=== PATIENT | male | born 1975 | race African-American/Black ===

== ENCOUNTER 2021-09-02 12:31 | Emergency (ER) | payer OTHER, SELFPAY ==
--- NOTE | ~2021-09-02 | XR_ITS ---
EXAMINATION: XR CHEST CLINICAL INFORMATION: Shortness of breath with cough COMPARISON: February 24, 2010 TECHNIQUE: 2 views of the chest were obtained. FINDINGS: No significant abnormality is noted involving the heart, lungs, mediastinum, bony thorax or soft tissues. XR/XR chest 2V IMPRESSION: No acute disease.
[2021-09-02 13:27] VITALS: BP 180/104; PULSE 58; RESP 16; TEMP 36.9; O2SAT 98; BMI 34.4
[2021-09-02 15:01] LABS: Influenza A PCR NEGATIVE (Negative); Influenza B PCR NEGATIVE (Negative); Resp Syncy Virus RNA Qual PCR NEGATIVE (Negative); SARS COV2 PCR INHOUSE NEGATIVE (Negative)
[2021-09-02] MEDS: guaiFEN/Codeine SF 200/20/10ML 10 ML LIQUID PO (17:34)
[2021-09-02] MEDS: dexAMETHasone 2 MG TABLET 10 MG PO (17:34)
[2021-09-02] MEDS: Albuterol/Iprat 2.5/0.5MG 3 ML AMPUL.NEB INHALE (17:54)
[2021-09-02] MEDS: Albuterol Sulfate (0.083%) 2.5 MG/3 ML VIAL.NEB 5 MG INHALE (17:54)
--- NOTE | 2021-09-02 17:54 | ED_ITS ---
HPI - URI/Sore Throat General Chief Complaint: Dyspnea Stated Complaint: SOB Cough Sore Throat Time Seen by Provider: 09/02/21 12:50 Source: patient Mode of arrival: ambulatory Limitations: no limitations History of Present Illness HPI Narrative: Patient with no diagnosis of asthma in the past been having cough wheezing for last 5 months has seen PCP started given him antibiotics and prednisone without any relief comes here with same mucopurulent cough specially at the nighttime and [employer] has some streaks of blood with mucoid phlegm patient has taken last antibiotic course in 06/20 Pain no history of asthma no family history of asthma no new allergen at home or at work no use of chemical patient is a nonsmoker Related Data Previous Rx's Medication Instructions Recorded albuterol sulfate 90 mcg/actuation 2 puff INHALATION Q4-6H PRN #8.5 g 09/02/21 aerosol inhaler (ProAir HFA) codeine 10 mg-guaifenesin 100 mg/5 10 ml PO Q4-6H PRN #237 ml 09/02/21 mL oral liquid dexamethasone 6 mg tablet 6 mg PO DAILY #7 tab 09/02/21 (Decadron) doxycycline hyclate 100 mg tablet 100 mg PO BID #20 tab 09/02/21 Allergies Allergy/AdvReac Type Severity Reaction Status Date / Time No Known Allergies Allergy Verified 09/02/21 13:26 Review of Systems Review of Systems: Yes all other systems are reviewed and are negative PMFSH Social History Social History Advance Directives: No Advance Directives Information Provided: Yes Physical Exam Vital Signs: Vital Signs: Last Vital Signs Temp 98.8 F 09/02/21 18:03 Pulse 53 09/02/21 18:03 Resp 18 09/02/21 18:03 BP 170/101 H 09/02/21 18:03 Pulse Ox 98 09/02/21 18:03 BMI result Body Mass Index 34.4 Appearance: Alert. Oriented X3. No acute distress. Frequent dry cough Eyes: No pallor icterus ENT: Pharynx normal. Oral Mucosa moist Neck: Normal inspection. Neck supple. CVS: Normal heart rate and rhythm. Pulses normal. Respiratory: No respiratory distress. Equal air entry bilateral, bilateral wheezing/rhonchi no crackles equal air entry bilaterally Abdomen: Soft and nontender. Bowel sounds are present, Skin: Skin warm and dry. Normal skin color. Normal skin turgor. Extremities: No lower extremity edema. No calf tenderness Neuro: Oriented X 3. MDM - URI/Sore Throat MDM Narrative Medical decision making narrative: Patient with acute bronchitis/asthma for last 5 months etiology not very clear felt better after nebulizing treatment and Decadron will discharge patient home on doxycycline prednisone and inhalers advised to follow with manager database administration Lab Data Attestation: I reviewed the patient's lab results. Labs: Lab Results 09/02/21 Range/Units 13:37 Influenza Type A (PCR) NEGATIVE (Negative) Influenza Type B (PCR) NEGATIVE (Negative) RSV RNA Qual (PCR) NEGATIVE (Negative) SARS-CoV-2 RNA (RT-PCR) NEGATIVE (Negative) Discharge Plan Discharge Clinical Impression: Acute asthmatic bronchitis Patient Disposition: Home, Self-Care Instructions: Acute Bronchitis (ED) Additional Instructions: Take antibiotics , decadron and inhaler as prescribed Follow-up with manager database administration Prescriptions: New dexamethasone [Decadron] 6 mg tablet 6 mg PO DAILY Qty: 7 RF: 0 codeine-guaifenesin 10-100 mg/5 mL liquid 10 ml PO Q4-6H PRN (Reason: cough) Qty: 237 RF: 0 albuterol sulfate [ProAir HFA] 90 mcg/actuation HFA aerosol inhaler 2 puff inhalation Q4-6H PRN (Reason: Wheezing) Qty: 8.5 RF: 0 doxycycline hyclate 100 mg tablet 100 mg PO BID Qty: 20 RF: 0 Referrals: Vipin Jett MD [Physician] - 10 days Interventions: ED Discharge Assessment Last Done: 09/02/21 19:50 Discharge Date/Time: 09/02/21 19:51
[2021-09-02 17:58] VITALS: O2SAT 96
[2021-09-02 18:03] VITALS: BP 170/101; PULSE 53; RESP 18; TEMP 37.1; O2SAT 98
== END 2021-09-02 19:51 | disposition home or self-care (01) ==
PROVIDERS: Emergency Provider Internal Medicine
DX: J20.9 Acute bronchitis, unspecified (principal); Z20.822 Contact with and (suspected) exposure to COVID-19; R06.02 Shortness of breath; Z79.899 Other long term (current) drug therapy
CPT/HCPCS: 0241U; 36415; 71046; 94640; 94644; 99284; J8540

== ENCOUNTER 2022-04-10 14:36 | Emergency (ER) | payer OTHER, SELFPAY ==
--- NOTE | ~2022-04-10 | CT_ITS ---
EXAMINATION: CT CHEST WITHOUT CONTRAST CLINICAL INFORMATION: Cough and shortness of breath COMPARISON: Chest x-ray performed earlier the same date TECHNIQUE: Multidetector volumetric CT imaging of the chest was done. Axial MIP volume rendering provided. Sagittal and coronal reformatted images were obtained. This CT examination was performed using dose optimization techniques as appropriate, variously including the following: *Automated exposure control *Adjustment of mA and/or kV according to patient size (this includes techniques or standardized protocols for targeted exams where dose is matched to indication/reason for exam; i.e. extremities or head) *Use of iterative reconstruction technique DLP: 327 mGy-cm FINDINGS: LUNGS: Small 2 mm benign calcified granuloma in the right upper lobe on series 5 image 178. No other pulmonary nodules. Minimal subsegmental atelectasis in the lingula. No airspace consolidation. No emphysematous change. Central airways are clear. No bronchial wall thickening or bronchiectasis. MEDIASTINUM: Prominent heart size. No pericardial effusion. Normal caliber thoracic aorta and central pulmonary trunk. No mediastinal or hilar lymphadenopathy. PLEURA: There is no pleural effusion. No pleural mass or thickening. AXILLA: No lymphadenopathy. UPPER ABDOMEN: Unremarkable. OSSEOUS STRUCTURES: No fracture or suspicious osseous lesion. CT/CT chest wo con IMPRESSION: 1. No acute pulmonary process.
--- NOTE | ~2022-04-10 | XR_ITS ---
EXAMINATION: XR CHEST CLINICAL INFORMATION: Cough COMPARISON: Previous chest x-ray most recent August 2021 TECHNIQUE: 2 views of the chest were obtained. FINDINGS: The cardiac and mediastinal contours are stable. The lungs are clear. There is no pleural effusion or pneumothorax. Bony structures are normal. XR/XR chest 2V IMPRESSION: Unremarkable exam.
[2022-04-10 16:00] VITALS: BP 145/80; PULSE 61; RESP 18; TEMP 36.8; O2SAT 97; BMI 36.6
[2022-04-10 16:27] LABS: COVID-19 Test Negative (Negative); IDNOW Serial# 16C4AD1C
[2022-04-10 18:46] VITALS: BP 212/103; PULSE 56; RESP 16; TEMP 37.1; O2SAT 100
--- NOTE | 2022-04-10 19:04 | ECG_ITS ---
Test Reason : HYPERTENSION Blood Pressure : / mmHG Vent. Rate : 048 BPM Atrial Rate : 048 BPM P-R Int : 194 ms QRS Dur : 100 ms QT Int : 412 ms P-R-T Axes : 017 -08 -05 degrees QTc Int : 368 ms Sinus bradycardia Otherwise normal ECG When compared with ECG of 24-FEB-2010 08:59, Nonspecific T wave abnormality now evident in Lateral leads Referred By: Elza Vicente Electronically Signed By:SELENE TIWARI MD
--- NOTE | 2022-04-10 19:24 | ED.URI ---
HPI - URI/Sore Throat General Chief Complaint: Upper Respiratory Symptoms Stated Complaint: SOB COUGH Time Seen by Provider: 04/10/22 18:48 Source: patient and family Mode of arrival: ambulatory Limitations: no limitations History of Present Illness HPI Narrative: 47-year-old male with a history of PTSD, GERD, asthma, chronic cough presents with cough for the last 4 weeks. Patient tells me that 1 year ago he had a cough that lingered for about 6 months. He saw a cigarette inspector and a petroleum engineering professor. Per patient he had normal PFTs, normal endoscopy. He was started on albuterol MDI and a PPI. He did not feel like it helped. The cough resolved after about 6 months. He reports of the last 4 weeks his cough has worsened. Sometimes he is wheezing. He has chest discomfort with coughing. When he has coughing he has sits and when he has fits he has shortness of breath. No leg swelling or leg pain. + tactile temp. Cough is not productive. He does have daily vomiting and reflux symptoms. Using albuterol MDI with continued symptoms. 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 Cannot recall any specific exposures. No recent travel or sick contacts. Ran out of his blood pressure medication 1 week ago. Is waiting for refill from his primary care Related Data Previous Rx's Medication Instructions Recorded albuterol sulfate 90 mcg/actuation 2 puff inhalation Q4-6H PRN 09/02/21 aerosol inhaler (ProAir HFA) Wheezing #8.5 grams codeine 10 mg-guaifenesin 100 mg/5 10 ml PO Q4-6H PRN cough #237 mL 09/02/21 mL oral liquid dexamethasone 6 mg tablet 6 mg PO DAILY #7 tabs 09/02/21 (Decadron) doxycycline hyclate 100 mg tablet 100 mg PO BID #20 tabs 09/02/21 albuterol sulfate 90 mcg/actuation 2 puff inhalation Q4-6H PRN 04/10/22 aerosol inhaler shortness of breath or wheezing #8.5 grams codeine 10 mg-guaifenesin 100 mg/5 5 ml PO Q6H PRN cough #118 mL 04/10/22 mL oral liquid (Virtussin AC) doxycycline monohydrate 100 mg 100 mg PO BID 7 days #14 caps 04/10/22 capsule losartan 50 mg tablet 50 mg PO DAILY #30 tabs 04/10/22 prednisone 20 mg tablet 40 mg PO DAILY #14 tabs 04/10/22 Allergies Allergy/AdvReac Type Severity Reaction Status Date / Time No Known Allergies Allergy Verified 04/10/22 16:00 Review of Systems Review of Systems: Yes all other systems are reviewed and are negative Constitutional: Constitutional: Reports no additional constitutional complaints, Denies body ache(s), Denies chills, Denies fever(s), Denies headache(s) and Denies weakness Eyes: Eyes: Reports no additional eye complaints and Denies change in vision ENT: Reports system reviewed and no additional complaints, except as documented, Denies dizziness, Denies headache(s), Denies nasal congestion, Denies nasal discharge and Denies neck pain Cardiovascular: Cardiovascular: Reports no additional cardiovascular complaints, Denies chest pain, Denies leg edema and Reports dyspnea Respiratory: Respiratory: Reports no additional respiratory complaints, Reports cough, Reports dyspnea and Reports wheezing Gastrointestinal: Gastrointestinal: Reports no additional gastrointestinal complaints, Denies abdominal pain, Denies diarrhea, Reports nausea and Reports vomiting Genitourinary: Genitourinary: Denies urinary incontinence Musculoskeletal: Musculoskeletal: Reports no additional musculoskeletal complaints, Denies back pain, Denies arthralgias, Denies joint swelling, Denies neck pain, Denies numbness and Denies tingling Integumentary/Breasts: Skin/Breast: Reports system reviewed and no additional complaints, except as docu and Denies rash Neurologic: Denies Abnormal speech present, Denies dizziness, Denies headache(s), Denies numbness, Denies tingling and Denies weakness Allergic/Immunologic: Allergic/Immunologic: Reports wheezing PMFSH Past Medical History Attestation statement: The following information was validated with the patient. Source: old records reviewed and nursing notes reviewed Social History Social History Advance Directives: No Advance Directives Information Provided: Yes Physical Exam Vital Signs: Vital Signs: Last Vital Signs Temp 98.7 F 04/10/22 18:46 Pulse 53 04/10/22 20:00 Resp 18 04/10/22 20:00 BP 172/98 H 04/10/22 20:00 Pulse Ox 98 04/10/22 20:51 O2 Del Method 04/10/22 20:51 BMI result Body Mass Index 36.6 Const: General: cooperative, healthy appearing, comfortable and no acute distress Orientation/consciousness: patient oriented x3 Limitations: no limitations HEENT: Head: Yes normal to inspection Ears: hearing grossly normal bilaterally General nose exam: Normal external nose present Face and sinus: Yes normal facial exam Mouth: Normal oral and palatal mucosa present Throat: Yes posterior oropharynx normal Eyes: General: appearance normal, both eyes and all related structures Pupils: Equal, round and reactive pupils present Neck: Neck: Yes normal visual inspection Chest: Chest palpation & inspection: normal inspection of the chest Resp: Other: Frequent bronchospastic cough Effort & Inspection: normal respiratory effort Auscultation: clear to auscultation bilaterally Cardio: Rate: regular rate Rhythm: regular rhythm Peripheral pulses: Peripheral pulses 2+ throughout GI: Inspection: Yes normal to inspection Palpation (GI): Soft to palpation and nontender Auscultation: normal bowel sounds Back/Spine/Pelvis: Thoracic/Lumbar Spine: thoracic and lumbar spine normal to inspection Skin: General skin exam: no rashes or lesions noted Neuro: General: patient oriented x3, no focal motor deficits and normal sensation to monofilament Cranial nerves: Yes Equal, round and reactive pupils present Cognition (Neuro): normal cognition Speech: No Abnormal speech present Gait exam (Neuro): Normal gait present Motor exam (neuro): 5/5 motor strength present throughout Extrem: General: Yes normal to inspection, Yes no pedal edema and Yes no calf tenderness Course Course Course Narrative: 2039-EKG shows T-wave inversions in lead 3. Consider PE. Will order D-dimer Reevaluation(s) Reevaluation #1: 9523-[id number] is negative. Will obtain CT chest to rule out occult pneumonia Reevaluation #2: 2310-CT chest is negative for any infection. All labs unremarkable with exception of mildly elevated BUN and creatinine which was discussed with the patient. No baseline for comparison Likely secondary to uncontrolled hypertension. Repeat blood pressure 172/98 on discharge after patient received his dose of losartan. Will treat for bronchitis with course of prednisone, antibiotics, MDI, cough suppressant Refill losartan Sats are normal. Reviewed worrisome signs and symptoms of when to return to the emergency department. Comfortable discharge home. MDM - URI/Sore Throat MDM Narrative Medical decision making narrative: 47-year-old male with history of GERD, asthma, cough in the past here with 4 weeks of cough with associated chest discomfort with coughing, coughing fits with associated shortness of breath, tactile temps and vomiting. On arrival patient is hypertensive. Asymptomatic. He ran out of his blood pressure medication is waiting for refill from his primary care. Lungs are clear. No hypoxia or tachypnea. Does have frequent bronchospastic cough. Will check labs, chest x-ray, COVID screen, EKG. May need CT Considered asthma exacerbation, pneumonia, chf, PE -low concern for PE with negative D-dimer, no clinical findings concerning for DVT, no hypoxia or tachypnea or tachycardia Medical Records Attestation: I reviewed the patient's medical records. Lab Data Attestation: I reviewed the patient's lab results. Result diagrams: 04/10/22 19:43 04/10/22 19:43 Labs: Lab Results 04/10/22 04/10/22 04/10/22 Range/Units 16:04 19:43 19:43 WBC 6.3 (4.8-10.8) X10*3/uL RBC 4.48 L (4.60-5.80) X10*6/uL Hgb 12.5 L (14.0-18.0) g/dl Hct 37.6 L (42.0-52.0) % MCV 83.9 (80.0-98.0) fL MCH 27.9 (27.0-33.0) pg MCHC 33.2 (31.0-36.0) g/dl RDW 13.2 (11.0-16.0) % Plt Count 243 (160-400) X10*3/uL MPV 11.5 (9.4-12.4) fL Immature Gran % (Auto) 0.2 (0.0-0.4) % Neut % (Auto) 47.2 (45-73) % Lymph % (Auto) 42.0 H (20-40) % [place] % (Auto) 7.5 (2-11) % Eos % (Auto) 2.6 (0-4) % Baso % (Auto) 0.5 (0-2) % Lymph # (Auto) 2.6 (1.2-4.9) X10*3/uL [place] # (Auto) 0.5 (0.1-1.2) X10*3/uL Eos # (Auto) 0.2 (0.0-0.4) X10*3/uL Baso # (Auto) 0.0 (0.0-0.2) X10*3/uL Abs Immat Gran (auto) 0.01 (0.00-0.03) X10*3/uL Absolute Neuts (auto) 3.0 (2.0-8.3) x10*3/uL Absolute Nucleated RBC 0.000 (0.0-0.012) X10*3/uL Nucleated RBC % (auto) 0.0 (0.0-0.2) /100WBC PT (10.0-13.1) SEC INR (0.9-1.1) D-Dimer High Sensitivty NG/ML Sodium 140 (135-145) mmol/L Potassium 4.3 (3.3-5.1) mmol/L Chloride 106 (96-108) mmol/L Carbon Dioxide 26 (22-29) mmol/L Anion Gap 12 (12-20) BUN 18 H (9-16) mg/dL Creatinine 1.41 H (0.5-1.4) mg/dL Estim Creat Clear Calc 73.5 Estimated GFR 54 Random Glucose 95 (60-115) mg/dL Calcium 9.2 (8.4-10.2) mg/dL Total Bilirubin 0.4 (0.0-1.0) mg/dL Direct Bilirubin 0.2 (0.0-0.5) mg/dL AST 18 (5-37) U/L ALT 33 (0-40) U/L Alkaline Phosphatase 78 (39-117) U/L Troponin I High Sens (<3.5-35.0) ng/L B-Natriuretic Peptide (<100) pg/mL Total Protein 7.4 (6.5-8.0) g/dL Albumin 4.8 (3.5-5.0) g/dL COVID-19 (SAMUEL) Negative (Negative) COVID-19 Clin Com See Note 04/10/22 04/10/22 Range/Units 19:43 21:00 WBC (4.8-10.8) X10*3/uL RBC (4.60-5.80) X10*6/uL Hgb (14.0-18.0) g/dl Hct (42.0-52.0) % MCV (80.0-98.0) fL MCH (27.0-33.0) pg MCHC (31.0-36.0) g/dl RDW (11.0-16.0) % Plt Count (160-400) X10*3/uL MPV (9.4-12.4) fL Immature Gran % (Auto) (0.0-0.4) % Neut % (Auto) (45-73) % Lymph % (Auto) (20-40) % [place] % (Auto) (2-11) % Eos % (Auto) (0-4) % Baso % (Auto) (0-2) % Lymph # (Auto) (1.2-4.9) X10*3/uL [place] # (Auto) (0.1-1.2) X10*3/uL Eos # (Auto) (0.0-0.4) X10*3/uL Baso # (Auto) (0.0-0.2) X10*3/uL Abs Immat Gran (auto) (0.00-0.03) X10*3/uL Absolute Neuts (auto) (2.0-8.3) x10*3/uL Absolute Nucleated RBC (0.0-0.012) X10*3/uL Nucleated RBC % (auto) (0.0-0.2) /100WBC PT 11.6 (10.0-13.1) SEC INR 1.0 (0.9-1.1) D-Dimer High Sensitivty < 150 NG/ML Sodium (135-145) mmol/L Potassium (3.3-5.1) mmol/L Chloride (96-108) mmol/L Carbon Dioxide (22-29) mmol/L Anion Gap (12-20) BUN (9-16) mg/dL Creatinine (0.5-1.4) mg/dL Estim Creat Clear Calc Estimated GFR Random Glucose (60-115) mg/dL Calcium (8.4-10.2) mg/dL Total Bilirubin (0.0-1.0) mg/dL Direct Bilirubin (0.0-0.5) mg/dL AST (5-37) U/L ALT (0-40) U/L Alkaline Phosphatase (39-117) U/L Troponin I High Sens 6.0 (<3.5-35.0) ng/L B-Natriuretic Peptide 21 (<100) pg/mL Total Protein (6.5-8.0) g/dL Albumin (3.5-5.0) g/dL COVID-19 (SAMUEL) (Negative) COVID-19 Clin Com Imaging Data Chest x-ray: Attestation: I personally reviewed and interpreted this imaging study as follows: Radiologist's impression: EXAMINATION: XR CHEST CLINICAL INFORMATION: Cough COMPARISON: Previous chest x-ray most recent August 2021 TECHNIQUE: 2 views of the chest were obtained. FINDINGS: The cardiac and mediastinal contours are stable. The lungs are clear. There is no pleural effusion or pneumothorax. Bony structures are normal. XR/XR chest 2V IMPRESSION: Unremarkable exam. CT scan - chest: Attestation: I personally reviewed and interpreted this imaging study as follows: Radiologist's impression: FINDINGS: LUNGS: Small 2 mm benign calcified granuloma in the right upper lobe on series 5 image 178. No other pulmonary nodules. Minimal subsegmental atelectasis in the lingula. No airspace consolidation. No emphysematous change. Central airways are clear. No bronchial wall thickening or bronchiectasis.? MEDIASTINUM: Prominent heart size. No pericardial effusion. Normal caliber thoracic aorta and central pulmonary trunk. No mediastinal or hilar lymphadenopathy.? PLEURA: There is no pleural effusion. No pleural mass or thickening.? AXILLA: No lymphadenopathy.? UPPER ABDOMEN: Unremarkable.? OSSEOUS STRUCTURES: No fracture or suspicious osseous lesion.? CT/CT chest wo con IMPRESSION: ? 1. No acute pulmonary process.? ECG Data Attestation: I personally reviewed and interpreted this ECG as follows: ECG interpretation date: 04/10/22 ECG interpretation time: 20:28 Interpretation: Sinus bradycardia with a rate of 48, normal [place], normal QRS, T-wave inversions in leads 3 Discharge Plan Discharge Clinical Impression: Bronchitis, Hypertension Patient Disposition: Home, Self-Care Instructions: Acute Bronchitis (ED), Chronic Hypertension (ED) Additional Instructions: Your blood work looks very good with the exception of your kidney function being mildly elevated. Please follow-up with her primary care doctor to have this recheck. CT scan looks normal you received a copy of this Follow-up with your primary care doctor in regards to her symptoms Prescriptions: New albuterol sulfate 90 mcg/actuation HFA aerosol inhaler 2 puff inhalation Q4-6H PRN (Reason: shortness of breath or wheezing) Qty: 8.5 0RF prednisone 20 mg tablet 40 mg PO DAILY Qty: 14 0RF doxycycline monohydrate 100 mg capsule 100 mg PO BID 7 Days Qty: 14 0RF losartan 50 mg tablet 50 mg PO DAILY Qty: 30 0RF codeine-guaifenesin [Virtussin AC] 10-100 mg/5 mL liquid 5 ml PO Q6H PRN (Reason: cough) Qty: 118 0RF No Action dexamethasone [Decadron] 6 mg tablet 6 mg PO DAILY Qty: 7 0RF codeine-guaifenesin 10-100 mg/5 mL liquid 10 ml PO Q4-6H PRN (Reason: cough) Qty: 237 0RF albuterol sulfate [ProAir HFA] 90 mcg/actuation HFA aerosol inhaler 2 puff inhalation Q4-6H PRN (Reason: Wheezing) Qty: 8.5 0RF doxycycline hyclate 100 mg tablet 100 mg PO BID Qty: 20 0RF Referrals: Physician,Unknown J [Primary Care Provider] - Stand Alone Forms: Work/School Release Interventions: ED Discharge Assessment Last Done: 04/10/22 23:05 Discharge Date/Time: 04/10/22 23:06
[2022-04-10] MEDS: Losartan Potassium 50 MG TABLET PO (19:34)
[2022-04-10 19:47] LABS: MANUAL DIFF FLAG NO
[2022-04-10 19:49] LABS: Basophils Percent Auto 0.5 % (0-2); Eosinophils Absolute Auto 0.2 X10*3/uL (0.0-0.4); Eosinophils Percent Auto 2.6 % (0-4); Hematocrit 37.6 % (42.0-52.0); Hemoglobin 12.5 g/dl (14.0-18.0); Imm Gran Abs Auto 0.01 X10*3/uL (0.00-0.03); Imm Gran Pct Auto 0.2 % (0.0-0.4); Lymphocytes Absolute Auto 2.6 X10*3/uL (1.2-4.9); Mean Corpuscular HGB Conc 33.2 g/dl (31.0-36.0); Mean Corpuscular Hemoglobin 27.9 pg (27.0-33.0); Mean Corpuscular Volume 83.9 fL (80.0-98.0); Mean Platelet Volume 11.5 fL (9.4-12.4); Monocytes Absolute Auto 0.5 X10*3/uL (0.1-1.2); Monocytes Percent Auto 7.5 % (2-11); Neutrophils Percent Auto 47.2 % (45-73); Platelet Count 243 X10*3/uL (160-400); Red Blood Count 4.48 X10*6/uL (4.60-5.80); Red Cell Distribution Width 13.2 % (11.0-16.0); White Blood Count 6.3 X10*3/uL (4.8-10.8)
[2022-04-10 20:00] VITALS: BP 172/98; PULSE 53; RESP 18; O2SAT 98
[2022-04-10 20:05] LABS: Alanine Aminotransferase 33 U/L (0-40); Albumin Level 4.8 g/dL (3.5-5.0); Alkaline Phosphatase 78 U/L (39-117); Anion Gap 12 (12-20); Aspartate Amino Transferase 18 U/L (5-37); Bilirubin Direct 0.2 mg/dL (0.0-0.5); Bilirubin Total 0.4 mg/dL (0.0-1.0); Blood Urea Nitrogen 18 mg/dL (9-16); Calcium 9.2 mg/dL (8.4-10.2); Carbon Dioxide 26 mmol/L (22-29); Chloride 106 mmol/L (96-108); Creatinine Clr Calc Pharmacy 73.5; Estimated Glomerular Filt Rate 54; Glucose Random 95 mg/dL (60-115); Potassium 4.3 mmol/L (3.3-5.1); Sodium 140 mmol/L (135-145); Total Protein 7.4 g/dL (6.5-8.0)
[2022-04-10 20:08] LABS: B Type Natriuretic Peptide 21 pg/mL (<100)
[2022-04-10 20:51] VITALS: O2SAT 98
[2022-04-10 21:16] LABS: Prothrombin Time 11.6 SEC (10.0-13.1)
[2022-04-10 21:21] LABS: D Dimer High Sensitivity < 150 NG/ML
== END 2022-04-10 23:06 | disposition home or self-care (01) ==
PROVIDERS: Nurse Practitioner Family; Emergency Provider Emergency Medicine
DX: J40 Bronchitis, not specified as acute or chronic (principal); R06.02 Shortness of breath; R05.9 Cough, unspecified; I10 Essential (primary) hypertension; Z20.822 Contact with and (suspected) exposure to COVID-19; Z79.899 Other long term (current) drug therapy
CPT/HCPCS: 36415; 71046; 71250; 80048; 80076; 83880; 84484; 85025; 85379; 85610; 87635; 93005; 99284

== ENCOUNTER 2022-04-19 11:59 | Emergency (ER) | payer OTHER, SELFPAY ==
--- NOTE | ~2022-04-19 | XR_ITS ---
EXAMINATION: XR CHEST CLINICAL INFORMATION: Choking COMPARISON: 04/10/2022 TECHNIQUE: 2 views of the chest were obtained. FINDINGS: No significant abnormality is noted involving the heart, lungs, mediastinum, bony thorax or soft tissues. XR/XR chest 2V IMPRESSION: Unremarkable examination.
--- NOTE | ~2022-04-19 | CT_ITS ---
EXAMINATION: CT HEAD W/O IV CONTRAST CT CERVICAL SPINE W/O IV CONTRAST CLINICAL INFORMATION: History of syncope and head trauma. COMPARISON: Brain MRI from 08/23/2021 TECHNIQUE: Head - Contiguous axial imaging of the head was performed from the skull base to the vertex without the administration of intravenous contrast, and axial images are reconstructed at 2 mm and 5 mm slice thickness. Cervical spine - A volumetric, helical CT acquisition of the cervical spine was obtained without contrast; in addition to the standard set of axial images, multiplanar reformatted images were provided in the coronal and sagittal imaging planes. This CT examination was performed using dose optimization techniques as appropriate, variously including the following: *Automated exposure control *Adjustment of mA and/or kV according to patient size (this includes techniques or standardized protocols for targeted exams where dose is matched to indication/reason for exam; i.e. extremities or head) *Use of iterative reconstruction technique DLP: 1417 mGy-cm (total) FINDINGS: HEAD: The brain parenchyma has normal attenuation. No evidence of intracranial hemorrhage, major vascular territory infarction, focal mass effect or midline shift. [place] to white matter differentiation is preserved. The ventricles have normal size and configuration. No extra-axial fluid collections. Small left frontal scalp hematoma is present. The calvarium is intact and the visualized paranasal sinuses, mastoid air cells and middle ear cavities are clear. The temporomandibular joints are unremarkable. The orbits and globes are unremarkable. CERVICAL SPINE: Mild dextrocurvature of the cervical spine. The craniocervical junction is normal. The occipital condyles, dens and atlantodental articulation are intact. The vertebral body heights and alignment are maintained. No fractures in the anterior or posterior elements. No prevertebral soft tissue swelling. Mild multilevel discovertebral degenerative change and uncovertebral joint hypertrophy without significant canal or significant neural foraminal stenosis. No hematoma in the visualized neck. The examined lung apices are clear. Thyroid gland is normal. CT/CT cervical spine wo con IMPRESSION: * There is a small left frontal scalp hematoma without calvarial fracture. No acute intracranial pathology. * No fracture or malalignment in the mildly degenerated cervical spine.
[2022-04-19 12:02] VITALS: BP 167/94; PULSE 73; RESP 18; TEMP 37.2; O2SAT 97; BMI 34.4
--- NOTE | 2022-04-19 12:07 | ECG_ITS ---
Test Reason : SYNCOPE Blood Pressure : / mmHG Vent. Rate : 072 BPM Atrial Rate : 072 BPM P-R Int : 178 ms QRS Dur : 116 ms QT Int : 376 ms P-R-T Axes : 037 -11 010 degrees QTc Int : 411 ms Normal sinus rhythm Possible Left atrial enlargement Left ventricular hypertrophy with QRS widening ( R in aVL , [place] product ) Nonspecific T wave abnormality Abnormal ECG When compared with ECG of 10-APR-2022 20:28, Vent. rate has increased BY 24 BPM Referred By: Generic ED Physician Electronically Signed By:Reinaldo Lake
[2022-04-19 12:26] LABS: MANUAL DIFF FLAG NO
[2022-04-19 12:27] LABS: Basophils Percent Auto 0.3 % (0-2); Eosinophils Absolute Auto 0.2 X10*3/uL (0.0-0.4); Eosinophils Percent Auto 2.8 % (0-4); Hematocrit 34.5 % (42.0-52.0); Hemoglobin 11.5 g/dl (14.0-18.0); Imm Gran Abs Auto 0.03 X10*3/uL (0.00-0.03); Imm Gran Pct Auto 0.5 % (0.0-0.4); Lymphocytes Absolute Auto 2.4 X10*3/uL (1.2-4.9); Mean Corpuscular HGB Conc 33.3 g/dl (31.0-36.0); Mean Corpuscular Hemoglobin 28.5 pg (27.0-33.0); Mean Corpuscular Volume 85.6 fL (80.0-98.0); Mean Platelet Volume 11.2 fL (9.4-12.4); Monocytes Absolute Auto 0.4 X10*3/uL (0.1-1.2); Monocytes Percent Auto 6.1 % (2-11); Neutrophils Absolute Auto 3.1 x10*3/uL (2.0-8.3); Neutrophils Percent Auto 51.3 % (45-73); Platelet Count 217 X10*3/uL (160-400); Red Blood Count 4.03 X10*6/uL (4.60-5.80); Red Cell Distribution Width 13.6 % (11.0-16.0)
[2022-04-19 12:42] LABS: Appearance Urine CLEAR; Color Urine STRAW; Glucose Urine UA NEG (NEG); Leukocyte Esterase Urine NEG (NEG); Nitrite Urine NEG (NEG); PH 5.5 (5.0-8.0); Specific Gravity - Urine 1.025 (1.005-1.025); Urine Blood NEG (NEG); Urine Ketones NEG (NEG); Urine Protein NEG (NEG-TRACE)
[2022-04-19 12:51] LABS: Alanine Aminotransferase 27 U/L (0-40); Albumin Level 4.2 g/dL (3.5-5.0); Alkaline Phosphatase 89 U/L (39-117); Anion Gap 11 (12-20); Aspartate Amino Transferase 13 U/L (5-37); Bilirubin Total 0.4 mg/dL (0.0-1.0); Blood Urea Nitrogen 17 mg/dL (9-16); Calcium 8.8 mg/dL (8.4-10.2); Carbon Dioxide 27 mmol/L (22-29); Chloride 107 mmol/L (96-108); Creatinine Clr Calc Pharmacy 75.2; Estimated Glomerular Filt Rate 55; Glucose Random 148 mg/dL (60-115); Potassium 4.2 mmol/L (3.3-5.1); Sodium 141 mmol/L (135-145); Total Protein 6.4 g/dL (6.5-8.0)
[2022-04-19 12:53] LABS: Troponin-I High Sensitivity 4.5 ng/L (<3.5-35.0)
[2022-04-19 12:56] LABS: Amphetamine Screen Urine Not Detected (Not Detect); Barbiturates, Urine Not Detected (Not Detect); Benzodiazepines Screen Urine Not Detected (Not Detect); Cannabinoid Screen Urine Not Detected (Not Detect); Cocaine Screen Urine Not Detected (Not Detect); Fentanyl, urine Not Detected (Not Detect); Opiate Screen Urine Not Detected (Not Detect); Phencyclidine Screen Urine Not Detected (Not Detect)
[2022-04-19 13:22] LABS: Glucose, Whole Blood 143 mg/dL (60-115)
[2022-04-19 13:51] VITALS: PULSE 59; RESP 17
--- NOTE | 2022-04-19 13:51 | PC.NURSE ---
sb on monitor, had a coughing fit while eating and bent over and passed out, denies smith or neck pain, awaiting md julio
--- NOTE | 2022-04-19 14:22 | ED.SYNCOPE ---
HPI - Syncope General Chief Complaint: Syncope Stated Complaint: passed out at work Time Seen by Provider: 04/19/22 13:59 Source: patient, RN notes reviewed and old records reviewed Mode of arrival: ambulatory Limitations: no limitations History of Present Illness HPI narrative: This is a 47-year-old male, with a past medical history of hypertension, asthma, and migraines who presents today with complaints of syncopal episode which occurred at 11:00AM today. Patient states that while he was at work, on his lunch break in his air conditioned car, he was drinking water, and felt like the water was going down the wrong tube , so he opened up his car door to spit the water out when ultimately he lost consciousness for several seconds, and woke up on the pavement. The syncopal episode was unwitnessed, but states that he only lost consciousness for 5 seconds as his boss came over to help him. He states when he woke up he felt like he was thrashing his entire body as he kept scraping his left side of his forehead on the pavement. Patient states that on his way over to the emergency department he felt as though his body was uncontrollably shaking but was conscious during this. He reports that upon arrival he did vomit all over himself. He denies biting his tongue, or loss of bladder or bowel control. Patient reports that he is now feeling okay and is completely asymptomatic. He states that he was feeling well this morning and had no symptoms prior to his syncopal episode. He denies any headaches, visual changes, weakness, chest pain, shortness of breath, abdominal pain, or diarrhea. He denies history of similar symptoms in the past, denies history is seizures in the past. Denies family history of seizure disorders. Reports history of syncopal episode after coughing fit two years ago, but did not seek medical treatment then. Tetanus immunization not up to date. Denies any other complaints or concerns at this time. MD complaint: loss of consciousness Onset (ago): hour(s) Duration of episode: 5 -: second(s) Prodromal symptoms: none Witnessed: No Context: at rest Injuries sustained associated with event: face and head Current symptoms: none Treatments prior to arrival: none Related Data Previous Rx's Medication Instructions Recorded albuterol sulfate 90 mcg/actuation 2 puff inhalation Q4-6H PRN 09/02/21 aerosol inhaler (ProAir HFA) Wheezing #8.5 grams codeine 10 mg-guaifenesin 100 mg/5 10 ml PO Q4-6H PRN cough #237 mL 09/02/21 mL oral liquid dexamethasone 6 mg tablet 6 mg PO DAILY #7 tabs 09/02/21 (Decadron) doxycycline hyclate 100 mg tablet 100 mg PO BID #20 tabs 09/02/21 albuterol sulfate 90 mcg/actuation 2 puff inhalation Q4-6H PRN 04/10/22 aerosol inhaler shortness of breath or wheezing #8.5 grams codeine 10 mg-guaifenesin 100 mg/5 5 ml PO Q6H PRN cough #118 mL 04/10/22 mL oral liquid (Virtussin AC) doxycycline monohydrate 100 mg 100 mg PO BID 7 days #14 caps 04/10/22 capsule losartan 50 mg tablet 50 mg PO DAILY #30 tabs 04/10/22 prednisone 20 mg tablet 40 mg PO DAILY #14 tabs 04/10/22 Allergies Allergy/AdvReac Type Severity Reaction Status Date / Time No Known Allergies Allergy Verified 04/19/22 12:01 Review of Systems Review of Systems: Constitutional : No Weight loss, No Fever, No Chills, No Night Sweats, No Fatigue, No Malaise ENT/Mouth : No Hearing loss, No Ear Pain, No Nasal Congestion, No Sinus Pain, No Hoarseness, No sore throat, No Rhinorrhea, No Swallowing Difficulty Eyes: No Eye Pain, No Swelling, No Redness, No Foreign Body, No Discharge, No Vision Changes Cardiovascular : No Chest Pain, No SOB, No Dyspnea on Exertion, No Orthopnea, No Edema, No Palpitations Respiratory : No Cough, No Sputum, No Wheezing, No Smoke Exposure, No Dyspnea Gastrointestinal : No Nausea, No Vomiting, No Diarrhea, No Constipation, No abdominal Pain, No Hematochezia, No Melena Genitourinary : no irregular bleeding, No Dysuria, No Urinary Frequency, No Hematuria, No Urinary Incontinence, No Urgency, No Flank Pain, No Urinary Flow Changes, No Hesitancy Musculoskeletal : No joint pain, No Myalgias, No Joint Swelling Skin : +abrasions, No Skin Lesions, No rash Neuro : +syncope, No Weakness, No Numbness, No Paresthesias, No Dizziness, No Headache Psych : No Anxiety/Panic, No Depression, No SI/HI/AH/VH, No Social Issues, Heme/Lymph: No Bruising, No Bleeding,No Lymphadenopathy Endocrine : No Polyuria, No Polydipsia, No Temperature Intolerance Yes all other systems are reviewed and are negative [facility] Social History Social History Advance Directives: No Advance Directives Information Provided: Yes Physical Exam Vital Signs: Vital Signs: Last Vital Signs Temp 99.0 F 04/19/22 12:02 Pulse 59 04/19/22 13:51 Resp 17 04/19/22 13:51 BP 167/94 H 04/19/22 12:02 Pulse Ox 97 04/19/22 12:02 O2 Del Method 04/19/22 12:02 BMI result Body Mass Index 34.4 Vital signs have been reviewed as normal and appeared to be correct. Blood pressure 167/94. Heart rate normal. Respiration rate normal. Temperature normal. Oxygen saturation normal. Appearance: Alert. Oriented X3. No acute distress. Head: Normal external exam. Normocephalic. Atraumatic. No Barron signs noted. No raccoon eyes noted Eyes: PERRLA. EOMI. Conjunctiva and sclera normal. Eyelids normal. ENT: EAC normal. TM's Normal. No septal hematoma noted. No hemotympanum noted. Pharynx normal. Uvula midline. Moist mucous membranes. No lesions/ulcerations or masses noted on the tongue. Normal voice. No trismus noted. No drooling noted. No muffled voice noted. Neck: Normal inspection. Neck supple. FROM. No adenopathy. Thyroid Normal. No tracheal deviation noted. No crepitus is noted. No meningeal signs. No neck mass noted. No signs of trauma noted. CVS: Normal heart rate and rhythm. Heart sound normal. Pulses normal throughout. No murmurs/rales/gallops. Respiratory: No respiratory distress. Painless inspiration. Breath sounds normal. No wheezes/rales/rhonchi noted. Chest nontender. No crepitus is noted. No signs of trauma noted. No accessory muscle usage noted or decreased air movement noted. No signs of trauma. Abdomen: Soft and nontender. Bowel sounds normal in all 4 quadrants. No distention noted. No organomegaly noted. No visible injury noted. Back: No CVA tenderness. Full range of motion noted. Nontender. No signs of trauma. Patient neuro intact bilaterally and distally on all 4 extremities. Patient's reflexes intact bilaterally and distally on all 4 extremities. No rashes/lesion/induration/fluctuance or signs of infection noted. Skin: Left forehead with two regions of superficial abrasions and surrounding edema. Skin warm and dry. Normal skin color. Normal skin turgor. No rashes/lesions/lacerations noted. Extremities: No lower extremity edema. No calf tenderness is noted. Extremities exhibit normal range of motion and nontender. Neuro: Oriented X 3. No motor deficit. No sensory deficit. Reflexes normal. Normal steady gait. No focal neuro deficits noted. CN's II-XII intact bilaterally. Negative pronator drift. Vascular: + radial pulses/+ 2 distal pedal pulses/+2 dorsalis pedis b/l. Normal cap refill. No cyanosis noted to upper extremity nails and lower extremity toes nails. Course Course Course Narrative: This is a 47-year-old male, with a past medical history of hypertension, asthma, and migraines who presents today with complaints of syncopal episode which occurred at 11:00AM today. Plan: Labs, UA, EKG, chest x-ray, CT head and CT cervical spine ordered. Reevaluation(s) Reevaluation #1: Head and neck CT unremarkable. Patient's workup was unremarkable, patient's symptoms likely secondary to post tussive syncope. Case discussed with Dr. Boateng. No additional labs or imaging indicated at this time. Patient requesting to go home, did not want to be admitted. Forehead abrasions cleansed with saline and dressed with bacitracin. Tetanus updated today. Given referral for cardiology follow up. Time: 16:46 MDM - Syncope Medical Records Attestation: I reviewed the patient's medical records. Lab Data Attestation: I reviewed the patient's lab results. Result diagrams: 04/19/22 12:20 04/19/22 12:21 Labs: Lab Results 04/19/22 04/19/22 04/19/22 Range/Units 12:08 12:20 12:20 WBC 6.0 (4.8-10.8) X10*3/uL RBC 4.03 L (4.60-5.80) X10*6/uL Hgb 11.5 L (14.0-18.0) g/dl Hct 34.5 L (42.0-52.0) % MCV 85.6 (80.0-98.0) fL MCH 28.5 (27.0-33.0) pg MCHC 33.3 (31.0-36.0) g/dl RDW 13.6 (11.0-16.0) % Plt Count 217 (160-400) X10*3/uL MPV 11.2 (9.4-12.4) fL Immature Gran % (Auto) 0.5 H (0.0-0.4) % Neut % (Auto) 51.3 (45-73) % Lymph % (Auto) 39.0 (20-40) % [place] % (Auto) 6.1 (2-11) % Eos % (Auto) 2.8 (0-4) % Baso % (Auto) 0.3 (0-2) % Lymph # (Auto) 2.4 (1.2-4.9) X10*3/uL [place] # (Auto) 0.4 (0.1-1.2) X10*3/uL Eos # (Auto) 0.2 (0.0-0.4) X10*3/uL Baso # (Auto) 0.0 (0.0-0.2) X10*3/uL Abs Immat Gran (auto) 0.03 (0.00-0.03) X10*3/uL Absolute Neuts (auto) 3.1 (2.0-8.3) x10*3/uL Absolute Nucleated RBC 0.000 (0.0-0.012) X10*3/uL Nucleated RBC % (auto) 0.0 (0.0-0.2) /100WBC Sodium (135-145) mmol/L Potassium (3.3-5.1) mmol/L Chloride (96-108) mmol/L Carbon Dioxide (22-29) mmol/L Anion Gap (12-20) BUN (9-16) mg/dL Creatinine (0.5-1.4) mg/dL Estim Creat Clear Calc Estimated GFR POC Glucose 143 H (60-115) mg/dL Random Glucose (60-115) mg/dL Estimat Average Glucose mg/dL Hemoglobin A1c % % Calcium (8.4-10.2) mg/dL Magnesium (1.6-2.6) mg/dL Total Bilirubin (0.0-1.0) mg/dL AST (5-37) U/L ALT (0-40) U/L Alkaline Phosphatase (39-117) U/L Total Creatine Kinase (38-174) U/L Troponin I High Sens 4.5 (<3.5-35.0) ng/L Total Protein (6.5-8.0) g/dL Albumin (3.5-5.0) g/dL Urine Color Urine Appearance Urine pH (5.0-8.0) Ur Specific [place] (1.005-1.025) Urine Protein (NEG-TRACE) MG/DL Urine Glucose (UA) (NEG) MG/DL Urine Ketones (NEG) MG/DL Urine Blood (NEG) Urine Nitrite (NEG) Ur Leukocyte Esterase (NEG) Urine Opiates Screen (Not Detect) Urine Fentanyl Screen (Not Detect) Ur Barbiturates Screen (Not Detect) Ur Phencyclidine Scrn (Not Detect) Ur Amphetamines Screen (Not Detect) U Benzodiazepines Scrn (Not Detect) Urine Cocaine Screen (Not Detect) U Marijuana (THC) Screen (Not Detect) 04/19/22 04/19/22 04/19/22 Range/Units 12:21 12:28 12:28 WBC (4.8-10.8) X10*3/uL RBC (4.60-5.80) X10*6/uL Hgb (14.0-18.0) g/dl Hct (42.0-52.0) % MCV (80.0-98.0) fL MCH (27.0-33.0) pg MCHC (31.0-36.0) g/dl RDW (11.0-16.0) % Plt Count (160-400) X10*3/uL MPV (9.4-12.4) fL Immature Gran % (Auto) (0.0-0.4) % Neut % (Auto) (45-73) % Lymph % (Auto) (20-40) % [place] % (Auto) (2-11) % Eos % (Auto) (0-4) % Baso % (Auto) (0-2) % Lymph # (Auto) (1.2-4.9) X10*3/uL [place] # (Auto) (0.1-1.2) X10*3/uL Eos # (Auto) (0.0-0.4) X10*3/uL Baso # (Auto) (0.0-0.2) X10*3/uL Abs Immat Gran (auto) (0.00-0.03) X10*3/uL Absolute Neuts (auto) (2.0-8.3) x10*3/uL Absolute Nucleated RBC (0.0-0.012) X10*3/uL Nucleated RBC % (auto) (0.0-0.2) /100WBC Sodium 141 (135-145) mmol/L Potassium 4.2 (3.3-5.1) mmol/L Chloride 107 (96-108) mmol/L Carbon Dioxide 27 (22-29) mmol/L Anion Gap 11 L (12-20) BUN 17 H (9-16) mg/dL Creatinine 1.38 (0.5-1.4) mg/dL Estim Creat Clear Calc 75.2 Estimated GFR 55 POC Glucose (60-115) mg/dL Random Glucose 148 H D (60-115) mg/dL Estimat Average Glucose mg/dL Hemoglobin A1c % % Calcium 8.8 (8.4-10.2) mg/dL Magnesium 1.9 (1.6-2.6) mg/dL Total Bilirubin 0.4 (0.0-1.0) mg/dL AST 13 (5-37) U/L ALT 27 (0-40) U/L Alkaline Phosphatase 89 (39-117) U/L Total Creatine Kinase 266 H (38-174) U/L Troponin I High Sens (<3.5-35.0) ng/L Total Protein 6.4 L (6.5-8.0) g/dL Albumin 4.2 (3.5-5.0) g/dL Urine Color STRAW Urine Appearance CLEAR Urine pH 5.5 (5.0-8.0) Ur Specific [place] 1.025 (1.005-1.025) Urine Protein NEG (NEG-TRACE) MG/DL Urine Glucose (UA) NEG (NEG) MG/DL Urine Ketones NEG (NEG) MG/DL Urine Blood NEG (NEG) Urine Nitrite NEG (NEG) Ur Leukocyte Esterase NEG (NEG) Urine Opiates Screen Not Detected (Not Detect) Urine Fentanyl Screen Not Detected (Not Detect) Ur Barbiturates Screen Not Detected (Not Detect) Ur Phencyclidine Scrn Not Detected (Not Detect) Ur Amphetamines Screen Not Detected (Not Detect) U Benzodiazepines Scrn Not Detected (Not Detect) Urine Cocaine Screen Not Detected (Not Detect) U Marijuana (THC) Screen Not Detected (Not Detect) 04/19/22 04/19/22 Range/Units 12:28 14:54 WBC (4.8-10.8) X10*3/uL RBC (4.60-5.80) X10*6/uL Hgb (14.0-18.0) g/dl Hct (42.0-52.0) % MCV (80.0-98.0) fL MCH (27.0-33.0) pg MCHC (31.0-36.0) g/dl RDW (11.0-16.0) % Plt Count (160-400) X10*3/uL MPV (9.4-12.4) fL Immature Gran % (Auto) (0.0-0.4) % Neut % (Auto) (45-73) % Lymph % (Auto) (20-40) % [place] % (Auto) (2-11) % Eos % (Auto) (0-4) % Baso % (Auto) (0-2) % Lymph # (Auto) (1.2-4.9) X10*3/uL [place] # (Auto) (0.1-1.2) X10*3/uL Eos # (Auto) (0.0-0.4) X10*3/uL Baso # (Auto) (0.0-0.2) X10*3/uL Abs Immat Gran (auto) (0.00-0.03) X10*3/uL Absolute Neuts (auto) (2.0-8.3) x10*3/uL Absolute Nucleated RBC (0.0-0.012) X10*3/uL Nucleated RBC % (auto) (0.0-0.2) /100WBC Sodium (135-145) mmol/L Potassium (3.3-5.1) mmol/L Chloride (96-108) mmol/L Carbon Dioxide (22-29) mmol/L Anion Gap (12-20) BUN (9-16) mg/dL Creatinine (0.5-1.4) mg/dL Estim Creat Clear Calc Estimated GFR POC Glucose (60-115) mg/dL Random Glucose (60-115) mg/dL Estimat Average Glucose 111 mg/dL Hemoglobin A1c % 5.5 % Calcium (8.4-10.2) mg/dL Magnesium (1.6-2.6) mg/dL Total Bilirubin (0.0-1.0) mg/dL AST (5-37) U/L ALT (0-40) U/L Alkaline Phosphatase (39-117) U/L Total Creatine Kinase (38-174) U/L Troponin I High Sens 6.3 (<3.5-35.0) ng/L Total Protein (6.5-8.0) g/dL Albumin (3.5-5.0) g/dL Urine Color Urine Appearance Urine pH (5.0-8.0) Ur Specific [place] (1.005-1.025) Urine Protein (NEG-TRACE) MG/DL Urine Glucose (UA) (NEG) MG/DL Urine Ketones (NEG) MG/DL Urine Blood (NEG) Urine Nitrite (NEG) Ur Leukocyte Esterase (NEG) Urine Opiates Screen (Not Detect) Urine Fentanyl Screen (Not Detect) Ur Barbiturates Screen (Not Detect) Ur Phencyclidine Scrn (Not Detect) Ur Amphetamines Screen (Not Detect) U Benzodiazepines Scrn (Not Detect) Urine Cocaine Screen (Not Detect) U Marijuana (THC) Screen (Not Detect) Imaging Data Chest x-ray: Attestation: I personally reviewed and interpreted this imaging study as follows: Radiologist's impression: EXAMINATION: XR CHEST CLINICAL INFORMATION: Choking COMPARISON: 04/10/2022 TECHNIQUE: 2 views of the chest were obtained. FINDINGS: No significant abnormality is noted involving the heart, lungs, mediastinum, bony thorax or soft tissues. XR/XR chest 2V IMPRESSION: Unremarkable examination. CT - head and cervical spine: Attestation: I personally reviewed and interpreted this imaging study as follows: Radiologist's impression: EXAMINATION: CT HEAD W/O IV CONTRAST CT CERVICAL SPINE W/O IV CONTRAST CLINICAL INFORMATION: History of syncope and head trauma. COMPARISON: Brain MRI from 08/23/2021 TECHNIQUE: Head - Contiguous axial imaging of the head was performed from the skull base to the vertex without the administration of intravenous contrast, and axial images are reconstructed at 2 mm and 5 mm slice thickness. Cervical spine - A volumetric, helical CT acquisition of the cervical spine was obtained without contrast; in addition to the standard set of axial images, multiplanar reformatted images were provided in the coronal and sagittal imaging planes. This CT examination was performed using dose optimization techniques as appropriate, variously including the following: *Automated exposure control *Adjustment of mA and/or kV according to patient size (this includes techniques or standardized protocols for targeted exams where dose is matched to indication/reason for exam; i.e. extremities or head) *Use of iterative reconstruction technique DLP: 1417 mGy-cm (total) FINDINGS: HEAD: The brain parenchyma has normal attenuation. No evidence of intracranial hemorrhage, major vascular territory infarction, focal mass effect or midline shift. [place] to white matter differentiation is preserved. The ventricles have normal size and configuration. No extra-axial fluid collections. Small left frontal scalp hematoma is present. The calvarium is intact and the visualized paranasal sinuses, mastoid air cells and middle ear cavities are clear. The temporomandibular joints are unremarkable. The orbits and globes are unremarkable. CERVICAL SPINE: Mild dextrocurvature of the cervical spine. The craniocervical junction is normal. The occipital condyles, dens and atlantodental articulation are intact. The vertebral body heights and alignment are maintained. No fractures in the anterior or posterior elements. No prevertebral soft tissue swelling. Mild multilevel discovertebral degenerative change and uncovertebral joint hypertrophy without significant canal or significant neural foraminal stenosis. No hematoma in the visualized neck. The examined lung apices are clear. Thyroid gland is normal.? CT/CT head/brain wo con IMPRESSION: *? There is a small left frontal scalp hematoma without calvarial fracture. No acute intracranial pathology. *? No fracture or malalignment in the mildly degenerated cervical spine. ? ? ? Dictated By: Collins Ray MD ECG Data Attestation: I personally reviewed and interpreted this ECG as follows: ECG interpretation date: 04/19/22 ECG interpretation time: 12:03 Prior ECG tracings: available for review Interpretation: Noraml sinus rhythm with possible left atrial enlargement. Left ventricular hypertrophy with QRS widening, nonspecific T wave abnormality, with a ventricular rate at 72bpm, OK interval 178, QTC 411. Similar to previous EKG from 04/10/2022. No acute ischemic changes, no ST elevation or depression. Critical Care Time Critical Care Time Critical Care Time: Yes Total Critical Care Time: 60 Attestation: I personally attest to this time spent taking care of the patient Discharge Plan Discharge Clinical Impression: Vasovagal syncope Patient Disposition: Home, Self-Care Additional Instructions: Your head and neck head and were normal today. Please follow-up with your primary care physician regarding this visit. Prescriptions: No Action dexamethasone [Decadron] 6 mg tablet 6 mg PO DAILY Qty: 7 0RF codeine-guaifenesin 10-100 mg/5 mL liquid 10 ml PO Q4-6H PRN (Reason: cough) Qty: 237 0RF albuterol sulfate [ProAir HFA] 90 mcg/actuation HFA aerosol inhaler 2 puff inhalation Q4-6H PRN (Reason: Wheezing) Qty: 8.5 0RF doxycycline hyclate 100 mg tablet 100 mg PO BID Qty: 20 0RF albuterol sulfate 90 mcg/actuation HFA aerosol inhaler 2 puff inhalation Q4-6H PRN (Reason: shortness of breath or wheezing) Qty: 8.5 0RF prednisone 20 mg tablet 40 mg PO DAILY Qty: 14 0RF doxycycline monohydrate 100 mg capsule 100 mg PO BID 7 Days Qty: 14 0RF losartan 50 mg tablet 50 mg PO DAILY Qty: 30 0RF codeine-guaifenesin [Virtussin AC] 10-100 mg/5 mL liquid 5 ml PO Q6H PRN (Reason: cough) Qty: 118 0RF Referrals: Reinaldo Lake MD [Physician] - 1 week ( Call to make a follow-up appointment within the next 1-2 weeks) Stand Alone Forms: Work/School Release
[2022-04-19 14:49] LABS: Magnesium 1.9 mg/dL (1.6-2.6)
[2022-04-19 14:59] LABS: Estimated Average Glucose 111 mg/dL; Hemoglobin A1c % 5.5 %
[2022-04-19 15:18] LABS: Troponin-I High Sensitivity 6.3 ng/L (<3.5-35.0)
--- NOTE | 2022-04-19 15:18 | PC.NURSE ---
patient away for imaging. Will medicate upon return.
[2022-04-19] MEDS: Diphth,Pertus(ACell),Tet Adult 0.5 ML SYRINGE IM (15:33)
== END 2022-04-19 17:02 | disposition home or self-care (01) ==
PROVIDERS: Physician Assistant Medical; Emergency Provider Emergency Medicine Emergency Medical Services
DX: R55 Syncope and collapse (principal); S00.81XA Abrasion of other part of head, initial encounter; W17.89XA Other fall from one level to another, initial encounter; I10 Essential (primary) hypertension; Y93.89 Activity, other specified; Y92.810 Car as the place of occurrence of the external cause; Y99.9 Unspecified external cause status; Z79.899 Other long term (current) drug therapy
CPT/HCPCS: 36415; 70450; 71046; 72125; 80053; 80307; 81003; 82550; 82947; 83036; 83735; 84484; 85025; 90471; 90715; 93005; 99284

== ENCOUNTER 2024-09-24 14:20 | Inpatient (IN) | payer OTHER, SELFPAY ==
[2024-09-24] VITALS (7 sets, daily range): BP systolic 138–170; BP diastolic 77–104; PULSE 53–59; RESP 16–20; TEMP 36.6–36.8; O2SAT 94–99; BMI 36.4; BMI 35.5
--- NOTE | ~2024-09-24 | CT_ITS ---
EXAMINATION: CT HEAD WITHOUT CONTRAST CLINICAL INFORMATION: Headache, 41-year-old male. COMPARISON: 04/19/2022. TECHNIQUE: Contiguous axial imaging was performed from the skull base to vertex without intravenous administration of contrast. This CT examination was performed using dose optimization techniques as appropriate, variously including the following: *Automated exposure control *Adjustment of mA and/or kV according to patient size (this includes techniques or standardized protocols for targeted exams where dose is matched to indication/reason for exam; i.e. extremities or head) *Use of iterative reconstruction technique DLP: 695 mGy-cm FINDINGS: There is no evidence of intracranial hemorrhage or extra-axial fluid collection. There is no mass effect, or edema. No CT evidence of acute territorial infarct. Ventricles, sulci, and cisterns are normal in size and configuration for patient age. No hydrocephalus. No midline shift. Negative hyperdense MCA sign. Negative subinsular ribbon sign. No significant white matter abnormalities. Sella appears normal. Globes and orbital contents image normally. No extracranial soft tissue abnormalities. The paranasal sinuses, mastoid air cells, and tympanic cavities are normally aerated. No suspicious bony abnormalities. CT/CT head/brain wo IV con IMPRESSION: No acute intracranial abnormality. Electronically signed by: Ruben Gibbons MD 09/24/2024 04:09 PM [facility]
--- OUTSIDE RECORDS SUMMARY | 2024-09-24 14:23 | XMS_ITS | Encounter Summary ---
Author Name [facility] [place] [facility] Address [address] [place] [address] Care Team Providers Care Eviscerator Name Role Phone JOSIAH HARRIS Primary Care Provide r Unavailable Insurance Providers: All historical and current Section Date Range: From patient's date of to the date document was created. This section includes the names of all active insurance providers for the patient. Insurance Provider Type of Coverage Plan Name Start of Policy Coverage End of Policy Coverage Group Number Member ID Insurance Provider's Telephone Number Policy Shi's Name Patient's Relationship to Policy Shi SUSAN SALMONMarlo ION [id number] Sep 30, 2020 [id number] DORIAN TREJO PATIENT [facility] [employer] GOLD ADV O Sep 30, 2020 [id number] [phone] TREJO DORIAN PATIENT Selected Encounter This section includes the information on record at [place] for the Encounter. Date/Time Encounter Type Encounter Description Reason Pro vider Source [facility] Encounter Template Text not used by [facility]
--- OUTSIDE RECORDS SUMMARY | 2024-09-24 14:23 | XMS_ITS | Continuity of Care Document ---
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 It does not include entries that were removed or entered in error. Problem Status Onset Date Problem Type Date of Resolution Comments Source Asthma (SCT 176352505) Active Condition Aug 10, 2023 Entered By: JOSIAH GUERIN Comment: 2022 [place] Chronic gastritis Active Condition [facility] Chronic headache disorder Active Condition [facility] Chronic kidney disease stage 3A Active Condition [place] Chronic migraine without aura Active Condition [facility] Constipation Active Condition [facility] LD Depression (SCT 89691457) Active Condition [place] Essential hypertension Active Condition [facility] Exposure to potentially hazardous substance (SCT 947247856434839 ) Active Condition Jan 08, 2024 Entered By: MK FREEMAN Comment: Entered automatically through ANGELO Problem List documentation program [facility] Hallux valgus Active Condition [facility] Hemorrhoids Active Condition [facility] D Low back pain Active Condition [facility] Obesity Active Condition [facility] Obstructive sleep apnea of adult Active Condition [facility] Obstructive sleep apnea syndrome Active Condition Sep 14, 2020 Entered By: JOVITA MOODY Comment: 07/2020 moderate Apnea Hypopnea Index (AHI) of 21.4 [facility] Pain in left knee Active Condition [facility] Prediabetes Active Condition [facility] Tinnitus Active Condition [place] Vitamin D Deficiency (SCT 80100229) Active Condition [place] Diagnosis: ICD-10-CM N18.31 Chronic kidney disease, stage 3a Active Diagnosis [facility] [place] [facility] Diagnosis: ICD-10-CM I10 Essential (primary) hypertension Active Diagnosis [place] Diagnosis: ICD-10-CM G47.33 Obstructive sleep apnea (adult) (pediatric) Active Diagnosis [facility] Diagnosis: ICD-10-CM Z46.0 Encounter for fit/adjst of spectacles and contact lenses Active Diagnosis [facility] [place] [facility] Diagnosis: ICD-10-CM 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, NEC, bilateral Active Diagnosis [facility] [place] [facility] Diagnosis: ICD-10-CM Z23 Encounter for immunization Active Diagnosis [place] Diagnosis: ICD-10-CM F43.0 Acute stress reaction Active Diagnosis [facility] Diagnosis: ICD-10-CM Z71.89 Other specified counseling Active Diagnosis [facility] Diagnosis: ICD-10-CM R22.9 Localized swelling, mass and lump, unspecified Active Diagnosis [place] Medications Combined list of outpatient medications from Department of Defense and Veterans Affairs facilities.Medications provided include 1) outpatient medications from the last 15 months, and 2) patient-reported medications. Medication Details Route Status Patient Instructions Prescription Expires Prescription Number Last Dispense Date Ordering Provider Order Date Order Qty Source AMLODIPINE BESYLATE 10MG TAB TAKE ONE TABLET BY MOUTH ONCE DAILY FOR BLOOD PRESSURE /HEART, DO NOT TAKE WITH GRAPEFRU IT JUICE ORAL ACTIVE 12/16/2024 [id number] JOSIAH FINCH 2023 [facility] IELD CETIRIZINE HCL 10MG TAB TAKE ONE TABLET BY MOUTH ONCE DAILY FOR ALLERGIE S ORAL DISCONT INUED 11/05/2023 [id number] DIONTE SUTHERLAND 2022 90 [facility] CETIRIZINE HCL 10MG TAB TAKE ONE TABLET BY MOUTH ONCE DAILY FOR ALLERGIE S ORAL 03/15/2024 [id number] JOSIAH FINCH 2023 90 [facility] IELD CHOLECALCIF GURVINDER 25MCG (1,000UNIT) TAB TAKE ONE TABLET BY MOUTH ONCE DAILY FOR VITAMIN SUPPLEME NTATION ORAL ACTIVE 12/22/2024 [id number] JOSIAH FINCH 2023 90 [place] CHOLECALCIF GURVINDER 50MCG (2,000UNIT) TAB TAKE ONE TABLET BY MOUTH ONCE DAILY FOR VITAMIN SUPPLEME NTATION ORAL DISCONT INUED (EDIT) 08/10/2024 [id number] JOSIAH FINCH 2022 100 [place] FLUTICASONE 250MCG/SALM ETEROL 50MCG INHL,ORAL,D ISKUS,60 INHALE 1 PUFF BY MOUTH TWICE DAILY - RINSE MOUTH AFTER USE RESPIR ATORY (INHAL ATION) DISCONT INUED BY PROVIDE R 08/10/2024 [id number] JOSIAH FINCH 2022 1 [place] FLUTICASONE PROPIONATE 50MCG/SPRAY SOLN,NASAL, 16GM INSTILL 1 SPRAY INTO EACH NOSTRIL TWICE DAILY NASAL DISCONT INUED BY PROVIDE R 09/06/2023 [id number] DIONTE SUTHERLAND 2022 1 [facility] [place]AN 25MG TAB TAKE THREE TABLETS BY MOUTH ONCE DAILY FOR BLOOD PRESSURE /HEART ORAL ACTIVE 12/22/2024 [id number] JOSIAH FINCH 2023 270 [place] LOSARTAN 25MG TAB TAKE THREE TABLETS BY MOUTH ONCE DAILY FOR BLOOD PRESSURE /HEART ORAL DISCONT INUED 03/15/2024 [id number] JOSIAH FINCH 2022 270 [place] OMEPRAZOLE 20MG CAP,EC TAKE TWO CAPSULES BY MOUTH EVERY MORNING 30 MINUTES BEFORE BREAKFAS T ORAL ACTIVE 12/16/2024 [id number] JOSIAH FINCH 2023 180 [place] SUMATRIPTAN SUCCINATE 100MG TAB TAKE ONE TABLET BY MOUTH DIRECTED AT ONSET OF HEADACHE ; MAY REPEAT IN 2 HOURS IF FIRST DOSE IS NOT EFFECTIV E ORAL ACTIVE 12/16/2024 [id number] DORIAN GUNTERBENITOCOURT Goldsmith 2023 18 [place] ZALEPLON 5MG CAP TAKE ONE CAPSULE BY MOUTH AT BEDTIME NEEDED FOR SLEEP ORAL 05/13/2024 [id number] MAREN DEUTSCH E 2023 30 [place] Allergies, Adverse Reactions, Alerts Combined list of allergies from Department of Defense and Veterans Affairs facilities. It does not include entries that were removed or entered in error. Substance Category Reaction Severity Reaction type Status Date Reported Comments Source No Known Allergies Drug allergy (disorder) active 06/19/2012 [facility] Immunizations Combined list of available immunizations from the Department of [facility] and Veterans Affairs facilities. 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 Status Comments Source HEP A-HEP B 2 2023 [place] LEFT DELTO ID [id number] 104 complet ed [place] INFLUENZA, INJECTABLE, QUADRIVALENT, PRESERVATIVE FREE 2022 HONORIO CARPENTER LEFT DELTO ID [id number] 150 complet ed [place] HEP A-HEP B 2022 KARINE PAREKH LEFT DELTO ID [id number] 104 complet ed [facility] INFLUENZA, INJECTABLE, QUADRIVALENT, PRESERVATIVE FREE 2022 [place] RIGHT DELTO ID [id number] 150 complet ed [place] COVID-19 (PFIZER), MRNA, LNP-S, PF, 30 MCG/0.3 ML DOSE 2 2020 208 complet ed PFR; [id number]; 1 [facility] COVID-19 (PFIZER), MRNA, LNP-S, PF, 30 MCG/0.3 ML DOSE 1 2020 208 complet ed PFR; [id number]; 1 [facility] INFLUENZA, INJECTABLE, QUADRIVALENT, PRESERVATIVE FREE 2018 150 complet ed Site: Left Deltoid [place] TDAP 2017 115 complet ed Site: Right Deltoid [place] Results Combined list of recent chemistry, hematology and other laboratory results from Department of Defense and Veterans Affairs, ranging from 15 months to all on record, depending upon the facility. Order Name Results Value Reference Range Date Interpretation Specimen Comments Source MICROALBU MIN CREATININ E RATIO PANEL MICROALBUMI N/CREATININ E [MASS RATIO] IN URINE 30.3 mg/g 0 - 29.9 12/18 H Specimen Type: URINE No comment entered. Ordering Provider: CRYSTAL SEARS Report Released Date/Time: Dec 04, 2023 08:30 AM Reporting Lab: [facility] [address] [address] Performing Lab: [address] [address] [place] MICROALBU MIN CREATININ E RATIO PANEL MICROALBUMI N [MASS/VOLUM E] IN URINE 3.3 mg/dL 12/18 Specimen Type: URINE No comment entered. Ordering Provider: CRYSTAL SEARS Report Released Date/Time: Dec 04, 2023 08:30 AM Reporting Lab: [facility] [address] [address] Performing Lab: [facility] [address] [place] MICROALBU MIN CREATININ E RATIO PANEL CREATININE [MASS/VOLUM E] IN URINE 108.79 mg/dL 12/18 Specimen Type: URINE No comment entered. Ordering Provider: CRYSTAL SEARS Report Released Date/Time: Dec 04, 2023 08:30 AM Reporting Lab: [facility] [address] [address] Performing Lab: [facility] [address] [address] [place] HEMOGLOBI N A1C PANEL HEMOGLOBIN A1C/HEMOGLO BIN.TOTAL IN BLOOD BY HPLC 5.7 4.0 - 5.6 12/17 H Specimen Type: BLOOD Comment: Values obtained from A1C measurement s can vary. For atypical A1C assays, a reported value of 7.0 could actually be between 6.72 and 7.28 if measured by a reference method. A reported value of 9.0 could actually be between 8.73 and 9.27. Ref: http://www. ngsp.org/[place] Pdata.asp Ordering Provider: CRYSTAL SEARS Report Released Date/Time: Dec 04, 2023 08:30 AM Reporting Lab: [place] [address] Performing Lab: [place] [address] [place] LIVER FUNCTION PROTEIN [MASS/VOLUM E] IN SERUM OR PLASMA 7.2 g/dL 6.0 - 8.3 12/17 Specimen Type: SERUM No comment entered. Ordering Provider: CRYSTAL SEARS Report Released Date/Time: Dec 04, 2023 08:30 AM Reporting Lab: [address] [address] Performing Lab: [address] [address] [place] LIVER FUNCTION ALBUMIN [MASS/VOLUM E] IN SERUM OR PLASMA 4.5 g/dL 3.5 - 5.0 12/17 Specimen Type: SERUM No comment entered. Ordering Provider: CRYSTAL SEARS Report Released Date/Time: Dec 04, 2023 08:30 AM Reporting Lab: [address] [address] Performing Lab: [place] [address] [place] LIVER FUNCTION ALKALINE PHOSPHATASE [ENZYMATIC ACTIVITY/VO LUME] IN SERUM OR PLASMA 66 U/L 40 - 150 12/17 Specimen Type: SERUM No comment entered. Ordering Provider: CRYSTAL SEARS M Report Released Date/Time: Dec 04, 2023 08:30 AM Reporting Lab: [facility] [place] [address] [address] Performing Lab: [facility] [place] [address] [address] [place] LIVER FUNCTION ASPARTATE AMINOTRANSF ERASE [ENZYMATIC ACTIVITY/VO LUME] IN SERUM OR PLASMA 20 U/L 5 - 34 12/17 Specimen Type: SERUM No comment entered. Ordering Provider: CRYSTAL SEARS Report Released Date/Time: Dec 04, 2023 08:30 AM Reporting Lab: [facility] [place] [address] [address] Performing Lab: [facility] [address] [address] [place] LIVER FUNCTION ALANINE AMINOTRANSF ERASE [ENZYMATIC ACTIVITY/VO LUME] IN SERUM OR PLASMA 40 U/L 12/17 Specimen Type: SERUM No comment entered. Ordering Provider: CRYSTAL SEARS Report Released Date/Time: Dec 04, 2023 08:30 AM Reporting Lab: [facility] [place] [address] [address] Performing Lab: [facility] [address] [address] [place] LIVER FUNCTION BILIRUBIN.T OTAL [MASS/VOLUM E] IN SERUM OR PLASMA 0.5 mg/dL 0.2 - 1.2 12/17 Specimen Type: SERUM No comment entered. Ordering Provider: CRYSTAL SEARS Report Released Date/Time: Dec 04, 2023 08:30 AM Reporting Lab: [facility] [place] [address] [address] Performing Lab: [facility] [place] [address] [address] [place] TSH THYROTROPIN [UNITS/VOLU ME] IN SERUM OR PLASMA 2.20 u[IU]/ mL 0.35 - 5.00 12/17 Specimen Type: SERUM No comment entered. Ordering Provider: CRYSTAL SEARS Report Released Date/Time: Dec 04, 2023 08:30 AM Reporting Lab: [facility] [address] [facility] [address] Performing Lab: [facility] [address] [facility] [address] [place] BASIC METABOLIC PANEL (non-fast ing) UREA NITROGEN [MASS/VOLUM E] IN SERUM OR PLASMA 18 mg/dL 7 - 25 12/17 Specimen Type: SERUM No comment entered. Ordering Provider: CRYSTAL SEARS Report Released Date/Time: Dec 04, 2023 08:32 AM Reporting Lab: [facility] [address] [address] Performing Lab: [facility] [address] [place] BASIC METABOLIC PANEL (non-fast ing) GLUCOSE [MASS/VOLUM E] IN SERUM OR PLASMA 95 mg/dL 65 - 100 12/17 Specimen Type: SERUM No comment entered. Ordering Provider: CRYSTAL SEARS Report Released Date/Time: Dec 04, 2023 08:32 AM Reporting Lab: [facility] [address] Performing Lab: [facility] TRN [facility] [address] [place] BASIC METABOLIC PANEL (non-fast ing) SODIUM [MOLES/VOLU ME] IN SERUM OR PLASMA 140 mmol/L 135 - 145 12/17 Specimen Type: SERUM No comment entered. Ordering Provider: CRYSTAL SEARS Report Released Date/Time: Dec 04, 2023 08:32 AM Reporting Lab: [facility] [address] [facility] [address] Performing Lab: [facility]TRN [facility] [address] [place] BASIC METABOLIC PANEL (non-fast ing) POTASSIUM [MOLES/VOLU ME] IN SERUM OR PLASMA 4.4 mmol/L 3.5 - 5.0 12/17 Specimen Type: SERUM No comment entered. Ordering Provider: CRYSTAL SEARS Report Released Date/Time: Dec 04, 2023 08:32 AM Reporting Lab: [address] [address] Performing Lab: [facility] [address] [place] BASIC METABOLIC PANEL (non-fast ing) CHLORIDE [MOLES/VOLU ME] IN SERUM OR PLASMA 103 mmol/L 100 - 110 12/17 Specimen Type: SERUM No comment entered. Ordering Provider: CRYSTAL SEARS Report Released Date/Time: Dec 04, 2023 08:32 AM Reporting Lab: [address] [address] Performing Lab: [facility] [address] [place] BASIC METABOLIC PANEL (non-fast ing) CARBON DIOXIDE, TOTAL [MOLES/VOLU ME] IN SERUM OR PLASMA 28 meq/L 20 - 30 12/17 Specimen Type: SERUM No comment entered. Ordering Provider: CRYSTAL SEARS Report Released Date/Time: Dec 04, 2023 08:32 AM Reporting Lab: [facility] [address] Performing Lab: [facility] [address] [place] BASIC METABOLIC PANEL (non-fast ing) CREATININE [MASS/VOLUM E] IN SERUM OR PLASMA 1.46 mg/dL 0.50 - 1.40 12/17 H Specimen Type: SERUM No comment entered. Ordering Provider: CRYSTAL SEARS Report Released Date/Time: Dec 04, 2023 08:32 AM Reporting Lab: [facility] [address] [address] Performing Lab: [facility] [address] [address] [place] BASIC METABOLIC PANEL (non-fast ing) GLOMERULAR FILTRATION RATE/1.73 SQ M.PREDICTED [VOLUME RATE/AREA] IN SERUM, PLASMA OR BLOOD BY CREATININE- BASED FORMULA (CKD-EPI 2020) 59 mL/min 60 12/17 L Specimen Type: SERUM No comment entered. Ordering Provider: CRYSTAL SEARS Report Released Date/Time: Dec 04, 2023 08:32 AM Reporting Lab: [facility] [address] [address] Performing Lab: [facility] [address] [address] [place] CBC AND DIFF (AUTO) LEUKOCYTES [#/VOLUME] IN BLOOD BY AUTOMATED COUNT 5.70 10*3/u L 4.50 - 11.00 12/17 Specimen Type: BLOOD No comment entered. Ordering Provider: CRYSTAL SEARS Report Released Date/Time: Dec 04, 2023 08:30 AM Reporting Lab: [facility] [address] [address] Performing Lab: [facility] [address] [place] CBC AND DIFF (AUTO) ERYTHROCYTE S [#/VOLUME] IN BLOOD BY AUTOMATED COUNT 4.57 10*6/u L 4.23 - 5.66 12/17 Specimen Type: BLOOD No comment entered. Ordering Provider: CRYSTAL SEARS Report Released Date/Time: Dec 04, 2023 08:30 AM Reporting Lab: [facility] TRN [address] [address] Performing Lab: [facility] [address] [address] [place] CBC AND DIFF (AUTO) HEMOGLOBIN [MASS/VOLUM E] IN BLOOD 13.6 g/dL 12.8 - 17 12/17 Specimen Type: BLOOD No comment entered. Ordering Provider: CRYSTAL SEARS Report Released Date/Time: Dec 04, 2023 08:30 AM Reporting Lab: [facility] [place] [facility] [address] [facility] [address] Performing Lab: [facility]N [facility]ITAL[facility] [address] [facility] [address] [place] CBC AND DIFF (AUTO) HEMATOCRIT [VOLUME FRACTION] OF BLOOD BY AUTOMATED COUNT 39.0 39.2 - 50.4 12/17 L Specimen Type: BLOOD No comment entered. Ordering Provider: CRYSTAL SEARS Report Released Date/Time: Dec 04, 2023 08:30 AM Reporting Lab: [facility] [address] [address] Performing Lab: [facility]OURTRN [facility]CH[facility] [address] [address] [place] CBC AND DIFF (AUTO) MCV [ENTITIC VOLUME] BY AUTOMATED COUNT 85.3 fL 82 - 99 12/17 Specimen Type: BLOOD No comment entered. Ordering Provider: CRYSTAL SEARS Report Released Date/Time: Dec 04, 2023 08:30 AM Reporting Lab: [facility] [address] [facility] [address] Performing Lab: [facility]N [place] [address] [address] [place] CBC AND DIFF (AUTO) MCHC [MASS/VOLUM E] BY AUTOMATED COUNT 34.9 g/dL 30.8 - 35.1 12/17 Specimen Type: BLOOD No comment entered. Ordering Provider: CRYSTAL SEARS Report Released Date/Time: Dec 04, 2023 08:30 AM Reporting Lab: [facility] [place] [facility] [address] [facility] [address] Performing Lab: [facility]ITALRL TRN [facility]CH[facility] [address] [address] [place] CBC AND DIFF (AUTO) PLATELETS [#/VOLUME] IN BLOOD BY AUTOMATED COUNT 250 10*3/u L 140 - 360 12/17 Specimen Type: BLOOD No comment entered. Ordering Provider: CRYSTAL SEARS Report Released Date/Time: Dec 04, 2023 08:30 AM Reporting Lab: [facility] BARBOURTRN [place] [address] Performing Lab: [facility]ITALR[facility] [address] [address] [place] CBC AND DIFF (AUTO) ERYTHROCYTE DISTRIBUTIO N WIDTH [RATIO] BY AUTOMATED COUNT 12.4 12.0 - 16.0 12/17 Specimen Type: BLOOD No comment entered. Ordering Provider: CRYSTAL SEARS Report Released Date/Time: Dec 04, 2023 08:30 AM Reporting Lab: [facility] [address] [address] Performing Lab: [facility] [address]SUSE[address] [address] [place] CBC AND DIFF (AUTO) MONOCYTES [#/VOLUME] IN BLOOD BY AUTOMATED COUNT 0.34 10*3/u L 0.30 - 1.10 12/17 Specimen Type: BLOOD No comment entered. Ordering Provider: CRYSTAL SEARS Report Released Date/Time: Dec 04, 2023 08:30 AM Reporting Lab: [facility] BARBOURTRN [address] [address] Performing Lab: [facility]ITALRL [facility]N [place] [address] [address] [place] CBC AND DIFF (AUTO) MCH [ENTITIC MASS] BY AUTOMATED COUNT 29.8 pg 26.2 - 32.6 12/17 Specimen Type: BLOOD No comment entered. Ordering Provider: CRYSTAL SEARS Report Released Date/Time: Dec 04, 2023 08:30 AM Reporting Lab: [facility] BARBOURTRN [address] [address] Performing Lab: [facility] [place] [facility] [address] [facility] [address] [place] CBC AND DIFF (AUTO) NEUTROPHILS /100 LEUKOCYTES IN BLOOD BY AUTOMATED COUNT 47.7 43.7 - 75.8 12/17 Specimen Type: BLOOD No comment entered. Ordering Provider: CRYSTAL SEARS Report Released Date/Time: Dec 04, 2023 08:30 AM Reporting Lab: [facility] [place] [address] [address] Performing Lab: [facility] [place] [address] [address] [place] CBC AND DIFF (AUTO) LYMPHOCYTES /100 LEUKOCYTES IN BLOOD BY AUTOMATED COUNT 42.8 14.0 - 42.3 12/17 H Specimen Type: BLOOD No comment entered. Ordering Provider: CRYSTAL SEARS Report Released Date/Time: Dec 04, 2023 08:30 AM Reporting Lab: [facility] [place] [address] [address] Performing Lab: [facility] [place] [address] [address] [place] CBC AND DIFF (AUTO) MONOCYTES/1 00 LEUKOCYTES IN BLOOD BY AUTOMATED COUNT 6.0 5.1 - 13.7 12/17 Specimen Type: BLOOD No comment entered. Ordering Provider: CRYSTAL SEARS Report Released Date/Time: Dec 04, 2023 08:30 AM Reporting Lab: [facility] [place] [address] [address] Performing Lab: [facility] [place] [address] [address] [place] CBC AND DIFF (AUTO) EOSINOPHILS /100 LEUKOCYTES IN BLOOD BY AUTOMATED COUNT 2.8 0.4 - 6.8 12/17 Specimen Type: BLOOD No comment entered. Ordering Provider: CRYSTAL SEARS Report Released Date/Time: Dec 04, 2023 08:30 AM Reporting Lab: [facility] [place] [facility] [address] [facility] [address] Performing Lab: [facility] [address] [address] [place] CBC AND DIFF (AUTO) BASOPHILS/1 00 LEUKOCYTES IN BLOOD BY AUTOMATED COUNT 0.5 0.1 - 2.0 12/17 Specimen Type: BLOOD No comment entered. Ordering Provider: CRYSTAL SEARS Report Released Date/Time: Dec 04, 2023 08:30 AM Reporting Lab: [facility] [address] Performing Lab: [facility] [address] [address] [place] CBC AND DIFF (AUTO) NEUTROPHILS [#/VOLUME] IN BLOOD BY AUTOMATED COUNT 2.72 10*3/u L 2.20 - 7.60 12/17 Specimen Type: BLOOD No comment entered. Ordering Provider: CRYSTAL SEARS Report Released Date/Time: Dec 04, 2023 08:30 AM Reporting Lab: [facility]OURTRN [address] [address] Performing Lab: [facility]TR[facility] [address] [place] CBC AND DIFF (AUTO) LYMPHOCYTES [#/VOLUME] IN BLOOD BY AUTOMATED COUNT 2.44 10*3/u L 1.00 - 3.20 12/17 Specimen Type: BLOOD No comment entered. Ordering Provider: CRYSTAL SEARS Report Released Date/Time: Dec 04, 2023 08:30 AM Reporting Lab: [facility]TRN [facility]ITALUSETS [address] [address] Performing Lab: [facility]ITALREN[facility]USE[address] [address] [place] CBC AND DIFF (AUTO) EOSINOPHILS [#/VOLUME] IN BLOOD BY AUTOMATED COUNT 0.16 10*3/u L 0.03 - 0.44 12/17 Specimen Type: BLOOD No comment entered. Ordering Provider: CRYSTAL SEARS Report Released Date/Time: Dec 04, 2023 08:30 AM Reporting Lab: [facility]RL TRN [address] [address] Performing Lab: [facility] [address] [address] [place] CBC AND DIFF (AUTO) BASOPHILS [#/VOLUME] IN BLOOD BY AUTOMATED COUNT 0.03 10*3/u L 0.01 - 0.13 12/17 Specimen Type: BLOOD No comment entered. Ordering Provider: CRYSTAL SEARS Report Released Date/Time: Dec 04, 2023 08:30 AM Reporting Lab: [facility] [address] [address] Performing Lab: [address] [address] [place] CBC AND DIFF (AUTO) IMMATURE GRANULOCYTE S/100 LEUKOCYTES IN BLOOD BY AUTOMATED COUNT 0.2 0.0 - 0.7 12/17 Specimen Type: BLOOD No comment entered. Ordering Provider: CRYSTAL SEARS Report Released Date/Time: Dec 04, 2023 08:30 AM Reporting Lab: [facility] [facility] [address] [address] Performing Lab: [facility] [address] [address] [place] CBC AND DIFF (AUTO) IMMATURE GRANULOCYTE S [#/VOLUME] IN BLOOD 0.01 10*3/u L 0.00 - 0.06 12/17 Specimen Type: BLOOD No comment entered. Ordering Provider: CRYSTAL SEARS Report Released Date/Time: Dec 04, 2023 08:30 AM Reporting Lab: [facility] [address] [address] Performing Lab: [facility] [address] [place] VITAMIN D (25-OH) 25-HYDROXYV ITAMIN D3 [MASS/VOLUM E] IN SERUM OR PLASMA 24 ng/mL 20 - 50 12/17 Specimen Type: SERUM No comment entered. Ordering Provider: CRYSTAL SEARS Report Released Date/Time: Dec 16, 2023 03:57 PM Reporting Lab: [facility] [address] [facility] [address] Performing Lab: [address] [address] [place] CALCIUM CALCIUM [MASS/VOLUM E] IN SERUM OR PLASMA 8.9 mg/dL 8.5 - 10.2 12/17 Specimen Type: SERUM No comment entered. Ordering Provider: CRYSTAL SEARS Report Released Date/Time: Dec 16, 2023 03:57 PM Reporting Lab: [address] [address] Performing Lab: [address] [address] [place] HEPATITIS Bs Ab (Quant) HEPATITIS B VIRUS SURFACE AB [UNITS/VOLU ME] IN SERUM OR PLASMA BY IMMUNOASSAY <5m[IU ]/mL 03/28 L Specimen Type: SERUM Comment: REFERENCE RANGE: >=10 mIU/mL PATIENT DOES NOT HAVE IMMUNITY TO HEPATITIS B VIRUS. For more information on this test, go to: http://educ ation.Innogenetics .com/faq/FA Q105 Test Performed by [employer] [place], [employer] [facility], [address] [place] [address] Agustin Josue M.D., Ph.D., Director of Laboratorie s , CLIA [id number] TEST PERFORMED AT: , Ordering Provider: CRYSTAL SEARS Report Released Date/Time: Mar 01, 2023 01:41 PM Reporting Lab: [address] [address] Performing Lab: [place] [address] [place] [address] [facility] F[facility]IN FERRITIN [MASS/VOLUM E] IN SERUM OR PLASMA 76 ng/mL 20 - 300 03/28 Specimen Type: SERUM No comment entered. Ordering Provider: CRYSTAL SEARS Report Released Date/Time: Mar 01, 2023 01:41 PM Reporting Lab: [address] [address] Performing Lab: [facility] [address] [facility] [address] [facility] Vital Signs Combined list of inpatient and outpatient Vital Signs from Department of Defense and Veterans Affairs, ranging from 12 months to all on record, depending upon the facility. Vital Sign Value Date Comments Source SYSTOLIC BLOOD PRESSURE 164 09/24/2024 10:36:06 [place] DIASTOLIC BLOOD PRESSURE 100 09/24/2024 10:36:06 [place] PULSE OXIMETRY 98 09/24/2024 10:36:06 [place] PAIN 5 09/24/2024 10:36:06 [place] TEMPERATURE 98.6 09/24/2024 10:36:06 [place] PULSE 66 09/24/2024 10:36:06 [place] RESPIRATION 18 09/24/2024 10:36:[address] [facility] SYSTOLIC BLOOD PRESSURE 160 12/22/2023 15:40:00 [place] DIASTOLIC BLOOD PRESSURE 100 12/22/2023 15:40:00 [place] SYSTOLIC BLOOD PRESSURE 153 12/20/2023 10:49:38 [facility] DIASTOLIC BLOOD PRESSURE 83 12/20/2023 10:49:38 [place] PULSE OXIMETRY 97 12/20/2023 10:49:38 [place] WEIGHT 233.6 12/20/2023 10:49:38 [place] PAIN 0 12/20/2023 10:49:38 [place] TEMPERATURE 97.5 12/20/2023 10:49:38 [place] PULSE 83 12/20/2023 10:49:38 [place] SYSTOLIC BLOOD PRESSURE 179 12/16/2023 15:03:01 [place] DIASTOLIC BLOOD PRESSURE 101 12/16/2023 15:03:01 [place] PULSE OXIMETRY 98 12/16/2023 15:03:01 S [place] WEIGHT 237.6 12/16/2023 15:03:01 [place] BMI 38kg/m2 12/16/2023 15:03:01 [place] TEMPERATURE 98.7 12/16/2023 15:03:01 TONII TAYLER PULSE 72 12/16/2023 15:03:01 [place] Encounters Combined list of: 1) Encounters from Department of Veterans Affairs facilities [facility] 2) Encounters from the Department of [facility] facilities going back up to 280 months. Location Location Details Encounter Type Encounter Number Reason For Visit Attending Provider ADM Date DC Date Status Disposition Source [facility] Outpatient Encounter [id number] Diagnos is: ICD-10- CM G47.33 Obstruc tive sleep apnea (adult) (pediat shad)
SHAR[facility] DEUTSCH [facility] [place] [facility] En[facility] [id number] 04/15 [place] [facility] En[facility] [id number] 04/16 [facility] [place] [facility] Outpatient Encounter [id number] 07/31 [facility] [place] [facility] EST JANUARY X REQ PHY/QHP [id number] Diagnos is: ICD-10- CM R22.9 Localiz ed swellin g, mass and lump, unspeci fied
PAULINE,ER IC K 08/06 [place] [facility] [place] [facility] Outpatient Encounter [id number] 08/06 [place] [facility] [place] [facility] [place] [facility] OFF/OP EST JANUARY X REQ PHY/QHP [id number] Diagnos is: ICD-10- CM Z71.89 Other specifi ed certified alcohol and drug counselor ing<br/ > Ashley MICHAUD 08/07 [facility] OFF[facility] O/P EST LOW 20-29 MIN [id number] Diagnos is: ICD-10- CM F43.0 Acute stress reactio n
PRANAY SUTHERLAND 08/07 [facility] En[facility] [id number] 08/18 [facility] Encounter [id number] 08/19 [facility] [place] Encounter [id number] 08/19 [facility] [place] Encounter [id number] 10/17 [facility] Encounter [id number] 10/28 [facility] Encounter [id number] 10/28 [facility] Encounter [id number] 11/11 [facility] [place] Out[facility] Encounter [id number] 11/12 [facility] [place]UNIZ[place] ADMIN [id number] Diagnos is: ICD-10- CM Z23 Encount er for immuniz ation<b r/> CAMDEN CHAMORRO 11/14 [facility] [place] [facility] [place] [facility] Outpatient Encounter [id number] 12/15 [facility] [place] [facility] OFFICE O/P EST MOD 30 MIN [id number] Diagnos is: ICD-10- CM I10 Essenti al (primar y) hyperte nsion<b r/> PATRIA RUSH,OG COURT M 12/15 [place] [facility] [place] [facility] Outpatient Encounter [id number] 12/15 [facility] [place] [place] [facility] [place] [id number] Diagnos is: ICD-10- CM 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
COREEN RIVAS 12/16 [facility] [place] [place] [facility] FIT SPECTACLES MULTIFOCAL [id number] Diagnos is: ICD-10- CM Z46.0 Encount er for fit/adj st of spectac les and contact lenses< br/> COREEN RIVAS 12/16 [facility] [place] [facility] OFFICE O/P EST MOD 30 MIN [id number] Diagnos is: ICD-10- CM G47.33 Obstruc tive sleep apnea (adult) (pediat shad)
SHARLA DEUTSCH 12/19 [place] [facility] Outpatient Encounter [id number] 03/24 [place] [facility] Outpatient Encounter [id number] Diagnos is: ICD-10- CM G47.33 Obstruc tive sleep apnea (adult) (pediat shad)
ABRAHAM DEUTSCHNNE 04/13 [place] [facility] Outpatient Encounter [id number] 05/07 [facility] [place] [facility] Outpatient Encounter [id number] 05/20 [facility] [place] [facility] [place] Outpatient En[place] [id number] 05/20 [place] [facility] Outpatient Encounter [id number] 05/21 [facility] [place] [facility] Outpatient Encounter [id number] 09/24 [facility] [place] [facility] [place] OFF/OP EST JANUARY X REQ PHY/QHP [id number] Diagnos is: ICD-10- CM I10 Essenti al (primar y) hyperte nsion<b r/> PAULINE,ER IC K 09/24 [place] [facility] [place] [place] [facility] QNHP OL DIG ASSMT&MGMT 5-10 [id number] Diagnos is: ICD-10- CM N18.31 Chronic kidney disease , stage 3a
SOVEROW,CH RISTY A 09/24 [place] [facility] [place] [facility] Social History Combined list of available smoking, tobacco, and other social history from Department of Defense and Veterans Affairs facilities. Social History Type Response Date Comment Source Tobacco smoking status [facility] History of tobacco use [facility]-TO[facility] NEVER USED 10/04/2022 [place] History of tobacco use [facility]-TOBACCO QUIT 15 YRS OR MORE 02/13/2021 [place] History of tobacco use LIFETIME NON-TOBACCO USER 05/12/2018 Tried as a kid and hated [place] History of tobacco use LIFETIME NON-TOBACCO USER 01/14/2017 [facility] This section is an empty social history section. [facility] Plan of Care List of future care activities from Department of Veterans Affairs facilities. Additional future care activities may be listed in the Assessment and Plan section. Date/Time Care Activity Care Activity Detail Facili 09/24/2024 AMBULATORY - MEDICINE AMBULATORY - MEDICI [facility] 01/05/2025 AMBULATORY - MEDICINE AMBULATORY - MEDICI [facility]
--- OUTSIDE RECORDS SUMMARY | 2024-09-24 14:23 | XMS_ITS | Encounter Summary ---
Author Name [facility] [place] [facility] [place] [facility] [place] Address [address] [place] [id number] Care Team Providers Care Extension Specialist Name Role Phone JOSIAH HARRIS Primary Care [...] Shi's Name Patient's Relationship to Policy Shi CAREMARK PRESCRIPT ION [id number] Sep 30, 2020 [id number] DORIAN TREJO PATIENT [facility] ORGANIZ GOLD ADV O Sep 30, 2020 [id number] DORIAN TREJO PATIENT Selected Encounter This section includes the information on record at [place] for the Encounter. Date/Time Encounter Type Encounter Description Reason Provider Source Dec 20, 2023 11:00 AM OFFICE O/P EST MOD 30 MIN SLEEP MEDICINE ICD-10-CM G47.33 Obstructive sleep apnea (adult) (pediatric) SHARLA DEUTSCH Encounter Template Text not used by [facility] Assessments - Encounter Diagnoses This section includes the primary and secondary diagnoses documented for the Encounter. Date/Time Primary/Secondary Diagnosis Diagnosis Name Provider Source Dec 20, 2023 01:52 PM PRIMARY Obstructive sleep apnea (adult) (pediatric) SHARLA DEUTSCH Plan of Treatment: Future Appointments (+ 6 months) and Future Tests (+/- 45 days) The Plan of Treatment section includes future care activities for the patient from all [place] treatmentfacilities. This section includes future appointments and future orders which are active, pending or scheduled. Future Appointments This section includes appointments that were scheduled to occur 6 months from the date of the Encounter, up to a maximum of 20 appointments. The data comes from all [place] treatment facilities. Appointment Date/Time Appointment Type Appointme nt Facility Name Dec 27, 2023 03:30 PM [facility] Mar 24, 2024 03:30 PM [facility] Apr 13, 2024 02:30 PM [facility] May 20, 2024 09:00 AM AMBULATORY - MEDICINE [facility] Lab Results: +/- 30 days of the encounter This section includes the Chemistry and Hematology Lab Results on record with [place] for the patient. Radiology Reports and Pathology Reports are provided separately, in subsequent sections. Lab Results This section contains the Chemistry/Hematology Results that were resulted 30 days before or 30 daysafter the date of the Encounter. Date/Time Source Result Type Result - Unit Interpretation Reference Range Comment Dec 19, 2023 10:53 AM [place] MICROALBUMIN CREATININE RATIO PANEL Spe cimen Type: URINE No comment entered. Ordering Provider: JOSIAH STRINGER Report Released Date/Time: Dec 04, 2023 08:30 AM Reporting Lab: [address] [address] Performing Lab: [address] [address] MICROALBUMIN/C REATININE RATIO 30.3 mg/g H 0-29.9 MICROALBUMIN,Q UANTITATIVE 3.3 mg/dL RR UNAVAIL CREATININE URINE 108.79 mg/dL Dec 18, 2023 10:05 AM [place] HEMOGLOBIN A1C PANEL Specimen Type: BLOOD Comment: Values obtained from A1C measurements can vary. For atypical A1C assays, a reported value of 7.0 could actually be between 6.72 and 7.28 if measured by a reference method. A reported value of 9.0 could actually be between 8.73 and 9.27. Ref: http://www.ngs p.org/CAPdata. asp Ordering Provider: JOSIAH STRINGER Report Released Date/Time: Dec 04, 2023 08:30 AM Reporting [facility] [address] [address] Performing Lab: [address] [address] HEMOGLOBIN A1C 5.7 H 4.0-5.6 Dec 18, 2023 10:05 AM [place] LIVER FUNCTION Specimen Type: SERUM No comment entered. Ordering Provider: JOSIAH STRINGER Report Released Date/Time: Dec 04, 2023 08:30 AM Reporting Lab: [address] [address] Performing Lab: [address] [address] PROTEIN,TOTAL 7.2 g/dL 6.0-8.3 ALBUMIN 4.5 g/dL 3.5-5.0 ALKALINE PHOSPHATASE 66 U/L 40-150 AST 20 U/L 5-34 ALT 40 U/L BILIRUBIN, TOTAL 0.5 mg/dL 0.2-1.2 Dec 18, 2023 10:05 AM [place] TSH Specimen Type: SERUM No comment entered. Ordering Provider: JOSIAH STRINGER Report Released Date/Time: Dec 04, 2023 08:30 AM Reporting [facility] [address] [address] Performing [facility] [address] [address] TSH 2.20 u[IU]/mL 0.35-5.00 Dec 18, 2023 10:05 AM [place] BASIC METABOLIC PANEL (non-fasting) Spe cimen Type: SERUM No comment entered. Ordering Provider: JOSIAH STRINGER Report Released Date/Time: Dec 04, 2023 08:32 AM Reporting [facility] [address] [address] Performing Lab: [facility] [address] [facility] [address] UREA NITROGEN 18 mg/dL 7-25 GLUCOSE 95 mg/dL 65-100 SODIUM 140 mmol/L 135-145 POTASSIUM 4.4 mmol/L 3.5-5.0 CHLORIDE 103 mmol/L 100-110 CO2 28 meq/L 20-30 CREATININE, Serum 1.46 mg/dL H 0.50-1.40 eGFR(CKD-EPI 2020) 59 mL/min L >60 Dec 18, 2023 10:05 AM [place] CBC AND DIFF (AUTO) Specimen Type: BLOOD No comment entered. Ordering Provider: JOSIAH STRINGER Report Released Date/Time: Dec 04, 2023 08:30 AM Reporting Lab: [facility] [address] [facility] [address] Performing Lab: [address] [address] WBC 5.70 10*3/uL 4.50-11.00 RBC 4.57 10*6/uL 4.23-5.66 HGB 13.6 g/dL 12.8-17 HCT 39.0 L 39.2-50.4 MCV 85.3 fL 82-99 MCHC 34.9 g/dL 30.8-35.1 PLT 250 10*3/uL 140-360 RDW-CV 12.4 12.0-16.0 [place], Abs 0.34 10*3/uL 0.30-1.10 MCH 29.8 pg 26.2-32.6 Neut % 47.7 43.7-75.8 Lymph % 42.8 H 14.0-42.3 [place] % 6.0 5.1-13.7 Eos % 2.8 0.4-6.8 Baso % 0.5 0.1-2.0 Neut, Abs 2.72 10*3/uL 2.20-7.60 Lymph, Abs 2.44 10*3/uL 1.00-3.20 Eos, Abs 0.16 10*3/uL 0.03-0.44 Baso, Abs 0.03 10*3/uL 0.01-0.13 Immature Gran % 0.2 0.0-0.7 Immature Gran, Abs 0.01 10*3/uL 0.00-0.06 Dec 18, 2023 10:05 AM [place] VITAMIN D (25-OH) Specimen Type: SERUM No comment entered. Ordering Provider: JOSIAH STRINGER Report Released Date/Time: Dec 16, 2023 03:57 PM Reporting Lab: [address] [address] Performing Lab: [address] [address] VITAMIN D (25-OH) 24 ng/mL 20-50 Dec 18, 2023 10:05 AM [place] CALCIUM Specimen Type: SERUM No comment entered. Ordering Provider: JOSIAH STRINGER Report Released Date/Time: Dec 16, 2023 03:57 PM Reporting Lab: [address] [address] Performing Lab: [address] [address] CALCIUM 8.9 mg/dL 8.5-10.2 Vital Signs: All taken on the encounter date This section contains inpatient and outpatient Vital Signs collected on the date of the Encounter. Date/Time Temperature Pulse Blood Pressure Respiratory Rate SP02 Pain Height Weight Body Mass Index Source Dec 20, 2023 10:49 AM 97.5 83 153/83 97 0 233.6 [place] Encounter Notes: All associated encounter notes This section contains the clinical notes associated to the Encounter. Date/Time Encounter Note(s) Provider Source Dec 20, 2023 11:35 AM SLEEP MEDICINE NOT E: LOCAL TITLE: SLEEP DISORDER FOLLOW-UP NOTE STANDARD TITLE: SLEEP MEDICINE NOTE DATE OF NOTE: DEC 20, 2023@11:35 ENTRY DATE: DEC 20, 2023@11:35:42 AUTHOR: SHARLA DEUTSCH EXP COSIGNER: URGENCY: STATUS: COMPLETED SLEEP MEDICINE FOLLOW UP NOTE HPI: The patient is a 48 year old with a history of elevated BMI, HTN, migraines, chronic cough, BRANDEN with history of PAP intolerance who presents for follow up. HSAT done 08/10/2020 showed moderate BRANDEN with an HST-AHI of 21.4/hr. The mean SpO2 was 96.8% and naga was 84%. T<90% was 1 min. He reports that he had this sleep study because his was complaining of his snoring. He tried CPAP but hated wearing a mask on his face, never got used to breathing with a mask on his face. He tried 3 different interfaces including nasal pillows, nasal, and FFM. He hated all 3 masks. He even tried taking an antianxietal med and it didn't help. Other sleep symptoms: Endorses gasping awakening, frequent nocturnal awakening Denies leg discomfort preventing sleep, leg twitching during sleep Denies sleepwalking Endorses dream enactment occuring 1-2x/month, waking up pushing something away while dreaming about doing that, some related to service and some related to childhood shit, wakes up with heart racing Interval History: At our last visit, he was referred to dental for OAT, but he failed scheduling mandate. PCP has placed a local dental consult to Dr. Hernandes for oral appliance; he apparently missed the phone calls to schedule and didn't get the voicemail. He was also started on the Zzoma belt for positional therapy, with the intention to use it with OAT. He reports dislike of the Zzoma belt and has stopped using it. He has been avoiding back sleeping on his own. Current sleep-wake cycle: Bedtime: 9pm Sleep latency: very quickly # of awakenings/how lon-3x/night, able to return to sleep Rise time: 2:20am weekdays, 6:30am on weekends Estimated nocturnal sleep: 5.5hr. 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 Marital Status: Pertinent Family Hx: Father, paternal and maternal grandparents and aunts/uncles have sleep PMH: Prediabetes Chronic migraine without aura Obstructive sleep apnea syndrome (disorder) Essential hypertension (disorder) Obesity (disorder) Chronic headache disorder (disorder) Low back pain (finding) Pain in left knee Hallux valgus (disorder) Chronic gastritis (disorder) MEDS: FLUTICASONE PROP 50MCG 120D NASAL INHL CETIRIZINE HCL 10MG TAB LOSARTAN 25MG TAB CHOLECALCIF 50MCG (D3-2,000UNIT) TAB FLUTICAS 250/SALMETEROL 50 INHL DISK 60 GABAPENTIN 100MG CAP --> does not take SUMATRIPTAN SUCCINATE 100MG TAB TOPIRAMATE 25MG TAB --> does not take ALLERGIES: NKDA PE: 12/20/23 Wt: 233 lb (105.69 kg) Body Mass Index: 38* GEN: well appearing, in NAD HEENT: NC/AT, neck supple, sclera anicteric, teeth ---, Mallampati ---, no nasal septal deviation RESP: good air movement, no r/r/w CVS: RRR, normal S1, S2 ABD: soft, nontender EXT: no edema SKIN: no rash NEURO: awake, alert, no focal deficits PSYCH: normal mood and affect PRIOR SLEEP STUDIES: Ambulatory Limited Channel Polysomnography Report Patient: DORIAN TREJO Gender: Male : 1975 Study Date: 08/10/2020 BMI: 37.3 Indications: Referred to rule out Sleep Apnea. Symptoms: Snoring, Witnessed apnea, Excessive daytime sleepiness [place] sleepiness scale: 8/24 Co-morbidities: Hypertension Diagnosis: Headache R51.9 Requestor: Gerson Flowers MD Interpreted by: Beatriz Jay MD Scored by: Shree Martinez MS, RPS IMPRESSION: 1. Moderate Obstructive Sleep Apnea Syndrome: The patient has an overall Apnea Hypopnea Index (AHI) of 21.4 on this study as well as intermittent oxygen desaturations. The mean arterial oxygen saturation on room air was 96.8% and nadired to 84.0%. The saturation <90% = 1.1 mins., 0.3% of total recording time SUMMARY OF DATA: An ambulatory sleep study was performed on the night of 08/10/2020 from 23:31 until 5:22. The total recording time was 351.4 minutes. There were a total of 125 respiratory events as follows: RESPIRATORY EVENT TYPE # of respiratory events Obstructive Apneas: 2 Central Apneas: 0 Mixed Apneas: 0 Obstructive Hypopneas: 123 Central Hypopneas: 0 This led to an overall Apnea-Hypopnea Index of 21.4/hr. The supine AHI was 31.3/hr. Supine time is 173.9 minutes and 50% of the total recording time. The non-supine AHI was 11.3/hr. The central apnea-hypopnea index was 0.0/hr. The mean arterial oxygen saturation on room air was 96.8% and nadired to 84.0%. The saturation <90% = 1.1 mins., 0.3% of total recording time. The pulse oximetry showed an average heart rate of 60.7 bpm. Cardiac arrhythmias: Bradycardia: None Sinus Tachycardia: None Wide Complex Tachycardia: None Narrow Complex Tachycardia: None Asystole: None Atrial Fibrillation: None Other arrhythmias: None Impression: 48 year old with 1) Moderate BRANDEN with positional worsening, diagnosed on HST in 2019, intolerant of PAP, and interested in alternative treatment modalities. He is symptomatic with habitual snoring and frequent nocturnal awakenings and has comorbid HTN. He was referred to [facility] but failed scheduling mandate; recently PCP referred him to [facility] dental but he didn't get the phone call/VM from scheduling. I explained to him that the current wait time to be seen by Dr. Hernandes in [facility] dental for oral appliance is upwards of 9months. Having heard this, he is willing to retry CPAP in the meantime. 2) Dream enactment behavior, with autonomic symptoms and dreams associated with prior trauma, possible trauma-related sleep disorder vs. pseudo-RBD vs. RBD. He reports that nightmares are not bothersome despite their frequency. Plan: - vet would like to resume PAP use - fitted for N30i small wide nasal cradle which I ordered through [facility] - use Flonase daily during allergy season - pending dental referral to Dr. Hernandes for oral appliance; gave patient the chief airport guide's number - cont to avoid back sleeping - advised weight reduction - in the future, will need PSG w/ oral appliance to assess oral appliance efficacy and to assess for RBD RTC in 4 months over the phone /es/ SHARLA DEUTSCH MD ATTENDING Signed: 12/20/2023 13:51 SHARLA DEUTSCH
--- OUTSIDE RECORDS SUMMARY | 2024-09-24 14:23 | XMS_ITS | Encounter Summary ---
Author Name Department of Vetera Affairs ([place]) Organization [place] Address [address] [place] [address] Care Team Providers Care Special Services Director Name Role Phone JOSIAH HARRIS Primary Care [...] Name Patient's Relationship to Policy Shi SUSAN SALMONT ION [id number] Sep 30, 2020 [id number] [phone] NEIL AWNDER PATIENT [facility] CE SHIRA PHAN ADV O Sep 30, 2020 [id number] [id number] [phone] NEIL WANDER PATIENT Selected Encounter This section includes the information on record at [place] for the Encounter. Date/Time Encounter Type Encounter Description Reason Pro vider Source May 07, 2024 02:35 PM Outpatient Encounter SLEEP MEDICINE IHE Encounter Template Text not used by VA Plan of Treatment: Future Appointments (+ 6 months) and Future Tests (+/- 45 days) The Plan of Treatment section includes future care activities for the patient from all VA treatmentfacilities. This section includes future appointments and future orders which are active, pending or scheduled. Future Appointments This section includes appointments that were scheduled to occur 6 months from the date of the Encounter, up to a maximum of 20 appointments. The data comes from all [facility]. Appointment Date/Time Appointment Type Appointme nt Facility Name May 20, 2024 09:00 AM AMBULATORY - MEDICINE [facility] Sep 24, 2024 10:15 AM AMBULATORY - MEDICINE [facility] Active, Pending, and Scheduled Orders This section includes a listing of several types of active, pending, and scheduled orders, including clinic medications orders, diagnostic test orders, procedure orders and consult orders; where the start date of the order is 45 days before the date of the Encounter or 45 days after the date of theEncounter. The data comes from all [facility]. Test Date/Time Test Type Test Details Facility Name May 05, 2024 12:00 AM Laboratory - Chemi stry Order URINALYSIS URINE [facility] May 05, 2024 12:00 AM Laboratory - Chemi stry Order BASIC METABOLIC PANEL (non-fasting) BLOOD (SST-SERUM) [facility] May 05, 2024 12:00 AM Laboratory - Chemi stry Order LIPID PANEL FASTING BLOOD (SST-SERUM) [facility] May 05, 2024 12:00 AM Laboratory - Chemi stry Order MICROALBUMIN CREATININE RATIO PANEL URINE (RANDOM) [facility] Encounter Notes: All associated encounter notes This section contains the clinical notes associated to the Encounter. Date/Time Encounter Note(s) Provider Source May 07, 2024 02:35 PM LETTERS: LOCAL TITLE: [facility] PATIENT LETTER STANDARD TITLE: LETTERS DATE OF NOTE: MAY 07, 2024@14:35 ENTRY DATE: MAY 07, 2024@14:35:17 AUTHOR: MAYRA STARK COSIGNER: URGENCY: STATUS: COMPLETED [address] [place] [address] Apr Dear Wander Tristan, We are trying to reach you to schedule an appointment in one of our specialty clinics located at the [facility] in [address], [place]. Please call us back at [phone]. [phone] to schedule this appointment Saturday and Saturday between the hours of 7:30am and 3:30pm. Specialty Clinic to schedule in: Sleep clinics Type of appointment request pending: Return to clinic order request(RTC) *Please Note* If we do not hear from you by Apr to schedule your appointment, the request to schedule this appointment may be cancelled. If this appointment has already been scheduled, please disregard this letter. Thank You, [address] [address] MAYRA STARK
--- OUTSIDE RECORDS SUMMARY | 2024-09-24 14:23 | XMS_ITS | Encounter Summary ---
Author Name Department of Vetera Affairs ([place]) Organization [facility] [place] Address [address] [place] [address] Care Team Providers Care Crusher Loader Equipment Operator Name Role Phone JOSIAH HARRIS Primary Care [...] SALMONT ION [id number] 0 Sep 30, 2020 [id number] [phone] DORIAN TREJO PATIENT [facility] CE ORGANIZ GOLD ADV O Sep 30, 2020 [id number] [phone] DORIAN TREJO PATIENT Selected Encounter This section includes the information on record at [place] for the Encounter. Date/Time Encounter Type Encounter Description Reason Provider Source Apr 13, 2024 02:30 PM Outpatient Encounter TELEPHONE/MEDICIN E ICD-10-CM G47.33 Obstructive sleep apnea (adult) (pediatric) HAYDEE DEUTSCH Encounter Template Text not used by [place] Assessments - Encounter Diagnoses This section includes the primary and secondary diagnoses documented for the Encounter. Date/Time Primary/Secondary Diagnosis Diagnosis Name Provider Source Apr 13, 2024 02:30 PM PRIMARY Obstructive sleep apnea (adult) (pediatric) HAYDEE DEUTSCH Plan of Treatment: Future Appointments (+ 6 months) and Future Tests (+/- 45 days) The Plan of Treatment section includes future care activities for the patient from [facility] [place] [facility]. This section includes future appointments and future orders which are active, pending or scheduled. Future Appointments This section includes appointments that were scheduled to occur 6 months from the date of the Encounter, up to a maximum of 20 appointments. The data comes from all [place] treatment facilities. Appointment Date/Time Appointment Type Appointme nt Facility Name May 20, 2024 09:00 AM [facility]ULATORY - MEDICINE [facility] Sep 24, 2024 10:15 AM [facility]BULATORY - MEDICINE [facility] Active, Pending, and Scheduled Orders This section includes a listing of several types of active, pending, and scheduled orders, including clinic medications orders, diagnostic test orders, procedure orders and consult orders; where the start date of the order is 45 days before the date of the Encounter or 45 days after the date of theEncounter. The data comes from all [facility]. Test Date/Time Test Type Test Details Facility Name May 05, 2024 12:00 AM Laboratory - Chemi stry Order LIPID PANEL FASTING BLOOD (SST-SERUM) [facility] May 05, 2024 12:00 AM Laboratory - Chemi stry Order URINALYSIS URINE [facility] May 05, 2024 12:00 AM Laboratory - Chemi stry Order BASIC METABOLIC PANEL (non-fasting) BLOOD (SST-SERUM) [facility] May 05, 2024 12:00 AM Laboratory - Chemi stry Order MICROALBUMIN CREATININE RATIO PANEL URINE (RANDOM) [facility] Encounter Notes: All associated encounter notes This section contains the clinical notes associated to the Encounter. Date/Time Encounter Note(s) Provider Source Apr 13, 2024 02:56 PM SLEEP MEDICINE NOT E: LOCAL TITLE: SLEEP DISORDER FOLLOW-UP NOTE STANDARD TITLE: SLEEP MEDICINE NOTE DATE OF NOTE: APR 13, 2024@14:56 ENTRY DATE: APR 13, 2024@14:57 AUTHOR: HAYDEE DEUTSCH EXP COSIGNER: URGENCY: STATUS: COMPLETED Sleep Medicine Follow Up Note This visit was perfomed over telephone. HPI: The patient is a 49 year old with a history of elevated [...] childhood shit, wakes up with heart racing 12/20/23: At our last visit, he was referred [...] been avoiding back sleeping on his own. Interval History: The vet was fitted for an N30i small wide nasal cradle interface at our last visit. He reports trying it but he's having a hard time sleeping with anything on his face. I've been fighting myself using it. I just don't like it. However, once he falls asleep with PAP on, he stays asleep and he feels more refreshed the next morning. Current sleep-wake cycle: Bedtime: 9pm Sleep latency: very quickly # of awakenings/how lon-3x/night, able to return to sleep Rise time: 2:20am weekdays, 6:30am on weekends Estimated nocturnal sleep: 5.5hr. 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 Marital Status: Pertinent Family Hx: Father, paternal and maternal grandparents and aunts/uncles have sleep PMH: Prediabetes Chronic migraine without aura Obstructive sleep apnea syndrome (disorder) Essential hypertension (disorder) Obesity (disorder) Chronic headache disorder (disorder) Low back pain (finding) Pain in left knee Hallux valgus (disorder) Chronic gastritis (disorder) MEDS: CHOLECALCIF 25MCG (D3-1,000UNIT) TAB LOSARTAN 25MG TAB CETIRIZINE HCL 10MG TAB AMLODIPINE BESYLATE 10MG TAB OMEPRAZOLE 20MG EC CAP SUMATRIPTAN SUCCINATE 100MG TAB ALLERGIES: NKDA PE: Unable to perform exam over the phone. 12/20/23 Wt: 233 lb (105.69 kg) Body Mass Index: 38* PRIOR SLEEP STUDIES: Ambulatory Limited Channel Polysomnography Report Patient: DORIAN TREJO Gender: Male : 1975 Study Date: 08/10/2020 BMI: 37.3 Indications: Referred to rule out Sleep Apnea. Symptoms: Snoring, Witnessed apnea, Excessive daytime sleepiness Weatherford sleepiness scale: 05/23 Co-morbidities: Hypertension Diagnosis: Headache R51.9 Requestor: Gerson Flowers MD Interpreted by: Beatriz Jay MD Scored by: Shree Martinez MS, [facility] IMPRESSION: 1. Moderate Obstructive Sleep Apnea Syndrome: [...] Atrial Fibrillation: None Other arrhythmias: None Impression: 49 year old with 1) Moderate BRANDEN with positional worsening, diagnosed on HST in 2019, intolerant of PAP, and interested in alternative treatment modalities. He is symptomatic with habitual snoring and frequent nocturnal awakenings and has comorbid HTN. He was referred to [facility] but failed scheduling mandate; recently PCP referred him to [facility] but he didn't get the phone call/VM from scheduling. He has retried CPAP in the meantime, finds it difficult to fall asleep wtih the mask on, but once asleep he gets more consolidated sleep and feels more refreshed. 2) Dream enactment behavior, with autonomic symptoms and dreams associated with prior trauma, possible trauma-related sleep disorder vs. pseudo-RBD vs. RBD. He reports that nightmares are not bothersome despite their frequency. Plan: - will prescribe zaleplon 5mg (#30) to use for sleep-onset insomnia while acclimating to CPAP; explained that this is for short-term use. He will start the medication on a night prior to his day off to observe for any side effect of oversedation. - con to acclimate to CPAP RTC in 3 months. Total time spent during phone encounter is 21 min. /reginald DEUTSCH MD ATTENDING Signed: 04/13/2024 14:59 HAYDEE DEUTSCH Apr 13, 2024 02:55 PM ACCOUNTING OF DISC LOSURES NOTE: LOCAL TITLE: STATE PRESCRIPTION DRUG MONITORING PROGRAM STANDARD TITLE: ACCOUNTING OF DISCLOSURES NOTE DATE OF NOTE: APR 13, 2024@14:55:09 ENTRY DATE: APR 13, 2024@14:55:09 AUTHOR: HAYDEE DEUTSCH EXP COSIGNER: URGENCY: STATUS: COMPLETED This PDMP query was submitted by Haydee Deutsch MD. The clinical justification for this PDMP query is to review controlled substances prescribed outside of the VA, and any additional information that may become available, as an important component of standard clinical care, and in accordance with [facility] policy. Patient information was shared with the PDMP Appriss [place]. No prescription(s) for controlled substances outside the VA were found in the last 90 days. /reginald DEUTSCH MD ATTENDING Signed: 04/13/2024 15:00 HAYDEE DEUTSCH
--- OUTSIDE RECORDS SUMMARY | 2024-09-24 14:24 | XMS_ITS | Encounter Summary ---
Author Name Department of [facility] [place] [facility] [place]) Organization [place] Address [address] [place] [address] Care Team Providers Care Pharmacy Ancillary Name Role Phone JOSIAH HARRIS Primary Care [...] PRESCRIPT ION [id number] Sep 30, 2020 [id number] DORIAN TREJO PATIENT [facility] JOON PHAN ADV O Sep 30, 2020 [id number] [id number] DORIAN TREJO PATIENT Selected Encounter This section includes the information on record at [place] for the Encounter. Date/Time Encounter Type Encounter Description Reason Pro vider Source Nov 11, 2023 04:06 PM Outpatient Encounter OPTOMETRY IHE Encounter Template Text not used by [...] 20 appointments. The data comes from all [place] treatment facilities. Appointment Date/Time Appointment Type Appointme nt Facility Name Nov 14, 2023 02:30 PM AMBULATORY - [facility]INE [facility] Dec 16, 2023 03:00 PM AMBULATORY - MEDICINE [facility] Dec 17, 2023 09:30 AM [facility] Dec 20, 2023 11:00 AM AMBULATORY - MEDICINE [facility] Dec 27, 2023 03:30 PM AMBULATORY - MEDICINE [facility] Mar 24, 2024 03:30 PM AMBULATORY - MEDICINE [facility] Apr 13, 2024 02:30 PM AMBULATORY - MEDICINE [facility] Social History: Smoking Status (Most current) and Tobacco Use (All prior to encounter date) This section includes the most current, and the historical, smoking and tobacco- related health factors from the [place] facility where the Encounter took place. Current Smoking Status This section includes the most current smoking, or tobacco-related health factor, from the [place] facility where the Encounter took place. Date/Time Current Smoking Status Comment Facil ity Jan 14, 2017 08:35 AM LIFETIME NON-TOBACCO USER [place] [facility] Encounter Notes: All associated encounter notes This section contains the clinical notes associated to the Encounter. Date/Time Encounter Note(s) Provider Source Nov 11, 2023 04:06 PM CLERICAL NOTE: LOCAL TITLE: APPOINTMENT NO SHOW STANDARD TITLE: CLERICAL NOTE DATE OF NOTE: NOV 11, 2023@16:06 ENTRY DATE: NOV 11, 2023@16:06:12 AUTHOR: BRIGIDO COTTRELL EXP COSIGNER: URGENCY: STATUS: COMPLETED Patient Name: DORIAN TREJO Patient SSN: [id number] Date and time of Appointment No show : 11/11/23 16:06 PATIENT PHONE - PHONE NUMBER [CELLULAR] - Patient's medical record was reviewed. Follow-up actions were determined and initiated: Please check/complete as applies: [X]Telephoned Directly [X]Re-scheduled for next available appt [ ]Sent a N0-show letter ( must call for appointment) [ ]Other (Emergent/Overbook, etc.): Additional Comments: Future Clinic Visits 11/14/2023 14:30 CWM/SO/PACT 5 NURSING 12/16/2023 15:00 CWM/SO/PACT 5 /emmy/ BRIGIDO COTTRELL ADVANCED DATE PULLER Signed: 11/11/2023 16:08 BRIGIDO COTTRELL [facility]
--- OUTSIDE RECORDS SUMMARY | 2024-09-24 14:24 | XMS_ITS | Encounter Summary ---
Author Name Department of Vetera Affairs ([place]) Organization [place] Address [address] [place] [address] Care Team Providers Care Screw Machine Tool Setter Name Role Phone JOSIAH HARRIS Primary Care [...] Name Patient's Relationship to Policy Shi SUSAN SALMONMalro ION [id number] 0 Sep 30, 2020 [id number] DORIAN TREJO PATIENT [facility] CE ORGANIZ GOLD ADV O Sep 30, 2020 [id number] [phone] TREJO DORIAN PATIENT Selected Encounter This section includes the information on record at [place] for the Encounter. Date/Time Encounter Type Encounter Description Reason Pro vider Source IHE Encounter Template Text not used by VA
--- OUTSIDE RECORDS SUMMARY | 2024-09-24 14:24 | XMS_ITS | Encounter Summary ---
Author Name Department of Vetera Affairs ([place]) Organization [facility] [place] Address [address] [place] [address] Care Team Providers Care Crop Consultant Name Role Phone JOSIAH HARRIS Primary Care [...] SALMONT ION [id number] 0 Sep 30, 2020 [id number] [phone] DORIAN TREJO PATIENT [facility] CE SHIRA PHAN ADV O Sep 30, 2020 [id number] [id number] NEIL DORIAN PATIENT Selected Encounter This section includes the information on record at [place] for the Encounter. Date/Time Encounter Type Encounter Description Reason Pro vider Source May 21, 2024 11:45 AM Outpatient Encounter SLEEP MEDICINE IHE Encounter Template [...] 20 appointments. The data comes from all [facility]. Appointment Date/Time Appointment Type Appointme nt Facility Name Sep 24, 2024 10:15 AM AMBULATORY - MEDICINE [facility] Active, Pending, and Scheduled Orders This section includes a listing of several types of active, pending, and scheduled orders, including clinic medications orders, diagnostic test orders, procedure orders and consult orders; where the start date of the order is 45 days before the date of the Encounter or 45 days after the date of theEncounter. The data comes from all [facility]. Test Date/Time Test Type Test Details Facility Name May 05, 2024 12:00 AM Laboratory - Chemi stry Order LIPID PANEL FASTING BLOOD (SST-SERUM) [facility] May 05, 2024 12:00 AM Laboratory - Chemi stry Order BASIC METABOLIC PANEL (non-fasting) BLOOD (SST-SERUM) [facility] May 05, 2024 12:00 AM Laboratory - Chemi stry Order MICROALBUMIN CREATININE RATIO PANEL URINE (RANDOM) [facility] May 05, 2024 12:00 AM Laboratory - Chemi stry Order URINALYSIS URINE [facility] Encounter Notes: All associated encounter notes This section contains the clinical notes associated to the Encounter. Date/Time Encounter Note(s) Provider Source May 21, 2024 11:45 AM NURSING NOTE: LOCAL TITLE: DISPOSITION NOTE STANDARD TITLE: NURSING NOTE DATE OF NOTE: MAY 21, 2024@11:45 ENTRY DATE: MAY 21, 2024@11:45:17 AUTHOR: MAYRA STARK EXP COSIGNER: URGENCY: STATUS: COMPLETED [place] has failed to respond to scheduling attempts for RTC dated 07/28/24. Current attempts 05/21/24. RTC has been dispositioned. /emmy/ MAYRA STARK ADVANCED FINISH MILL OPERATOR Signed: 05/21/2024 11:46 MAYRA STARK
--- OUTSIDE RECORDS SUMMARY | 2024-09-24 14:24 | XMS_ITS | Encounter Summary ---
Author Name Department of Vetera [facility] Affairs ([place]) Organization [place] Address [address] [place] [address] Care Team Providers Care Slot Floor Supervisor Name Role Phone JOSIAH HARRIS Primary Care [...] PRESCRIPT ION [id number] 0 Sep 30, 2020 [id number] [phone] DORIAN TREJO PATIENT [facility] JOON PHAN ADV O Sep 30, 2020 [id number] [phone] NEIL DORIAN PATIENT Selected Encounter This section includes the information on record at [place] for the Encounter. Date/Time Encounter Type Encounter Description Reason Pro vider Source Oct 28, 2023 10:47 AM Outpatient Encounter PRIMARY CARE/MEDICINE IHE Encounter Template Text not used by [...] 20 appointments. The data comes from all [place] treatment facilities. Appointment Date/Time Appointment Type Appointme nt Facility Name Nov 11, 2023 03:30 PM AMBULATORY - MEDICINE [facility] Nov 14, 2023 02:30 PM [facility]ORY [facility] MEDICINE [facility] Dec 16, 2023 03:00 PM AMBULATORY - MEDICINE [facility] Dec 17, 2023 09:30 AM AMBULATORY - MEDICINE [facility] Dec 20, 2023 11:00 AM AMBULATORY - MEDICINE [facility] Dec 27, 2023 03:30 PM AMBULATORY - MEDICINE [facility] Mar 24, 2024 03:30 PM AMBULATORY - MEDICINE [facility] Apr 13, 2024 02:30 PM AMBULATORY - MEDICINE [facility] Social History: Smoking Status (Most current) and Tobacco Use (All prior to encounter date) This section includes the most current, and the historical, smoking and tobacco- related health factors from the [place] facility where the Encounter took place. Current Smoking Status This section includes the most current smoking, or tobacco-related health factor, from the [place] facility where the Encounter took place. Date/Time Current Smoking Status Comment Facil marcus Jan 14, 2017 08:35 AM LIFETIME NON-TOBACCO USER [facility] Encounter Notes: All associated encounter notes This section contains the clinical notes associated to the Encounter. Date/Time Encounter Note(s) Provider Source Oct 28, 2023 10:50 AM PRIMARY CARE NOTE: LOCAL TITLE: WALK-IN NOTE PRIMARY CARE (T) STANDARD TITLE: PRIMARY CARE NOTE DATE OF NOTE: OCT 28, 2023@10:50 ENTRY DATE: OCT 28, 2023@10:50:36 AUTHOR: [place] COSIGNER: URGENCY: STATUS: COMPLETED <====Click to Start Advanced Medical Support Buckhannon presents to the Primary Care clinic with the following request: [ ]Medication Renewal/Refill [ ]Consultation with Team RN [ ]Symptoms [ X ]Other The Buckhannon states they are: [ ]Waiting [ X ]Not Waiting No Walk in visit scheduled with PACT Nurse [ X ] At this encounter the Buckhannon's demographics were verified. [ X ] At this encounter the Buckhannon's Insurance information was verified. [ X ] At this encounter the below scheduled visits for the Buck[place]annon were discussed and appointment reminder card was offered. HAD CALLED OUT OF WORK YESTURDAY 10/27/2023 FOR TODAY 10/28/2023 AND IS FEELING BETTER AND IS REQUESTING A RETURN TO WORK NOTE. Future appointments: 11/11/2023 15:30 CWM/NO/OPTOMETRY/MERDAMIEN /emmy/ LICHA RIVERA ADVANCED RESIDENT CARE AID Signed: 10/28/2023 10:51 Receipt Acknowledged By: 10/28/2023 11:50 /es/ SIGIFREDO BUTLER RN REGISTERED NURSE 10/28/2023 10:59 /es/ RON WORTHY LPN, [facility] [place]
--- OUTSIDE RECORDS SUMMARY | 2024-09-24 14:24 | XMS_ITS | Encounter Summary ---
Author Name Department of Veter[facility] [place] Affairs ([place]) Organization [place] Address [address] [place] [address] Care Team Providers Care Drywall Professional Name Role Phone JOSIAH HARRIS Primary Care [...] PRESCRIPT ION [id number] Sep 30, 2020 [id number] DORIAN TRISTAN PATIENT [facility] JOON PHAN ADV O Sep 30, 2020 [id number] [phone] NEIL DORIAN PATIENT Selected Encounter This section includes the information on record at [place] for the Encounter. Date/Time Encounter Type Encounter Description Reason Pro vider Source Oct 28, 2023 11:06 AM Outpatient Encounter PRIMARY CARE/MEDICINE IHE Encounter [...] 20 appointments. The data comes from all [place] treatment facilities. Appointment Date/Time Appointment Type Appointme nt Facility Name Nov 11, 2023 03:30 PM [facility] Nov 14, 2023 02:30 PM AM[facility]ULATORY - MEDICINE [facility] Dec 16, 2023 03:00 PM AMBULATORY - MEDICINE [facility] Dec 17, 2023 09:30 AM AMBULATORY - [facility] Dec 20, 2023 11:00 AM AMBULATORY - MEDICINE [facility] Dec 27, 2023 03:30 PM AMBULATORY - MEDICINE [facility] Mar 24, 2024 03:30 PM AMBULATORY - MEDICINE [facility] Apr 13, 2024 02:30 PM AMBULATORY [facility] Social History: Smoking Status (Most current) and Tobacco Use (All prior to encounter date) This section includes the most current, and the historical, smoking and tobacco- related health factors from the [place] facility where the Encounter took place. Current Smoking Status This section includes the most current smoking, or tobacco-related health factor, from the [place] facility where the Encounter took place. Date/Time Current Smoking Status Comment Clyde velazquez Jan 14, 2017 08:35 AM LIFETIME [facility]-TOBACCO [facility]ER [facility] Encounter Notes: All associated encounter notes This section contains the clinical notes associated to the Encounter. Date/Time Encounter Note(s) Provider Source Oct 28, 2023 11:07 AM LETTERS: LOCAL TITLE: PATIENT LETTER (B) STANDARD TITLE: LETTERS DATE OF NOTE: OCT 28, 2023@11:07 ENTRY DATE: OCT 28, 2023@11:07:44 AUTHOR: JEREMIAS PAREKH EXP COSIGNER: URGENCY: STATUS: COMPLETED To Whom it may concern: Mr. Tristan is a patient here at [facility] He was seen today in the clinic, and is cleared to return to work with out any restrictions. JEREMIAS PAREKH
--- OUTSIDE RECORDS SUMMARY | 2024-09-24 14:24 | XMS_ITS | Encounter Summary ---
Author Name [facility] [place] Organization [facility] [place] Address [address] [place] [address] Care Team Providers Care Professor Of Spanish Name Role Phone JOSIAH HARRIS Primary Care [...] PRESCRIPT ION [id number] Sep 30, 2020 [id number] [phone] [facility] JOON PHAN ADV O Sep 30, 2020 [id number] [id number] TREJO DORIAN PATIENT Selected Encounter This section includes the information on record at [place] for the Encounter. Date/Time Encounter Type Encounter Description Reason Pro vider Source Oct 17, 2023 03:51 PM Outpatient Encounter PRIMARY CARE/MEDICINE IHE Encounter Template [...] 20 appointments. The data comes from all [place] treatment facilities. Appointment Date/Time Appointment Type Appointme nt Facility Name Nov 11, 2023 03:30 PM AMBULATORY - MEDICINE [facility] Nov 14, 2023 02:30 PM AMBULATORY - MEDICINE [facility] Dec 16, 2023 03:00 PM AMBULATORY - MEDICINE [facility] Dec 17, 2023 09:30 AM AM[place]ULATORY [place] MEDICINE [place] [facility] Dec 20, 2023 11:00 AM AMBULATORY - MEDICINE [facility] Dec 27, 2023 03:30 PM AMBULATORY - MEDICINE [facility] Mar 24, 2024 03:30 PM AMBULATORY - MEDICINE [facility] Apr 13, 2024 02:30 PM AMBULATORY - MEDICINE [facility] Social History: Smoking Status (Most current) and Tobacco Use (All prior to encounter date) This section includes the most current, and the historical, smoking and tobacco- related health factors from the [place] facility where the Encounter took place. Current Smoking Status This section includes the most current smoking, or tobacco-related health factor, from the [place] facility where the Encounter took place. Date/Time Current Smoking Status Comment Facil ity Jan 14, 2017 08:35 AM LIFETIME NON-TOBACCO USER [place] [facility] Encounter Notes: All associated encounter notes This section contains the clinical notes associated to the Encounter. Date/Time Encounter Note(s) Provider Source Oct 17, 2023 03:51 PM ADMINISTRATIVE NOT E: LOCAL TITLE: ADMINISTRATIVE NOTE STANDARD TITLE: ADMINISTRATIVE NOTE DATE OF NOTE: OCT 17, 2023@15:51 ENTRY DATE: OCT 17, 2023@15:51:09 AUTHOR: JEREMIAS PAREKH EXP COSIGNER: URGENCY: STATUS: COMPLETED was a no show for todays appt with provider. /emmy/ JEREMIAS PAREKH LPN LPN Signed: 10/17/2023 15:51 Receipt Acknowledged By: 10/18/2023 07:22 /emmy/ JEREMIAS CHEEMA
--- OUTSIDE RECORDS SUMMARY | 2024-09-24 14:24 | XMS_ITS | Encounter Summary ---
Author Name [facility] [place] Organization [facility] [place] Address [address] [place] [address] Care Team Providers Care Stull Installer Name Role Phone JOSIAH HARRIS Primary Care [...] PRESCRIPT ION [id number] Sep 30, 2020 [id number] DORIAN TREJO PATIENT [facility] JOON PHAN ADV O Sep 30, 2020 [id number] [phone] TREJO DROIAN PATIENT Selected Encounter This section includes the information on record at [place] for the Encounter. Date/Time Encounter Type Encounter Description Reason Pro vider Source Nov 12, 2023 09:17 AM Outpatient Encounter PRIMARY CARE/MEDICINE IHE Encounter Template Text not used by [place] Plan of Treatment: Future Appointments (+ 6 [...] 2023 02:30 PM [facility] Dec 16, 2023 03:00 PM AMBULATORY - MEDICINE [facility] Dec 17, 2023 09:30 AM [facility]UL[facility] Dec 20, 2023 11:00 AM AMBULATORY - MEDICINE [facility] Dec 27, 2023 03:30 PM AMBULATORY - MEDICINE [facility] Mar 24, 2024 03:30 PM AMBULATORY - MEDICINE [facility] Apr 13, 2024 02:30 PM AMBULATORY - MEDICINE [facility] Social History: Smoking Status (Most current) and Tobacco Use (All prior to encounter date) This section includes the most current, and the historical, smoking and tobacco- related health factors from the [place] facility where the Encounter took place. Current Smoking Status This section includes the most current smoking, or tobacco-related health factor, from the [place] facility where the Encounter took place. Date/Time Current Smoking Status Comment Clyde velazquez Jan 14, 2017 08:35 AM LIFETIME NON-TOBACCO USER [place] [facility] Encounter Notes: All associated encounter notes This section contains the clinical notes associated to the Encounter. Date/Time Encounter Note(s) Provider Source Nov 12, 2023 09:17 AM PRIMARY CARE TELEP [place] ENCOUNTER NOTE: LOCAL TITLE: TELEPHONE NOTE/PRIMARY CARE STANDARD TITLE: PRIMARY CARE TELEPHONE ENCOUNTER NOTE DATE OF NOTE: NOV 12, 2023@09:17 ENTRY DATE: NOV 12, 2023@09:17:17 AUTHOR: EDDIE MARRUFO EXP COSIGNER: URGENCY: STATUS: COMPLETED Vp Project called to [ ] Schedule primary care appt [ ] Reschedule primary care appt. [X} Remind of upcoming primary care appt. SPOKE WITH: [ ] Fasting blood work needed, and vet reminded. [ ] Non fasting blood work needed, and vet reminded. [ ] No labs needed. [ ] UNABLE TO REACH : [X} Left voicemail. [ ] Unable to leave voicemail. [ ] No phone number available/no working phone number [ ] Mailed Letter OTHER: LVM for vet for apppontment on 11/14/23 at 1430 /es/ EDDIE MARRUFO [facility] Signed: 11/12/2023 09:18 EDDIE MARRUFO [facility]
--- OUTSIDE RECORDS SUMMARY | 2024-09-24 14:25 | XMS_ITS ---
Author Name [facility] [place] [facility] [place] Organization [facility] [place] Address [address] [place] [address] Care Team Providers Care Auto Garage Mechanic Name Role Phone JOSIAH HARRIS Primary Care [...] PRESCRIPT ION [id number] Sep 30, 2020 [id number] [phone] DORIAN TREJO PATIENT [facility] JOON PHAN ADV O Sep 30, 2020 [id number] [phone] [id number] DORIAN TREJO PATIENT Selected Encounter This section includes the information on record at [place] for the Encounter. Date/Time Encounter Type Encounter Description Reason Pro vider Source Dec 16, 2023 03:55 PM Outpatient Encounter DENTAL IHE Encounter Template Text not used by [...] 20 appointments. The data comes from all [place] treatment facilities. Appointment Date/Time Appointment Type Appointme nt Facility Name Dec 17, 2023 09:30 AM AMBULATORY - MEDICINE [place] C [facility] Dec 20, 2023 11:00 AM AMBULATORY - MEDICINE [facility] Dec 27, 2023 03:30 PM AMBULATORY - MEDICINE [place] [place] Mar 24, 2024 03:30 PM AMBULATORY - MEDICINE [place] [place] Apr 13, 2024 02:30 PM [facility]IC[facility] May 20, 2024 09:00 AM AMBULATORY - MEDICINE [place] [place] Lab Results: +/- 30 days of the encounter This section includes the Chemistry and Hematology Lab Results on record with [place] for the patient. Radiology Reports and Pathology Reports are provided separately, in subsequent sections. Lab Results This section contains the Chemistry/Hematology Results that were resulted 30 days before or 30 daysafter the date of the Encounter. Date/Time Source Result Type Result - Unit Interpretation Reference Range Comment Dec 19, 2023 10:53 AM [facility] MICROALBUMIN CREATININE RATIO PANEL Spe cimen Type: URINE No comment entered. Ordering Provider: JOSIAH STRINGER Report Released Date/Time: Dec 04, 2023 08:30 AM Reporting Lab: [address] [address] Performing Lab: [address] [address] MICROALBUMIN/C REATININE RATIO 30.3 mg/g H 0-29.9 MICROALBUMIN,Q UANTITATIVE 3.3 mg/dL RR UNAVAIL CREATININE URINE 108.79 mg/dL Dec 18, 2023 10:05 AM [place] HEMOGLOBIN A1C PANEL Specimen Type: BLOOD Comment: [...] 04, 2023 08:30 AM Reporting Lab: [facility] [address] [facility] [address] Performing Lab: [facility]USE[facility] [address] [facility] [address] HEMOGLOBIN A1C 5.7 H 4.0-5.6 Dec 18, 2023 10:05 AM [place] LIVER FUNCTION Specimen Type: SERUM No comment entered. Ordering Provider: JOSIAH STRINGER Report Released Date/Time: Dec 04, 2023 08:30 AM Reporting Lab: [facility] [address] [facility] [address] Performing Lab: [facility] [address] [address] PROTEIN,TOTAL 7.2 g/dL 6.0-8.3 ALBUMIN 4.5 g/dL 3.5-5.0 ALKALINE PHOSPHATASE 66 U/L 40-150 AST 20 U/L 5-34 ALT 40 U/L BILIRUBIN, TOTAL 0.5 mg/dL 0.2-1.2 Dec 18, 2023 10:05 AM [facility] TSH Specimen Type: SERUM No comment entered. Ordering Provider: JOSIAH STRINGER Report Released Date/Time: Dec 04, 2023 08:30 AM Reporting Lab: [facility] TRN [facility]USE[facility] [address] [facility] [address] Performing Lab: [facility] TRN [facility] CENTERUSETS [address] [address] TSH 2.20 u[IU]/mL 0.35-5.00 Dec 18, 2023 10:05 AM [place] BASIC METABOLIC PANEL (non-fasting) Spe cimen Type: SERUM No comment entered. Ordering Provider: JOSIAH STRINGER Report Released Date/Time: Dec 04, 2023 08:32 AM Reporting Lab: [facility] TRN [facility] CENTERUSETS [facility] [address] [facility] [address] Performing Lab: [facility]ITALRW[facility] HOSPITALN [facility] CENTERUSE[address] [address] UREA NITROGEN 18 mg/dL 7-25 GLUCOSE 95 mg/dL 65-100 SODIUM 140 mmol/L 135-145 POTASSIUM 4.4 mmol/L 3.5-5.0 CHLORIDE 103 mmol/L 100-110 CO2 28 meq/L 20-30 CREATININE, Serum 1.46 mg/dL H 0.50-1.40 eGFR(CKD-EPI 2020) 59 mL/min L >60 Dec 18, 2023 10:05 AM [place] CBC AND DIFF (AUTO) Specimen Type: BLOOD No comment entered. Ordering Provider: JOSIAH STRINGER Report Released Date/Time: Dec 04, 2023 08:30 AM Reporting Lab: [facility] [address] [facility] [address] Performing Lab: [facility] [address] [facility] [address] WBC 5.70 10*3/uL 4.50-11.00 RBC 4.57 10*6/uL 4.23-5.66 HGB 13.6 g/dL 12.8-17 HCT 39.0 L 39.2-50.4 MCV 85.3 fL 82-99 MCHC 34.9 g/dL 30.8-35.1 PLT 250 10*3/uL 140-360 RDW-CV 12.4 12.0-16.0 [place], Abs 0.34 10*3/uL 0.30-1.10 MCH 29.8 pg 26.2-32.6 Neut % 47.7 43.7-75.8 Lymph % 42.8 H 14.0-42.3 [place] % 6.0 5.1-13.7 Eos % 2.8 0.4-6.8 Baso % 0.5 0.1-2.0 Neut, Abs 2.72 10*3/uL 2.20-7.60 Lymph, Abs 2.44 10*3/uL 1.00-3.20 Eos, Abs 0.16 10*3/uL 0.03-0.44 Baso, Abs 0.03 10*3/uL 0.01-0.13 Immature Gran % 0.2 0.0-0.7 Immature Gran, Abs 0.01 10*3/uL 0.00-0.06 Dec 18, 2023 10:05 AM [place] VITAMIN D (25-OH) Specimen Type: SERUM No comment entered. Ordering Provider: JOSIAH STRINGER Report Released Date/Time: Dec 16, 2023 03:57 PM Reporting Lab: [facility] [address] [facility] [address] Performing Lab: [address] [address] VITAMIN D (25-OH) 24 ng/mL 20-50 Dec 18, 2023 10:05 AM [place] CALCIUM Specimen Type: SERUM No comment entered. Ordering Provider: JOSIAH STRINGER Report Released Date/Time: Dec 16, 2023 03:57 PM Reporting Lab: [address] [address] Performing Lab: [address] [address] CALCIUM 8.9 mg/dL 8.5-10.2 Social History: Smoking Status (Most current) and Tobacco Use (All prior to encounter date) This section includes the most current, and the historical, smoking and tobacco- related health factors from the [place] facility where the Encounter took place. Current Smoking Status This section includes the most current smoking, or tobacco-related health factor, from the [place] facility where the Encounter took place. Date/Time Current Smoking Status Comment Clyde velazquez Dec 16, 2023 03:00 PM VA-TOBACCO NEVER USED [facility] Tobacco Use History This section includes a history of the smoking, or tobacco-related health factors, that were collected on or before the date of the Encounter. The data comes from the [place] facility where the Encounter took place. Date/Time Smoking Status/Tobacco Use Comment F acility Jan 14, 2017 08:35 AM LIFETIME NON-TOBACCO USER [facility] Encounter Notes: All associated encounter notes This section contains the clinical notes associated to the Encounter. Date/Time Encounter Note(s) Provider Source Dec 16, 2023 03:55 PM DENTISTRY TELEPHON E ENCOUNTER NOTE: LOCAL TITLE: TELEPHONE NOTE/DENTAL STANDARD TITLE: DENTISTRY TELEPHONE ENCOUNTER NOTE DATE OF NOTE: DEC 16, 2023@15:55 ENTRY DATE: DEC 16, 2023@15:55:49 AUTHOR: AMEYA MARTIN EXP COSIGNER: URGENCY: STATUS: COMPLETED TELEPHONE NOTE/DENTAL Has ADDENDA [facility] Toll Free Number Primary Care Telephone Assistance can be reached at ext. [phone] option 2 [facility] scheduling can be reached at ext. [phone] option 2 [facility] scheduling can be reached at ext. [phone] option 3 DEC 16, 2023 DORIAN TREJO [address] [place], [place] [address] Dear DORIAN TREJO Our records indicate you are due for an appointment in Dental Clinic for an Sleep Apnea oral device consult. Thank you for choosing the Department of [facility] ([place]) Medical Speculator as your primary choice for health care. As a partner in your health care, we are contacting you in writing since we have been unsuccessful in our attempts to reach you to date. We want to assure you we are doing everything possible to schedule Veterans for their [place] medical care appointments. If you would like to be seen, please contact [facility] at [phone] Ext. [phone] Option 3 to schedule an appointment. Thank you for your service to our nation, and we look forward to hearing from you soon. Sincerely, [facility] [address] [place] [address] [place] [address] ext. [phone] [facility] [address] [facility] [address] [place] [address] [place] [address] [phone] [facility] [address] [facility] [address] [place] [address] [place] [address] ext. [phone] [facility] [address] [place] [address] ext. [phone] /es/ AMEYA MARTIN [employer] Signed: 12/16/2023 15:56 12/16/2023 ADDENDUM STATUS: COMPLETED ADMINISTRATIVE CONTACT HAS orders: [facility] Able to contact patient: Spoke to Patient/Patient digital sales representative per policy utilizing HIPAA Guidelines. Attempts to contact: 1st attempt: Left voicemail 2nd attempt: Letter mailed Disposition on Dec 3rd attempt: 4th attempt: /emmy/ AMEYA MARTIN [employer] Signed: 12/16/2023 15:57 AMEYA MARTIN [facility]
--- OUTSIDE RECORDS SUMMARY | 2024-09-24 14:25 | XMS_ITS | Encounter Summary ---
Author Name [facility] Address [address] [place] [address] Care Team Providers Care Custom Dressmaker Name Role Phone JOSIAH HARRIS Primary Care [...] [place] ION [id number] Sep 30, 2020 [id number] [phone] DORIAN TREJO PATIENT [facility] ORGANTRES GOLD ADV O Sep 30, 2020 [id number] [phone] NEIL DORIAN PATIENT Selected Encounter This section includes the information on record at [place] for the Encounter. Date/Time Encounter Type Encounter Description Reason Pro vider Source Mar 24, 2024 03:30 PM Outpatient Encounter PRIMARY CARE/MEDICINE IHE Encounter Template Text not used by [place] Plan of Treatment: Future Appointments (+ 6 [...] 20 appointments. The data comes from all [facility]. Appointment Date/Time Appointment Type Appointme nt Facility Name Apr 13, 2024 02:30 PM AMBULATORY - MEDICINE [facility] May 20, 2024 09:00 AM AMBULATORY - MEDICINE [facility] Active, Pending, and Scheduled Orders This section includes a listing of several types of active, pending, and scheduled orders, including clinic medications orders, diagnostic test orders, procedure orders and consult orders; where the start date of the order is 45 days before the date of the Encounter or 45 days after the date of theEncounter. The data comes from all [facility]. Test Date/Time Test Type Test Details Facility Name May 05, 2024 12:00 AM Laboratory - Chemi stry Order BASIC METABOLIC PANEL (non-fasting) BLOOD (SST-SERUM) [facility] May 05, 2024 12:00 AM Laboratory - Chemi stry Order URINALYSIS URINE [facility] May 05, 2024 12:00 AM Laboratory - Chemi stry Order LIPID PANEL FASTING BLOOD (SST-SERUM) [facility] May 05, 2024 12:00 AM Laboratory - Chemi stry Order MICROALBUMIN CREATININE RATIO PANEL URINE (RANDOM) [facility] Social History: Smoking Status (Most current) and Tobacco Use (All prior to encounter date) This section includes the most current, and the historical, smoking and tobacco- related health factors from the [place] facility where the Encounter took place. Current Smoking Status This section includes the most current smoking, or tobacco-related health factor, from the [place] facility where the Encounter took place. Date/Time Current Smoking Status Comment Facil ity Oct 04, 2022 03:00 PM VA-TOBACCO NEVER USED [facility] Tobacco Use History This section includes a history of the smoking, or tobacco-related health factors, that were collected on or before the date of the Encounter. The data comes from the [place] facility where the Encounter took place. Date/Time Smoking Status/Tobacco Use Comment F acility February 13, 2021 01:00 PM VA-TOBACCO FORMER USER [facility] February 13, 2021 01:00 PM VA-TOBACCO QUIT 15 YRS OR MORE [facility] May 12, 2018 09:25 AM LIFETIME NON-TOBACCO USER Tried as a kid and hated [facility] Encounter Notes: All associated encounter notes This section contains the clinical notes associated to the Encounter. Date/Time Encounter Note(s) Provider Source Mar 24, 2024 04:12 PM ADMINISTRATIVE NOT E: LOCAL TITLE: ADMINISTRATIVE NOTE STANDARD TITLE: ADMINISTRATIVE NOTE DATE OF NOTE: MAR 24, 2024@16:12 ENTRY DATE: MAR 24, 2024@16:12:34 AUTHOR: LEORA WILLS COSIGNER: URGENCY: STATUS: COMPLETED ADMINISTRATIVE NOTE Has ADDENDA Patient was a no show for scheduled appointment today. GINNA please reach out to reschedule. /reginald WILLS LPN LPN Signed: 03/24/2024 16:13 Receipt Acknowledged By: 03/25/2024 07:26 /reginald CHACKO 03/25/2024 ADDENDUM STATUS: COMPLETED City Dispatch Supervisor sent no show letter to . /reginald CHACKO Signed: 03/25/2024 07:27 LEORA WILLS [facility]
--- OUTSIDE RECORDS SUMMARY | 2024-09-24 14:25 | XMS_ITS | Encounter Summary ---
Author Name [facility] [place] Organization [facility] [place] Address [address] [place] [address] Care Team Providers Care Information Assistant Name Role Phone JOSIAH HARRIS Primary Care [...] PRESCRIPT ION [id number] 0 Sep 30, 2020 [id number] [phone] DORIAN TREJO [facility] ORGANTRES GOLD ADV O Sep 30, 2020 [id number] [phone] DORIAN TREJO PATIENT Selected Encounter This section includes the information on record at [place] for the Encounter. Date/Time Encounter Type Encounter Description Reason Provider Source Sep 24, 2024 10:15 AM OFF/OP EST JANUARY X REQ PHY/QHP PRIMARY CARE/MEDICINE ICD-10-CM I10 Essential (primary) hypertension HONORIO CARPENTER Encounter Template Text not used by VA Assessments - Encounter Diagnoses This section includes the primary and secondary diagnoses documented for the Encounter. Date/Time Primary/Secondary Diagnosis Diagnosis Name Provider Source Sep 24, 2024 11:30 AM PRIMARY Essential (primary) hypertension HONORIO CARPENTER [place] Sep 24, 2024 11:30 AM SECONDARY Cough, unspecified HONORIO CARPENTER [place] Sep 24, 2024 11:30 AM SECONDARY Dyspnea, unspecified HONORIO CARPENTER [place] Sep 24, 2024 11:30 AM SECONDARY Headache, unspecified HONORIO CARPENTER [facility] Plan of Treatment: Future Appointments (+ 6 months) and Future Tests (+/- 45 days) The Plan of Treatment section includes future care activities for the patient from all [place] [facility]. This section includes future appointments and future orders which are active, pending or scheduled. Future Appointments This section includes appointments that were scheduled to occur 6 months from the date of the Encounter, up to a maximum of 20 appointments. The data comes from all [place] treatment facilities. Appointment Date/Time Appointment Type Appointme nt Facility Name Jan 05, 2025 03:00 PM AMBULATORY - [place]ICINE [place] [facility] Vital Signs: All taken on the encounter date This section contains inpatient and outpatient Vital Signs collected on the date of the Encounter. Date/Time Temperature Pulse Blood Pressure Respiratory Rate SP02 Pain Height Weight Body Mass Index Source Sep 24, 2024 10:36 AM 98.6 66 164/100 18 98 5 [facility] Social History: Smoking Status (Most current) and Tobacco Use (All prior to encounter date) This section includes the most current, and the historical, smoking and tobacco- related health factors from the [place] facility where the Encounter took place. Current Smoking Status This section includes the most current smoking, or tobacco-related health factor, from the [place] facility where the Encounter took place. Date/Time Current Smoking Status Comment Clyde velazquez Oct 04, 2022 03:00 PM VA-TOBACCO NEVER USED [place] Tobacco Use History This section includes a history of the smoking, or tobacco-related health factors, that were collected on or before the date of the Encounter. The data comes from the [place] facility where the Encounter took place. Date/Time Smoking Status/Tobacco Use Comment F actorsten February 13, 2021 01:00 PM VA-TOBACCO FORMER USER [place] February 13, 2021 01:00 PM [place]-TOBACCO QUIT 15 YRS OR MORE [place] May 12, 2018 09:25 AM LIFETIME NON-TOBACCO USER Tried as a kid and hated [place] Encounter Notes: All associated encounter notes This section contains the clinical notes associated to the Encounter. Date/Time Encounter Note(s) Provider Source Sep 24, 2024 10:36 AM PRIMARY CARE NOTE: LOCAL TITLE: WALK-IN NOTE PRIMARY CARE (T) STANDARD TITLE: PRIMARY CARE NOTE DATE OF NOTE: SEP 24, 2024@10:36 ENTRY DATE: SEP 24, 2024@10:36:58 AUTHOR: HONORIO CARPENTER COSIGNER: URGENCY: STATUS: COMPLETED Data: 49year old MALE reports to Primary Care clinic for Walk-In visit. Malone's PCP is JOSIAH HARRIS Today Vet walks in to clinic with complaint of cold symptoms since Saturday Last recorded Vital Signs are: Temperature:98.6 F [37.0 C] (09/24/2024 10:36) Pulse:66 (09/24/2024 10:36) Blood Pressure:164/100 (09/24/2024 10:36) Respiration:18 (09/24/2024 10:36) Pain:5 (09/24/2024 10:36) Vet reports current allergies are: Remote Allergy Data No Remote Allergy/ADR Data available for this patient Current Medications from Active Med list include: Active Outpatient Medications (including Supplies): Active Outpatient Medications Status ====== 1) AMLODIPINE BESYLATE 10MG TAB TAKE ONE TABLET BY MOUTH ONCE ACTIVE DAILY FOR BLOOD PRESSURE/HEART, DO NOT TAKE WITH GRAPEFRUIT JUICE Indication: FOR HIGH BLOOD PRESSURE 2) CHOLECALCIF 25MCG (D3-1,000UNIT) TAB TAKE ONE TABLET BY ACTIVE MOUTH ONCE DAILY FOR VITAMIN SUPPLEMENTATION Indication: FOR VITAMIN D DEFICIENCY 3) LOSARTAN 25MG TAB TAKE THREE TABLETS BY MOUTH ONCE DAILY FOR ACTIVE BLOOD PRESSURE/HEART 4) OMEPRAZOLE 20MG EC CAP TAKE TWO CAPSULES BY MOUTH EVERY ACTIVE MORNING 30 MINUTES BEFORE BREAKFAST 5) SUMATRIPTAN SUCCINATE 100MG TAB TAKE ONE TABLET BY MOUTH ACTIVE DIRECTED AT ONSET OF HEADACHE; MAY REPEAT IN 2 HOURS IF FIRST DOSE IS NOT EFFECTIVE Indication: MIGRAINE Action: reports to sick call with URI symptoms since Saturday. Currently reports the following chills cough, non-productive dyspnea headache dizziness with coughing vomiting and diarrhea since yesterday body aches Denies fever Denies sore throat Denies nasal congestion Denies loss of taste or smell States several family members ill with cold symptoms alert and oriented, Skin warm and dry RR 16-20, even- non labored, able to complete full sentences no respiratory distress noted Lungs clear, although state he will hear wheezing at times Reports appetite is ok, trying to increase fluids home covid Saturday negative Using Coricedin and Tylenol with minimal relief States he has an old albuterol inh but has not used it Advised Malone to seek medical care at Urgent care now. No sick call provider available at this time. Has asthma, elevated blood pressure and states he overall does not feel well. in agreement to go to urgent care now. In network name and address given to Malone. Reminders Info Only: VA Video Connect Capable DUE NOW Advance Directive Screen MH AD Jun 17 BMI>30/>24.99 High Risk Dec 15 Homelessness/Food Insecurity Screen Mar 15 Hepatitis B Immunization Apr 13 Home Telehealth (CCHT) Referral DUE NOW Lipid Screening Nov 07 Pneumococcal Conjugate Vaccine (PCV15/PCDUE NOW Influenza Immunization DUE NOW Medication Reconciliation DUE NOW COVID-19 Immunization DUE NOW HTN Assess for Elevated BP>=140/90 DUE NOW Hepatitis A Vaccine for High Risk Apr 13 (Optional) Whole Health Documentation DUE NOW Response: /emmy/ HONORIO CARPENTER RN PRIMARY CARE RN Signed: 09/24/2024 11:30 HONORIO CARPENTER [place]
--- OUTSIDE RECORDS SUMMARY | 2024-09-24 14:25 | XMS_ITS | Encounter Summary ---
Author Name [facility] [place] Organization [facility] [place] ([place] Address [address] [place] [address] Care Team Providers Care Rigging Foreman Name Role Phone JOSIAH HARRIS Primary Care [...] PRESCRIPT ION [id number] Sep 30, 2020 [id number] [phone] DORIAN TREJO PATIENT [facility] JOON PHAN ADV O Sep 30, 2020 [id number] [phone] NEIL DORIAN PATIENT Selected Encounter This section includes the information on record at [place] for the Encounter. Date/Time Encounter Type Encounter Description Reason Pro vider Source Sep 24, 2024 10:09 AM Outpatient Encounter PRIMARY CARE/MEDICINE IHE Encounter [...] 05, 2025 03:00 PM AMBULATORY - MEDICINE [facility] Social History: Smoking Status (Most current) and Tobacco Use (All prior to encounter date) This section includes the most current, and the historical, smoking and tobacco- related health factors from the [place] facility where the Encounter took place. Current Smoking Status This section includes the most current smoking, or tobacco-related health factor, from the [place] facility where the Encounter took place. Date/Time Current Smoking Status Comment Facil ity Dec 16, 2023 03:00 PM VA-TOBACCO NEVER USED [facility] Tobacco Use History This section includes a history of the smoking, or tobacco-related health factors, that were collected on or before the date of the Encounter. The data comes from the [place] facility where the Encounter took place. Date/Time Smoking Status/Tobacco Use Comment F acility Jan 14, 2017 08:35 AM LIFETIME NON-TOBACCO USER [facility] Encounter Notes: All associated encounter notes This section contains the clinical notes associated to the Encounter. Date/Time Encounter Note(s) Provider Source Sep 24, 2024 10:09 AM PRIMARY CARE NOTE: LOCAL TITLE: WALK-IN NOTE PRIMARY CARE (T) STANDARD TITLE: PRIMARY CARE NOTE DATE OF NOTE: SEP 24, 2024@10:09 ENTRY DATE: SEP 24, 2024@10:09:59 AUTHOR: LUCRECIA SAHNI EXP COSIGNER: URGENCY: STATUS: COMPLETED <====Click to Start Advanced Medical Support presents to the Primary Care clinic with the following request: [ ]Medication Renewal/Refill [ ]Consultation with Team RN [ X ]Symptoms [ ]Other The states they are: [ X ]Waiting [ ]Not Waiting Yes Walk in visit scheduled with PACT Nurse [ X ] At this encounter the 's demographics were verified. [ X ] At this encounter the [place]'s Insurance information was verified. [ X ] At this encounter the below scheduled visits for the [place] were discussed and appointment reminder card was offered. Future appointments: 01/05/2025 15:00 NHM/OPTOMETRY/EVELYN Conleyan is here complaining of a headache, dizziness and vomiting since Saturday. /es/ LUCRECIA SAHNI ADVANCED RN FIELD CASE MANAGER Signed: 09/24/2024 10:10 Receipt Acknowledged By: * AWAITING SIGNATURE * LUIS FELIPEDAVEYOrlandoROSALIO 09/24/2024 10:15 /es/ HONORIO CARPENTER RN PRIMARY CARE RN LUCRECIA SAHNI MEDINA
--- OUTSIDE RECORDS SUMMARY | 2024-09-24 14:25 | XMS_ITS | Encounter Summary ---
Author Name [facility] of [facility] [place] Organization [facility] [place] Address [address] [place] [address] Care Team Providers Care Carton Inspector Name Role Phone JOSIAH HARRIS Primary Care [...] SALMONMarlo ION [id number] 0 Sep 30, 2020 [id number] [phone] DORIAN TREJO PATIENT [facility] CE ORGANIZ GOLD ADV O Sep 30, 2020 [id number] [phone] TREJO DORIAN PATIENT Selected Encounter This section includes the information on record at [place] for the Encounter. Date/Time Encounter Type Encounter Description Reason Pro vider Source IHE Encounter Template Text not used by VA
--- OUTSIDE RECORDS SUMMARY | 2024-09-24 14:25 | XMS_ITS ---
Author Name [facility] [place] [facility] [place] Organization [facility] [place] Address [address] [place] [address] Care Team Providers Care Moose Hunter Name Role Phone JOSIAH HARRIS Primary Care [...] PRESCRIPT ION [id number] Sep 30, 2020 [id number] [phone] DORIAN TREJO PATIENT [facility] JOON ORGANTRES GOLD ADV O Sep 30, 2020 [id number] [phone] DORIAN TREJO PATIENT Selected Encounter This section includes the information on record at [place] for the Encounter. Date/Time Encounter Type Encounter Description Reason Provider Source Dec 17, 2023 10:54 AM FIT SPECTACLES MULTIFOCAL OPTOMETRY ICD-10-CM Z46.0 Encounter for fit/adjst of spectacles and contact lenses SANDEEP RIVAS Encounter Template Text not used by VA Assessments - Encounter Diagnoses This section includes the primary and secondary diagnoses documented for the Encounter. Date/Time Primary/Secondary Diagnosis Diagnosis Name Provider Source Dec 17, 2023 10:54 AM PRIMARY Encounter for fit/adjst of spectacles and contact lenses ELVIRA MILTON [facility] Plan of Treatment: Future Appointments (+ 6 months) and Future Tests (+/- 45 days) The Plan of Treatment section includes future care activities for the patient from all [place] treatmentfacilities. This section includes future appointments and future orders which are active, pending or scheduled. Future Appointments This section includes appointments that were scheduled to occur 6 months from the date of the Encounter, up to a maximum of 20 appointments. The data comes from all [place] treatment facilities. Appointment Date/Time Appointment Type Appointme nt Facility Name Dec 20, 2023 11:00 AM AMBULATORY - MEDICINE [facility] Dec 27, 2023 03:30 PM [facility] Mar 24, 2024 03:30 PM [facility] Apr 13, 2024 02:30 PM AMBULATORY - MEDICINE [facility] May 20, 2024 09:00 AM AMBULATORY - MEDICINE [facility] Lab Results: +/- 30 days of [...] Range Comment Dec 19, 2023 10:53 AM YORBA LINDA MICROALBUMIN CREATININE RATIO PANEL Spe cimen Type: URINE No comment entered. Ordering Provider: JOSIAH STRINGER Report Released Date/Time: Dec 04, 2023 08:30 AM Reporting Lab: [facility] [address] [address] Performing Lab: [facility] [address] [address] MICROALBUMIN/C REATININE RATIO 30.3 mg/g H 0-29.9 MICROALBUMIN,Q UANTITATIVE 3.3 mg/dL RR UNAVAIL CREATININE URINE 108.79 mg/dL Dec 18, 2023 10:05 AM YORBA LINDA HEMOGLOBIN A1C PANEL Specimen Type: BLOOD Comment: [...] Dec 04, 2023 08:30 AM Reporting Lab: [address] [address] Performing Lab: [address] [address] HEMOGLOBIN A1C 5.7 H 4.0-5.6 Dec 18, 2023 10:05 AM YORBA LINDA LIVER FUNCTION Specimen Type: SERUM No comment entered. Ordering Provider: JOSIAH STRINGER Report Released Date/Time: Dec 04, 2023 08:30 AM Reporting Lab: [address] [address] Performing Lab: [address] [address] PROTEIN,TOTAL 7.2 g/dL 6.0-8.3 ALBUMIN 4.5 g/dL 3.5-5.0 ALKALINE PHOSPHATASE 66 U/L 40-150 AST 20 U/L 5-34 ALT 40 U/L BILIRUBIN, TOTAL 0.5 mg/dL 0.2-1.2 Dec 18, 2023 10:05 AM YORBA LINDA TSH Specimen Type: SERUM No comment entered. Ordering Provider: JOSIAH STRINGER Report Released Date/Time: Dec 04, 2023 08:30 AM Reporting Lab: [address] [address] Performing Lab: [address] [address] TSH 2.20 u[IU]/mL 0.35-5.00 Dec 18, 2023 10:05 AM YORBA LINDA BASIC METABOLIC PANEL (non-fasting) Spe cimen Type: SERUM No comment entered. Ordering Provider: JOSIAH STRINGER Report Released Date/Time: Dec 04, 2023 08:32 AM Reporting Lab: [address] [address] Performing Lab: [address] [address] UREA NITROGEN 18 mg/dL 7-25 GLUCOSE 95 mg/dL 65-100 SODIUM 140 mmol/L 135-145 POTASSIUM 4.4 mmol/L 3.5-5.0 CHLORIDE 103 mmol/L 100-110 CO2 28 meq/L 20-30 CREATININE, Serum 1.46 mg/dL H 0.50-1.40 eGFR(CKD-EPI 2020) 59 mL/min L >60 Dec 18, 2023 10:05 AM YORBA LINDA CBC AND DIFF (AUTO) Specimen Type: BLOOD No comment entered. Ordering Provider: JOSIAH STRINGER Report Released Date/Time: Dec 04, 2023 08:30 AM Reporting Lab: [address] [address] Performing Lab: [address] [address] WBC 5.70 10*3/uL 4.50-11.00 RBC 4.57 10*6/uL 4.23-5.66 HGB 13.6 g/dL 12.8-17 HCT 39.0 L 39.2-50.4 MCV 85.3 fL 82-99 MCHC 34.9 g/dL 30.8-35.1 PLT 250 10*3/uL 140-360 RDW-CV 12.4 12.0-16.0 Marion, Abs 0.34 10*3/uL 0.30-1.10 MCH 29.8 pg 26.2-32.6 Neut % 47.7 43.7-75.8 Lymph % 42.8 H 14.0-42.3 Marion % 6.0 5.1-13.7 Eos % 2.8 0.4-6.8 Baso % 0.5 0.1-2.0 Neut, Abs 2.72 10*3/uL 2.20-7.60 Lymph, Abs 2.44 10*3/uL 1.00-3.20 Eos, Abs 0.16 10*3/uL 0.03-0.44 Baso, Abs 0.03 10*3/uL 0.01-0.13 Immature Gran % 0.2 0.0-0.7 Immature Gran, Abs 0.01 10*3/uL 0.00-0.06 Dec 18, 2023 10:05 AM YORBA LINDA VITAMIN D (25-OH) Specimen Type: SERUM No comment entered. Ordering Provider: JOSIAH STRINGER Report Released Date/Time: Dec 16, 2023 03:57 PM Reporting Lab: [facility] [address] [address] Performing Lab: [address] [address] VITAMIN D (25-OH) 24 ng/mL 20-50 Dec 18, 2023 10:05 AM YORBA LINDA CALCIUM Specimen Type: SERUM No comment entered. Ordering Provider: JOSIAH STRINGER Report Released Date/Time: Dec 16, 2023 03:57 PM Reporting Lab: [facility] [address] [address] Performing Lab: [address] [address] CALCIUM 8.9 mg/dL 8.5-10.2 Social History: Smoking [...] 16, 2023 03:00 PM VA-TOBACCO NEVER USED [facility] Tobacco Use History This section includes a history of the smoking, or tobacco-related health factors, that were collected on or before the date of the Encounter. The data comes from the [place] facility where the Encounter took place. Date/Time Smoking Status/Tobacco Use Comment Miranda acility Jan 14, 2017 08:35 AM LIFETIME NON-TOBACCO USER [facility] Encounter Notes: All associated encounter notes This section contains the clinical notes associated to the Encounter. Date/Time Encounter Note(s) Provider Source Dec 17, 2023 10:54 AM OPTOMETRY NOTE: LOCAL TITLE: OPTOMETRY NOTE STANDARD TITLE: OPTOMETRY NOTE DATE OF NOTE: DEC 17, 2023@10:54 ENTRY DATE: DEC 17, 2023@10:54:56 AUTHOR: LEORA TRACY EXP COSIGNER: URGENCY: STATUS: COMPLETED OPTOMETRY NOTE Has ADDENDA prog photo brown The quote provided below is for informational purposes only. Please verify prior to the creation of a purchase order. DORIAN TREJO [id number] RX INFORMATION OD -0.50 0.00 X Add:+1.50 Pzm:0.00 Dir: Prz2:0.00 Dir2: OS -0.25 0.00 X Add:+1.50 Pzm:0.00 Dir: Prz2:0.00 Dir2: FITTING INFORMATION FPD: NPD: Marion:R:32 L:34.5 SEG HT:R:19 L:19 Tint:None Shade:None VA Billable Items FRAME: ERIKA MELENDEZ [id number] Right Lens: POLY VA PROGRESSIVE PHOTOCHROMIC BROWN 1.586 POLY Left Lens: POLY [facility] PROGRESSIVE PHOTOCHROMIC BROWN 1.586 POLY /emmy/ LEORA TRACY [employer]INEAPPLE PLANTATION MANAGER Signed: 12/17/2023 10:55 Receipt Acknowledged By: 12/17/2023 11:14 /emmy/ Elvira Milton [facility] Electronics Assembler 12/17/2023 ADDENDUM STATUS: COMPLETED PDS Mail Examiner fit patient with 1 pair(s) of pal eyeglasses on 12/17/2023. OPT HT entered consult(s) as requested for provider signature. /emmy/ Elvira Milton [facility] Health Electronics Assembler Signed: 12/17/2023 11:16 LEORA TRACY [facility]
--- OUTSIDE RECORDS SUMMARY | 2024-09-24 14:25 | XMS_ITS | Encounter Summary ---
Author Name [facility] [place] Organization [facility] [place] Address [address] [place] [address] Care Team Providers Care Community Mental Health Social Worker Name Role Phone JOSIAH HARRIS Primary Care [...] Shi's Name Patient's Relationship to Policy Shi MATMARK PRESCRIPT ION [id number] Sep 30, 2020 [id number] [phone] DORIAN TREJO PATIENT [facility] JOON PHAN ADV O Sep 30, 2020 [id number] [phone] NEIL DORIAN PATIENT Selected Encounter This section includes the information on record at [place] for the Encounter. Date/Time Encounter Type Encounter Description Reason Pro vider Source May 20, 2024 09:00 AM Outpatient Encounter PRIMARY CARE/MEDICINE IHE Encounter [...] 20 appointments. The data comes from all [facility]. Appointment Date/Time Appointment Type Appointme nt Facility Name Sep 24, 2024 10:15 AM AMBULATORY - MEDICINE [facility] Active, Pending, and Scheduled Orders This section includes a listing of several types of active, pending, and scheduled orders, including clinic medications orders, diagnostic test orders, procedure orders and consult orders; where the start date of the order is 45 days before the date of the Encounter or 45 days after the date of theEncounter. The data comes from all [facility]. Test Date/Time Test Type Test Details Facility Name May 05, 2024 12:00 AM Laboratory - Chemi stry Order BASIC METABOLIC PANEL (non-fasting) BLOOD (SST-SERUM) [facility] May 05, 2024 12:00 AM Laboratory - Chemi stry Order URINALYSIS URINE [facility] May 05, 2024 12:00 AM Laboratory - Chemi stry Order LIPID PANEL FASTING BLOOD (SST-SERUM) [facility] May 05, 2024 12:00 AM Laboratory - Chemi stry Order MICROALBUMIN CREATININE RATIO PANEL URINE (RANDOM) [facility] Social History: Smoking Status (Most current) and Tobacco Use (All prior to encounter date) This section includes the most current, and the historical, smoking and tobacco- related health factors from the [place] facility where the Encounter took place. Current Smoking Status This section includes the most current smoking, or tobacco-related health factor, from the [place] facility where the Encounter took place. Date/Time Current Smoking Status Comment Facil ity Dec 16, 2023 03:00 PM VA-TOBACCO NEVER USED [facility] Tobacco Use History This section includes a history of the smoking, or tobacco-related health factors, that were collected on or before the date of the Encounter. The data comes from the [place] facility where the Encounter took place. Date/Time Smoking Status/Tobacco Use Comment F acility Jan 14, 2017 08:35 AM LIFETIME NON-TOBACCO USER [facility] Encounter Notes: All associated encounter notes This section contains the clinical notes associated to the Encounter. Date/Time Encounter Note(s) Provider Source May 20, 2024 09:18 AM ADMINISTRATIVE NOT E: LOCAL TITLE: ADMINISTRATIVE NOTE STANDARD TITLE: ADMINISTRATIVE NOTE DATE OF NOTE: MAY 20, 2024@09:18 ENTRY DATE: MAY 20, 2024@09:18:15 AUTHOR: JEREMIAS PAREKH COSIGNER: URGENCY: STATUS: COMPLETED ADMINISTRATIVE NOTE Has ADDENDA [place] was a no show for today's visit. Attempted to contact and generic message was left requestinga call back. Will need to repeat labs nd schedule for a nursing visit, for b/P check. /emmy/ JEREMIAS PAREKH LPN LPN Signed: 05/20/2024 09:19 Receipt Acknowledged By: 05/21/2024 10:15 /reginald CHACKO 05/21/2024 ADDENDUM STATUS: COMPLETED Pesticide Use Medical Coordinator LVM for to reschedule appointment with PCP and make nursing appointment. /reginald CHACKO Signed: 05/21/2024 10:16 JEREMIAS PAREKH
--- OUTSIDE RECORDS SUMMARY | 2024-09-24 14:25 | XMS_ITS | Encounter Summary ---
Author Name [facility] Organization [facility] Address [address] [place] [address] Care Team Providers Care Laser Technician Name Role Phone JOSIAH HARRIS Primary Care [...] PRESCRIPT ION [id number] Sep 30, 2020 [id number] [phone] DORIAN TREJO PATIENT [facility] CE SHIRA PHAN ADV HMO Sep 30, 2020 [id number] [phone] DORIAN TREJO PATIENT Selected Encounter This section includes the information on record at [place] for the Encounter. Date/Time Encounter Type Encounter Description Reason Provider Source Dec 17, 2023 09:30 AM COMPRE OPH EXAM EST PT 1/> OPTOMETRY ICD-10-CM 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, NEC, bilateral EVELYN,SANDEEP E IHE Encounter Template Text not used by [facility] Assessments - Encounter Diagnoses This section includes the primary and secondary diagnoses documented for the Encounter. Date/Time Primary/Secondary Diagnosis Diagnosis Name Provider Source Dec 18, 2023 10:43 AM PRIMARY Oth disorders of optic nerve, NEC, bilateral JUAN JOSE RIVAS [facility] Dec 18, 2023 10:43 AM SECONDARY Degenerative myopia, bilateral JUAN JOSE RIVAS [facility] Dec 18, 2023 10:43 AM SECONDARY Presbyopia [facility] JOSE [facility]IVAS [facility] Plan of Treatment: Future Appointments (+ 6 months) and Future Tests (+/- 45 days) The Plan of Treatment section includes future care activities for the patient from all [place] treatment[facility] systemsities. This section includes future appointments and future [...] 20, 2023 11:00 AM AMBULATORY - MEDICINE [facility] Dec 27, 2023 03:30 PM AMBULATORY - MEDICINE [facility] Mar 24, 2024 03:30 PM AM[facility] - [facility] Apr 13, 2024 02:30 PM AMBULATORY - MEDICINE [facility] May 20, 2024 09:00 AM AMBULATORY - MEDICINE [facility] Lab Results: +/- 30 days of the encounter This section includes the Chemistry and Hematology Lab Results on record with [place] for the patient. Radiology Reports and Pathology Reports are provided separately, in subsequent sections. Lab Results This section contains the Chemistry/Hematology Results that were resulted 30 days before or 30 daysafter the date of the Encounter. Date/Time Source Result Type Result - Unit Interpretation Reference Range Comment Dec 19, 2023 10:53 AM [facility] MICROALBUMIN CREATININE RATIO PANEL Spe cimen Type: URINE No comment entered. Ordering Provider: JOSIAH STRINGER Report Released Date/Time: Dec 04, 2023 08:30 AM Reporting Lab: [address] [address] Performing Lab: [address] [address] MICROALBUMIN/C REATININE RATIO 30.3 mg/g H 0-29.9 MICROALBUMIN,Q UANTITATIVE 3.3 mg/dL RR UNAVAIL CREATININE URINE 108.79 mg/dL Dec 18, 2023 10:05 AM [facility] HEMOGLOBIN A1C PANEL Specimen Type: BLOOD Comment: [...] Dec 04, 2023 08:30 AM Reporting Lab: [address] [address] Performing Lab: [address] [address] HEMOGLOBIN A1C 5.7 H 4.0-5.6 Dec 18, 2023 10:05 AM [facility] LIVER FUNCTION Specimen Type: SERUM No comment entered. Ordering Provider: JOSIAH STRINGER Report Released Date/Time: Dec 04, 2023 08:30 AM Reporting Lab: [address] [address] Performing Lab: [address] [address] PROTEIN,TOTAL 7.2 g/dL 6.0-8.3 ALBUMIN 4.5 g/dL 3.5-5.0 ALKALINE PHOSPHATASE 66 U/L 40-150 AST 20 U/L 5-34 ALT 40 U/L BILIRUBIN, TOTAL 0.5 mg/dL 0.2-1.2 Dec 18, 2023 10:05 AM [facility] TSH Specimen Type: SERUM No comment entered. Ordering Provider: JOSIAH STRINGER Report Released Date/Time: Dec 04, 2023 08:30 AM Reporting Lab: [address] [address] Performing Lab: [address] [address] TSH 2.20 u[IU]/mL 0.35-5.00 Dec 18, 2023 10:05 AM [facility] BASIC METABOLIC PANEL (non-fasting) Spe cimen Type: SERUM No comment entered. Ordering Provider: JOSIAH STRINGER Report Released Date/Time: Dec 04, 2023 08:32 AM Reporting Lab: [address] [address] Performing Lab: [place] [address] [place]REA NITROGEN 18 mg/dL 7-25 GLUCOSE 95 mg/dL 65-100 SODIUM 140 mmol/L 135-145 POTASSIUM 4.4 mmol/L 3.5-5.0 CHLORIDE 103 mmol/L 100-110 CO2 28 meq/L 20-30 CREATININE, Serum 1.46 mg/dL H 0.50-1.40 eGFR(CKD-EPI 2020) 59 mL/min L >60 Dec 18, 2023 10:05 AM [facility] CBC AND DIFF (AUTO) Specimen Type: BLOOD No comment entered. Ordering Provider: JOSIAH STRINGER Report Released Date/Time: Dec 04, 2023 08:30 AM Reporting Lab: [address] [address] Performing Lab: [address] WBC 5.70 10*3/uL 4.50-11.00 RBC 4.57 10*6/uL 4.23-5.66 HGB 13.6 g/dL 12.8-17 HCT 39.0 L 39.2-50.4 MCV 85.3 fL 82-99 MCHC 34.9 g/dL 30.8-35.1 PLT 250 10*3/uL 140-360 RDW-CV 12.4 12.0-16.0 [place], Abs 0.34 10*3/uL 0.30-1.10 MCH 29.8 pg 26.2-32.6 Neut % 47.7 43.7-75.8 Lymph % 42.8 H 14.0-42.3 [place] % 6.0 5.1-13.7 Eos % 2.8 0.4-6.8 Baso % 0.5 0.1-2.0 Neut, Abs 2.72 10*3/uL 2.20-7.60 Lymph, Abs 2.44 10*3/uL 1.00-3.20 Eos, Abs 0.16 10*3/uL 0.03-0.44 Baso, Abs 0.03 10*3/uL 0.01-0.13 Immature Gran % 0.2 0.0-0.7 Immature Gran, Abs 0.01 10*3/uL 0.00-0.06 Dec 18, 2023 10:05 AM [place] VITAMIN D (25-OH) Specimen Type: SERUM No comment entered. Ordering Provider: JOSIAH STRINGER Report Released Date/Time: Dec 16, 2023 03:57 PM Reporting Lab: [address] [address] Performing Lab: [address] [address] VITAMIN D (25-OH) 24 ng/mL 20-50 Dec 18, 2023 10:05 AM [place] CALCIUM Specimen Type: SERUM No comment entered. Ordering Provider: JOSIAH STRINGER Report Released Date/Time: Dec 16, 2023 03:57 PM Reporting Lab: [address] [address] Performing Lab: [address] [address] CALCIUM 8.9 mg/dL 8.5-10.2 Social History: Smoking [...] 16, 2023 03:00 PM [facility]-TOBACCO NEVER USED [facility] Tobacco Use History This section includes a history of the smoking, or tobacco-related health factors, that were collected on or before the date of the Encounter. The data comes from the [place] facility where the Encounter took place. Date/Time Smoking Status/Tobacco Use Comment Miranda balderrama Jan 14, 2017 08:35 AM LIFETIME NON-TOBACCO USER [place] [facility] Encounter Notes: All associated encounter notes This section contains the clinical notes associated to the Encounter. Date/Time Encounter Note(s) Provider Source Dec 17, 2023 07:23 AM OPTOMETRY NOTE: LOCAL TITLE: OPTOMETRY NOTE STANDARD TITLE: OPTOMETRY NOTE DATE OF NOTE: DEC 17, 2023@07:23 ENTRY DATE: DEC 17, 2023@07:24:25 AUTHOR: MARILEE PELAEZ COSIGNER: PHIL RIVAS URGENCY: STATUS: COMPLETED OPTOMETRY NOTE Has ADDENDA Active problems - Computerized Problem List is the source for the followin. Vitamin D Deficiency ([facility] [id number]) 2. Asthma ([facility] [id number]) 3. Chronic migraine without aura 4. Obstructive sleep apnea syndrome 5. Prediabetes 6. Essential hypertension 7. Obesity 8. Chronic headache disorder 9. Low back pain 10. Pain in left knee 11. Hallux valgus 12. Chronic gastritis Active Outpatient Medications (including Supplies): Active Outpatient Medications Status 1) AMLODIPINE BESYLATE 10MG TAB TAKE ONE TABLET BY MOUTH ACTIVE ONCE DAILY FOR BLOOD PRESSURE/HEART, DO NOT TAKE WITH GRAPEFRUIT JUICE 2) CETIRIZINE HCL 10MG TAB TAKE ONE TABLET BY MOUTH ONCE ACTIVE DAILY FOR ALLERGIES 3) CHOLECALCIF 50MCG (D3-2,000UNIT) TAB TAKE ONE TABLET ACTIVE BY MOUTH ONCE DAILY FOR VITAMIN SUPPLEMENTATION 4) LOSARTAN 25MG TAB TAKE THREE TABLETS BY MOUTH ONCE ACTIVE DAILY FOR BLOOD PRESSURE/HEART 5) OMEPRAZOLE 20MG EC CAP TAKE TWO CAPSULES BY MOUTH ACTIVE EVERY MORNING 30 MINUTES BEFORE BREAKFAST 6) SUMATRIPTAN SUCCINATE 100MG TAB TAKE ONE TABLET BY ACTIVE MOUTH DIRECTED AT ONSET OF HEADACHE; MAY REPEAT IN 2 HOURS IF FIRST DOSE IS NOT EFFECTIVE Allergies: Patient has answered NKA All medications including those prescribed by outside VA's, community providers, and all OTC meds were reviewed and reconciled with patient to the best of their abilities. This 48 year old MALE is seen today for a comprehensive eye exam. Chief Complaint: Patient feels like his vision is gradually getting blurry over the past 2 years with his glasses, OD = OS. Patient currently has DVO and NVO glasses. Patient reports shadowing almost looking like double vision when he tries to focus and adjust between distance and near vision. Has not tried closing an eye. Patient states it usually lasts a couple seconds to a few minutes. OHx: 1. Glaucoma suspect 2. Dry eye syndrome 3. Refractive error/ Presbyopia OU (-) Pain: (-) CASILLAS: (-) Diplopia: (-) Flashes: (-) Floaters: (-) Amaurosis Fugax/Tia's: (-) Eye Injury: (-) Eye Surgery: (-) TBI FOHx: (-) Glaucoma/ARMD/Blindness (-) Smoker/Length of Time/PPD: Current Rx with last BCVA: OD: +0.50 -1.25 x 075 20/20 OS: +0.75 -1.00 x 110 20/20 Add: +1.00 DVA ( )sc ( x )cc OD: 20/20 OS: 20/20 Pupils: PERRL (-)APD EOMs: SAFE OU, (-)Pain/Diplopia CVF (facial, peripheral): FTFC OU Subjective Refraction: OD: +0.50 -1.25 x 075 20/20 OS: +0.75 -1.25 x 110 20/20 Add: +1.25 Auto-Refraction: OD: -1.00 -0.25 x 066 OS: -0.50 sph TF #1: OD: +0.50 -1.25 x 075 OS: +0.50 -0.75 x 110 TF #2: patient notes no difference between TF and habitual rx OD: -0.50 sph OS: -0.25 sph Final Rx: OD: -0.50 sph OS: -0.25 sph Add: +1.50 All the above performed by student, reviewed by attending Anterior segment: Performed by student, repeated by attending Lids: clear OU Conj: 1+ hyperemia OU Cornea: clear OU AC: 4x4 OU Iris: flat and clear OU, (-) TID OU Lens: clear OU, (-)PXF/PDS OU Tonometry: GAT Performed by student, reviewed by attending * OD 15 mmHg OS 16 mmHg Time: 9:40 AM Last IOP: OD: 16 mmHg OS: 16 mmHg Past pachymetry: 02/12/2022 OD: 479 um OS: 468 um Fundus exam: Undilated 90D. Patient declines dilation at this time. Performed by student, repeated by attending * Vit: clear OU C/D: 0.45/0.45 OD, 0.50H/0.60V OS Disc: Rim tissue is pink and healthy OU (-)drance hemes/notching OU OU, deep cups Macula: flat and clear OU PPole: clear OU A/V: 2/3 Vessels: normal caliber OU Periph: not viewed Assessment/Plan: 1. Physiological cupping OU - Large optic nerves with likely physiological cupping - No change in ONH appearance. Healthy rim tissue - Normotensive IOP today and previously - Previous OCT and HVF show no glaucomatous damage - Thinner than average CCT - Monitor at next CEE with repeat imaging 2. Refractive error/Presbyopia OU - Order new PALs with updated SRx. Patient educated to try them for a couple weeks after receiving- can call back to reorder previous SRx if unhappy with new glasses Return to Clinic 1 year or earlier PRN Patient Education: Reviewed exam findings and answered all questions. /emmy/ MARILEE PELAEZ OPTOMETRY STUDENT Signed: 12/17/2023 11:47 /emmy/ Phil Rivas OD CHIEF OF OPTOMETRY Cosigned: 12/18/2023 10:43 12/18/2023 ADDENDUM STATUS: COMPLETED I saw this patient in conjunction with the student agree with stated findings and plan as noted below after reviewing both the history and repeating krishnamurthy elements of the physical exam now. Patient seen here December 17, 2023 for presents complaining of blurred vision when focusing from distance to near with current glasses. His last eye examination was here on February 13, 2024. He has a prior history of preseptal cellulitis right eye which resolved with antimicrobial therapy. Impression: Bilateral physiological cupping with no evidence of pseudoexfoliation, pigment dispersion or positive family history for glaucoma. Physical examination remained stable. We will follow his bilateral disorders of the optic nerve classified elsewhere and plan for baseline optic nerve OCT and pachymetry at return interval in 12 months. Bilateral myopic refractive error with age expected presbyopia. Try new prescription. If unable to tolerate would reorder prior rx. Plan: Patient education as noted above reviewed exam findings now. Ordered new glasses today with understanding that he will try new prescription and if he is unable to adapt after 1 week we will reorder previous Rx. Return in 12 months for repeat exam with baseline optic nerve OCT and pachymetry for bilateral disorders of the optic nerve classified elsewhere. Return sooner if need be. Ophthalmic medication reconciliation: He is currently not taking or prescribed any ocular medications. /emmy/ Phil Rivas OD CHIEF OF OPTOMETRY Signed: 12/18/2023 10:46 MARILEE PELAEZ [facility]
--- OUTSIDE RECORDS SUMMARY | 2024-09-24 14:25 | XMS_ITS | Encounter Summary ---
Author Name [facility] Organization [facility] [place] [facility] [place] Address [address] [place] [id number] Care Team Providers Care Self Pay Specialist Name Role Phone JOSIAH HARRIS Primary [...] PRESCRIPT ION [id number] Sep 30, 2020 [id number] DORIAN TREJO PATIENT [facility] CE ORGANIZ GOLD ADV O Sep 30, 2020 [id number] [phone] DORIAN TREJO PATIENT Selected Encounter This section includes the information on record at [place] for the Encounter. Date/Time Encounter Type Encounter Description Reason Provider Source Dec 16, 2023 03:00 PM OFFICE O/P EST MOD 30 MIN PRIMARY CARE/MEDICINE ICD-10-CM I10 Essential (primary) hypertension JOSIAH KIRK IHJudi Encounter Template Text not used by VA Assessments - Encounter Diagnoses This section includes the primary and secondary diagnoses documented for the Encounter. Date/Time Primary/Secondary Diagnosis Diagnosis Name Provider Source Dec 22, 2023 03:41 PM PRIMARY Essential (primary) hypertension JAYNE GOSS,JOSIAH [facility] Dec 22, 2023 03:41 PM SECONDARY Chronic kidney disease, stage 3a ALLIE-SHARYN GOSS,JOSIAH [facility] Dec 22, 2023 03:41 PM SECONDARY Chronic migraine w/o aura, not intractable, w/o stat migr ALLIE-SHARYN WOLFGANG,JOSIAH [facility] Dec 22, 2023 03:41 PM SECONDARY Constipation, unspecified SOFIADIN-BOSKO WOLFGANG,COURT [facility] Dec 22, 2023 03:41 PM SECONDARY Depression, unspecified SOFIADIN-BOSKO WOLFGANG,[facility] Dec 22, 2023 03:41 PM SECONDARY Obesity, unspecified SOFIADIN-BOSKO WOLFGANG,COURT [facility] Dec 22, 2023 03:41 PM SECONDARY Obstructive sleep apnea (adult) (pediatric) ALLIE-SHARYN WOLFGANG,[facility] Dec 22, 2023 03:41 PM SECONDARY Prediabetes [facility] Dec 22, 2023 03:41 PM SECONDARY Tinnitus, unspecified ear [facility] Dec 22, 2023 03:41 PM SECONDARY Unspecified asthma, uncomplicated ALLIE-DELFINAKO WOLFGANG,COURT [facility] Dec 22, 2023 03:41 PM SECONDARY Unspecified chronic gastritis without bleeding ALLIE-SHARYN WOLFGANG,[facility] Dec 22, 2023 03:41 PM SECONDARY Unspecified hemorrhoids ALLIE-BOSKO WOLFGANG,[facility] Plan of Treatment: Future Appointments (+ 6 months) and Future Tests (+/- 45 days) The Plan of Treatment section includes future care activities for the patient [facility] This section includes future appointments and future orders which are active, pending or scheduled. Future Appointments This section includes appointments that were scheduled to occur 6 months from the date of the Encounter, up to a maximum of 20 appointments. The data comes from all [place] treatment [facility]. Appointment Date/Time Appointment Type Appointme nt Facility Name Dec 17, 2023 09:30 AM AMBULATORY [facility] MEDICINE [facility] Dec 20, 2023 11:00 AM AMBULATORY - MEDICINE NOY LEWIS Dec 27, 2023 03:30 PM AMBULATORY - MEDICINE [facility] Mar 24, 2024 03:30 PM AMBULATORY - MEDICINE [facility] Apr 13, 2024 02:30 PM AMBUL[facility] - [facility] May 20, 2024 09:00 AM AMBULATORY - MEDICINE [facility] Lab Results: +/- 30 days of the encounter This section includes the Chemistry and Hematology Lab Results on record with [place] for the patient. Radiology Reports and Pathology Reports are provided separately, in subsequent sections. Lab Results This section contains the Chemistry/Hematology Results that were resulted 30 days before or 30 daysafter the date of the Encounter. Date/Time Source Result Type Result - Unit Interpretation Reference Range Comment Dec 19, 2023 10:53 AM [facility] MICROALBUMIN CREATININE RATIO PANEL Spe cimen Type: URINE No comment entered. Ordering Provider: JOSIAH STRINGER Report Released Date/Time: Dec 04, 2023 08:30 AM Reporting Lab: [facility] [address] [facility] [address] Performing Lab: [address] [address] MICROALBUMIN/C REATININE RATIO 30.3 mg/g H 0-29.9 MICROALBUMIN,Q UANTITATIVE 3.3 mg/dL RR UNAVAIL CREATININE URINE 108.79 mg/dL Dec 18, 2023 10:05 AM [facility] HEMOGLOBIN A1C PANEL Specimen Type: BLOOD Comment: [...] Dec 04, 2023 08:30 AM Reporting Lab: [address] [address] Performing Lab: [address] [address] HEMOGLOBIN A1C 5.7 H 4.0-5.6 Dec 18, 2023 10:05 AM [facility] LIVER FUNCTION Specimen Type: SERUM No comment entered. Ordering Provider: JOSIAH STRINGER Report Released Date/Time: Dec 04, 2023 08:30 AM Reporting Lab: [facility] [address] [address] Performing Lab: [address] [address] PROTEIN,TOTAL 7.2 g/dL 6.0-8.3 ALBUMIN 4.5 g/dL 3.5-5.0 ALKALINE PHOSPHATASE 66 U/L 40-150 AST 20 U/L 5-34 ALT 40 U/L BILIRUBIN, TOTAL 0.5 mg/dL 0.2-1.2 Dec 18, 2023 10:05 AM [facility] TSH Specimen Type: SERUM No comment entered. Ordering Provider: JOSIAH STRINGER Report Released Date/Time: Dec 04, 2023 08:30 AM Reporting Lab: [facility] [address] [address] Performing Lab: [facility] [address] [address] TSH 2.20 u[IU]/mL 0.35-5.00 Dec 18, 2023 10:05 AM [facility] BASIC METABOLIC PANEL (non-fasting) Spe cimen Type: SERUM No comment entered. Ordering Provider: JOSIAH STRINGER Report Released Date/Time: Dec 04, 2023 08:32 AM Reporting Lab: [facility] [address] [address] Performing Lab: [facility] [address] [address] UREA NITROGEN 18 mg/dL 7-25 GLUCOSE 95 mg/dL 65-100 SODIUM 140 mmol/L 135-145 POTASSIUM 4.4 mmol/L 3.5-5.0 CHLORIDE 103 mmol/L 100-110 CO2 28 meq/L 20-30 CREATININE, Serum 1.46 mg/dL H 0.50-1.40 eGFR(CKD-EPI 2020) 59 mL/min L >60 Dec 18, 2023 10:05 AM [facility] CBC AND DIFF (AUTO) Specimen Type: BLOOD No comment entered. Ordering Provider: JOSIAH STRINGER Report Released Date/Time: Dec 04, 2023 08:30 AM Reporting Lab: [address] [address] Performing Lab: [address] [address] WBC 5.70 10*3/uL 4.50-11.00 RBC 4.57 10*6/uL 4.23-5.66 HGB 13.6 g/dL 12.8-17 HCT 39.0 L 39.2-50.4 MCV 85.3 fL 82-99 MCHC 34.9 g/dL 30.8-35.1 PLT 250 10*3/uL 140-360 RDW-CV 12.4 12.0-16.0 [place], Abs 0.34 10*3/uL 0.30-1.10 MCH 29.8 pg 26.2-32.6 Neut % 47.7 43.7-75.8 Lymph % 42.8 H 14.0-42.3 [place] % 6.0 5.1-13.7 Eos % 2.8 0.4-6.8 Baso % 0.5 0.1-2.0 Neut, Abs 2.72 10*3/uL 2.20-7.60 Lymph, Abs 2.44 10*3/uL 1.00-3.20 Eos, Abs 0.16 10*3/uL 0.03-0.44 Baso, Abs 0.03 10*3/uL 0.01-0.13 Immature Gran % 0.2 0.0-0.7 Immature Gran, Abs 0.01 10*3/uL 0.00-0.06 Dec 18, 2023 10:05 AM [facility] VITAMIN D (25-OH) Specimen Type: SERUM No comment entered. Ordering Provider: JOSIAH STRINGER Report Released Date/Time: Dec 16, 2023 03:57 PM Reporting Lab: [place] [id number] [address] Performing Lab: [address] [address] VITAMIN D (25-OH) 24 ng/mL 20-50 Dec 18, 2023 10:05 AM [facility] CALCIUM Specimen Type: SERUM No comment entered. Ordering Provider: JOSIAH STRINGER Report Released Date/Time: Dec 16, 2023 03:57 PM Reporting Lab: [address] [address] Performing Lab: [address] [address] CALCIUM 8.9 mg/dL 8.5-10.2 Vital Signs: All taken on the encounter date This section contains inpatient and outpatient Vital Signs collected on the date of the Encounter. Date/Time Temperature Pulse Blood Pressure Respiratory Rate SP02 Pain Height Weight Body Mass Index Source Dec 16, 2023 03:03 PM 98.7 72 179/101 98 237.6 38 [facility] [place] Social History: Smoking Status (Most current) and Tobacco Use (All prior to encounter date) This section includes the most current, and the historical, smoking and tobacco- related health factors from the [place] facility where the Encounter took place. Current Smoking Status This section includes the most current smoking, or tobacco-related health factor, from the [place] facility where the Encounter took place. Date/Time Current Smoking Status Comment Clyde velazquez Oct 04, 2022 03:00 PM VA-TOBACCO NEVER USED [facility] Tobacco Use History This section includes a history of the smoking, or tobacco-related health factors, that were collected on or before the date of the Encounter. The data comes from the [place] facility where the Encounter took place. Date/Time Smoking Status/Tobacco Use Comment F acility February 13, 2021 01:00 PM VA-TOBACCO FORMER USER [facility] February 13, 2021 01:00 PM [place]-TOBACCO QUIT 15 YRS OR MORE [facility] May 12, 2018 09:25 AM LIFETIME NON-TOBACCO USER Tried as a kid and hated [facility] Encounter Notes: All associated encounter notes This section contains the clinical notes associated to the Encounter. Date/Time Encounter Note(s) Provider Source Dec 16, 2023 03:00 PM PHYSICIAN NOTE: LOCAL TITLE: NOTE STANDARD TITLE: PHYSICIAN NOTE DATE OF NOTE: DEC 16, 2023@15:00 ENTRY DATE: DEC 15, 2023@22:34:46 AUTHOR: Emilia HARRIS COSIGNER: URGENCY: STATUS: COMPLETED NOTE Has ADDENDA Pt is 48 y/o M with PMH of obesity, HTN, BRANDEN, prediabetes, migraines, GERD, LBP last visit 02/2023 Other providers: -- neurology [facility] last 02/2021 -- eye [facility] -- audiology VA -- respiratory VA CPAP -- VA lost to f/u here today for f/u #hypertension: does not check BP at home pt on amlodipine and ARBs - not compliant run out of CCB losartan takes sporadically - he did take losartan today 75 mg eating too much sedentary denies CP/SOB/DIAZ/palpitations/dizzin ess /claudication denies h/o CA/CVA #BRANDEN -untreated, patient unable to tolerate any mask on his face agreed to try MAD, will refer to dental #obesity BMI 38 well balanced diet but eats a lot plan to start going to gym watch portion size he hated MOVE program declined referral to nutrition PAST MEDICAL HISTORY: -- obesity -- HTN -- prediabetes -- BRANDEN moderate- 2020- home sleep test AHI 21 -- migraine # MRI brain 07/2021 No compelling imaging explanation for headaches. -- Chronic gastritis -- COVID 08/2022 -- vit D def -- LBP -- Pain in left knee -- Hallux valgus PAST SURGICAL HISTORY: -- R inguinal hernia repair ALLERGIES:NKDA MEDICATIONS: -AMLODIPINE 10 mg - run out -LOSARTAN POTASSIUM 75MG TAB not taking daily -OMEPRAZOLE 20MG CAP takes prn -ALBUTEROL 90MCG (CFC-F) 200D doesnot take it it does not work CARBOXYMETHYLCELLULOSE 0.5% OPH -SUMATRIPTAN SUCCINATE 100MG takes prn 1-2x/week -TOPIRAMATE 25MG not taking -CETIRIZINE HCL 10MG prn -CHOLECALCIF 50MCG (D3-2,000UNIT) sometimes FAMILY HISTORY: --DM: father --Cancer: no --CA: grandfather CA at 70s --CVA:no SOCIAL HISTORY: --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 --Cohabitation: lives with his --Children: 1 stepdaughter --Diet:no salt/butter, lean meat, chicken/fish, rice/pasta/bread +, no soda --Exercise:sedentary --Caffeine: ice tea - no sugar --EtOH: 2-3x/year --Tob:quit 1996 after one year of smoking --MJ: tried gummies to help h/a - did not work --Illicits: no --Sexual activity: monogamous, female --Eye: UTD - -reported low risk for glaucoma-Eye exam scheduled for tomorrow --Dental: overdue --Hospitalizations:none ROS: Constitutional: no fever/no chills, no ns Eyes: no decreased vision/blurry vision Ears/Nose/Throat:tinnitus Respiratory: cough resolved/wheezing/SOB Cardiovascular: no CP /palpitations/ le edema Gastrointestinal: no abdominal pain/bloody/black stools, nausea+ vomiting with migraines only -much less than before :no dysuria/hematuria/trouble voiding MSK: no joint pain/myalgia Neuro: no dizziness/H/A + Skin: no pruritus/rash PHYSICAL EXAM: Blood Pressure: 179/101 (12/16/2023 15:03) 142/86 (12/05/2022 10:46)--> run out of ARBs 146/80 (02/13/2021 12:45) Pulse: 72 (12/16/2023 15:03) Respiration: 18 ( Temperature: 98.7 F [37.1 C] (12/16/2023 15:03) Patient Weight: BMI 36 237.6 lb [107.77 kg] (12/16/2023 15:03) 234 lb [106.4 kg] (02/13/2021 12:45) 224.4 lb [101.79 kg] (12/05/2022 10:49) GA: pleasant,NAD Chest/CV: RRR Lungs: CTA B/L Abdomen: BS+, Soft, NT/ND Extremities: wwp, no edema Neuro: nonfocal, grossly normal motor and sensory LABORATORY:11/2023 WBC: 5.70 HGB: 13.6 HCT: 39.0 L MCV: 85.3 PLT: 250 HGB A1C (WR): 5.7 H GLUCOSE: 95 UREA NITROGEN: 18 CREATININE-EGFR: 1.46 H eGFR CKD-EPI 2020: 59 L MICROALB/CR RATIO: 30.3 H MICROALBUMIN URINE: 3.3 CREATININE URINE: 108.79 SODIUM: 140 POTASSIUM: 4.4 CHLORIDE: 103 CO2: 28 PROTEIN,TOTAL: 7.2 ALBUMIN: 4.5 ALKALINE PHOSPHATASE: 66 BILIRUBIN,TOT.: 0.5 SGOT: 20 SGPT: 40 TSH (Access): 2.20 CALCIUM: 8.9 VITAMIN D TOTAL: 24 #03/2023 LDCT normal #PFT 07/2023: FEV1 2.14 65% FVC 2.7 67% FEV1/FVC 79%, PEFR 7.46, 85% post FEV1 2.60 80% FVC 3.01 75% Mild ventilatory defect without obstruction.The vital capacity is reduced probably due to a restrictive process. PEFR is increased relative to FVC. Significant response to bronchodilator Mild restrictive defect. Carbon monoxide diffusing capacity is normal. With the findings of restriction with normal DLCO adjusted for lung volume suggests extraparenchymal cause of the restriction. The finding of bronchodilator response and normal DLCO is consistent with Asthma. IMAGING: # MRI brain without contrast 07/2021 No compelling imaging explanation for headaches. Specifically no intracranial mass, hydrocephalus, tonsillar ectopia or significant paranasal sinus disease. ASSESSMENT/PLAN: Pt is 48 y/o M with PMH of obesity, HTN, BRANDEN, prediabetes, migraines, GERD, LBP, depression #HTN: uncontrolled due to non complinace, run out of medications, -restart amlodipine 10mg -c/w losartan 75mg, if blood pressure above the goal instructed to increase losartan to 100 mg -next week f/u nursing BP check visit -s/w self monitorig and call if BP>130/80 -weight loss,watch salt intake #prediabetes A1c 5.7 #obesity: BMI 38 -failed MOVE, declined referral to business process engineer -diet/portion control disscussed -s/w daily exercise #CKD3- monitor, avoid nephrotoxic agent, discussed with patient importance of blood pressure control, ACR 30 (on ARBs) #moderate BRANDEN HPI 21 with positional worsening, diagnosed on HST in 2019, intolerant of PAP symptomatic with habitual snoring and frequent nocturnal awakenings and has comorbid HTN - placed sleep dental referral for oral appliance therapy - Encouraged weight loss - will need PSG w/ oral appliance to assess efficacy and to assess for RBD - may consider a trial of prazosin qhs for nightmares, starting with 2mg, can titrate up to 15mg as needed #Asthma cough chronic resolved--> asymptomatic --> not taking ICS/LABA 07/2023 PFT c/w asthma. 2022 CAT scan chest was normal. #GERD: sx well controlled on PPI prn #Migraines, unremarkable brain MRI 2020,not compliant with topiramate -Controll hypertension, -treat BRANDEN -vit D, TSH wnl -adequate hydration, sleep -sumatriptan prn -not to exceed 2-3 times per week #depression h/o SI/SA -doing well now, denies SI declined to reestablish with MH at this time #Tinnitus - f/w audiology #Vitamin D deficiency- -c/w vitamin D 50 mcg #hemorrhoids, constipation: -adequate hydration, increase fiber intake, physical activity Healthcare maintenance: --Lipids: LDL 98 (10/2022) --Diabetes: A1c 5.7 (11/2023) --Colon CA (50-75): due 07/2031 normal EGD, normal colonoscopy (IH+) next 10years --Lung CA: n/a --PSA PSA 0.77 (2022) --AAA (smoker/65): --Influenza (yrly): 09/2022 --COVID-19 (PFIZER) 2020 x2 --PCV13 --PCV23: --RZV (>50yrs, x2): --TDAP: 2018 --Hep A/B: x2 --Hep C screen: 2016 negative --HIV screen: --DEXA: --Advanced Directives: Address at next visit: HTN, obesity, BRANDEN, HM Return to clinic to see me in 6 months, sooner PRN. Virtual ( ), F2F ( x ) ( x)non fasting labs order routine Medication Reconciliation: Outpatient: Has the patient been taking medications as documented in the EMLR? No: Discrepencies were identified. See below. Essential Medication List for Review used to complete this medication reconciliation. INCLUDED IN THIS LIST: Alphabetical list of active outpatient prescriptions dispensed from this [place] (local) and dispensed from another [place] or [facility] facility (remote) as well as inpatient orders (local, pending and active), local clinic medications, locally documented non-VA medications, and local prescriptions that have or been discontinued in the past 90 days. - Discrepancies were identified, addressed, and discussed with the patient/caregiver at this encounter. Discrepancies: Chart updated, patient not compliant with medications - All changes in medications, including all non-VA/Herbal/OTC medications were entered into CPRS. - If there were any medications the patient should no longer take, they were discontinued. - The patient/caregiver was instructed to update this list, discard old lists, and take this list to the next appointment, whether with a VA or non-VA provider. HTN Assess for Elevated BP>=140/90: Repeat blood pressure: 160/100 The patient has been non-compliant with therapy for hypertension. /emmy/ JOSIAH HARRIS MD PHYSICIAN Signed: 12/22/2023 15:41 12/22/2023 ADDENDUM STATUS: COMPLETED f/u 3 months HTN, BRANDEN /es/ JOSIAH HARRIS MD PHYSICIAN Signed: 12/22/2023 15:46 PATRIZIA HARRIS
--- OUTSIDE RECORDS SUMMARY | 2024-09-24 14:25 | XMS_ITS | Encounter Summary ---
Author Name [facility] [place] Organization [place] Address [address] [place] [address] Care Team Providers Care Ash Pit Worker Name Role Phone JOSIAH HARRIS Primary [...] Name Patient's Relationship to Policy Shi SUSAN LARSON ION [id number] Sep 30, 2020 [id number] DORIAN TREJO PATIENT [facility] CE ORGANTRES GOLD ADV O Sep 30, 2020 [id number] DORIAN TREJO PATIENT Selected Encounter This section includes the information on record at CT for the Encounter. Date/Time Encounter Type Encounter Description Reason Provider Source Nov 14, 2023 02:30 PM IMMUNIZATION ADMIN PRIMARY CARE/MEDICINE ICD-10-CM Z23 Encounter for immunization DUGLAS AVENDANO Encounter Template Text not used by VA Assessments - Encounter Diagnoses This section includes the primary and secondary diagnoses documented for the Encounter. Date/Time Primary/Secondary Diagnosis Diagnosis Name Provider Source Nov 14, 2023 02:36 PM PRIMARY Encounter for immunization DUGLAS AVENDANO Plan of Treatment: Future Appointments (+ 6 months) and Future Tests (+/- 45 days) The Plan of Treatment section includes future care activities for the patient from all [place] treatmentfacilities. This section includes future appointments and future orders which are active, pending or scheduled. Future Appointments This section includes appointments that were scheduled to occur 6 months from the date of the Encounter, up to a maximum of 20 appointments. The data comes from all [place] treatment facilities. Appointment Date/Time Appointment Type Appointme nt Facility Name Dec 16, 2023 03:00 PM [facility] Dec 17, 2023 09:30 AM AMBULATORY [place] [facility] Dec 20, 2023 11:00 AM [facility]UL[facility] - [facility]ICINE [facility] Dec 27, 2023 03:30 PM AMBULATORY - MEDICINE [facility] Mar 24, 2024 03:30 PM AMBULATORY - MEDICINE [facility] Apr 13, 2024 02:30 PM AMBULATORY - MEDICINE [facility] Immunizations: All administered on the encounter date This section contains immunizations associated to the Encounter. Immunization Series Date Issued Reaction Comments HEP A-HEP B 2 Nov 14, 2023 Social History: Smoking Status (Most current) and Tobacco Use (All prior to encounter date) This section includes the most current, and the historical, smoking and tobacco- related health factors from the [place] facility where the Encounter took place. Current Smoking Status This section includes the most current smoking, or tobacco-related health factor, from the [place] facility where the Encounter took place. Date/Time Current Smoking Status Comment Clyde velazquez Oct 04, 2022 03:00 PM VA-TOBACCO NEVER USED [place] Tobacco Use History This section includes a history of the smoking, or tobacco-related health factors, that were collected on or before the date of the Encounter. The data comes from the [place] facility where the Encounter took place. Date/Time Smoking Status/Tobacco Use Comment F acility February 13, 2021 01:00 PM VA-TOBACCO FORMER USER [facility] February 13, 2021 01:[address] [place]-TOBACCO QUIT 15 YRS OR MORE [facility] May 12, 2018 09:25 AM LIFETIME NON-TOBACCO USER Tried as a kid and hated [facility] Encounter Notes: All associated encounter notes This section contains the clinical notes associated to the Encounter. Date/Time Encounter Note(s) Provider Source Nov 14, 2023 02:33 PM NURSING NOTE: LOCAL TITLE: PRIMARY CARE NURSE NOTE STANDARD TITLE: NURSING NOTE DATE OF NOTE: NOV 14, 2023@14:33 ENTRY DATE: NOV 14, 2023@14:34:03 AUTHOR: DUGLAS AVENDANO EXP COSIGNER: URGENCY: STATUS: COMPLETED Hepatitis B Immunization: Combination Hepatitis A / Hepatitis B vaccine Administered: HEP A-HEP B Date Administered: Nov 14, 2023 14:30 Series: Series 2 [employer]erg[employer] Ski Maker: [employer] Lot: [id number] Exp Date: Oct 16, 2025 ND: [id number] Admin Route/Site: INTRAMUSCULAR/LEFT DELTOID Dosage: 1mL Vaccine Information Statement(s): HEPATITIS B VACCINE VIS February 08, 2023 (SYRIAN) Order By: Policy Administered By: Duglas Avendano Vaccine Information Sheet (VIS) was given to the patient/caregiver, education regarding adverse reactions was discussed, as well as barriers to learning, if any, were acknowledged. [place] states he is in a hurry, declines addressing clinical reminders at this time. Will enter RTC for 3rd dose, did not stay to schedule at time of administration. /emmy/ DUGLAS AVENDANO RN REGISTERED NURSE Signed: 11/14/2023 14:36 DUGLAS AVENDANO [place]
--- OUTSIDE RECORDS SUMMARY | 2024-09-24 14:25 | XMS_ITS ---
Author Name [facility] [place] [facility] [place] Address [address] [place] [address] Care Team Providers Care Camelid Fiber Sorter Name Role Phone JOSIAH HARRIS Primary Care [...] PRESCRIPT ION [id number] Sep 30, 2020 [id number] [phone] DORIAN TREJO PATIENT [facility] [place]NOTE 2] JOON PHAN ADV O Sep 30, 2020 [id number] [phone] NEIL DORIAN PATIENT Selected Encounter This section includes the information on record at [place] for the Encounter. Date/Time Encounter Type Encounter Description Reason Pro vider Source Dec 16, 2023 03:00 PM Outpatient Encounter PRIMARY CARE/MEDICINE IHE Encounter [...] 20 appointments. The data comes from all [place] treatment facilities. Appointment Date/Time Appointment Type Appointme nt Facility Name Dec 17, 2023 09:30 AM [facility] Dec 20[facility] 2023 11:00 AM AMBULATORY - MEDICINE [facility] Dec 27, 2023 03:30 PM [facility] - [place]IC[place] [place] Mar 24, 2024 03:30 PM [facility] - [place]IC[place] [place] Apr 13, 2024 02:30 PM AMBULATORY - MEDICINE [facility] [place] [facility] May 20, 2024 09:00 AM [facility] Lab Results: +/- 30 days of the encounter This section includes the Chemistry and Hematology Lab Results on record with [place] for the patient. Radiology Reports and Pathology Reports are provided separately, in subsequent sections. Lab Results This section contains the Chemistry/Hematology Results that were resulted 30 days before or 30 daysafter the date of the Encounter. Date/Time Source Result Type Result - Unit Interpretation Reference Range Comment Dec 19, 2023 10:53 AM [place] MICROALBUMIN CREATININE RATIO PANEL Spe cimen Type: URINE No comment entered. Ordering Provider: JOSIAH STRINGER Report Released Date/Time: Dec 04, 2023 08:30 AM Reporting Lab: [facility] [address] [address] Performing Lab: [address] [address] MICROALBUMIN/C REATININE RATIO 30.3 mg/g H 0-29.9 MICROALBUMIN,Q UANTITATIVE 3.3 mg/dL RR UNAVAIL CREATININE URINE 108.79 mg/dL Dec 18, 2023 10:05 AM [place] HEMOGLOBIN A1C PANEL Specimen Type: BLOOD Comment: [...] Dec 04, 2023 08:30 AM Reporting Lab: [facility] [address] [address] Performing Lab: [facility] [address] [address] HEMOGLOBIN A1C 5.7 H 4.0-5.6 Dec 18, 2023 10:05 AM [place] LIVER FUNCTION Specimen Type: SERUM No comment entered. Ordering Provider: JOSIAH STRINGER Report Released Date/Time: Dec 04, 2023 08:30 AM Reporting Lab: [facility] [address] [address] Performing Lab: [facility] [address] [address] PROTEIN,TOTAL 7.2 g/dL 6.0-8.3 ALBUMIN 4.5 g/dL 3.5-5.0 ALKALINE PHOSPHATASE 66 U/L 40-150 AST 20 U/L 5-34 ALT 40 U/L BILIRUBIN, TOTAL 0.5 mg/dL 0.2-1.2 Dec 18, 2023 10:05 AM [place] TSH Specimen Type: SERUM No comment entered. Ordering Provider: JOSIAH STRINGER Report Released Date/Time: Dec 04, 2023 08:30 AM Reporting Lab: [facility] [address] [address] Performing Lab: [place] [facility] [address] [address] TSH 2.20 u[IU]/mL 0.35-5.00 Dec 18, 2023 10:05 AM [place] BASIC METABOLIC PANEL (non-fasting) Spe cimen Type: SERUM No comment entered. Ordering Provider: JOSIAH STRINGER Report Released Date/Time: Dec 04, 2023 08:32 AM Reporting Lab: [place] [facility] [address] [address] Performing Lab: [facility] [address] [address] UREA NITROGEN 18 mg/dL 7-25 GLUCOSE 95 mg/dL 65-100 SODIUM 140 mmol/L 135-145 POTASSIUM 4.4 mmol/L 3.5-5.0 CHLORIDE 103 mmol/L 100-110 CO2 28 meq/L 20-30 CREATININE, Serum 1.46 mg/dL H 0.50-1.40 eGFR(CKD-EPI 2020) 59 mL/min L >60 Dec 18, 2023 10:05 AM [place] CBC AND DIFF (AUTO) Specimen Type: BLOOD No comment entered. Ordering Provider: JOSIAH STRINGER Report Released Date/Time: Dec 04, 2023 08:30 AM Reporting Lab: [facility] [address] [address] Performing Lab: [facility] [address] [address] WBC 5.70 10*3/uL 4.50-11.00 RBC 4.57 10*6/uL 4.23-5.66 HGB 13.6 g/dL 12.8-17 HCT 39.0 L 39.2-50.4 MCV 85.3 fL 82-99 MCHC 34.9 g/dL 30.8-35.1 PLT 250 10*3/uL 140-360 RDW-CV 12.4 12.0-16.0 [place], Abs 0.34 10*3/uL 0.30-1.10 MCH 29.8 pg 26.2-32.6 Neut % 47.7 43.7-75.8 Lymph % 42.8 H 14.0-42.3 [place] % 6.0 5.1-13.7 Eos % 2.8 0.4-6.8 Baso % 0.5 0.1-2.0 Neut, Abs 2.72 10*3/uL 2.20-7.60 Lymph, Abs 2.44 10*3/uL 1.00-3.20 Eos, Abs 0.16 10*3/uL 0.03-0.44 Baso, Abs 0.03 10*3/uL 0.01-0.13 Immature Gran % 0.2 0.0-0.7 Immature Gran, Abs 0.01 10*3/uL 0.00-0.06 Dec 18, 2023 10:05 AM [place] VITAMIN D (25-OH) Specimen Type: SERUM No comment entered. Ordering Provider: JOSIAH STRINGER Report Released Date/Time: Dec 16, 2023 03:57 PM Reporting Lab: [address] [address] Performing Lab: [address] [address] VITAMIN D (25-OH) 24 ng/mL 20-50 Dec 18, 2023 10:05 AM [place] CALCIUM Specimen Type: SERUM No comment entered. Ordering Provider: JOSIAH STRINGER Report Released Date/Time: Dec 16, 2023 03:57 PM Reporting Lab: [address] [address] Performing Lab: [address] [address] CALCIUM 8.9 mg/dL 8.5-10.2 Social History: Smoking Status (Most current) and Tobacco Use (All prior to encounter date) This section includes the most current, and the historical, smoking and tobacco- related health factors from the [place] facility where the Encounter took place. Current Smoking Status This section includes the most current smoking, or tobacco-related health factor, from the [place] facility where the Encounter took place. Date/Time Current Smoking Status Comment Clyde velazquez Dec 16, 2023 03:00 PM [place] NEVER USED [facility] Tobacco Use History This section includes a history of the smoking, or tobacco-related health factors, that were collected on or before the date of the Encounter. The data comes from the [place] facility where the Encounter took place. Date/Time Smoking Status/Tobacco Use Comment F acility Jan 14, 2017 08:35 AM LIFETIME NON-TOBACCO USER [facility] Encounter Notes: All associated encounter notes This section contains the clinical notes associated to the Encounter. Date/Time Encounter Note(s) Provider Source Dec 16, 2023 03:22 PM PREVENTIVE MEDICIN E NURSING NOTE: LOCAL TITLE: CLINICAL REMINDERS/NURSING STANDARD TITLE: PREVENTIVE MEDICINE NURSING NOTE DATE OF NOTE: DEC 16, 2023@15:22 ENTRY DATE: DEC 16, 2023@15:22:26 AUTHOR: JEREMIAS PAREKH EXP COSIGNER: URGENCY: STATUS: COMPLETED RHS Screen: RHS Screen Environmental Check Upon inquiry, the individual reports that the environment is safe to proceed. Informed Consent to Screen and Document The individual consents to proceed with screening. The individual consents to documentation of responses. PRIMARY SCREEN: In the past 12 months, how often did a current or former intimate partner (e.g., boyfriend, girlfriend, , , sexual partner): 1. Scream or curse at you Never 2. Insult or talk down to you Never 3. Threaten you with harm Never 4. Physically hurt you Never 5. Force or pressure you to have sexual contact against your will, or when you were unable to say no Never ?? The HITS tool (items 1-4 above) is [place] copyright protected by Sky Burkett MD, and the user has full rights to use it throughout the [place] system. PRIMARY SCREEN RESULT: The Primary Screen is NEGATIVE. The individual answered never to all forms of IPV above (i.e., answered never to all 5 items) The individual accepts education and/or resources: No EDUCATION: The individual indicated readiness to learn. Education offered during this session as noted above. The individual indicated understanding by asking relevant questions and making appropriate comments. No barriers to learning were observed or identified. Sexual Orientation: The patient thinks of their sexual orientation as: Straight or Heterosexual Alcohol Use Screen (AUDIT-C): Alcohol Screen: SCREEN FOR ALCOHOL (AUDIT-C) An alcohol screening test (AUDIT-C) was negative (score=0). 1. How often did you have a drink containing alcohol in the past year? Consider a drink to be a 12 ounce can or bottle of regular beer, 8 ounces of malt liquor, a 5 ounce glass of table wine, or a 1.5 ounce shot of liquor (like scotch, gin, or vodka). Never 2. How many drinks containing alcohol did you have on a typical day when you were drinking in the past year? Response not required due to responses to other questions. 3. How often did you have six or more drinks on one occasion in the past year? Response not required due to responses to other questions. Tobacco Use Screening: The patient has never used tobacco. Depression Screening: Perform PHQ-2 A PHQ-2 screen was performed. The score was 0 which is a negative screen for depression. Over the past two weeks, how often have you been bothered by the following problems? 1. Little interest or pleasure in doing things Not at all 2. Feeling down, depressed, or hopeless Not at all BMI>30/>24.99 High Risk: At this visit, the health risks of obesity were reviewed and discussed with the , and the benefits of a weight management treatment program, such as [facility] was discussed and offered to the [place]. After discussing the health risks of being overweight or obese and providing information about available weight management treatment, and offering a referral to [facility] or another weight management treatment program outside the [facility], the patient DECLINES REFERRAL to [facility] or any other weight management treatment program at this time. Suicide Screen: C-SSRS Screening [place]arr Suicide Severity Rating Scale (C-SSRS) screener 1. Over the past month, have you wished you were or wished you could go to sleep and not wake up? No 2. Over the past month, have you had any actual thoughts of killing yourself? No 3. Over the past month, have you been thinking about how you might do this? Response not required due to responses to other questions. 4. Over the past month, have you had these thoughts and had some intention of acting on them? Response not required due to responses to other questions. 5. Over the past month, have you started to work out or worked out the details of how to kill yourself? Response not required due to responses to other questions. 6. If yes, at any time in the past month did you intend to carry out this plan? Response not required due to responses to other questions. 7. In your lifetime, have you ever done anything, started to do anything, or prepared to do anything to end your life (for example, collected pills, obtained a gun, gave away valuables, went to the roof but didn't jump)? No 8. If YES, was this within the past 3 months? Response not required due to responses to other questions. Advance Directive Screen MH AD: Patient has an up-to-date Advance Directive at an outside, non-[facility] facility and was asked to forward a copy to his/her clinician. Comment: information given /emmy/ JEREMIAS PAREKH LPN LPN Signed: 12/16/2023 15:27 JEREMIAS PAREKH
--- OUTSIDE RECORDS SUMMARY | 2024-09-24 14:25 | XMS_ITS | Encounter Summary ---
Author Name [facility] Address [address] [place] [address] Care Team Providers Care Manager Of Photography Name Role Phone JOSIAH HARRIS Primary Care [...] [place] ION [id number] Sep 30, 2020 [id number] [phone] DORIAN TREJO PATIENT [facility] GOLD ADV O Sep 30, 2020 [id number] [phone] DORIAN TREJO PATIENT Selected Encounter This section includes the information on record at [place] for the Encounter. Date/Time Encounter Type Encounter Description Reason Pro vider Source May 20, 2024 09:00 AM Outpatient Encounter PRIMARY CARE/MEDICINE IHE Encounter Template Text not used by [place] Plan of Treatment: Future Appointments (+ 6 [...] 20 appointments. The data comes from all [facility]. Appointment Date/Time Appointment Type Appointme nt Facility Name Sep 24, 2024 10:15 AM AMBULATORY - MEDICINE [facility] Active, Pending, [...] of theEncounter. The data comes from all [facility]. Test Date/Time Test Type Test Details Facility Name May 05, 2024 12:00 AM Laboratory - Chemi stry Order BASIC METABOLIC PANEL (non-fasting) BLOOD (SST-SERUM) [facility] May 05, 2024 12:00 AM Laboratory - Chemi stry Order URINALYSIS URINE [facility] May 05, 2024 12:00 AM Laboratory - Chemi stry Order LIPID PANEL FASTING BLOOD (SST-SERUM) [facility] May 05, 2024 12:00 AM Laboratory - Chemi stry Order MICROALBUMIN CREATININE RATIO PANEL URINE (RANDOM) [facility] Social History: Smoking Status (Most current) and Tobacco Use (All prior to encounter date) This section includes the most current, and the historical, smoking and tobacco- related health factors from the [place] facility where the Encounter took place. Current Smoking Status This section includes the most current smoking, or tobacco-related health factor, from the [place] facility where the Encounter took place. Date/Time Current Smoking Status Comment Facil ity Oct 04, 2022 03:00 PM [place] NEVER USED [facility] Tobacco Use History This section includes a history of the smoking, or tobacco-related health factors, that were collected on or before the date of the Encounter. The data comes from the [place] facility where the Encounter took place. Date/Time Smoking Status/Tobacco Use Comment F acility February 13, 2021 01:00 PM [place]-TO[place] FORMER USER [facility] February 13, 2021 01:00 PM [place]-TO[place]AC[place] QUIT 15 YRS OR MORE [facility] May 12, 2018 09:25 AM LIFETIME NON-TOBACCO USER Tried as a kid and hated [facility]
--- NOTE | 2024-09-24 15:00 | ED.GENADULT ---
HPI - General Adult General Chief complaint: Headache Stated complaint: high bp headache sent from urgent care Time Seen by Provider: 09/24/24 16:02 Source: patient Mode of arrival: ambulatory Limitations: no limitations History of Present Illness ED Provider: Dr. Florecita Hwang HPI narrative: patient comes to the emergency room complaining of headache for 3 days, generalized malaise, high blood pressure. Patient states that he went to urgent care today, blood pressure was 207/140, sent to emergency room. Patient states that when he was in urgent Care a complaint about that headache, dizziness, visual changes. Patient was given 2 tablets of sublingual nitroglycerin and this did come to the emergency room. Patient states that this time he has more headache, no chest pain or shortness of breath, states that he takes amlodipine and losartan. Related Data Home Medications ?Medication ?Instructions ?Recorded ?Confirmed amlodipine 10 mg tablet 10 mg PO 09/24/24 losartan 50 mg tablet 75 mg PO DAILY 09/24/24 09/24/24 Previous Rx's ?Medication ?Instructions ?Recorded albuterol sulfate 90 mcg/actuation 2 puff inhalation Q4-6H PRN 09/02/21 aerosol inhaler (ProAir HFA) Wheezing #8.5 grams codeine 10 mg-guaifenesin 100 mg/5 10 ml PO Q4-6H PRN cough #237 mL 09/02/21 mL oral liquid dexamethasone 6 mg tablet 6 mg PO DAILY #7 tabs 09/02/21 (Decadron) doxycycline hyclate 100 mg tablet 100 mg PO BID #20 tabs 09/02/21 albuterol sulfate 90 mcg/actuation 2 puff inhalation Q4-6H PRN 04/10/22 aerosol inhaler shortness of breath or wheezing #8.5 grams codeine 10 mg-guaifenesin 100 mg/5 5 ml PO Q6H PRN cough #118 mL 04/10/22 mL oral liquid (Virtussin AC) doxycycline monohydrate 100 mg 100 mg PO BID 7 days #14 caps 04/10/22 capsule prednisone 20 mg tablet 40 mg (2 x 20 mg) PO DAILY #14 tabs 04/10/22 Allergies Allergy/AdvReac Type Severity Reaction Status Date / Time No Known Allergies Allergy Verified 09/24/24 15:06 Review of Systems Review of Systems: Constitutional : No Weight loss, No Fever, No Chills, No Night Sweats, No Fatigue, No Malaise ENT/Mouth : No Hearing loss, No Ear Pain, No Nasal Congestion, No Sinus Pain, No Hoarseness, No sore throat, No Rhinorrhea, No Swallowing Difficulty Eyes: No Eye Pain, No Swelling, No Redness, No Foreign Body, No Discharge, No Vision Changes Cardiovascular : complaining of high blood pressure,No Chest Pain, No SOB, No Dyspnea on Exertion, No Orthopnea, No Edema, No Palpitations Respiratory : No Cough, No Sputum, No Wheezing, No Smoke Exposure, No Dyspnea Gastrointestinal : No Nausea, No Vomiting, No Diarrhea, No Constipation, No abdominal Pain, No Hematochezia, No Melena Genitourinary : no irregular bleeding, No Dysuria, No Urinary Frequency, No Hematuria, No Urinary Incontinence, No Urgency, No Flank Pain, No Urinary Flow Changes, No Hesitancy Musculoskeletal : No joint pain, No Myalgias, No Joint Swelling Skin : No Skin Lesions, No rash Neuro : No Weakness, No Numbness, No Paresthesias, No Loss of Consciousness, No Dizziness, Complaining ofHeadache Psych : No Anxiety/Panic, No Depression, No SI/HI/AH/VH, No Social Issues, Heme/Lymph: No Bruising, No Bleeding,No Lymphadenopathy Endocrine : No Polyuria, No Polydipsia, No Temperature Intolerance [facility] Past Medical History Medical History (Updated 09/24/24 @ 21:00 by Florecita Hwang MD) Hypertension Social History Social History Smoked in Last 30 Days: No Use of substances other than those prescribed or required for medical reasons: No Advance Directives: No Advance Directives Information Provided: No Do you have a plan to hurt others: No Plan Physical Exam ED Vital Signs: Vital Signs - 24 hr 09/24/24 15:00 09/24/24 17:38 09/24/24 19:21 Temperature 98.0 F 98.2 F Pulse Rate 59 53 Respiratory Rate 16 19 Blood Pressure 170/104 H 155/94 H 150/86 H Pulse Oximetry 98 97 Oxygen Delivery Method Room Air Room Air 09/24/24 20:45 09/24/24 20:47 09/24/24 20:48 Temperature Pulse Rate 53 Respiratory Rate 16 Blood Pressure 138/77 138/77 138/77 Pulse Oximetry 99 Oxygen Delivery Method Room Air BMI result Body Mass Index 36.4 Const Other: Appearance: Alert. Oriented X3. No acute distress. Eyes: Pupils equal, round and reactive to light. ENT: Pharynx normal. Neck: Normal inspection. Neck supple. No lymph nodes noted. No crepitus CVS: Normal heart rate and rhythm. Pulses normal. Normal S1 and S2 Respiratory: No respiratory distress. Breath sounds normal. No Wheezing. No rales Abdomen: Soft and nontender. No rigidity. No distention. Skin: Skin warm and dry. Normal skin color. Normal skin turgor. Extremities: No lower extremity edema. No Lacerations. No Rash Neuro: Oriented X 3. No motor deficit. No sensory deficit. Moving all extremities. No slurred speech. CN 2 through 12 grossly intact Psych: calm, cooperative, normal affect Course Course Course Narrative: RME, this is a rapid medical exam performed by Trevon Stone please refer to primary provider for complete H&P- 49-year-old male past medical history significant for hypertension presents for evaluation of a headache high blood pressure. He was seen at urgent care and given 2 doses of sublingual nitroglycerin for his elevated blood pressure. His headache has reportedly improved. He was sent further evaluation plan for labs, CT scan of the brain. Medications Administered Generic Name Dose Route Start Last Admin Trade Name Freq PRN Reason Stop Dose Admin Amlodipine Besylate 10 mg 09/24/24 20:30 09/24/24 20:48 Amlodipine Besylate 10 Mg Tablet PO 10 mg DAILY IVORY Administration Protocol Enoxaparin Sodium 40 mg 09/24/24 20:30 09/24/24 20:49 Enoxaparin Sodium 40 Mg/0.4 Ml Syringe SUBCUT 40 mg Q24H IVORY Administration Guaifenesin/Dextromethorphan 1 tab 09/24/24 21:00 09/24/24 20:47 Guaifenesin Dm 600/30 1 Tab Tab.Er.12h PO 1 tab BID IVORY Administration Losartan Potassium 50 mg 09/24/24 21:00 09/24/24 20:47 Losartan Potassium 50 Mg Tablet PO 50 mg BID IVORY Administration Protocol Discontinued Medications Generic Name Dose Route Start Last Admin Trade Name Freq PRN Reason Stop Dose Admin Acetaminophen 975 mg 09/24/24 16:45 09/24/24 17:15 Acetaminophen 325 Mg Tablet PO 09/24/24 16:46 975 mg ONCE ONE Administration Medical Decision Making Medical Decision Making MDM Narrative: my interpretation of labs: Patient's hematology, chemistry, LFTs and lipase within normal limits ,troponin negative head CT: No acute abnormality. patient's troponin x2 are negative. Headache likely secondary to sublingual nitroglycerin. Given acetaminophen patient no longer having any chest pain or chest pressure. - My interpretation of EKG: Sinus bradycardia, heart rate 54, more pronounced ST segment changes, T-wave inversions. I discussed the patient with Dr. Lake. Given patient's high blood pressure, more exacerbated EKG changes, recommendations are to admit the patient, may need echocardiogram. A 2nd EKG was done, no acute changes from the previous one from earlier today Lab Data [facility] Lab Attestation statement: I reviewed the patient's lab results. 09/24/24 15:43 09/24/24 15:43 Labs: Lab Results 09/24/24 09/24/24 Range/Units 15:43 17:57 WBC 7.8 (4.8-10.8) X10*3/uL RBC 4.80 (4.60-5.80) X10*6/uL Hgb 13.5 L (14.0-18.0) g/dl Hct 40.3 L (42.0-52.0) % MCV 84.0 (80.0-98.0) fL MCH 28.1 (27.0-33.0) pg MCHC 33.5 (31.0-36.0) g/dl RDW 13.4 (11.0-16.0) % Plt Count 255 (160-400) X10*3/uL MPV 11.9 (9.4-12.4) fL Immature Gran % (Auto) 0.1 (0.0-0.4) % Neut % (Auto) 59.5 (45-73) % Lymph % (Auto) 30.7 (20-40) % [place] % (Auto) 6.9 (2-11) % Eos % (Auto) 2.3 (0-4) % Baso % (Auto) 0.5 (0-2) % Lymph # (Auto) 2.4 (1.2-4.9) X10*3/uL [place] # (Auto) 0.5 (0.1-1.2) X10*3/uL Eos # (Auto) 0.2 (0.0-0.4) X10*3/uL Baso # (Auto) 0.0 (0.0-0.2) X10*3/uL Abs Immat Gran (auto) 0.01 (0.00-0.03) X10*3/uL Absolute Neuts (auto) 4.7 (2.0-8.3) x10*3/uL Absolute Nucleated RBC 0.000 (0.0-0.012) X10*3/uL Nucleated RBC % (auto) 0.0 (0.0-0.2) /100WBC PT 11.0 (10.9-12.4) SEC INR 0.9 (0.9-1.1) Sodium 142 (135-145) mmol/L Potassium 4.3 (3.3-5.1) mmol/L Chloride 104 (96-108) mmol/L Carbon Dioxide 30 H (22-29) mmol/L Anion Gap 12 (12-20) BUN 21 H (9-16) mg/dL Creatinine 1.27 (0.5-1.4) mg/dL Estim Creat Clear Calc 82.2 Estimated GFR > 60 Random Glucose 109 (60-115) mg/dL Calcium 10.0 D (8.4-10.2) mg/dL Total Bilirubin 0.4 (0.0-1.0) mg/dL AST 24 (5-37) U/L ALT 51 H (0-40) U/L Alkaline Phosphatase 89 (39-117) U/L Troponin I High Sens 4.9 6.4 (<3.5-35.0) ng/L Total Protein 7.7 (6.5-8.0) g/dL Albumin 4.8 (3.5-5.0) g/dL Lipase 16 (8-78) U/L Influenza Type A (PCR) NEGATIVE (Negative) Influenza Type B (PCR) NEGATIVE (Negative) RSV RNA Qual (PCR) NEGATIVE (Negative) SARS-CoV-2 RNA (RT-PCR) NEGATIVE (Negative) Independent Interpretation I performed an independent interpretation of an: CT Scan Radiology Impression Discussion of test interpretation with radiology: I have reviewed the radiologist's reading. Radiologist Impression: There is no evidence of intracranial hemorrhage or extra-axial fluid collection. There is no mass effect, or edema. No CT evidence of acute territorial infarct. Ventricles, sulci, and cisterns are normal in size and configuration for patient age. No hydrocephalus. No midline shift. Negative hyperdense MCA sign. Negative subinsular ribbon sign. No significant white matter abnormalities. Sella appears normal. Globes and orbital contents image normally. No extracranial soft tissue abnormalities. The paranasal sinuses, mastoid air cells, and tympanic cavities are normally aerated. No suspicious bony abnormalities. CT/CT head/brain wo IV con IMPRESSION: No acute intracranial abnormality. Critical Care Time Critical Care Time Critical Care Time: Yes Total Critical Care Time: 60 Attestation: I have personally provided critical care time. Time includes review of lab data, radiology results, discussion with consultants, and monitoring for potential decompensation. Intervention performed as documented. Discharge Plan Discharge Clinical Impression: Headache, Hypertensive urgency Patient Disposition: Admitted As Inpatient Instructions: Hypertensive Crisis (ED) Prescriptions: No Action dexamethasone [Decadron] 6 mg tablet 6 mg PO DAILY Qty: 7 0RF codeine-guaifenesin 10-100 mg/5 mL liquid 10 ml PO Q4-6H PRN (Reason: cough) Qty: 237 0RF albuterol sulfate [ProAir HFA] 90 mcg/actuation HFA aerosol inhaler 2 puff inhalation Q4-6H PRN (Reason: Wheezing) Qty: 8.5 0RF doxycycline hyclate 100 mg tablet 100 mg PO BID Qty: 20 0RF albuterol sulfate 90 mcg/actuation HFA aerosol inhaler 2 puff inhalation Q4-6H PRN (Reason: shortness of breath or wheezing) Qty: 8.5 0RF prednisone 20 mg tablet 40 mg PO DAILY Qty: 14 0RF doxycycline monohydrate 100 mg capsule 100 mg PO BID 7 Days Qty: 14 0RF codeine-guaifenesin [Virtussin AC] 10-100 mg/5 mL liquid 5 ml PO Q6H PRN (Reason: cough) Qty: 118 0RF losartan 50 mg tablet 75 mg PO DAILY amlodipine 10 mg Tablet 10 mg PO Print Language: Bulgarian
[2024-09-24 15:46] LABS: MANUAL DIFF FLAG NO
[2024-09-24 15:51] LABS: Basophils Percent Auto 0.5 % (0-2); Eosinophils Absolute Auto 0.2 X10*3/uL (0.0-0.4); Eosinophils Percent Auto 2.3 % (0-4); Hematocrit 40.3 % (42.0-52.0); Hemoglobin 13.5 g/dl (14.0-18.0); Imm Gran Abs Auto 0.01 X10*3/uL (0.00-0.03); Imm Gran Pct Auto 0.1 % (0.0-0.4); Lymphocytes Absolute Auto 2.4 X10*3/uL (1.2-4.9); Lymphocytes Percent Auto 30.7 % (20-40); Mean Corpuscular HGB Conc 33.5 g/dl (31.0-36.0); Mean Corpuscular Hemoglobin 28.1 pg (27.0-33.0); Mean Platelet Volume 11.9 fL (9.4-12.4); Monocytes Absolute Auto 0.5 X10*3/uL (0.1-1.2); Monocytes Percent Auto 6.9 % (2-11); Neutrophils Absolute Auto 4.7 x10*3/uL (2.0-8.3); Neutrophils Percent Auto 59.5 % (45-73); Platelet Count 255 X10*3/uL (160-400); Red Cell Distribution Width 13.4 % (11.0-16.0); White Blood Count 7.8 X10*3/uL (4.8-10.8)
[2024-09-24 15:59] LABS: INTERNATIONAL NORM RATIO 0.9 (0.9-1.1)
[2024-09-24 16:06] LABS: Alanine Aminotransferase 51 U/L (0-40); Albumin Level 4.8 g/dL (3.5-5.0); Anion Gap 12 (12-20); Aspartate Amino Transferase 24 U/L (5-37); Bilirubin Total 0.4 mg/dL (0.0-1.0); Blood Urea Nitrogen 21 mg/dL (9-16); Carbon Dioxide 30 mmol/L (22-29); Chloride 104 mmol/L (96-108); Creatinine Clr Calc Pharmacy 82.2; Estimated Glomerular Filt Rate > 60; Glucose Random 109 mg/dL (60-115); Lipase 16 U/L (8-78); Potassium 4.3 mmol/L (3.3-5.1); Sodium 142 mmol/L (135-145); Total Protein 7.7 g/dL (6.5-8.0)
[2024-09-24 16:10] LABS: Troponin-I High Sensitivity 4.9 ng/L (<3.5-35.0)
--- OUTSIDE RECORDS SUMMARY | 2024-09-24 16:19 | XMS_ITS | Continuity of Care Document ---
Author Name [facility] Organization [facility] Care Team Providers Care Vest Presser Name Role Phone [facility] Unavailable Unavailable Problems Combined list of problems from Department of Defense and Veterans Affairs facilities. It does not include entries that were removed or entered in error. Problem Status Onset Date Problem Type Date of Resolution Comments Source Asthma (SCT [id number]) Active Condition Aug 10, 2023 Entered By: JOSIAH GUERIN Comment: 2022 [place] Chronic gastritis Active Condition [facility] Chronic headache disorder Active Condition [facility] Chronic kidney disease stage 3A Active Condition [place] Chronic migraine without aura Active Condition [facility] Constipation Active Condition [facility] Depression (SCT 71360227) Active Condition [place] Essential hypertension Active Condition [facility] Exposure to potentially hazardous substance (SCT 068150796404712 ) Active Condition Jan 08, 2024 Entered By: MK FREEMAN Comment: Entered automatically through [facility] Problem List documentation program [facility] Hallux valgus Active Condition [facility] Hemorrhoids Active Condition [facility] D Low back pain Active Condition [facility] Obesity Active Condition [facility] Obstructive sleep apnea of adult Active Condition [facility] Obstructive sleep apnea syndrome Active Condition Sep 14, 2020 Entered By: JOVITA MOODY Comment: 07/2020 moderate Apnea Hypopnea Index (AHI) of 21.4 [facility] Pain in left knee Active Condition [facility] Prediabetes Active Condition [facility] Tinnitus Active Condition [place] Vitamin D Deficiency (SCT 24316227) Active Condition [place] Diagnosis: ICD-10-CM N18.31 Chronic kidney disease, stage 3a Active Diagnosis [facility] Diagnosis: ICD-10-CM I10 Essential (primary) hypertension Active Diagnosis [place] Diagnosis: ICD-10-CM G47.33 Obstructive sleep apnea (adult) (pediatric) Active Diagnosis [place] Diagnosis: ICD-10-CM Z46.0 Encounter for fit/adjst of spectacles and contact lenses Active Diagnosis [facility] Diagnosis: ICD-10-CM 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, NEC, bilateral Active Diagnosis [facility] Diagnosis: ICD-10-CM Z23 Encounter for immunization Active Diagnosis [place] Diagnosis: ICD-10-CM F43.0 Acute stress reaction Active Diagnosis [facility] Diagnosis: ICD-10-CM Z71.89 Other specified counseling Active Diagnosis [facility] Diagnosis: ICD-10-CM R22.9 Localized swelling, mass and lump, unspecified Active Diagnosis [place] Medications Combined list of outpatient medications from [...] WITH GRAPEFRU IT JUICE ORAL ACTIVE 12/16/2024 [id number] JOSIAH FINCH 2023 [facility] IELD CETIRIZINE HCL 10MG TAB TAKE ONE TABLET BY MOUTH ONCE DAILY FOR ALLERGIE S ORAL DISCONT INUED 11/05/2023 [id number] DIONTE SUTHERLAND 2022 90 [facility] CETIRIZINE HCL 10MG TAB TAKE ONE TABLET BY MOUTH ONCE DAILY FOR ALLERGIE S ORAL 03/15/2024 [id number] JOSIAH FINCH 2023 90 [facility] IELD CHOLECALCIF GURVINDER 25MCG (1,000UNIT) TAB TAKE ONE TABLET BY MOUTH ONCE DAILY FOR VITAMIN SUPPLEME NTATION ORAL ACTIVE 12/22/2024 [id number] JOSIAH FINCH 2023 90 [place] CHOLECALCIF GURVINDER 50MCG (2,000UNIT) TAB TAKE ONE TABLET BY MOUTH ONCE DAILY FOR VITAMIN SUPPLEME NTATION ORAL DISCONT INUED (EDIT) 08/10/2024 [id number] JOSIAH FINCH 2022 100 [place] FLUTICASONE 250MCG/SALM ETEROL 50MCG INHL,ORAL,D ISKUS,60 INHALE 1 PUFF BY MOUTH TWICE DAILY - RINSE MOUTH AFTER USE RESPIR ATORY (INHAL ATION) DISCONT INUED BY PROVIDE R 08/10/2024 [id number] JOSIAH FINCH 2022 1 [place] FLUTICASONE PROPIONATE 50MCG/SPRAY SOLN,NASAL, 16GM INSTILL 1 SPRAY INTO EACH NOSTRIL TWICE DAILY NASAL DISCONT INUED BY PROVIDE R 09/06/2023 [id number] DIONTE SUTHERLAND 2022 1 [facility] LOSARTAN 25MG TAB TAKE THREE TABLETS BY MOUTH ONCE DAILY FOR BLOOD PRESSURE /HEART ORAL ACTIVE 12/22/2024 [id number] JOSIAH FINCH 2023 270 [place] LOSARTAN 25MG TAB TAKE THREE TABLETS BY MOUTH ONCE DAILY FOR BLOOD PRESSURE /HEART ORAL DISCONT INUED 03/15/2024 [id number] 3 JOSIAH FINCH 2022 270 [place] OMEPRAZOLE 20MG CAP,EC TAKE TWO CAPSULES BY MOUTH EVERY MORNING 30 MINUTES BEFORE BREAKFAS T ORAL ACTIVE 12/16/2024 [id number] JOSIAH FINCH 2023 180 [place] SUMATRIPTAN SUCCINATE 100MG TAB TAKE ONE TABLET BY MOUTH DIRECTED AT ONSET OF HEADACHE ; MAY REPEAT IN 2 HOURS IF FIRST DOSE IS NOT EFFECTIV E ORAL ACTIVE 12/16/2024 [id number] DORIAN GUNTERBENITOCOURT Goldsmith 2023 18 [place] ZALEPLON 5MG CAP TAKE ONE CAPSULE BY MOUTH AT BEDTIME NEEDED FOR SLEEP ORAL 05/13/2024 [id number] MAREN DEUTSCH E 2023 30 [place] Allergies, Adverse Reactions, Alerts Combined list of allergies from Department of Defense and Veterans Affairs facilities. It does not include entries that were removed or entered in error. Substance Category Reaction Severity Reaction type Status Date Reported Comments Source No Known Allergies Drug allergy (disorder) active 06/19/2012 [facility] Immunizations Combined list of available immunizations from the Department of [facility] and Veterans Affairs facilities. 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 Status Comments Source HEP A-HEP B 2 2023 [place] LEFT DELTO ID [id number] 104 complet ed [place] INFLUENZA, INJECTABLE, QUADRIVALENT, PRESERVATIVE FREE 2022 HONORIO CARPENTER LEFT DELTO ID [id number] 150 complet ed [place] HEP A-HEP B 2022 KARINE PAREKH LEFT DELTO ID [id number] 104 complet ed [facility] INFLUENZA, INJECTABLE, QUADRIVALENT, PRESERVATIVE FREE 2022 [place] RIGHT DELTO ID [id number] 150 complet ed [place] COVID-19 (PFIZER), MRNA, LNP-S, PF, 30 MCG/0.3 ML DOSE 2 2020 208 complet ed PFR; [id number]; 1 [facility] COVID-19 (PFIZER), MRNA, LNP-S, PF, 30 MCG/0.3 ML DOSE 1 2020 208 complet ed PFR; [id number]; 1 [facility] INFLUENZA, INJECTABLE, [...] 04, 2023 08:30 AM Reporting Lab: [address] [address] Performing Lab: [address] [address] [place] MICROALBU MIN CREATININ E RATIO PANEL MICROALBUMI N [MASS/VOLUM E] IN URINE 3.3 mg/dL 12/18 Specimen Type: URINE No comment entered. Ordering Provider: CRYSTAL SEARS Report Released Date/Time: Dec 04, 2023 08:30 AM Reporting Lab: [address] [address] Performing Lab: [address] [address] [place] MICROALBU MIN CREATININ E RATIO PANEL CREATININE [MASS/VOLUM E] IN URINE 108.79 mg/dL 12/18 Specimen Type: URINE No comment entered. Ordering Provider: CRYSTAL SEARS Report Released Date/Time: Dec 04, 2023 08:30 AM Reporting Lab: [facility] [address] [address] Performing Lab: [address] [address] [place] BASIC METABOLIC PANEL (non-fast ing) UREA NITROGEN [MASS/VOLUM E] IN SERUM OR PLASMA 18 mg/dL 7 - 25 12/17 Specimen Type: SERUM No comment entered. Ordering Provider: CRYSTAL SEARS Report Released Date/Time: Dec 04, 2023 08:32 AM Reporting Lab: [address] [address] Performing Lab: [address] [address] [place] BASIC METABOLIC PANEL (non-fast ing) GLUCOSE [MASS/VOLUM E] IN SERUM OR PLASMA 95 mg/dL 65 - 100 12/17 Specimen Type: SERUM No comment entered. Ordering Provider: CRYSTAL SEARS Report Released Date/Time: Dec 04, 2023 08:32 AM Reporting Lab: [address] [address] Performing Lab: [address] [address] [employer] [place] BASIC METABOLIC PANEL (non-fast ing) SODIUM [MOLES/VOLU ME] IN SERUM OR PLASMA 140 mmol/L 135 - 145 12/17 Specimen Type: SERUM No comment entered. Ordering Provider: CRYSTAL SEARS Report Released Date/Time: Dec 04, 2023 08:32 AM Reporting Lab: [address] [address] Performing Lab: [address] [address] [employer] [place] BASIC METABOLIC PANEL (non-fast ing) POTASSIUM [MOLES/VOLU ME] IN SERUM OR PLASMA 4.4 mmol/L 3.5 - 5.0 12/17 Specimen Type: SERUM No comment entered. Ordering Provider: CRYSTAL SEARS Report Released Date/Time: Dec 04, 2023 08:32 AM Reporting Lab: [address] [address] Performing Lab: [address] [place] [address] [place] BASIC METABOLIC PANEL (non-fast ing) CHLORIDE [MOLES/VOLU ME] IN SERUM OR PLASMA 103 mmol/L 100 - 110 12/17 Specimen Type: SERUM No comment entered. Ordering Provider: CRYSTAL SEARS Report Released Date/Time: Dec 04, 2023 08:32 AM Reporting Lab: [facility] [address] Performing Lab: [address] [address] [place] BASIC METABOLIC PANEL (non-fast ing) CARBON DIOXIDE, TOTAL [MOLES/VOLU ME] IN SERUM OR PLASMA 28 meq/L 20 - 30 12/17 Specimen Type: SERUM No comment entered. Ordering Provider: CRYSTAL SEARS Report Released Date/Time: Dec 04, 2023 08:32 AM Reporting Lab: [address] [address] Performing Lab: [address] [address] [employer] [place] BASIC METABOLIC PANEL (non-fast ing) CREATININE [MASS/VOLUM E] IN SERUM OR PLASMA 1.46 mg/dL 0.50 - 1.40 12/17 H Specimen Type: SERUM No comment entered. Ordering Provider: CRYSTAL SEARS Report Released Date/Time: Dec 04, 2023 08:32 AM Reporting Lab: [address] [address] Performing Lab: [facility] [address] [place] BASIC METABOLIC PANEL (non-fast ing) GLOMERULAR FILTRATION RATE/1.73 SQ M.PREDICTED [VOLUME RATE/AREA] IN SERUM, PLASMA OR BLOOD BY CREATININE- BASED FORMULA (CKD-EPI 2020) 59 mL/min 60 12/17 L Specimen Type: SERUM No comment entered. Ordering Provider: CRYSTAL SEARSKA M Report Released Date/Time: Dec 04, 2023 08:32 AM Reporting Lab: [facility] [place] [address] [address] Performing Lab: [facility] [place] [address] [address] [place] CBC AND DIFF (AUTO) LEUKOCYTES [#/VOLUME] IN BLOOD BY AUTOMATED COUNT 5.70 10*3/u L 4.50 - 11.00 12/17 Specimen Type: BLOOD No comment entered. Ordering Provider: CRYSTAL SEARS Report Released Date/Time: Dec 04, 2023 08:30 AM Reporting Lab: [facility] [place] [address] [address] Performing Lab: [facility] [address] [address] [place] CBC AND DIFF (AUTO) ERYTHROCYTE S [#/VOLUME] IN BLOOD BY AUTOMATED COUNT 4.57 10*6/u L 4.23 - 5.66 12/17 Specimen Type: BLOOD No comment entered. Ordering Provider: CRYSTAL SEARS Report Released Date/Time: Dec 04, 2023 08:30 AM Reporting Lab: [facility] [place] [address] [address] Performing Lab: [facility] [place] [address] [address] [place] CBC AND DIFF (AUTO) HEMOGLOBIN [MASS/VOLUM E] IN BLOOD 13.6 g/dL 12.8 - 17 12/17 Specimen Type: BLOOD No comment entered. Ordering Provider: CRYSTAL SEARS Report Released Date/Time: Dec 04, 2023 08:30 AM Reporting Lab: [facility] [place] [address] [address] Performing Lab: [facility] [address] [address] [place] CBC AND DIFF (AUTO) HEMATOCRIT [VOLUME FRACTION] OF BLOOD BY AUTOMATED COUNT 39.0 39.2 - 50.4 12/17 L Specimen Type: BLOOD No comment entered. Ordering Provider: CRYSTAL SEARS Report Released Date/Time: Dec 04, 2023 08:30 AM Reporting Lab: [facility] [place] [facility] [address] [facility] [address] Performing Lab: [facility] [place] [address] [address] [place] CBC AND DIFF (AUTO) MCV [ENTITIC VOLUME] BY AUTOMATED COUNT 85.3 fL 82 - 99 12/17 Specimen Type: BLOOD No comment entered. Ordering Provider: CRYSTAL SEARS Report Released Date/Time: Dec 04, 2023 08:30 AM Reporting Lab: [facility] [address] Performing Lab: [facility] [place] [address] [address] [place] CBC AND DIFF (AUTO) MCHC [MASS/VOLUM E] BY AUTOMATED COUNT 34.9 g/dL 30.8 - 35.1 12/17 Specimen Type: BLOOD No comment entered. Ordering Provider: CRYSTAL SEARS Report Released Date/Time: Dec 04, 2023 08:30 AM Reporting Lab: [facility] [address] [address] Performing Lab: [facility] [place] [address] [address] [place] CBC AND DIFF (AUTO) PLATELETS [#/VOLUME] IN BLOOD BY AUTOMATED COUNT 250 10*3/u L 140 - 360 12/17 Specimen Type: BLOOD No comment entered. Ordering Provider: CRYSTAL SEARS Report Released Date/Time: Dec 04, 2023 08:30 AM Reporting Lab: [facility] [place] [address] [address] Performing Lab: [facility] [place] [address] [address] [place] CBC AND DIFF (AUTO) ERYTHROCYTE DISTRIBUTIO N WIDTH [RATIO] BY AUTOMATED COUNT 12.4 12.0 - 16.0 12/17 Specimen Type: BLOOD No comment entered. Ordering Provider: CRYSTAL SEARS Report Released Date/Time: Dec 04, 2023 08:30 AM Reporting Lab: [facility] [place] [facility] [address] [facility] [facility] [address] Performing Lab: [facility] [place] [address] [address] [place] CBC AND DIFF (AUTO) MONOCYTES [#/VOLUME] IN BLOOD BY AUTOMATED COUNT 0.34 10*3/u L 0.30 - 1.10 12/17 Specimen Type: BLOOD No comment entered. Ordering Provider: CRYSTAL SEARS Report Released Date/Time: Dec 04, 2023 08:30 AM Reporting Lab: [facility] [place] [address] [address] Performing Lab: [facility] [place] [address] [address] [place] CBC AND DIFF (AUTO) MCH [ENTITIC MASS] BY AUTOMATED COUNT 29.8 pg 26.2 - 32.6 12/17 Specimen Type: BLOOD No comment entered. Ordering Provider: CRYSTAL SEARS Report Released Date/Time: Dec 04, 2023 08:30 AM Reporting Lab: [facility] [place] [facility] [address] [facility] [address] Performing Lab: [facility] [place] [address] [address] [place] CBC AND DIFF (AUTO) NEUTROPHILS /100 LEUKOCYTES IN BLOOD BY AUTOMATED COUNT 47.7 43.7 - 75.8 12/17 Specimen Type: BLOOD No comment entered. Ordering Provider: CRYSTAL SEARS Report Released Date/Time: Dec 04, 2023 08:30 AM Reporting Lab: [facility] [place] [address] [address] Performing Lab: [facility] [place] [address] [address] [place] CBC AND DIFF (AUTO) LYMPHOCYTES /100 LEUKOCYTES IN BLOOD BY AUTOMATED COUNT 42.8 14.0 - 42.3 12/17 H Specimen Type: BLOOD No comment entered. Ordering Provider: CRYSTAL SEARS Report Released Date/Time: Dec 04, 2023 08:30 AM Reporting Lab: [facility] [place] [address] [address] Performing Lab: [facility] [place] [address] [address] [place] CBC AND DIFF (AUTO) MONOCYTES/1 00 LEUKOCYTES IN BLOOD BY AUTOMATED COUNT 6.0 5.1 - 13.7 12/17 Specimen Type: BLOOD No comment entered. Ordering Provider: CRYSTAL SEARS Report Released Date/Time: Dec 04, 2023 08:30 AM Reporting Lab: [facility] [place] [address] [address] Performing Lab: [facility] [place] [address] [address] [place] CBC AND DIFF (AUTO) EOSINOPHILS /100 LEUKOCYTES IN BLOOD BY AUTOMATED COUNT 2.8 0.4 - 6.8 12/17 Specimen Type: BLOOD No comment entered. Ordering Provider: CRYSTAL SEARS Report Released Date/Time: Dec 04, 2023 08:30 AM Reporting Lab: [facility] [place] [address] [address] Performing Lab: [facility] [address] [address] [place] CBC AND DIFF (AUTO) BASOPHILS/1 00 LEUKOCYTES IN BLOOD BY AUTOMATED COUNT 0.5 0.1 - 2.0 12/17 Specimen Type: BLOOD No comment entered. Ordering Provider: CRYSTAL SEARS Report Released Date/Time: Dec 04, 2023 08:30 AM Reporting Lab: [facility] [place] [facility] [address] [facility] [address] Performing Lab: [facility] [address] [address] [place] CBC AND DIFF (AUTO) NEUTROPHILS [#/VOLUME] IN BLOOD BY AUTOMATED COUNT 2.72 10*3/u L 2.20 - 7.60 12/17 Specimen Type: BLOOD No comment entered. Ordering Provider: CRYSTAL SEARS Report Released Date/Time: Dec 04, 2023 08:30 AM Reporting Lab: [facility] [address] [address] Performing Lab: [facility] [address] [address] [place] CBC AND DIFF (AUTO) LYMPHOCYTES [#/VOLUME] IN BLOOD BY AUTOMATED COUNT 2.44 10*3/u L 1.00 - 3.20 12/17 Specimen Type: BLOOD No comment entered. Ordering Provider: CRYSTAL SEARS Report Released Date/Time: Dec 04, 2023 08:30 AM Reporting Lab: [facility] [address] [address] Performing Lab: [facility] [address] [address] [place] CBC AND DIFF (AUTO) EOSINOPHILS [#/VOLUME] IN BLOOD BY AUTOMATED COUNT 0.16 10*3/u L 0.03 - 0.44 12/17 Specimen Type: BLOOD No comment entered. Ordering Provider: CRYSTAL SEARS Report Released Date/Time: Dec 04, 2023 08:30 AM Reporting Lab: [facility] [address] [address] Performing Lab: [facility] [address] [address] [place] CBC AND DIFF (AUTO) BASOPHILS [#/VOLUME] IN BLOOD BY AUTOMATED COUNT 0.03 10*3/u L 0.01 - 0.13 12/17 Specimen Type: BLOOD No comment entered. Ordering Provider: CRYSTAL SEARS Report Released Date/Time: Dec 04, 2023 08:30 AM Reporting Lab: [address] [address] Performing Lab: [place] [address] [place] CBC AND DIFF (AUTO) IMMATURE GRANULOCYTE S/100 LEUKOCYTES IN BLOOD BY AUTOMATED COUNT 0.2 0.0 - 0.7 12/17 Specimen Type: BLOOD No comment entered. Ordering Provider: CRYSTAL SEARS Report Released Date/Time: Dec 04, 2023 08:30 AM Reporting Lab: [address] [address] Performing Lab: [place] [address] [place] CBC AND DIFF (AUTO) IMMATURE GRANULOCYTE S [#/VOLUME] IN BLOOD 0.01 10*3/u L 0.00 - 0.06 12/17 Specimen Type: BLOOD No comment entered. Ordering Provider: CRYSTAL SEARS Report Released Date/Time: Dec 04, 2023 08:30 AM Reporting Lab: [address] [address] Performing Lab: [address] [address] [place] HEMOGLOBI N A1C PANEL HEMOGLOBIN [...] Dec 04, 2023 08:30 AM Reporting Lab: [facility] [address] [facility] [facility] [address] Performing Lab: [facility] [address] [address] [place] LIVER FUNCTION PROTEIN [MASS/VOLUM E] IN SERUM OR PLASMA 7.2 g/dL 6.0 - 8.3 12/17 Specimen Type: SERUM No comment entered. Ordering Provider: CRYSTAL SEARS Report Released Date/Time: Dec 04, 2023 08:30 AM Reporting Lab: [facility] [address] Performing Lab: [facility] [address] [address] [place] LIVER FUNCTION ALBUMIN [MASS/VOLUM E] IN SERUM OR PLASMA 4.5 g/dL 3.5 - 5.0 12/17 Specimen Type: SERUM No comment entered. Ordering Provider: CRYSTAL SEARS Report Released Date/Time: Dec 04, 2023 08:30 AM Reporting Lab: [facility] [address] Performing Lab: [facility] [address] [place] LIVER FUNCTION ALKALINE PHOSPHATASE [ENZYMATIC ACTIVITY/VO LUME] IN SERUM OR PLASMA 66 U/L 40 - 150 12/17 Specimen Type: SERUM No comment entered. Ordering Provider: CRYSTAL SEARS Report Released Date/Time: Dec 04, 2023 08:30 AM Reporting Lab: [facility] [address] [address] Performing Lab: [facility] [address] [place] LIVER FUNCTION ASPARTATE AMINOTRANSF ERASE [ENZYMATIC ACTIVITY/VO LUME] IN SERUM OR PLASMA 20 U/L 5 - 34 12/17 Specimen Type: SERUM No comment entered. Ordering Provider: CRYSTAL SEARS Report Released Date/Time: Dec 04, 2023 08:30 AM Reporting Lab: [facility] [address] Performing Lab: [facility] [address] [address] [place] LIVER FUNCTION ALANINE AMINOTRANSF ERASE [ENZYMATIC ACTIVITY/VO LUME] IN SERUM OR PLASMA 40 U/L 12/17 Specimen Type: SERUM No comment entered. Ordering Provider: CRYSTAL SEARS Report Released Date/Time: Dec 04, 2023 08:30 AM Reporting Lab: [facility] [address] Performing Lab: [facility] [address] [place] LIVER FUNCTION BILIRUBIN.T OTAL [MASS/VOLUM E] IN SERUM OR PLASMA 0.5 mg/dL 0.2 - 1.2 12/17 Specimen Type: SERUM No comment entered. Ordering Provider: CRYSTAL SEARS Report Released Date/Time: Dec 04, 2023 08:30 AM Reporting Lab: [facility] [address] [address] Performing Lab: [facility] [address] [address] [place] TSH THYROTROPIN [UNITS/VOLU ME] IN SERUM OR PLASMA 2.20 u[IU]/ mL 0.35 - 5.00 12/17 Specimen Type: SERUM No comment entered. Ordering Provider: CRYSTAL SEARS Report Released Date/Time: Dec 04, 2023 08:30 AM Reporting Lab: [facility] [place] [address] [address] Performing Lab: [facility] [address] [place] CALCIUM CALCIUM [MASS/VOLUM E] IN SERUM OR PLASMA 8.9 mg/dL 8.5 - 10.2 12/17 Specimen Type: SERUM No comment entered. Ordering Provider: CRYSTAL SEARS Report Released Date/Time: Dec 16, 2023 03:57 PM Reporting Lab: [address] [address] Performing Lab: [address] [address] [place] VITAMIN D (25-OH) 25-HYDROXYV ITAMIN D3 [MASS/VOLUM E] IN SERUM OR PLASMA 24 ng/mL 20 - 50 12/17 Specimen Type: SERUM No comment entered. Ordering Provider: CRYSTAL SEARS Report Released Date/Time: Dec 16, 2023 03:57 PM Reporting Lab: [address] [address] Performing Lab: [address] [address] [place] FERRITIN FERRITIN [MASS/VOLUM E] IN SERUM OR PLASMA 76 ng/mL 20 - 300 03/28 Specimen Type: SERUM No comment entered. Ordering Provider: CRYSTAL SEARS Report Released Date/Time: Mar 01, 2023 01:41 PM Reporting Lab: [address] [address] Performing Lab: [address] [address] [place] HEPATITIS Bs Ab (Quant) HEPATITIS B VIRUS SURFACE AB [UNITS/VOLU ME] IN SERUM OR PLASMA BY IMMUNOASSAY <5m[IU ]/mL 03/28 L Specimen Type: SERUM Comment: REFERENCE RANGE: >=10 mIU/mL PATIENT DOES NOT HAVE IMMUNITY TO HEPATITIS B VIRUS. For more information on this test, go to: http://educ ation.[employer] .com/faq/FA Q105 Test Performed by Domingo Briseno, [facility], [address] [place] [address] Agusitn Josue M.D., Ph.D., Director of Laboratorie s , CLIA [id number] TEST PERFORMED AT: , Ordering Provider: CRYSTAL SEARS Report Released Date/Time: Mar 01, 2023 01:41 PM Reporting Lab: [facility] [address] [facility] [id number] Performing Lab: [facility] [address] [address] [facility] Vital Signs Combined list of inpatient and outpatient Vital Signs from Department of Defense and Veterans Affairs, ranging from 12 months to all on record, depending upon the facility. Vital Sign Value Date Comments Source SYSTOLIC BLOOD PRESSURE 164 09/24/2024 10:36:06 [place] DIASTOLIC BLOOD PRESSURE 100 09/24/2024 10:36:06 [place] PULSE OXIMETRY 98 09/24/2024 10:36:06 [place] PAIN 5 09/24/2024 10:36:06 [place] TEMPERATURE 98.6 09/24/2024 10:36:06 [place] PULSE 66 09/24/2024 10:36:06 [place] RESPIRATION 18 09/24/2024 10:36:06 [facility] SYSTOL[facility] PRESSURE 160 12/22/2023 15:40:00 [place] DIASTOLIC BLOOD PRESSURE 100 12/22/2023 15:40:00 [place] SYSTOLIC BLOOD PRESSURE 153 12/20/2023 10:49:38 [place] DIASTOLIC BLOOD PRESSURE 83 12/20/2023 10:49:38 [facility] 97 12/20/2023 10:49:38 [place] WEIGHT 233.6 12/20/2023 10:49:38 [place] PAIN 0 12/20/2023 10:49:38 [place] TEMPERATURE 97.5 12/20/2023 10:49:38 [place] PULSE 83 12/20/2023 10:49:38 [place] SYSTOLIC BLOOD PRESSURE 179 12/16/2023 15:03:01 [place] DIASTOLIC BLOOD PRESSURE 101 12/16/2023 15:03:01 [place] PULSE OXIMETRY 98 12/16/2023 15:03:01 S CHARLES WEIGHT 237.6 12/16/2023 15:03:01 SPR[place] BMI 38kg/m2 12/16/2023 15:03:01 SPRCARLOS MERCER TEMPERATURE 98.7 12/16/2023 15:03:01 TONII TAYLER PULSE 72 12/16/2023 15:03:01 [place] Encounters Combined list of: 1) Encounters from Department [facility] facilities [facility] 2) Encounters from the Department of [facility] facilities going back up to 280 months. Location Location Details Encounter Type Encounter Number Reason For Visit Attending Provider ADM Date DC Date Status Disposition Source [place] Outpatient Encounter [id number] Diagnos is: ICD-10- CM G47.33 Obstruc tive sleep apnea (adult) (pediat shad)
[facility]SCH [facility] [place] [facility] En[facility] [id number] 04/15 [place] [facility] En[facility] [id number] 04/16 [place] [facility] [place] [facility] Outpatient Encounter [id number] 07/31 [facility] [place] [place] [facility] [facility] OFF/OP EST JANUARY X REQ PHY/QHP [id number] Diagnos is: ICD-10- CM R22.9 Localiz ed swellin g, mass and lump, unspeci fied
PAULINE,ER IC K 08/06 [place] [facility] [place] [facility] Outpatient Encounter [id number] 08/06 [place] [facility] [place] [facility] [place] [facility] OFF/OP EST JANUARY X REQ PHY/QHP [id number] Diagnos is: ICD-10- CM Z71.89 Other specifi ed student support counselor ing<br/ > Ashley MICHAUD 08/07 [facility] OFF[facility] O/P EST LOW 20-29 MIN [id number] Diagnos is: ICD-10- CM F43.0 Acute stress reactio n
PRANAY SUTHERLAND 08/07 [facility] Encounter [id number] 08/18 [facility] Encounter [id number] 08/19 [facility] [place] Encounter [id number] 08/19 [facility] [place] Encounter [id number] 10/17 [facility] [place] Encounter [id number] 10/28 [facility] [place] Encounter [id number] 10/28 [facility] [place] Encounter [id number] 11/11 [facility] [place] Out[facility] Encounter [id number] 11/12 [facility] [place] [place]UN[place] ADMIN [id number] Diagnos is: ICD-10- CM Z23 Encount er for immuniz ation<b r/> CAMDEN CHAMORRO 11/14 [facility] [place] [facility] Outpatient Encounter [id number] 12/15 [facility] [place] [facility] OFFICE O/P EST MOD 30 MIN [id number] Diagnos is: ICD-10- CM I10 Essenti al (primar y) hyperte nsion<b r/> PATRIA RUSH,OG COURT M 12/15 [place] [facility] [place] [facility] Outpatient Encounter [id number] 12/15 [facility] [place] [place] [facility] [place] [id number] Diagnos is: ICD-10- CM 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
COREEN RIVAS 12/16 [facility] [place] [facility] FIT SPECTACLES MULTIFOCAL [id number] Diagnos is: ICD-10- CM Z46.0 Encount er for fit/adj st of spectac les and contact lenses< br/> COREEN RIVAS 12/16 [place] [facility] OFFICE O/P EST MOD 30 MIN [id number] Diagnos is: ICD-10- CM G47.33 Obstruc tive sleep apnea (adult) (pediat shad)
SHARLA DEUTSCH 12/[address] [place] [address] [facility] Outpatient Encounter [id number] 03/24 [place] Outpatient Encounter [id number] Diagnos is: ICD-10- CM G47.33 Obstruc tive sleep apnea (adult) (pediat shad)
ABRAHAM DEUTSCHNNE 04/13 [place] [facility] Outpatient Encounter [id number] 05/07 [facility] [place] [facility] Outpatient Encounter [id number] 05/20 [facility] [place] [place] [facility] [place] Outpatient Encounter [id number] 05/20 [place] [facility] Outpatient Encounter [id number] 05/21 [facility] [place] [facility] Outpatient Encounter [id number] 09/24 [facility] [place] [facility] [place] OFF/OP EST JANUARY X REQ PHY/QHP [id number] Diagnos is: ICD-10- CM I10 Essenti al (primar y) hyperte nsion<b r/> PAULINE,ER IC K 09/24 [place] [facility] [place] [facility] QNHP OL DIG ASSMT&MGMT 5-10 [id number] Diagnos is: ICD-10- CM N18.31 Chronic kidney disease , stage 3a
SOVEROW,CH RISTY A 09/24 [place] [facility] [facility] Social History Combined list of available smoking, tobacco, and other social history from Department of Defense and Veterans Affairs facilities. Social History Type Response Date Comment Source Tobacco smoking status [facility]-TOBACCO NEVER USED [facility] History of tobacco use ID-TOBACCO NEVER USED 10/04/2022 [place] History of tobacco use ID-TOBACCO QUIT 15 YRS OR MORE 02/13/2021 [place] History of tobacco use LIFETIME NON-TOBACCO USER 05/12/2018 Tried as a kid and hated [place] History of tobacco use LIFETIME NON-TOBACCO USER 01/14/2017 [facility] This section is an empty social history section. [facility] Plan of Care List of future care activities from Department of Veterans Affairs facilities. Additional future care activities may be listed in the Assessment and Plan section. Date/Time Care Activity Care Activity Detail Facili 09/24/2024 AMBULATORY - MEDICINE AMBULATORY - MEDICI [facility] 01/05/2025 AMBULATORY - MEDICINE AMBULATORY - MEDICI [facility]
--- OUTSIDE RECORDS SUMMARY | 2024-09-24 16:20 | XMS_ITS | Encounter Summary ---
Author Name [facility] [place] [facility] Address [address] [place] [address] Care Team Providers Care Coater Name Role Phone JOSIAH HARRIS Primary Care [...] PRESCRIPT ION [id number] Sep 30, 2020 [id number] [phone] DORIAN TREJO PATIENT [facility]AN ADV O Sep 30, 2020 [id number] [phone] DORIAN TREJO PATIENT Selected Encounter This section includes the information on record at [place] for the Encounter. Date/Time Encounter Type Encounter Description Reason Provider Source Sep 24, 2024 01:52 PM QNHP OL DIG ASSMT&MGMT 5-10 CLINICAL PHARMACY ICD-10-CM N18.31 Chronic kidney disease, stage 3a ANASTASIIA SUN Encounter Template Text not used by [facility] Assessments - Encounter Diagnoses This section includes the primary and secondary diagnoses documented for the Encounter. Date/Time Primary/Secondary Diagnosis Diagnosis Name Provider Source Sep 24, 2024 01:52 PM PRIMARY Chronic kidney disease, stage 3a JAYLA JONES [facility] Plan of Treatment: Future Appointments (+ 6 months) and Future Tests (+/- 45 days) The Plan of Treatment section includes future care activities for the patient from all [place] treatmentfacilities. This section includes future appointments and future orders which are active, pending or scheduled. Future Appointments This section includes appointments that were scheduled to occur 6 months from the date of the Encounter, up to a maximum of 20 appointments. The data comes from all [place] treatment facilities. Appointment Date/Time Appointment Type Appointme nt Facility Name Jan 05, 2025 03:00 PM AMBULATORY - MEDICINE [facility] Social History: Smoking Status (Most current) and Tobacco Use (All prior to encounter date) This section includes the most current, and the historical, smoking and tobacco- related health factors from the [place] facility where the Encounter took place. Current Smoking Status This section includes the most current smoking, or tobacco-related health factor, from the [place] facility where the Encounter took place. Date/Time Current Smoking Status Comment Clyde ity Dec 16, 2023 03:00 PM VA-TOBACCO NEVER USED [facility] Tobacco Use History This section includes a history of the smoking, or tobacco-related health factors, that were collected on or before the date of the Encounter. The data comes from the [place] facility where the Encounter took place. Date/Time Smoking Status/Tobacco Use Comment F actorsten Jan 14, 2017 08:35 AM LIFETIME NON-TOBACCO USER [facility] Encounter Notes: All associated encounter notes This section contains the clinical notes associated to the Encounter. Date/Time Encounter Note(s) Provider Source Sep 24, 2024 01:52 PM PHARMACY OUTPATIEN T MEDICATION MGT NOTE: LOCAL TITLE: [facility] PRESCRIPTION NOTE STANDARD TITLE: PHARMACY OUTPATIENT MEDICATION MGT NOTE DATE OF NOTE: SEP 24, 2024@13:52 ENTRY DATE: SEP 24, 2024@13:52:24 AUTHOR: JAYLA JONES EXP COSIGNER: URGENCY: STATUS: COMPLETED Pharmacy has received a [facility] prescription. The prescription below CANNOT BE FILLED due to the absence of an active consult. Non VA Approved Urgent Care Facility Clinic: [facility] Provider: [place] [address] P: [phone] eRx Drug : Benzonatate 200 MG Oral Capsule eRx SIG : 1 capsule 3 times per day qty: 20 refills: 0 eRx Drug : Losartan Potassium-HCTZ 100-25 MG Oral Tablet eRx SIG : 1 tablet p.o. daily qty: 30 refills: 3 eRx Drug : hydrALAZINE HCl 50 MG Oral Tablet eRx SIG : 1 tablet po tid qty: 90 refills: 3 eRx Drug : Cefuroxime Axetil 500 MG Oral Tablet eRx SIG : 1 tablet bid qty: 14 refills: 0 eRx Drug : predniSONE 20 MG Oral Tablet eRx SIG : 2 tablets daily qty: 10 refills: 0 Please re-write the above prescription for the [place] OR input a new consult. IF A NEW CONSULT IS PLACED PLEASE: 1. Reach out to the to have them get a new prescription, OR 2. Call the community care provider's office directly for them to resend Thank you /emmy/ JAYLA JONES [facility] [place] Signed: 09/24/2024 13:56 Receipt Acknowledged By: * AWAITING SIGNATURE * NIKKO HARRIS * AWAITING SIGNATURE * ROSALIO STRINGER WILLIAM [facility]
[2024-09-24 16:28] LABS: Influenza A PCR NEGATIVE (Negative); Influenza B PCR NEGATIVE (Negative); Resp Syncy Virus RNA Qual PCR NEGATIVE (Negative); SARS COV2 PCR INHOUSE NEGATIVE (Negative)
--- NOTE | 2024-09-24 16:33 | ECG_ITS ---
Test Reason : HYPERTENSION Blood Pressure : / mmHG Vent. Rate : 054 BPM Atrial Rate : 054 BPM P-R Int : 188 ms QRS Dur : 106 ms QT Int : 412 ms P-R-T Axes : 019 -22 030 degrees QTc Int : 390 ms Sinus bradycardia Moderate voltage criteria for LVH, may be normal variant ( R in aVL , Christian product ) T wave abnormality, consider lateral ischemia Abnormal ECG When compared with ECG of 19-APR-2022 12:03, No significant change was found Referred By: Florecita Hwang Electronically Signed By:SELENE TIWARI MD
[2024-09-24] MEDS: Acetaminophen 325 MG TABLET 975 MG PO (17:15)
--- NOTE | 2024-09-24 17:20 | PC.NURSE ---
medication administered per provider order. effectiveness pending.
[2024-09-24 17:49] LABS: Alkaline Phosphatase 89 U/L (39-117)
--- NOTE | 2024-09-24 17:51 | PC.NURSE ---
repeat trop obtained/sent to lab by [facility]. pt continues to rest in no apparent distress. seen by ED provider/aware of plan of care moving forward. cardiology consult pending if abnormal 2nd troponin. no sob/wob noted. respirations even/unlabored. plan of care ongoing. call das placed within reach.
[2024-09-24 18:21] LABS: Troponin-I High Sensitivity 6.4 ng/L (<3.5-35.0)
--- NOTE | 2024-09-24 19:29 | ECG_ITS ---
Test Reason : REPEAT Blood Pressure : / mmHG Vent. Rate : 058 BPM Atrial Rate : 058 BPM P-R Int : 184 ms QRS Dur : 108 ms QT Int : 426 ms P-R-T Axes : 046 -16 055 degrees QTc Int : 418 ms Sinus bradycardia with Premature supraventricular complexes and with occasional Premature ventricular complexes Minimal voltage criteria for LVH, may be normal variant ( [place] product ) T wave abnormality, consider lateral ischemia Abnormal ECG When compared with ECG of 24-SEP-2024 16:59, Premature ventricular complexes are now Present Premature supraventricular complexes are now Present Referred By: Florecita Hwang Electronically Signed By:SELENE TIWARI MD
--- NOTE | 2024-09-24 20:20 | P.HPHOSP_ITS ---
History of Present Illness Date of Service: 09/24/24 Chief Complaint: chest pain, headache, high BP A 49 years old male with PMH of Asthma, HTN who presents to ED with increasing headaches, generalized weakness and chest discomfort. The patient reports feeling unwell for at least 1 week now. He reports ongoing headache and nausea with associated epigastric pain. He has been coughing for few days as well starting last week. 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 He reports associated symptoms of blurred vision on occasions, dizziness and chest discomfort that started 2 days ago. reporoducible over his sternum. Improved after receiving sublingual Nitro in ED. In ED EKG showed lateral changes in T-wave suggesting inversion with no Trop leak. blood work unremarkable. Admitted for evaluation and monitoring. Review of Systems 2 Review of Systems: No fever, chills but has headache and weakness reporting chest pain and palpitation No shortness of breath or coughing No abdominal pain, nausea or vomiting No urinary symptoms No any rash or wounds PMFSH Medical History Hypertension Social History Smoked in Last 30 Days: No Use of substances other than those prescribed or required for medical reasons: No Advance Directives: No Advance Directives Information Provided: No Do you have a plan to hurt others: No Plan Meds Allergies Allergy/AdvReac Type Severity Reaction Status Date / Time No Known Allergies Allergy Verified 09/24/24 15:06 Active Medications: Current Medications Acetaminophen (Acetaminophen 325 Mg Tablet) 650 mg PO Q6H PRN PRN Reason: Pain, Mild 1-3,fever,headache Albuterol Sulfate (Albuterol Sulfate (0.083%) 2.5 Mg/3 Ml Vial.Neb) 2.5 mg INHALE Q4H PRN PRN Reason: Wheezing Amlodipine Besylate (Amlodipine Besylate 10 Mg Tablet) 10 mg PO DAILY IVORY; Protocol Benzonatate (Benzonatate 100 Mg Capsule) 100 mg PO TID PRN PRN Reason: Cough Calcium Carbonate (Calcium Carbonate 750 Mg Tab.Chew) 750 mg PO Q4H PRN PRN Reason: Heartburn Enoxaparin Sodium (Enoxaparin Sodium 40 Mg/0.4 Ml Syringe) 40 mg SUBCUT Q24H [facility] Guaifenesin/Dextromethorphan (Guaifenesin Dm 600/30 1 Tab Tab.Er.12h) 1 tab PO BID [facility] Losartan Potassium (Losartan Potassium 50 Mg Tablet) 50 mg PO BID [facility]; Protocol Magnesium Hydroxide (Milk Of Magnesia 30 Ml Oral.Susp) 30 ml PO DAILY PRN PRN Reason: Constipation Melatonin (Melatonin 3 Mg Tablet) 6 mg PO BEDTIME PRN PRN Reason: Insomnia Nitroglycerin (Nitroglycerin 0.4 Mg Tab.Subl) 0.4 mg SUBLINGUAL Q5MX3 PRN PRN Reason: Chest Pain Ondansetron HCl (Ondansetron Hcl 4 Mg/2 Ml Vial) 4 mg IVPUSH Q8H PRN PRN Reason: Nausea and Vomiting Sodium Chloride (0.9 % Sodium Chloride Flush 3 Ml Syringe) 3 ml IVFLUSH QSHIFT [facility] Home Medications ?Medication ?Instructions ?Recorded ?Confirmed ?Last Taken ?Type amlodipine 10 mg tablet 10 mg PO 09/24/24 Unknown History losartan 50 mg tablet 75 mg PO DAILY 09/24/24 09/24/24 Unknown History Physical Exam 2 Vital Signs and Narrative: Vital Signs: Last Vital Signs Temp 98.2 F 09/24/24 19:21 Pulse 53 09/24/24 19:21 Resp 19 09/24/24 19:21 BP 150/86 H 09/24/24 19:21 Pulse Ox 97 09/24/24 19:21 O2 Del Method Room Air 09/24/24 19:21 BMI result Body Mass Index 36.4 Const: Other: Constitutional : Awake, interactive, not in distress Neck : Normal inspection, Supple Cardiovascular : RRR, no JVP, no lower extremity edema Respiratory : good bilateral air entry, no crackles, wheezes or rhonchi Gastrointestinal: soft, lax, Normal bowel sounds, Non tender Skin : Warm, Dry Neurological : Alert & oriented x3, No focal deficit , CN 2-12 within normal Results Labs 09/24/24 15:43 09/24/24 15:43 Labs: Laboratory Results - last 24 hr 09/24/24 09/24/24 15:43 17:57 MCV 84.0 MCH 28.1 MCHC 33.5 RDW 13.4 Plt Count 255 MPV 11.9 Immature Gran % (Auto) 0.1 Neut % (Auto) 59.5 Lymph % (Auto) 30.7 [place] % (Auto) 6.9 Eos % (Auto) 2.3 Baso % (Auto) 0.5 Lymph # (Auto) 2.4 [place] # (Auto) 0.5 Eos # (Auto) 0.2 Baso # (Auto) 0.0 Abs Immat Gran (auto) 0.01 Absolute Neuts (auto) 4.7 Absolute Nucleated RBC 0.000 Nucleated RBC % (auto) 0.0 PT 11.0 INR 0.9 Anion Gap 12 Estim Creat Clear Calc 82.2 Estimated GFR > 60 Random Glucose 109 Calcium 10.0 D Total Bilirubin 0.4 AST 24 ALT 51 H Alkaline Phosphatase 89 Troponin I High Sens 4.9 6.4 Total Protein 7.7 Albumin 4.8 Lipase 16 Influenza Type A (PCR) NEGATIVE Influenza Type B (PCR) NEGATIVE RSV RNA Qual (PCR) NEGATIVE SARS-CoV-2 RNA (RT-PCR) NEGATIVE Imaging Radiologist's Impressions: Impressions Head CT 09/24/24 15:15 IMPRESSION: No acute intracranial abnormality. Electronically signed by: Ruben Gibbons MD 09/24/2024 04:[address] [facility] Assessment and Plan (1) Hypertensive urgency: Status: Acute (2) Chest pain: Status: Acute Plan A 49 years old male with PMH of Asthma, HTN who presents to ED with increasing headaches, generalized weakness and chest discomfort. Hypertensive urgency complicated with chest pain and EKG changes No Trop Leak Improved after Nitro Keep on Tele Losartan and Amlodipine for BP PRN Labetalol if SBP>170s ECHO Cardiology consult repeat EKG for chest pain and use Nitro Hx Asthma not in exacerbation PRN Albuterol DVT PPx Lovenox Quality Stroke Does the patient have a stroke diagnosis?: No VTE Prior VTE?: No VTE Risk Level:: Medical - moderate - high VTE Device Contraindication: Treatment Not Indicated VTE Drug Contraindication: N/A - Med Ordered
[2024-09-24] MEDS: Losartan Potassium 50 MG TABLET PO (20:47)
[2024-09-24] MEDS: guaiFENesin DM 600/30 1 TAB TAB.ER.12H PO (20:47)
[2024-09-24] MEDS: amLODIPine Besylate 10 MG TABLET PO (20:48)
[2024-09-24] MEDS: Enoxaparin Sodium 40 MG/0.4 ML SYRINGE SUBCUT (20:49)
--- NOTE | 2024-09-24 21:48 | PHA.MEDREC ---
Pharmacy Consult ? Medication Reconciliation Pharmacy has completed the medication reconciliation. List obtained from [place]. Patient confirmed all meds.
[2024-09-25] VITALS (7 sets, daily range): BP systolic 126–171; BP diastolic 65–96; PULSE 50–60; RESP 16–20; TEMP 36.3–36.8; O2SAT 95–100
[2024-09-25] MEDS: Acetaminophen 325 MG TABLET 650 MG PO (03:13)
--- NOTE | 2024-09-25 07:00 | CA_ITS ---
Transthoracic Echocardiogram Patient (Last, First, Middle): Wander Tristan H Gender: Male Date of : 1975 Age: 49 Procedure Date: 09/25/2024 Procedure Type: Transthoracic Echocardiogram Location: ER Height: 170.18 cm Weight: 102.51 kg BSA: 2.13 m2 Heart Rate: 52 bpm BP: 135 / 90 mmHg Inspection Manager: Referring MD: Bronson Parkinson MD Symptoms: Chest pain, EKG changes Study Quality: Adequate ECG Rhythm: Bradycardia Conclusions: - Normal left ventricular size and systolic function. There is severely increased left ventricular wall thickness. The visually estimated ejection fraction is between 60-65%. - The left atrium is moderately dilated. Findings Left Ventricle Normal left ventricular size and systolic function. There is severely increased left ventricular wall thickness. The visually estimated ejection fraction is between 60-65%. Abnormal diastolic function is noted. Spectral Doppler is indicative of an impaired relaxation filling pattern. E/E prime ratio is between 8 and 15 consistent with indeterminate filling pressures. Right Ventricle Normal right ventricular cavity size and systolic function. Atria The left atrium is moderately dilated. Aortic Valve Normal aortic valve structure and function. There is no aortic valve stenosis. There is no aortic valve regurgitation. Mitral Valve Normal mitral valve structure and function. There is no mitral valve regurgitation. There is no mitral valve stenosis. Pulmonic Valve The pulmonic valve is likely normal. Tricuspid Valve Normal tricuspid valve structure. There is trace tricuspid valve regurgitation. Normal right atrial pressure. There is no evidence of pulmonary hypertension. Great Vessels All visible segments of the aorta are normal in size. The visualized portions of the pulmonary artery and branches are normal. Venous The inferior vena cava is normal in size and collapses greater than 50% with inspiration. Pericardium/Pleural There is no evidence of pericardial effusion. Prior Study Comparison No prior study available for comparison. Measurements 2D Linear Measurements IVSd: 1.70 0.6-0.9/0.6-1.0 cm LVIDd: 4.05 3.9-5.3/4.2-5.9 cm LVIDd Index: 1.90 2.4-3.2/2.2-3.1 cm/m2 LVIDs: 2.50 2.0-3.6 cm LVPWd: 1.70 0.7-1.1 cm LA Diam: 3.70 2.7-3.8/3.0-4.0 cm LAIDs Index: 1.74 1.5-2.3 cm/m2 LV Mass: 360.95 67-162/88-224 g LV Mass Index: 169.46 43-95/49-115 g/m2 LVOT Diam: 2.40 3.0+(-)1.3 cm 2D Systolic Function EF 4C: 68.80 >55% EF 2C: 57.10 >55% EF BiP: 62.30 >55% Mitral Valve MV Pk E: 0.69 MV PK A: 0.81 MV Decel Time: 201.00 E/A: 0.80 E'Lateral: 8.27 E'Medial: 4.46 E/E' Med: 15.40 E/E' Lat: 8.30 PHT: 59.00 MVA PHT: 3.73 Decel Elk: 3.41 Aortic Valve AoV Pk Alex: 1.60 AoV Pk Grad: 10.00 MARLYN: 2.99 LVOT LVOT Pk Alex: 1.06 LVOT Mn Alex: 0.69 LVOT VTI: 0.24 LVOT Pk Grad: 4.00 LVOT Mn Grad: 2.00 LVOT Diam: 2.40 LVOT Area: 4.52 Diastolic Function MV Pk E: 0.69 MV Pk A: 0.81 E/A: 0.80 E'Medial: 4.46 E/E' Med: 15.40 E' Laterial: 8.27 E/E' Lat: 8.30 Right Ventricle TAPSE (mm): 30.00 TVS' Alex: 12.30 Tricuspid Valve TR Pk Alex: 2.29 TR Pk Grad: 21.00 RA Press: 3.00 RVSP: 24.00 Great Vessels Aorta Sinus of Valsalva: 3.50 2.0-3.5 cm Ao Asc: 3.10 2.1-3.4 cm Pulmonary Valve PV Pk Alex: 1.09 Peak PV Grad: 5.00 Updated in Other Vendor System with Status of Final Reinaldo Lake MD electronically signed on 09/25/2024 3:14:10 PM with status of Final
[2024-09-25 07:04] LABS: Alanine Aminotransferase 46 U/L (0-40); Albumin Level 4.4 g/dL (3.5-5.0); Alkaline Phosphatase 65 U/L (39-117); Anion Gap 12 (12-20); Aspartate Amino Transferase 20 U/L (5-37); Bilirubin Total 0.6 mg/dL (0.0-1.0); Blood Urea Nitrogen 19 mg/dL (9-16); Calcium 9.3 mg/dL (8.4-10.2); Carbon Dioxide 28 mmol/L (22-29); Chloride 103 mmol/L (96-108); Creatinine Clr Calc Pharmacy 80.6; Estimated Glomerular Filt Rate 60; Glucose Random 101 mg/dL (60-115); Potassium 4.1 mmol/L (3.3-5.1); Sodium 139 mmol/L (135-145); Total Protein 7.3 g/dL (6.5-8.0)
--- NOTE | 2024-09-25 09:25 | MHC.CM.PN ---
STEPH 09/25/24, EMR REVIEWED PT W/CHEST PAIN, CM MET W/PT AND PT'S [place] AT BEDSIDE, PT REPORTS HE LIVES W/MARILEE ND THEIR PETS, PT REPORTS HE IS SERVICES CONNECTED, HAS A PCP AT [facility] OWEVER NEITHER PT NOR HIS RECALL NAME, PT USES THERE PHARMACY WELL. PT REPORTS THE ONLY DME HE HAS IS HIS CPAP HOWEVER HE HASN'T BEEN USING IT HE FEELS CLAUSTROPHOBIC, PT REPORTS THEY JUST GOT AN ADJUSTABLE BED AND HE WILL TRY USING IT AGAIN. PT REPORTS HE HAS A PCP ON FILE AT THE [place] AND CM WILL CALL OR REQUEST CM [employer] TO CALL TO VERIFY PCP AND REQUEST COPY OF HCP.
[2024-09-25] MEDS: amLODIPine Besylate 10 MG TABLET PO (09:33)
[2024-09-25] MEDS: Losartan Potassium 50 MG TABLET PO ×2 (09:34→21:19)
[2024-09-25] MEDS: guaiFENesin DM 600/30 1 TAB TAB.ER.12H PO ×2 (09:34→21:18)
[2024-09-25] MEDS: Omeprazole 40 MG CAPSULE.DR PO (09:34)
[2024-09-25] MEDS: Cholecalciferol (Vitamin D3) 25 MCG TABLET 50 MCG PO (09:34)
--- NOTE | 2024-09-25 10:24 | HO.PM.IMPN ---
Subjective Subjective Date of Service: 09/25/24 Interval History: seen and examined reprots CASILLAS reports chest soreness, thinks its from coughing Review of Systems Negative except HPI/interval history. Physical Exam Vital Signs: Vital Signs: Last Vital Signs Temp 97.6 F 09/25/24 07:50 Pulse 56 09/25/24 07:50 Resp 20 09/25/24 07:50 BP 171/96 H 09/25/24 07:50 Pulse Ox 95 09/25/24 07:50 O2 Del Method Room Air 09/25/24 07:50 O2 Flow Rate 2 09/25/24 03:32 BMI result Body Mass Index 35.5 Const: Other: General - no acute distress, appears comfortable Cardiovascular - rales at bases; +JVD Lungs - rales, no distress Abdomen - soft, nontender, no rebound or guarding Extremities - no appreciable edema b/l Neuro - awake and alert, no focal deficits Objective Data Active Medications Acetaminophen (Acetaminophen 325 Mg Tablet) 650 mg PO Q6H PRN PRN Reason: Pain, Mild 1-3,fever,headache Last Admin: 09/25/24 03:13 Dose: 650 mg Documented By: VERONIQUE Albuterol Sulfate (Albuterol Sulfate (0.083%) 2.5 Mg/3 Ml Vial.Neb) 2.5 mg INHALE Q4H PRN PRN Reason: Wheezing Amlodipine Besylate (Amlodipine Besylate 10 Mg Tablet) 10 mg PO DAILY [facility]; Protocol Last Admin: 09/25/24 09:33 Dose: 10 mg Documented By: SANDRO Benzonatate (Benzonatate 100 Mg Capsule) 100 mg PO TID PRN PRN Reason: Cough Calcium Carbonate (Calcium Carbonate 750 Mg Tab.Chew) 750 mg PO Q4H PRN PRN Reason: Heartburn Enoxaparin Sodium (Enoxaparin Sodium 40 Mg/0.4 Ml Syringe) 40 mg SUBCUT Q24H [facility] Last Admin: 09/24/24 20:49 Dose: 40 mg Documented By: JOSE C Guaifenesin/Dextromethorphan (Guaifenesin Dm 600/30 1 Tab Tab.Er.12h) 1 tab PO BID [facility] Last Admin: 09/25/24 09:34 Dose: 1 tab Documented By: SANDRO Losartan Potassium (Losartan Potassium 50 Mg Tablet) 50 mg PO BID [facility]; Protocol Last Admin: 09/25/24 09:34 Dose: 50 mg Documented By: SANDRO Magnesium Hydroxide (Milk Of Magnesia 30 Ml Oral.Susp) 30 ml PO DAILY PRN PRN Reason: Constipation Melatonin (Melatonin 3 Mg Tablet) 6 mg PO BEDTIME PRN PRN Reason: Insomnia Nitroglycerin (Nitroglycerin 0.4 Mg Tab.Subl) 0.4 mg SUBLINGUAL Q5MX3 PRN PRN Reason: Chest Pain Omeprazole (Omeprazole 40 Mg Capsule.Dr) 40 mg PO DAILY@0630 [facility] Last Admin: 09/25/24 09:34 Dose: 40 mg Documented By: SANDRO Ondansetron HCl (Ondansetron Hcl 4 Mg/2 Ml Vial) 4 mg IVPUSH Q8H PRN PRN Reason: Nausea and Vomiting Sodium Chloride (0.9 % Sodium Chloride Flush 3 Ml Syringe) 3 ml IVFLUSH QSHIFT [facility] Last Admin: 09/25/24 02:42 Dose: Not Given Documented By: VERONIQUE Non-Admin Reason: Previously Administered Vitamin D (Cholecalciferol (Vitamin D3) 25 Mcg Tablet) 50 mcg PO DAILY [facility] Last Admin: 09/25/24 09:34 Dose: 50 mcg Documented By: SANDRO Labs 09/24/24 15:43 09/25/24 06:39 Labs: Laboratory Results - last 24 hr 09/24/24 09/24/24 09/25/24 15:43 17:57 06:39 MCV 84.0 MCH 28.1 MCHC 33.5 RDW 13.4 Plt Count 255 MPV 11.9 Immature Gran % (Auto) 0.1 Neut % (Auto) 59.5 Lymph % (Auto) 30.7 [place] % (Auto) 6.9 Eos % (Auto) 2.3 Baso % (Auto) 0.5 Lymph # (Auto) 2.4 [place] # (Auto) 0.5 Eos # (Auto) 0.2 Baso # (Auto) 0.0 Abs Immat Gran (auto) 0.01 Absolute Neuts (auto) 4.7 Absolute Nucleated RBC 0.000 Nucleated RBC % (auto) 0.0 Hold Purple Top SEE NOTE PT 11.0 INR 0.9 Anion Gap 12 12 Estim Creat Clear Calc 82.2 80.6 Estimated GFR > 60 60 Random Glucose 109 101 Calcium 10.0 D 9.3 D Total Bilirubin 0.4 0.6 AST 24 20 ALT 51 H 46 H Alkaline Phosphatase 89 65 Troponin I High Sens 4.9 6.4 Total Protein 7.7 7.3 Albumin 4.8 4.4 Lipase 16 Influenza Type A (PCR) NEGATIVE Influenza Type B (PCR) NEGATIVE RSV RNA Qual (PCR) NEGATIVE SARS-CoV-2 RNA (RT-PCR) NEGATIVE Assessment and Plan (1) Hypertensive urgency: Status: Acute (2) Acute CHF: Status: Acute Plan A 49 years old male with PMH of Asthma, HTN, migranes who presents to ED with increasing headaches, generalized weakness and chest discomfort. Hypertensive urgency complicated with chest pain and EKG changes d/w cardiology clinically appears to be in acute CHF -- echo pending to adrien EF start IV lasix 40mg BID, i/o, daily weights norvasc and losartan -- may need to add beta-scot Hx Asthma not in exacerbation PRN Albuterol Migraines on sumpatriptan prn -- may need alternative given BP/cardiac issues DVT PPx Lovenox reason for continued hospitalization and change to inpt: pt with on going elevated BP and with signs of acute CHF therefore will require further hospitalization including IV diuresis and titration of BP meds Quality Stroke Does the patient have a stroke diagnosis?: No VTE Prior VTE?: No VTE Risk Level:: Medical - moderate - high VTE Device Contraindication: Treatment Not Indicated VTE Drug Contraindication: N/A - Med Ordered
--- OUTSIDE RECORDS SUMMARY | 2024-09-25 10:26 | XMS_ITS | Continuity of Care Document ---
Author Name [facility] Organization [facility] Care Team Providers Care Swatch Checker Name Role Phone [facility] Unavailable Unavailable Problems Combined list of problems from Department of Defense and Veterans Affairs facilities. It does not include entries that were removed or entered in error. Problem Status Onset Date Problem Type Date of Resolution Comments Source Asthma (SCT 072968569) Active Condition Aug 10, 2023 Entered By: JOSIAH GUERIN Comment: 2022 [place] Chronic gastritis Active Condition [facility] Chronic headache disorder Active Condition [facility] Chronic kidney disease stage 3A Active Condition [place] Chronic migraine without aura Active Condition [facility] Constipation Active Condition [facility] LD Depression (SCT 64617760) Active Condition [place] Essential hypertension Active Condition [facility] Exposure to potentially hazardous substance (SCT [id number] ) Active Condition Jan 08, 2024 Entered By: MK FREEMAN Comment: Entered automatically through [facility] Problem List documentation program [facility] Hallux valgus Active Condition [facility] Hemorrhoids Active Condition [facility] D Low back pain Active Condition [facility] Obesity Active Condition [facility] Obstructive sleep apnea of adult Active Condition [facility] Obstructive sleep apnea syndrome Active Condition Sep 14, 2020 Entered By: JOVITA MOODY Comment: 07/2020 moderate Apnea Hypopnea Index (AHI) of 21.4 [facility] Pain in left knee Active Condition [facility] Prediabetes Active Condition [facility] Tinnitus Active Condition [place] Vitamin D Deficiency (SCT 77899450) Active Condition [place] Diagnosis: ICD-10-CM N18.31 Chronic kidney disease, stage 3a Active Diagnosis 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 Diagnosis: ICD-10-CM Z23 Encounter for immunization Active Diagnosis [place] Diagnosis: ICD-10-CM F43.0 Acute stress reaction Active Diagnosis [facility] Diagnosis: ICD-10-CM Z71.89 Other specified counseling Active Diagnosis [facility] Diagnosis: ICD-10-CM R22.9 Localized swelling, mass and lump, unspecified Active Diagnosis [place] Medications Combined list of outpatient medications from [...] WITH GRAPEFRU IT JUICE ORAL ACTIVE 12/16/2024 [id number] JOSIAH FINCH 2023 [facility] IELD CETIRIZINE HCL 10MG TAB TAKE ONE TABLET BY MOUTH ONCE DAILY FOR ALLERGIE S ORAL DISCONT INUED 11/05/2023 [id number] DIONTE SUTHERLAND 2022 90 [facility] CETIRIZINE HCL 10MG TAB TAKE ONE TABLET BY MOUTH ONCE DAILY FOR ALLERGIE S ORAL 03/15/2024 [id number] 4 JOSIAH FINCH 2023 90 [facility] IELD CHOLECALCIF GURVINDER 25MCG (1,000UNIT) TAB TAKE ONE TABLET BY MOUTH ONCE DAILY FOR VITAMIN SUPPLEME NTATION ORAL ACTIVE 12/22/2024 [id number] JOSIAH FINCH 2023 90 [place] CHOLECALCIF GURVINDER 50MCG (2,000UNIT) TAB TAKE ONE TABLET BY MOUTH ONCE DAILY FOR VITAMIN SUPPLEME NTATION ORAL DISCONT INUED (EDIT) 08/10/2024 [id number] JOSIAH FINCH 2022 100 [place] FLUTICASONE 250MCG/SALM ETEROL 50MCG INHL,ORAL,D ISKUS,60 INHALE 1 PUFF BY MOUTH TWICE DAILY - RINSE MOUTH AFTER USE RESPIR ATORY (INHAL ATION) DISCONT INUED BY PROVIDE R 08/10/2024 [id number] JOSIAH FINCH 2022 1 [place] FLUTICASONE PROPIONATE 50MCG/SPRAY SOLN,NASAL, 16GM INSTILL 1 SPRAY INTO EACH NOSTRIL TWICE DAILY NASAL DISCONT INUED BY PROVIDE R 09/06/2023 [id number] DIONTE SUTHERLAND 2022 1 [facility] LOSARTAN 25MG TAB TAKE THREE TABLETS BY MOUTH ONCE DAILY FOR BLOOD PRESSURE /HEART ORAL ACTIVE 12/22/2024 [id number] 4 JOSIAH FINCH 2023 270 [place] LOSARTAN 25MG TAB TAKE THREE TABLETS BY MOUTH ONCE DAILY FOR BLOOD PRESSURE /HEART ORAL DISCONT INUED 03/15/2024 [id number] 3 JOSIAH FINCH 2022 270 [place] OMEPRAZOLE 20MG CAP,EC TAKE TWO CAPSULES BY MOUTH EVERY MORNING 30 MINUTES BEFORE BREAKFAS T ORAL ACTIVE 12/16/2024 [id number] 4 JOSIAH FINCH 2023 180 [place] SUMATRIPTAN SUCCINATE 100MG TAB TAKE ONE TABLET BY MOUTH DIRECTED AT ONSET OF HEADACHE ; MAY REPEAT IN 2 HOURS IF FIRST DOSE IS NOT EFFECTIV E ORAL ACTIVE 12/16/2024 [id number] 4 DORIAN GUNTERBENITOCOURT Goldsmith 2023 18 [place] ZALEPLON 5MG CAP TAKE ONE CAPSULE BY MOUTH AT BEDTIME NEEDED FOR SLEEP ORAL 05/13/2024 [id number] MAREN DEUTSCH E 2023 30 [place] Allergies, Adverse Reactions, Alerts Combined list of allergies from Department of Defense and Veterans Affairs facilities. It does not include entries that were removed or entered in error. Substance Category Reaction Severity Reaction type Status Date Reported Comments Source No Known Allergies Drug allergy (disorder) active 06/19/2012 [facility] Immunizations Combined list of available immunizations from the Department of [facility] and Veterans Affairs facilities. Immunization Series Date Given Administered By Site Reaction Lot Number CVX Code Drug Traveling Engineer Status Comments Source HEP A-HEP B 2 2023 [place] CHAM[place]RO LEFT DELTO ID [id number] 104 complet ed [place] INFLUENZA, INJECTABLE, QUADRIVALENT, PRESERVATIVE FREE 2022 HONORIO CARPENTER LEFT DELTO ID [id number] 150 complet ed [place] HEP A-HEP B 2022 KARINE PAREKH LEFT DELTO ID [id number] 104 complet ed [facility] INFLUENZA, INJECTABLE, QUADRIVALENT, PRESERVATIVE FREE 2022 [place] RIGHT DELTO ID [id number] 150 complet ed [place] COVID-19 (PFIZER), MRNA, LNP-S, PF, 30 MCG/0.3 ML DOSE 2 2020 208 complet ed PFR; [id number]; 1 [facility] COVID-19 (PFIZER), MRNA, LNP-S, PF, 30 MCG/0.3 ML DOSE 1 2020 208 complet ed PFR; [id number]; 1 [facility] INFLUENZA, INJECTABLE, [...] Dec 04, 2023 08:30 AM Reporting Lab: [address] [address] Performing Lab: [address] [address] [place] MICROALBU MIN CREATININ E RATIO PANEL MICROALBUMI N [MASS/VOLUM E] IN URINE 3.3 mg/dL 12/18 Specimen Type: URINE No comment entered. Ordering Provider: CRYSTAL SEARS Report Released Date/Time: Dec 04, 2023 08:30 AM Reporting Lab: [address] [address] Performing Lab: [address] [address] [place] MICROALBU MIN CREATININ E RATIO PANEL CREATININE [MASS/VOLUM E] IN URINE 108.79 mg/dL 12/18 Specimen Type: URINE No comment entered. Ordering Provider: CRYSTAL SEARS Report Released Date/Time: Dec 04, 2023 08:30 AM Reporting Lab: [facility] [address] [address] Performing Lab: [address] [address] [place] BASIC METABOLIC PANEL (non-fast ing) UREA NITROGEN [MASS/VOLUM E] IN SERUM OR PLASMA 18 mg/dL 7 - 25 12/17 Specimen Type: SERUM No comment entered. Ordering Provider: CRYSTAL SEARS Report Released Date/Time: Dec 04, 2023 08:32 AM Reporting Lab: [address] [address] Performing Lab: [address] [address] [place] BASIC METABOLIC PANEL (non-fast ing) GLUCOSE [MASS/VOLUM E] IN SERUM OR PLASMA 95 mg/dL 65 - 100 12/17 Specimen Type: SERUM No comment entered. Ordering Provider: CRYSTAL SEARS Report Released Date/Time: Dec 04, 2023 08:32 AM Reporting Lab: [address] [address] Performing Lab: [address] [address] [place] BASIC METABOLIC PANEL (non-fast ing) SODIUM [MOLES/VOLU ME] IN SERUM OR PLASMA 140 mmol/L 135 - 145 12/17 Specimen Type: SERUM No comment entered. Ordering Provider: CRYSTAL SEARS Report Released Date/Time: Dec 04, 2023 08:32 AM Reporting Lab: [address] [address] Performing Lab: [address] [address] [place] BASIC METABOLIC PANEL (non-fast ing) POTASSIUM [MOLES/VOLU ME] IN SERUM OR PLASMA 4.4 mmol/L 3.5 - 5.0 12/17 Specimen Type: SERUM No comment entered. Ordering Provider: CRYSTAL SEARS Report Released Date/Time: Dec 04, 2023 08:32 AM Reporting Lab: [address] [address] Performing Lab: [address] [place] [address] [place] BASIC METABOLIC PANEL (non-fast ing) CHLORIDE [MOLES/VOLU ME] IN SERUM OR PLASMA 103 mmol/L 100 - 110 12/17 Specimen Type: SERUM No comment entered. Ordering Provider: CRYSTAL SEARS Report Released Date/Time: Dec 04, 2023 08:32 AM Reporting Lab: [facility] [address] Performing Lab: [address] [address] [place] BASIC METABOLIC PANEL (non-fast ing) CARBON DIOXIDE, TOTAL [MOLES/VOLU ME] IN SERUM OR PLASMA 28 meq/L 20 - 30 12/17 Specimen Type: SERUM No comment entered. Ordering Provider: CRYSTAL SEARS Report Released Date/Time: Dec 04, 2023 08:32 AM Reporting Lab: [address] [address] Performing Lab: [address] [address] [place] BASIC METABOLIC PANEL (non-fast ing) CREATININE [MASS/VOLUM E] IN SERUM OR PLASMA 1.46 mg/dL 0.50 - 1.40 12/17 H Specimen Type: SERUM No comment entered. Ordering Provider: CRYSTAL SEARS Report Released Date/Time: Dec 04, 2023 08:32 AM Reporting Lab: [address] [address] Performing Lab: [facility] [address] [place] BASIC METABOLIC PANEL (non-fast ing) GLOMERULAR FILTRATION RATE/1.73 SQ M.PREDICTED [VOLUME RATE/AREA] IN SERUM, PLASMA OR BLOOD BY CREATININE- BASED FORMULA (CKD-EPI 2020) 59 mL/min 60 12/17 L Specimen Type: SERUM No comment entered. Ordering Provider: CRYSTAL SEARSKA M Report Released Date/Time: Dec 04, 2023 08:32 AM Reporting Lab: [facility] [place] [address] [address] Performing Lab: [facility] [place] [address] [address] [place] CBC AND DIFF (AUTO) LEUKOCYTES [#/VOLUME] IN BLOOD BY AUTOMATED COUNT 5.70 10*3/u L 4.50 - 11.00 12/17 Specimen Type: BLOOD No comment entered. Ordering Provider: CRYSTAL SEARS Report Released Date/Time: Dec 04, 2023 08:30 AM Reporting Lab: [facility] [place] [address] [address] Performing Lab: [facility] [address] [address] [place] CBC AND DIFF (AUTO) ERYTHROCYTE S [#/VOLUME] IN BLOOD BY AUTOMATED COUNT 4.57 10*6/u L 4.23 - 5.66 12/17 Specimen Type: BLOOD No comment entered. Ordering Provider: CRYSTAL SEARS Report Released Date/Time: Dec 04, 2023 08:30 AM Reporting Lab: [facility] [place] [address] [address] Performing Lab: [facility] [place] [address] [address] [place] CBC AND DIFF (AUTO) HEMOGLOBIN [MASS/VOLUM E] IN BLOOD 13.6 g/dL 12.8 - 17 12/17 Specimen Type: BLOOD No comment entered. Ordering Provider: CRYSTAL SEARS Report Released Date/Time: Dec 04, 2023 08:30 AM Reporting Lab: [facility] [place] [address] [address] Performing Lab: [facility] [address] [address] [place] CBC AND DIFF (AUTO) HEMATOCRIT [VOLUME FRACTION] OF BLOOD BY AUTOMATED COUNT 39.0 39.2 - 50.4 12/17 L Specimen Type: BLOOD No comment entered. Ordering Provider: CRYSTAL SEARS Report Released Date/Time: Dec 04, 2023 08:30 AM Reporting Lab: [facility] [place] [facility] [address] [facility] [address] Performing Lab: [facility] [place] [address] [address] [place] CBC AND DIFF (AUTO) MCV [ENTITIC VOLUME] BY AUTOMATED COUNT 85.3 fL 82 - 99 12/17 Specimen Type: BLOOD No comment entered. Ordering Provider: CRYSTAL SEARS Report Released Date/Time: Dec 04, 2023 08:30 AM Reporting Lab: [facility] [address] Performing Lab: [facility] [place] [address] [address] [place] CBC AND DIFF (AUTO) MCHC [MASS/VOLUM E] BY AUTOMATED COUNT 34.9 g/dL 30.8 - 35.1 12/17 Specimen Type: BLOOD No comment entered. Ordering Provider: CRYSTAL SEARS Report Released Date/Time: Dec 04, 2023 08:30 AM Reporting Lab: [facility] [address] [address] Performing Lab: [facility] [place] [address] [address] [place] CBC AND DIFF (AUTO) PLATELETS [#/VOLUME] IN BLOOD BY AUTOMATED COUNT 250 10*3/u L 140 - 360 12/17 Specimen Type: BLOOD No comment entered. Ordering Provider: CRYSTAL SEARS Report Released Date/Time: Dec 04, 2023 08:30 AM Reporting Lab: [facility] [place] [address] [address] Performing Lab: [facility] [place] [address] [address] [place] CBC AND DIFF (AUTO) ERYTHROCYTE DISTRIBUTIO N WIDTH [RATIO] BY AUTOMATED COUNT 12.4 12.0 - 16.0 12/17 Specimen Type: BLOOD No comment entered. Ordering Provider: CRYSTAL SEARS Report Released Date/Time: Dec 04, 2023 08:30 AM Reporting Lab: [facility] [place] [facility] [address] [address] Performing Lab: [facility] [place] [address] [address] [place] CBC AND DIFF (AUTO) MONOCYTES [#/VOLUME] IN BLOOD BY AUTOMATED COUNT 0.34 10*3/u L 0.30 - 1.10 12/17 Specimen Type: BLOOD No comment entered. Ordering Provider: CRYSTAL SEARS Report Released Date/Time: Dec 04, 2023 08:30 AM Reporting Lab: [facility] [place] [address] [address] Performing Lab: [facility] [place] [address] [address] [place] CBC AND DIFF (AUTO) MCH [ENTITIC MASS] BY AUTOMATED COUNT 29.8 pg 26.2 - 32.6 12/17 Specimen Type: BLOOD No comment entered. Ordering Provider: CRYSTAL SEARS Report Released Date/Time: Dec 04, 2023 08:30 AM Reporting Lab: [facility] [place] [facility] [address] [address] Performing Lab: [facility] [place] [address] [address] [place] CBC AND DIFF (AUTO) NEUTROPHILS /100 LEUKOCYTES IN BLOOD BY AUTOMATED COUNT 47.7 43.7 - 75.8 12/17 Specimen Type: BLOOD No comment entered. Ordering Provider: CRYSTAL SEARS Report Released Date/Time: Dec 04, 2023 08:30 AM Reporting Lab: [facility] [place] [address] [address] Performing Lab: [facility] [place] [address] [address] [place] CBC AND DIFF (AUTO) LYMPHOCYTES /100 LEUKOCYTES IN BLOOD BY AUTOMATED COUNT 42.8 14.0 - 42.3 12/17 H Specimen Type: BLOOD No comment entered. Ordering Provider: CRYSTAL SEARS Report Released Date/Time: Dec 04, 2023 08:30 AM Reporting Lab: [facility] [place] [address] [address] Performing Lab: [facility] [place] [address] [address] [place] CBC AND DIFF (AUTO) MONOCYTES/1 00 LEUKOCYTES IN BLOOD BY AUTOMATED COUNT 6.0 5.1 - 13.7 12/17 Specimen Type: BLOOD No comment entered. Ordering Provider: CRYSTAL SEARS Report Released Date/Time: Dec 04, 2023 08:30 AM Reporting Lab: [facility] [place] [address] [address] Performing Lab: [facility] [place] [address] [address] [place] CBC AND DIFF (AUTO) EOSINOPHILS /100 LEUKOCYTES IN BLOOD BY AUTOMATED COUNT 2.8 0.4 - 6.8 12/17 Specimen Type: BLOOD No comment entered. Ordering Provider: CRYSTAL SEARS Report Released Date/Time: Dec 04, 2023 08:30 AM Reporting Lab: [facility] [place] [address] [address] Performing Lab: [facility] [address] [address] [place] CBC AND DIFF (AUTO) BASOPHILS/1 00 LEUKOCYTES IN BLOOD BY AUTOMATED COUNT 0.5 0.1 - 2.0 12/17 Specimen Type: BLOOD No comment entered. Ordering Provider: CRYSTAL SEARS Report Released Date/Time: Dec 04, 2023 08:30 AM Reporting Lab: [facility] [place] [facility] [address] [address] Performing Lab: [facility] [address] [address] [place] CBC AND DIFF (AUTO) NEUTROPHILS [#/VOLUME] IN BLOOD BY AUTOMATED COUNT 2.72 10*3/u L 2.20 - 7.60 12/17 Specimen Type: BLOOD No comment entered. Ordering Provider: CRYSTAL SEARS Report Released Date/Time: Dec 04, 2023 08:30 AM Reporting Lab: [facility] [address] [address] Performing Lab: [facility] [address] [address] [place] CBC AND DIFF (AUTO) LYMPHOCYTES [#/VOLUME] IN BLOOD BY AUTOMATED COUNT 2.44 10*3/u L 1.00 - 3.20 12/17 Specimen Type: BLOOD No comment entered. Ordering Provider: CRYSTAL SEARS Report Released Date/Time: Dec 04, 2023 08:30 AM Reporting Lab: [facility] [address] [address] Performing Lab: [facility] [address] [address] [place] CBC AND DIFF (AUTO) EOSINOPHILS [#/VOLUME] IN BLOOD BY AUTOMATED COUNT 0.16 10*3/u L 0.03 - 0.44 12/17 Specimen Type: BLOOD No comment entered. Ordering Provider: CRYSTAL SEARS Report Released Date/Time: Dec 04, 2023 08:30 AM Reporting Lab: [facility] [address] [address] Performing Lab: [facility] [address] [address] [place] CBC AND DIFF (AUTO) BASOPHILS [#/VOLUME] IN BLOOD BY AUTOMATED COUNT 0.03 10*3/u L 0.01 - 0.13 12/17 Specimen Type: BLOOD No comment entered. Ordering Provider: CRYSTAL SAERS Report Released Date/Time: Dec 04, 2023 08:30 AM Reporting Lab: [address] [address] Performing Lab: [place] [address] [place] CBC AND DIFF (AUTO) IMMATURE GRANULOCYTE S/100 LEUKOCYTES IN BLOOD BY AUTOMATED COUNT 0.2 0.0 - 0.7 12/17 Specimen Type: BLOOD No comment entered. Ordering Provider: CRYSTAL SEARS Report Released Date/Time: Dec 04, 2023 08:30 AM Reporting Lab: [address] [address] Performing Lab: [place] [address] [place] CBC AND DIFF (AUTO) IMMATURE GRANULOCYTE S [#/VOLUME] IN BLOOD 0.01 10*3/u L 0.00 - 0.06 12/17 Specimen Type: BLOOD No comment entered. Ordering Provider: CRYSTAL SEARS Report Released Date/Time: Dec 04, 2023 08:30 AM Reporting Lab: [address] [address] Performing Lab: [address] [address] [place] HEMOGLOBI N A1C PANEL HEMOGLOBIN [...] Dec 04, 2023 08:30 AM Reporting Lab: [facility] [address] [address] Performing Lab: [facility] [address] [address] [place] LIVER FUNCTION PROTEIN [MASS/VOLUM E] IN SERUM OR PLASMA 7.2 g/dL 6.0 - 8.3 12/17 Specimen Type: SERUM No comment entered. Ordering Provider: CRYSTAL SEARS Report Released Date/Time: Dec 04, 2023 08:30 AM Reporting Lab: [facility]ITALRAT[facility]ITALTR[facility] [address] Performing Lab: [facility] TRN [address] [address] [place] LIVER FUNCTION ALBUMIN [MASS/VOLUM E] IN SERUM OR PLASMA 4.5 g/dL 3.5 - 5.0 12/17 Specimen Type: SERUM No comment entered. Ordering Provider: CRYSTAL SEARS Report Released Date/Time: Dec 04, 2023 08:30 AM Reporting Lab: [facility] [address] Performing Lab: [facility] [address] [place] LIVER FUNCTION ALKALINE PHOSPHATASE [ENZYMATIC ACTIVITY/VO LUME] IN SERUM OR PLASMA 66 U/L 40 - 150 12/17 Specimen Type: SERUM No comment entered. Ordering Provider: CRYSTAL SEARS Report Released Date/Time: Dec 04, 2023 08:30 AM Reporting Lab: [facility] [address] [address] Performing Lab: [facility] [address] [place] LIVER FUNCTION ASPARTATE AMINOTRANSF ERASE [ENZYMATIC ACTIVITY/VO LUME] IN SERUM OR PLASMA 20 U/L 5 - 34 12/17 Specimen Type: SERUM No comment entered. Ordering Provider: CRYSTAL SEARS Report Released Date/Time: Dec 04, 2023 08:30 AM Reporting Lab: [facility] [address] [address] Performing Lab: [facility] [address] [address] [place] LIVER FUNCTION ALANINE AMINOTRANSF ERASE [ENZYMATIC ACTIVITY/VO LUME] IN SERUM OR PLASMA 40 U/L 12/17 Specimen Type: SERUM No comment entered. Ordering Provider: CRYSTAL SEARS Report Released Date/Time: Dec 04, 2023 08:30 AM Reporting Lab: [facility] [address] [address] Performing Lab: [facility] [address] [place] LIVER FUNCTION BILIRUBIN.T OTAL [MASS/VOLUM E] IN SERUM OR PLASMA 0.5 mg/dL 0.2 - 1.2 12/17 Specimen Type: SERUM No comment entered. Ordering Provider: CRYSTAL SEARS Report Released Date/Time: Dec 04, 2023 08:30 AM Reporting Lab: [facility] [address] [address] Performing Lab: [facility] [address] [address] [place] TSH THYROTROPIN [UNITS/VOLU ME] IN SERUM OR PLASMA 2.20 u[IU]/ mL 0.35 - 5.00 12/17 Specimen Type: SERUM No comment entered. Ordering Provider: CRYSTAL SEARS Report Released Date/Time: Dec 04, 2023 08:30 AM Reporting Lab: [facility] [place] [address] [address] Performing Lab: [facility] [address] [place] CALCIUM CALCIUM [MASS/VOLUM E] IN SERUM OR PLASMA 8.9 mg/dL 8.5 - 10.2 12/17 Specimen Type: SERUM No comment entered. Ordering Provider: CRYSTAL SEARS Report Released Date/Time: Dec 16, 2023 03:57 PM Reporting Lab: [address] [address] Performing Lab: [address] [address] [place] VITAMIN D (25-OH) 25-HYDROXYV ITAMIN D3 [MASS/VOLUM E] IN SERUM OR PLASMA 24 ng/mL 20 - 50 12/17 Specimen Type: SERUM No comment entered. Ordering Provider: CRYSTAL SEARS Report Released Date/Time: Dec 16, 2023 03:57 PM Reporting Lab: [address] [address] Performing Lab: [address] [address] [place] FERRITIN FERRITIN [MASS/VOLUM E] IN SERUM OR PLASMA 76 ng/mL 20 - 300 03/28 Specimen Type: SERUM No comment entered. Ordering Provider: CRYSTAL SEARS Report Released Date/Time: Mar 01, 2023 01:41 PM Reporting Lab: [address] [address] Performing Lab: [address] [address] [place] HEPATITIS Bs Ab (Quant) HEPATITIS B VIRUS SURFACE AB [UNITS/VOLU ME] IN SERUM OR PLASMA BY IMMUNOASSAY <5m[IU ]/mL 03/28 L Specimen Type: SERUM Comment: REFERENCE RANGE: >=10 mIU/mL PATIENT DOES NOT HAVE IMMUNITY TO HEPATITIS B VIRUS. For more information on this test, go to: [email or web address] .com/faq/FA [email or web address] Test Performed by Domingo Briseno, [employer] [facility], [address] [place] [address] Agustin Josue M.D., Ph.D., Director of Laboratorie s , CLIA [id number] TEST PERFORMED AT: , Ordering Provider: CRYSTAL SEARS Report Released Date/Time: Mar 01, 2023 01:41 PM Reporting Lab: [facility] [address] [facility] [phone] Performing Lab: [facility] [address] [address] [facility] Vital Signs Combined list of inpatient and outpatient Vital Signs from Department of Defense and Veterans Affairs, ranging from 12 months to all on record, depending upon the facility. Vital Sign Value Date Comments Source SYSTOLIC BLOOD PRESSURE 164 09/24/2024 10:36:06 [place] DIASTOLIC BLOOD PRESSURE 100 09/24/2024 10:36:06 [place] PULSE OXIMETRY 98 09/24/2024 10:36:06 [place] PAIN 5 09/24/2024 10:36:06 [place] TEMPERATURE 98.6 09/24/2024 10:36:06 [place] PULSE 66 09/24/2024 10:36:06 [place] RESPIRATION 18 09/24/2024 10:36:06 [facility] [facility] [place] SYSTOLIC BLOOD PRESSURE 160 12/22/2023 15:40:00 [place] DIASTOLIC BLOOD PRESSURE 100 12/22/2023 15:40:00 [place] SYSTOLIC BLOOD PRESSURE 153 12/20/2023 10:49:38 [place] DIASTOLIC BLOOD PRESSURE 83 12/20/2023 10:49:38 [facility] OXIMETRY 97 12/20/2023 10:49:38 [place] WEIGHT 233.6 12/20/2023 10:49:38 [place] PAIN 0 12/20/2023 10:49:38 [place] TEMPERATURE 97.5 12/20/2023 10:49:38 NEW[place] NGTON PULSE 83 12/20/2023 10:49:38 [place] SYSTOLIC BLOOD PRESSURE 179 12/16/2023 15:03:01 [place] DIASTOLIC BLOOD PRESSURE 101 12/16/2023 15:03:01 [place] PULSE OXIMETRY 98 12/16/2023 15:03:01 S CHAR[place] WEIGHT 237.6 12/16/2023 15:03:01 [place] BMI 38kg/m2 12/16/2023 15:03:01 SPRCARL[place] MERCER TEMPERATURE 98.7 12/16/2023 15:03:01 TONII TAYLER PULSE 72 12/16/2023 15:03:01 [place] Encounters Combined list of: 1) Encounters from [facility] facilities [facility] 2) Encounters from the Department of [facility] facilities going back up to 280 months. Location Location Details Encounter Type Encounter Number Reason For Visit Attending Provider ADM Date DC Date Status Disposition Source [place] Outpatient Encounter [id number] Diagnos is: ICD-10- CM G47.33 Obstruc tive sleep apnea (adult) (pediat shad)
[facility] [place] [facility] En[facility] [id number] 04/15 [place] [facility] En[facility] [id number] 04[place]16 [facility] [place] [facility] Outpatient Encounter [id number] 07/31 [facility] [place] [facility] EST JANUARY X REQ PHY/QHP [id number] Diagnos is: ICD-10- CM R22.9 Localiz ed swellin g, mass and lump, unspeci fied
PAULINE,ER IC K 08/06 [place] [facility] [place] [facility] Outpatient Encounter [id number] 08/06 [place] [facility] [place] [facility] [place] [facility] OFF/OP EST JANUARY X REQ PHY/QHP [id number] Diagnos is: ICD-10- CM Z71.89 Other specifi ed vocational counselor ing<br/ > Ashley MICHAUD 08/07 [facility] OFF[facility] O/P EST LOW 20-29 MIN [id number] Diagnos is: ICD-10- CM F43.0 Acute stress reactio n
PRANAY SUTHERLAND 08/07 [facility] En[facility] [id number] 08/18 [facility] Encounter [id number] 08/19 [facility] Encounter [id number] 08/19 [facility] Encounter [id number] 10/17 [facility] Encounter [id number] 10/28 [facility] Encounter [id number] 10/28 [facility] Encounter [id number] 11/11 [facility] Encounter [id number] 11/12 [facility] [place] ADMIN [id number] Diagnos is: ICD-10- CM Z23 Encount er for immuniz ation<b r/> CAMDEN CHAMORRO 11/14 [facility] [place] Outpatient Encounter [id number] 12/15 [place] [facility] [place] [facility] OFFICE O/P EST MOD 30 MIN [id number] Diagnos is: ICD-10- CM I10 Essenti al (primar y) hyperte nsion<b r/> PATRIA RUSH,OG COURT M 12/15 [place] [facility] [place] [facility] Outpatient Encounter [id number] 12/15 [facility] [place] [place] [id number] Diagnos is: ICD-10- CM 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
COREEN RIVAS 12/16 [place] [facility] [place] [facility] FIT SPECTACLES MULTIFOCAL [id number] Diagnos is: ICD-10- CM Z46.0 Encount er for fit/adj st of spectac les and contact lenses< br/> COREEN RIVAS 12/16 [place] [facility] [place] [facility] OFFICE O/P EST MOD 30 MIN [id number] Diagnos is: ICD-10- CM G47.33 Obstruc tive sleep apnea (adult) (pediat shad)
SHARLA DEUTSCH 12/19 [place] [facility] Outpatient Encounter [id number] 03/24 [place] Outpatient Encounter [id number] Diagnos is: ICD-10- CM G47.33 Obstruc tive sleep apnea (adult) (pediat shad)
ABRAHAM DEUTSCHNNE 04/13 [place] [facility] Outpatient Encounter [id number] 05/07 [facility] [place] [facility] Outpatient Encounter [id number] 05/20 [place] [facility] [place] [facility] [place] Outpatient Encounter [id number] 05/20 [place] [facility] Outpatient Encounter [id number] 05/21 [facility] [place] [facility] Outpatient Encounter [id number] 09/24 [place] [facility] [place] [facility] [place] OFF/OP EST JANUARY X REQ PHY/QHP [id number] Diagnos is: ICD-10- CM I10 Essenti al (primar y) hyperte nsion<b r/> PAULINE,ER IC K 09/24 [place] [facility] [place] [facility] QNHP OL DIG ASSMT&MGMT 5-10 [id number] Diagnos is: ICD-10- CM N18.31 Chronic kidney disease , stage 3a
SOVEROW,CH RISTY A 09/24 [place] [facility] Social History Combined list of available smoking, tobacco, and other social history from Department of Defense and Veterans Affairs facilities. Social History Type Response Date Comment Source Tobacco smoking status [facility] NEVER USED [facility] History of tobacco use [place]-TOBACCO NEVER USED 10/04/2022 [place] History of tobacco use [place]-TOBACCO QUIT 15 YRS OR MORE 02/13/2021 [place] History of tobacco use LIFETIME NON-TOBACCO USER 05/12/2018 Tried as a kid and hated [place] History of tobacco use LIFETIME NON-TOBACCO USER 01/14/2017 [facility] This section is an empty social history section. [facility] Plan of Care List of future care activities from Department of Veterans Affairs facilities. Additional future care activities may be listed in the Assessment and Plan section. Date/Time Care Activity Care Activity Detail Facili 09/24/2024 AMBULATORY - MEDICINE AMBULATORY - MEDICI [facility] 01/05/2025 AMBULATORY - MEDICINE AMBULATORY - MEDICI [facility]
[2024-09-25] MEDS: Furosemide 40 MG/4 ML VIAL IVPUSH ×2 (11:53→17:43)
[2024-09-25] MEDS: 0.9 % Sodium Chloride Flush 3 ML SYRINGE IVFLUSH ×3 (11:53→21:21)
--- NOTE | 2024-09-25 14:48 | PM.CNCAR ---
History of Present Illness History of Present Illness Date of Service: 09/25/24 Requesting physician: Brett Nguyen Chief complaint: Headache, elevated BP Narrative: 49-year-old gentleman who we have been consulted for elevated blood pressure and ECG changes. He has lateral T-wave inversions. These changes on reviewing his chart were present in 2021 when EKG was done at [facility]. We also had chest pain and cardiac catheterization in 2016 which was negative. It appears he has not been taking medications regularly and was not taking care of health in general. He presented with headache and suffers unfortunately from migraines. He was prescribed sumatriptan for migraine headaches which he suffers from and it appearss saying he has not been taking it quite regularly though. He is denying chest discomfort. He has sickle cell trait but never had sickle cell anemia. Was taking losartan 75 mg daily. He is currently on losartan 50 mg twice a day and amlodipine 10 mg daily. Amlodipine is apparently a home medication 2. He has been experiencing chronic orthopnea and sleeps in a recliner. He thinks this is due to sleep apnea but he has not been using the CPAP until recently. [facility] Past Medical History Medical History Hypertension Social History Social History Patient Tobacco Use Status: Never used Tobacco Smoked in Last 30 Days: No Use of substances other than those prescribed or required for medical reasons: No Advance Directives: No Advance Directives Information Provided: No Do you have a plan to hurt others: No Plan service: Yes Meds Allergies Allergy/AdvReac Type Severity Reaction Status Date / Time No Known Allergies Allergy Verified 09/24/24 15:06 Active Medications: Current Medications Acetaminophen (Acetaminophen 325 Mg Tablet) 650 mg PO Q6H PRN PRN Reason: Pain, Mild 1-3,fever,headache Last Admin: 09/25/24 03:13 Dose: 650 mg Albuterol Sulfate (Albuterol Sulfate (0.083%) 2.5 Mg/3 Ml Vial.Neb) 2.5 mg INHALE Q4H PRN PRN Reason: Wheezing Amlodipine Besylate (Amlodipine Besylate 10 Mg Tablet) 10 mg PO DAILY IVORY; Protocol Last Admin: 09/25/24 09:33 Dose: 10 mg Benzonatate (Benzonatate 100 Mg Capsule) 100 mg PO TID PRN PRN Reason: Cough Calcium Carbonate (Calcium Carbonate 750 Mg Tab.Chew) 750 mg PO Q4H PRN PRN Reason: Heartburn Enoxaparin Sodium (Enoxaparin Sodium 40 Mg/0.4 Ml Syringe) 40 mg SUBCUT Q24H [facility] Last Admin: 09/24/24 20:49 Dose: 40 mg Furosemide (Furosemide 40 Mg/4 Ml Vial) 40 mg IVPUSH BID@0900,1800 [facility]; Protocol Last Admin: 09/25/24 11:53 Dose: 40 mg Guaifenesin/Dextromethorphan (Guaifenesin Dm 600/30 1 Tab Tab.Er.12h) 1 tab PO BID [facility] Last Admin: 09/25/24 09:34 Dose: 1 tab Losartan Potassium (Losartan Potassium 50 Mg Tablet) 50 mg PO BID [facility]; Protocol Last Admin: 09/25/24 09:34 Dose: 50 mg Magnesium Hydroxide (Milk Of Magnesia 30 Ml Oral.Susp) 30 ml PO DAILY PRN PRN Reason: Constipation Melatonin (Melatonin 3 Mg Tablet) 6 mg PO BEDTIME PRN PRN Reason: Insomnia Nitroglycerin (Nitroglycerin 0.4 Mg Tab.Subl) 0.4 mg SUBLINGUAL Q5MX3 PRN PRN Reason: Chest Pain Omeprazole (Omeprazole 40 Mg Capsule.Dr) 40 mg PO DAILY@0630 [facility] Last Admin: 09/25/24 09:34 Dose: 40 mg Ondansetron HCl (Ondansetron Hcl 4 Mg/2 Ml Vial) 4 mg IVPUSH Q8H PRN PRN Reason: Nausea and Vomiting Sodium Chloride (0.9 % Sodium Chloride Flush 3 Ml Syringe) 3 ml IVFLUSH QSHIFT [facility] Last Admin: 09/25/24 11:53 Dose: 3 ml Vitamin D (Cholecalciferol (Vitamin D3) 25 Mcg Tablet) 50 mcg PO DAILY [facility] Last Admin: 09/25/24 09:34 Dose: 50 mcg Home Medications ?Medication ?Instructions ?Recorded ?Confirmed ?Last Taken ?Type amlodipine 10 mg tablet 10 mg PO DAILY 09/24/24 09/24/24 09/24/24 History cetirizine 10 mg tablet 10 mg PO DAILY PRN Allergy Symptoms 09/24/24 09/24/24 Unknown History cholecalciferol (vitamin D3) 50 50 mcg PO DAILY 09/24/24 09/24/24 09/24/24 History mcg (2,000 unit) capsule (Vitamin D3) losartan 25 mg tablet 75 mg PO DAILY 09/24/24 09/24/24 09/24/24 History omeprazole 20 mg capsule,delayed 40 mg PO DAILY@0630 09/24/24 09/24/24 09/24/24 History release sumatriptan succinate 100 mg tablet 100 mg PO Q2H PRN Headache 09/24/24 09/24/24 Unknown History Physical Exam Vital Signs: Vital Signs: Last Vital Signs Temp 98.1 F 09/25/24 11:53 Pulse 56 09/25/24 11:53 Resp 18 09/25/24 11:53 BP 156/79 H 09/25/24 11:53 Pulse Ox 97 09/25/24 11:53 O2 Del Method Room Air 09/25/24 11:53 O2 Flow Rate 2 09/25/24 03:32 BMI result Body Mass Index 35.5 GENERAL APPEARANCE: in no acute distress, pleasant. NECK: no carotid bruit, + jugular venous distention. SKIN: no suspicious lesions, warm and dry. HEART: no murmurs, regular rate and rhythm. LUNGS: Crackles both bases. ABDOMEN: soft, nontender. EXTREMITIES: no edema. PERIPHERAL PULSES: equal. NEUROLOGIC: No gross deficits, AAO X 3 Objective Labs and Meds 09/24/24 15:43 09/25/24 06:39 Lab results: Laboratory Results - last 24 hr 09/24/24 09/24/24 09/25/24 15:43 17:57 06:39 WBC 7.8 RBC 4.80 Hgb 13.5 L Hct 40.3 L MCV 84.0 MCH 28.1 MCHC 33.5 RDW 13.4 Plt Count 255 MPV 11.9 Immature Gran % (Auto) 0.1 Neut % (Auto) 59.5 Lymph % (Auto) 30.7 [place] % (Auto) 6.9 Eos % (Auto) 2.3 Baso % (Auto) 0.5 Lymph # (Auto) 2.4 [place] # (Auto) 0.5 Eos # (Auto) 0.2 Baso # (Auto) 0.0 Abs Immat Gran (auto) 0.01 Absolute Neuts (auto) 4.7 Absolute Nucleated RBC 0.000 Nucleated RBC % (auto) 0.0 Hold Purple Top SEE NOTE PT 11.0 INR 0.9 Sodium 142 139 Potassium 4.3 4.1 Chloride 104 103 Carbon Dioxide 30 H 28 Anion Gap 12 12 BUN 21 H 19 H Creatinine 1.27 1.28 Estim Creat Clear Calc 82.2 80.6 Estimated GFR > 60 60 Random Glucose 109 101 Calcium 10.0 D 9.3 D Total Bilirubin 0.4 0.6 AST 24 20 ALT 51 H 46 H Alkaline Phosphatase 89 65 Troponin I High Sens 4.9 6.4 Total Protein 7.7 7.3 Albumin 4.8 4.4 Lipase 16 Influenza Type A (PCR) NEGATIVE Influenza Type B (PCR) NEGATIVE RSV RNA Qual (PCR) NEGATIVE SARS-CoV-2 RNA (RT-PCR) NEGATIVE Imaging Radiologist's impression: Impressions Head CT 09/24/24 15:15 IMPRESSION: No acute intracranial abnormality. Electronically signed by: Ruben Gibbons MD 09/24/2024 04:09 PM [facility] Assessment and Plan (1) Acute CHF: Status: Acute (2) Hypertensive urgency: Status: Acute Plan [age] year gentleman who is presenting for headache, elevated blood pressure and recent viral illness. He has bilateral crackles and mild JVD. Clinically he is in heart failure. Agree with IV diuretics. Would favor just 40 mg daily Lasix rather than b.i.d. Lasix. Continue losartan 50 mg twice a day amlodipine. I think he has sleep apnea and probably would benefit from CPAP and it may help bring his blood pressure down too. He has significant left ventricular hypertrophy on his echocardiogram but I think that is the reason he has EKG changes. He needs alternative medicine for sumatriptan because sumatriptan we will lead to elevated blood pressures in him. We will follow along with you. Thank you for allowing me to participate in the care of your patient. Please feel free to contact me if you have any questions. Procedures Date of Service Date of Service: 09/25/24
[2024-09-25] MEDS: Enoxaparin Sodium 40 MG/0.4 ML SYRINGE SUBCUT (21:18)
[2024-09-26 04:00] VITALS: BP 125/76; PULSE 56; RESP 16; TEMP 36.9; O2SAT 98
[2024-09-26 06:00] VITALS: BMI 35.7
[2024-09-26] MEDS: Omeprazole 40 MG CAPSULE.DR PO (06:43)
[2024-09-26 08:00] VITALS: BP 143/91; PULSE 59; RESP 18; TEMP 36.3; O2SAT 98
[2024-09-26] MEDS: Furosemide 40 MG/4 ML VIAL IVPUSH (08:41)
[2024-09-26] MEDS: amLODIPine Besylate 10 MG TABLET PO (08:41)
[2024-09-26] MEDS: Losartan Potassium 50 MG TABLET PO (08:41)
[2024-09-26] MEDS: guaiFENesin DM 600/30 1 TAB TAB.ER.12H PO (08:41)
[2024-09-26] MEDS: Cholecalciferol (Vitamin D3) 25 MCG TABLET 50 MCG PO (08:41)
[2024-09-26] MEDS: 0.9 % Sodium Chloride Flush 3 ML SYRINGE IVFLUSH (08:41)
[2024-09-26] MEDS: Milk of Magnesia 30 ML ORAL.SUSP PO (08:42)
[2024-09-26 11:19] VITALS: BP 148/87; PULSE 60; RESP 18; TEMP 36.4; O2SAT 97
--- NOTE | 2024-09-26 11:24 | P.DS_ITS ---
DS: Providers Provider Date of Service: 09/26/24 Date of admission: 09/24/24 20:16 Date of discharge: 09/26/24 Primary care physician: Unknown Physician Consults: 09/24/24 20:16 Consult to Cardiology Routine Consulting Provider: [facility] Reason for consultation: Chest pain, EKG changes , T-inversion DS: Diagnosis Discharge Diagnosis (1) Acute CHF: Status: Acute (2) Hypertensive urgency: Status: Acute (3) Chest pain: Status: Acute (4) Headache: Status: Acute DS: Summary Hospital Course Hospital Course: Admission note HPI A 49 years old male with PMH of Asthma, HTN who presents to ED with increasing headaches, generalized weakness and chest discomfort. The patient reports feeling unwell for at least 1 week now. He reports ongoing headache and nausea with associated epigastric pain. He has been coughing for few days as well starting last week. 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 He reports associated symptoms of blurred vision on occasions, dizziness and chest discomfort that started 2 days ago. reporoducible over his sternum. Improved after receiving sublingual Nitro in ED. In ED EKG showed lateral changes in T-wave suggesting inversion with no Trop leak. blood work unremarkable.Admitted for evaluation and monitoring. Hospital course Hypertensive urgency complicated with chest pain and EKG changes suggestive of acute CHF exacerbation as the patient was evaluated by cardiology team and treated with IV lasix and increase Losartan with good response as BP better improved and he was able to ambulate on room air with no reported dyspnea or chest pain. Echo was done showing EF of 60-65% with LVH. EKG changes likely related to LVH per cardiology opinion. To be discharged home on Losartan 50 mg bid, Lasix 40 mg daily and plan to repeat BMP and follow with cardiology as outpatient. Continue Amlodipine 10 mg daily and stop Sumatriptan as it increase BP. Discharge plan Stop Sumatriptan as it increases blood pressure; use Tylenol\Advil for headache Continue Amlodipine 10 mg daily Increase Losartan to 50 mg two times a day Take Lasix 40 mg daily To follow blood work next week To follow with Cardiology as outpatient Increase exercise and avoid salty food, try losing weight To do a sleep study for evaluation of sleep apnea , to arrange by PCP Time Attestation Discharge Coordination Time (in mins): 42 Quality: Safe Use of Opioids Does Pt have an Active Cancer Diagnosis on the Problem List?: No Quality: Stroke Does the patient have a stroke diagnosis?: No Physical Exam Vital Signs: Vital Signs: Last Vital Signs Temp 97.5 F 09/26/24 11:19 Pulse 60 09/26/24 11:19 Resp 18 09/26/24 11:19 BP 148/87 H 09/26/24 11:19 Pulse Ox 97 09/26/24 11:19 O2 Del Method Room Air 09/26/24 11:19 O2 Flow Rate 2 09/25/24 03:32 BMI result Body Mass Index 35.7 Const: Other: Constitutional : Awake, interactive, not in distress Neck : Normal inspection, Supple Cardiovascular : RRR, no JVP, no lower extremity edema Respiratory : good bilateral air entry, no crackles, wheezes or rhonchi Gastrointestinal: soft, lax, Normal bowel sounds, Non tender Skin : Warm, Dry Neurological : Alert & oriented x3, No focal deficit , CN 2-12 within normal DS: Data Imaging Chest x-ray: Radiologist's impression: ITS Impressions Head CT 09/24/24 15:15 IMPRESSION: No acute intracranial abnormality. Electronically signed by: Ruben Gibbons MD 09/24/2024 04:09 PM [facility] Discharge Plan Discharge Anticipated Discharge Date/Time: 09/26/24 11:16 Patient Disposition: Home, Self-Care Discharge Diagnosis: New onset heart failure with exacerbation Uncontrolled hypertension Referrals: Physician,Unknown J [Primary Care Provider] - 1 Week Discharge Medications: New losartan 50 mg Tablet 50 mg PO BID Qty: 180 0RF Protocol: Hold for SBP< HOLD for SBP < : 90 furosemide 40 mg tablet 40 mg PO QAM Qty: 90 0RF Continued amlodipine 10 mg Tablet 10 mg PO DAILY omeprazole 20 mg Capsule,Delayed Release(Dr/Ec) 40 mg PO DAILY@0630 cholecalciferol (vitamin D3) [Vitamin D3] 50 mcg (2,000 unit) Capsule 50 mcg PO DAILY cetirizine 10 mg Tablet 10 mg PO DAILY PRN (Reason: Allergy Symptoms) Discontinued sumatriptan succinate 100 mg Tablet 100 mg PO Q2H PRN (Reason: Headache) Rx Instructions: do not exceed 2 doses per 24 hrs losartan 25 mg Tablet 75 mg PO DAILY Discharge Orders: Discharge Order (Routine); Ordered 09/26/24 Ordered By: Bronson Parkinson Diet: Low salt diet Activity on Discharge: As tolerated Stand Alone Forms: Patient Portal Discharge page, Work/School Release Print Language: Senegalese Other Ambulatory Orders: Basic Metabolic Panel (Routine) Timeframe: 1 Week Facility: [facility] - Location: Laboratory Ordered By: Bronson Parkinson Care Plan Goals: Stop Sumatriptan as it increases blood pressure; use Tylenol\Advil for headache Continue Amlodipine 10 mg daily Increase Losartan to 50 mg two times a day Take Lasix 40 mg daily To follow blood work next week To follow with Cardiology as outpatient Increase exercise and avoid salty food, try losing weight To do a sleep study for evaluation of sleep apnea , to arrange by PCP Health Concerns: HEart failure blood pressure Plan of Treatment: Lasix BP medications Assessment: as above Patient Instructions: Hypertensive Crisis (ED)
--- NOTE | 2024-09-26 11:30 | MHC.CM.PN ---
Pt has been medically cleared for DC, he will go home via private transport, plan is self care.
== END 2024-09-26 14:44 | disposition home or self-care (01) | DRG 305 ==
LOC: HO.ED 21:00 → HO.IMC 22:00 → HO.EDOVER 09-25 10:24
PROVIDERS: Physician Assistant; Admitting Provider Student in an Organized Health Care Education/Training Program; Emergency Provider Emergency Medicine; Visit Provider Student in an Organized Health Care Education/Training Program
DX: I16.0 Hypertensive urgency (principal); J45.909 Unspecified asthma, uncomplicated; I11.0 Hypertensive heart disease with heart failure; I50.9 Heart failure, unspecified; R07.9 Chest pain, unspecified; G43.909 Migraine, unspecified, not intractable, without status migrainosus; D57.3 Sickle-cell trait; Z20.822 Contact with and (suspected) exposure to COVID-19; Z79.899 Other long term (current) drug therapy
CPT/HCPCS: 0241U; 36415; 70450; 80053; 83690; 84484; 85025; 85610; 93005; 93306; 99285; J1650; J1940; Q9957

== ENCOUNTER → 2024-09-24 15:00 | Outpatient (BNV) | payer OTHER, SELFPAY | PROVIDERS: Emergency Provider Emergency Medicine; Visit Provider Radiology Diagnostic Radiology | DX: R51.9 Headache, unspecified (principal) | CPT/HCPCS: 70450 ==

== ENCOUNTER → 2024-09-24 16:16 | Outpatient (BNV) | payer OTHER, SELFPAY | PROVIDERS: Emergency Provider Emergency Medicine; Visit Provider Student in an Organized Health Care Education/Training Program | DX: I16.0 Hypertensive urgency (principal); I50.9 Heart failure, unspecified | CPT/HCPCS: 99222; 99232; 99239 ==

== ENCOUNTER → 2024-09-24 16:33 | Outpatient (BNV) | payer OTHER, SELFPAY | PROVIDERS: Admitting Provider Student in an Organized Health Care Education/Training Program; Emergency Provider Emergency Medicine; Visit Provider Internal Medicine Cardiovascular Disease | DX: R94.31 Abnormal electrocardiogram [ECG] [EKG] (principal) | CPT/HCPCS: 93010 ==

== ENCOUNTER 2024-09-24 20:16 | Outpatient (BNV) | payer OTHER, SELFPAY | END 2024-09-25 07:00 | PROVIDERS: Admitting Provider Student in an Organized Health Care Education/Training Program; Emergency Provider Emergency Medicine; Visit Provider Internal Medicine Cardiovascular Disease | DX: R07.9 Chest pain, unspecified (principal); R94.31 Abnormal electrocardiogram [ECG] [EKG] | CPT/HCPCS: 93306 ==

== ENCOUNTER → 2024-09-24 20:16 | Outpatient (BNV) | payer OTHER, SELFPAY | PROVIDERS: Admitting Provider Student in an Organized Health Care Education/Training Program; Emergency Provider Emergency Medicine; Visit Provider Internal Medicine Cardiovascular Disease | DX: I50.9 Heart failure, unspecified (principal); I16.0 Hypertensive urgency | CPT/HCPCS: 99223 ==

== ENCOUNTER 2024-11-02 10:48 | Emergency (ER) | payer OTHER, SELFPAY ==
[2024-11-02 11:12] VITALS: BP 135/78; PULSE 54; RESP 18; TEMP 37; O2SAT 98; BMI 34.8
--- NOTE | 2024-11-02 11:13 | ED_ITS ---
HPI - Headache General Chief Complaint: Headache Stated Complaint: Migraine, vomiting Time Seen by Provider: 11/02/24 18:10 Source: patient, RN notes reviewed and old records reviewed Mode of arrival: ambulatory Limitations: no limitations History of Present Illness ED Provider: Bertha AZUL Narrative: 49-year-old male with past medical history significant for chronic migraines presents for evaluation of a headache. Patient reports that he had a headache that started 2 days ago and worsened last night. It feels typical of his previous migraine headaches. He had associated lightheadedness, light sensitivity, nausea and vomiting. He also complains of blurry vision. He was [facility] his [facility] in the past. He has tried sumatriptan as well as with the medications that he can not remember the name He reports that he got dizzy today when standing causing him to follow up but denies any head strike or loss of consciousness. He has not take any anticoagulation. He reports that he has been treated with migraine cocktails in the past with at least temporary relief. ? Related Data Home Medications ?Medication ?Instructions ?Recorded ?Confirmed amlodipine 10 mg tablet 10 mg PO DAILY 09/24/24 09/24/24 cetirizine 10 mg tablet 10 mg PO DAILY PRN Allergy Symptoms 09/24/24 09/24/24 cholecalciferol (vitamin D3) 50 50 mcg PO DAILY 09/24/24 09/24/24 mcg (2,000 unit) capsule (Vitamin D3) omeprazole 20 mg capsule,delayed 40 mg PO DAILY@0630 09/24/24 09/24/24 release Previous Rx's ?Medication ?Instructions ?Recorded furosemide 40 mg tablet 40 mg PO QAM #90 tabs 09/26/24 losartan 50 mg tablet 50 mg PO BID #180 tabs 09/26/24 ztszvthkix-ktnllrliotrvu-sdyhlydn 1 cap PO Q4-6H PRN headaches #12 11/02/24 50 mg-300 mg-40 mg capsule caps (Fioricet) Allergies Allergy/AdvReac Type Severity Reaction Status Date / Time No Known Allergies Allergy Verified 11/02/24 11:14 Review of Systems 2 Constitutional: Constitutional: Denies body ache(s), Denies chills, Denies fever(s) and Reports headache(s) Eyes: Eyes: Reports blurry vision and Reports photophobia ENT: Denies vertigo, Denies dizziness and Reports headache(s) Cardiovascular: Cardiovascular: Denies chest pain and Denies dyspnea Respiratory: Respiratory: Denies cough and Denies dyspnea Gastrointestinal: Gastrointestinal: Denies abdominal pain, Denies nausea and Denies vomiting Musculoskeletal: Musculoskeletal: Denies back pain Integumentary/Breasts: Skin/Breast: Denies rash Neurologic: Denies vertigo, Denies dizziness and Reports headache(s) Psychiatric: Psychiatric: Denies anxiety PMFSH Past Medical History Medical History Hypertension Social History Social History Patient Tobacco Use Status: Never used Tobacco Advance Directives: No Advance Directives Information Provided: No Do you have a plan to hurt others: No Plan service: Yes Physical Exam 2 Vital Signs: Vital Signs: Last Vital Signs Temp 98.1 F 11/02/24 18:40 Pulse 53 11/02/24 18:40 Resp 18 11/02/24 18:40 BP 118/78 11/02/24 18:40 Pulse Ox 94 11/02/24 18:40 O2 Del Method Room Air 11/02/24 18:40 BMI result Body Mass Index 34.8 Const: General: healthy appearing, no acute distress, alert and awake N utritional Appearance: well nourished Orientation/consciousness: patient oriented x3 HEENT: Head: Yes normocephalic and Yes atraumatic Eyes: Eyelids: Yes eyelids normal Conjunctivae: conjunctivae normal S clerae: sclerae normal Corneas: corneas normal Pupils: Equal, round and reactive pupils present EOM: EOMs intact bilaterally Direct Ophthalmoscopy: photophobia Neck: Neck: Yes full ROM Resp: Effort & Inspection: normal respiratory effort, able to speak in complete sentences and not labored Skin: General skin exam: elasticity normal Neuro: General: patient oriented x3 Cranial nerves: Yes CN's II-XII intact bilaterally, Yes Equal, round and reactive pupils present and Yes Bilaterally intact EOM present Cognition (Neuro): normal cognition Course Course Course Narrative: This is a Rapid Medical Exam performed in triage by Josiane Torres PA-C. Full HPI, ROS and PE to be performed by primary ED provider. 49yo M w/pmhx migraines, HTN presenting to the ED c/o migraine CASILLAS x this morning w/assoc N/V, dizziness, blurry vision & photophobia. Sx typical for migraines Not currently on Rx meds. Took Tylenol this AM w/o relief. Also reports epistaxis this AM, resolved at present. +Fall off couch this AM due to dizziness, denies head trauma or LOC. PE: No focal neuro deficits. Ambulating with steady gait. No ataxia Plan: labs, meds Reevaluation(s) Reevaluation #1: Patient re-evaluated, he reports that his symptoms have resolved, his headache has greatly improved. Time: 20:15 Medications Administered Discontinued Medications Generic Name Dose Route Start Last Admin Trade Name Freq PRN Reason Stop Dose Admin Acetaminophen/Butalbital/Caffeine 1 tab 11/02/24 18:41 11/02/24 19:02 Butalb/Acetamin/Caff 50/325/40 Tablet PO 11/02/24 18:42 1 tab ONCE ONE Administration Diphenhydramine HCl 25 mg 11/02/24 18:40 11/02/24 19:02 Diphenhydramine Hcl 50 Mg/Ml Vial IVPUSH 11/02/24 18:41 25 mg ONCE ONE Administration Sodium Chloride 1,000 mls @ 999 mls/hr 11/02/24 18:45 11/02/24 18:51 Ns IV 11/02/24 19:45 999 mls/hr .Q1H1M IVORY Administration Ketorolac Tromethamine 15 mg 11/02/24 18:40 11/02/24 19:05 Ketorolac Tromethamine 15 Mg/Ml Vial IVPUSH 11/02/24 18:41 15 mg ONCE ONE Administration Metoclopramide HCl 10 mg 11/02/24 18:40 11/02/24 19:06 Metoclopramide Hcl 10 Mg/2 Ml Vial IVPUSH 11/02/24 18:41 10 mg ONCE ONE Administration Medical Decision Making Medical Decision Making MDM Narrative: 49-year-old male presents for evaluation of a headache. Has a history of migraine headaches and follows with neurology. His last CT scan was on 09/24/2024, just over a month ago. This did not show any acute intracranial abnormalities. He has no neurologic deficits on exam. Plan to treat with migraine cocktail and re-evaluate. Low suspicion for infectious cause of his headache as he has no fever or leukocytosis. Differential Diagnosis Differential Diagnoses: The differential diagnosis associated with the presentation includes Acute headache Migraine headache Tension headache Cluster headache Lab Data MDM Lab Attestation statement: I reviewed the patient's lab results. No leukocytosis. The patient has a chronic anemia consistent with his baseline. This is a normocytic anemia. There is no left shift. No significant electrolyte abnormality 11/02/24 12:52 11/02/24 12:52 Labs: Lab Results 11/02/24 Range/Units 12:52 WBC 6.3 (4.8-10.8) X10*3/uL RBC 4.46 L (4.60-5.80) X10*6/uL Hgb 12.6 L (14.0-18.0) g/dl Hct 36.7 L (42.0-52.0) % MCV 82.3 (80.0-98.0) fL MCH 28.3 (27.0-33.0) pg MCHC 34.3 (31.0-36.0) g/dl RDW 13.5 (11.0-16.0) % Plt Count 248 (160-400) X10*3/uL MPV 11.5 (9.4-12.4) fL Immature Gran % (Auto) 0.2 (0.0-0.4) % Neut % (Auto) 48.2 (45-73) % Lymph % (Auto) 41.6 H (20-40) % [place] % (Auto) 7.0 (2-11) % Eos % (Auto) 2.7 (0-4) % Baso % (Auto) 0.3 (0-2) % Lymph # (Auto) 2.6 (1.2-4.9) X10*3/uL [place] # (Auto) 0.4 (0.1-1.2) X10*3/uL Eos # (Auto) 0.2 (0.0-0.4) X10*3/uL Baso # (Auto) 0.0 (0.0-0.2) X10*3/uL Abs Immat Gran (auto) 0.01 (0.00-0.03) X10*3/uL Absolute Neuts (auto) 3.0 (2.0-8.3) x10*3/uL Absolute Nucleated RBC 0.000 (0.0-0.012) X10*3/uL Nucleated RBC % (auto) 0.0 (0.0-0.2) /100WBC Sodium 141 (135-145) mmol/L Potassium 3.9 (3.3-5.1) mmol/L Chloride 109 H (96-108) mmol/L Carbon Dioxide 25 (22-29) mmol/L Anion Gap 11 L (12-20) BUN 29 H (9-16) mg/dL Creatinine 1.32 (0.5-1.4) mg/dL Estim Creat Clear Calc 77.3 Estimated GFR 58 Random Glucose 102 (60-115) mg/dL Calcium 9.4 (8.4-10.2) mg/dL Magnesium 2.2 (1.6-2.6) mg/dL Total Bilirubin 0.5 (0.0-1.0) mg/dL Direct Bilirubin 0.1 (0.0-0.5) mg/dL AST 19 (5-37) U/L ALT 37 (0-40) U/L Alkaline Phosphatase 67 (39-117) U/L Total Protein 7.6 (6.5-8.0) g/dL Albumin 4.5 (3.5-5.0) g/dL Discharge Plan Discharge Clinical Impression: Headache Patient Disposition: Home, Self-Care Instructions: Acute Headache (ED) Additional Instructions: Follow-up with your primary doctor. You may also follow up with Neurology regarding or migraine history. You may take Fioricet as needed for headaches. However this is a controlled substance You can not take this medication prior to driving You should wait at least 12 hours after taking it before you operate heavy machinery including a car Prescriptions: New ynxzbeiwkm-zevzwqehagfdh-onpi [Fioricet] 50-300-40 mg capsule 1 cap PO Q4-6H PRN (Reason: headaches) Qty: 12 0RF No Action amlodipine 10 mg Tablet 10 mg PO DAILY omeprazole 20 mg Capsule,Delayed Release(Dr/Ec) 40 mg PO DAILY@0630 cholecalciferol (vitamin D3) [Vitamin D3] 50 mcg (2,000 unit) Capsule 50 mcg PO DAILY cetirizine 10 mg Tablet 10 mg PO DAILY PRN (Reason: Allergy Symptoms) losartan 50 mg Tablet 50 mg PO BID Qty: 180 0RF Protocol: Hold for SBP< HOLD for SBP < : 90 furosemide 40 mg tablet 40 mg PO QAM Qty: 90 0RF Referrals: Luh Duval MD [Physician] - (chronic headaches) Stand Alone Forms: Work/School Release Print Language: [place]
--- NOTE | 2024-11-02 11:16 | ECG_ITS ---
Test Reason : MIGRAINE Blood Pressure : */* mmHG Vent. Rate : 51 BPM Atrial Rate : 51 BPM P-R Int : 178 ms QRS Dur : 110 ms QT Int : 408 ms P-R-T Axes : 23 -11 15 degrees QTcB Int : 376 ms Sinus bradycardia Nonspecific T wave abnormality Abnormal ECG When compared with ECG of 24-Sep-2024 19:37, Premature ventricular complexes are no longer Present Premature supraventricular complexes are no longer Present Nonspecific T wave abnormality has replaced inverted T waves in Lateral leads Referred By: Josiane Torres Electronically Signed By: Reinaldo Lake
[2024-11-02 12:57] LABS: Basophils Percent Auto 0.3 % (0-2); Eosinophils Absolute Auto 0.2 X10*3/uL (0.0-0.4); Eosinophils Percent Auto 2.7 % (0-4); Hematocrit 36.7 % (42.0-52.0); Hemoglobin 12.6 g/dl (14.0-18.0); Imm Gran Abs Auto 0.01 X10*3/uL (0.00-0.03); Imm Gran Pct Auto 0.2 % (0.0-0.4); Lymphocytes Absolute Auto 2.6 X10*3/uL (1.2-4.9); Lymphocytes Percent Auto 41.6 % (20-40); MANUAL DIFF FLAG NO; Mean Corpuscular HGB Conc 34.3 g/dl (31.0-36.0); Mean Corpuscular Hemoglobin 28.3 pg (27.0-33.0); Mean Corpuscular Volume 82.3 fL (80.0-98.0); Mean Platelet Volume 11.5 fL (9.4-12.4); Monocytes Absolute Auto 0.4 X10*3/uL (0.1-1.2); Neutrophils Percent Auto 48.2 % (45-73); Platelet Count 248 X10*3/uL (160-400); Red Blood Count 4.46 X10*6/uL (4.60-5.80); Red Cell Distribution Width 13.5 % (11.0-16.0); White Blood Count 6.3 X10*3/uL (4.8-10.8)
[2024-11-02 13:14] LABS: Alanine Aminotransferase 37 U/L (0-40); Albumin Level 4.5 g/dL (3.5-5.0); Alkaline Phosphatase 67 U/L (39-117); Anion Gap 11 (12-20); Aspartate Amino Transferase 19 U/L (5-37); Bilirubin Direct 0.1 mg/dL (0.0-0.5); Bilirubin Total 0.5 mg/dL (0.0-1.0); Blood Urea Nitrogen 29 mg/dL (9-16); Calcium 9.4 mg/dL (8.4-10.2); Carbon Dioxide 25 mmol/L (22-29); Chloride 109 mmol/L (96-108); Creatinine Clr Calc Pharmacy 77.3; Estimated Glomerular Filt Rate 58; Glucose Random 102 mg/dL (60-115); Magnesium 2.2 mg/dL (1.6-2.6); Potassium 3.9 mmol/L (3.3-5.1); Sodium 141 mmol/L (135-145); Total Protein 7.6 g/dL (6.5-8.0)
--- OUTSIDE RECORDS SUMMARY | 2024-11-02 17:25 | XMS_ITS | Continuity of Care Document ---
Author Name [facility] Organization [facility] Care Team Providers Care Shelter Supervisor Name Role Phone [facility] Unavailable Unavailable Problems Combined list of problems from Department of Defense and Veterans Affairs facilities. It does not include entries that were removed or entered in error. Problem Status Onset Date Problem Type Date of Resolution Comments Source Asthma (SCT [id number]) Active Condition Aug 10, 2023 Entered By: JOSIAH GUERIN Comment: 2022 [place] Chronic gastritis Active Condition [facility] Chronic headache disorder Active Condition [facility] Chronic kidney disease stage 3A Active Condition [place] Chronic migraine without aura Active Condition [facility] Constipation Active Condition [facility] LD Depression (SCT 49436446) Active Condition [place] Essential hypertension Active Condition [facility] Exposure to potentially hazardous substance (SCT 003458965010172 ) Active Condition Jan 08, 2024 Entered By: MK FREEMAN Comment: Entered automatically through ANGELO Problem List documentation program [facility] Hallux valgus Active Condition [facility] Hemorrhoids Active Condition [facility] D Low back pain Active Condition [facility] Obesity Active Condition [facility] Obstructive sleep apnea of adult Active Condition [facility] Obstructive sleep apnea syndrome Active Condition Sep 14, 2020 Entered By: JOVITA MOODY Comment: 07/2020 moderate Apnea Hypopnea Index (AHI) of 21.4 [facility] Pain in left knee Active Condition [facility] Prediabetes Active Condition [facility] Tinnitus Active Condition [place] Vitamin D Deficiency (SCT 70077776) Active Condition [place] Diagnosis: ICD-10-CM G43.709 Chronic migraine w/o aura, not intractable, w/o stat migr Active Diagnosis [place] Diagnosis: ICD-10-CM I11.0 Hypertensive heart disease with heart failure Active Diagnosis [facility] Diagnosis: ICD-10-CM I10 Essential (primary) hypertension Active Diagnosis [place] Diagnosis: ICD-10-CM N18.31 Chronic kidney disease, stage 3a Active Diagnosis [facility] Diagnosis: ICD-10-CM G47.33 Obstructive sleep apnea (adult) (pediatric) Active Diagnosis [facility] Diagnosis: ICD-10-CM Z46.0 Encounter for fit/adjst of spectacles and contact lenses Active Diagnosis [facility] Diagnosis: ICD-10-CM 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, NEC, bilateral Active Diagnosis [facility] Diagnosis: ICD-10-CM Z23 Encounter for immunization Active Diagnosis [place] Diagnosis: ICD-10-CM F43.0 Acute stress reaction Active Diagnosis [facility] Diagnosis: ICD-10-CM Z71.89 Other specified counseling Active Diagnosis [facility] Diagnosis: ICD-10-CM R22.9 Localized swelling, mass and lump, unspecified Active Diagnosis [place] Medications Combined list of outpatient medications from Department of Defense and Veterans Affairs facilities.Medications provided include 1) outpatient medications from the last 15 months, and 2) patient-reported medications. Medication Details Route Status Patient Instructions Prescription Expires Prescription Number Last Dispense Date Ordering Provider Order Date Order Qty Source ACETAMINOPH EN 500MG/CAFFE INE 65MG TAB TAKE TWO TABLETS BY MOUTH ONCE DAILY NEEDED ORAL ACTIVE JOSIAH FINCH 2024 [facility] IELD AMLODIPINE BESYLATE 10MG TAB TAKE ONE TABLET BY MOUTH ONCE DAILY FOR BLOOD PRESSURE /HEART, DO NOT TAKE WITH GRAPEFRU IT JUICE ORAL ACTIVE 12/16/2024 [id number] JOSIAH FINCH 2023 90 [place] CETIRIZINE HCL 10MG TAB TAKE ONE TABLET BY MOUTH EVERY MORNING FOR ALLERGIE S ORAL ACTIVE 09/30/2025 [id number] Jh THURSTOND A 2023 90 [place] CETIRIZINE HCL 10MG TAB TAKE ONE TABLET BY MOUTH ONCE DAILY FOR ALLERGIE S ORAL DISCONT INUED 11/05/2023 [id number] DIONTE [place] JONN KING 2022 90 [facility] CETIRIZINE HCL 10MG TAB TAKE ONE TABLET BY MOUTH ONCE DAILY FOR ALLERGIE S ORAL 03/15/2024 [id number] JOSIAH FINCH 2023 90 [place] CHOLECALCIF GURVINDER 25MCG (1,000UNIT) TAB TAKE ONE TABLET BY MOUTH ONCE DAILY FOR VITAMIN SUPPLEME NTATION ORAL ACTIVE 09/30/2025 [id number] Jh THURSTON AVID A 2023 100 [place] CHOLECALCIF GURVINDER 25MCG (1,000UNIT) TAB TAKE ONE TABLET BY MOUTH ONCE DAILY FOR VITAMIN SUPPLEME NTATION ORAL DISCONT INUED 12/22/2024 [id number] JOSIAH FINCH 2023 90 [place] CHOLECALCIF GURVINDER 50MCG (2,000UNIT) TAB TAKE ONE TABLET BY MOUTH ONCE DAILY FOR VITAMIN SUPPLEME NTATION ORAL DISCONT INUED (EDIT) 08/10/2024 [id number] JOSIAH FINCH 2022 100 [place] FLUTICASONE 250MCG/SALM ETEROL 50MCG INHL,ORAL,D ISKUS,60 INHALE 1 PUFF BY MOUTH TWICE DAILY - RINSE MOUTH AFTER USE RESPIR ATORY (INHAL ATION) DISCONT INUED BY PROVIDE R 08/10/2024 [id number] JOSIAH FINCH 2022 1 [place] FLUTICASONE PROPIONATE 50MCG/SPRAY SOLN,NASAL, 16GM INSTILL 1 SPRAY INTO EACH NOSTRIL TWICE DAILY NASAL DISCONT INUED BY PROVIDE R 09/06/2023 [id number] SUTHERLANDDIONTE JONN KING 2022 1 [facility] FUROSEMIDE 40MG TAB TAKE ONE TABLET BY MOUTH EVERY MORNING TO REMOVE FLUID/CO NTROL BLOOD PRESSURE ORAL ACTIVE 09/30/2025 [id number] Jh THURSTON AVID A 2023 90 [place] LOSARTAN 25MG TAB TAKE THREE TABLETS BY MOUTH ONCE DAILY FOR BLOOD PRESSURE /HEART ORAL DISCONT INUED (EDIT) 12/22/2024 [id number] 4 JOSIAH FINCH M 2023 270 [place] LOSARTAN 25MG TAB TAKE THREE TABLETS BY MOUTH ONCE DAILY FOR BLOOD PRESSURE /HEART ORAL DISCONT INUED 03/15/2024 [id number] 3 JOSIAH FINCH M 2022 270 [place] LOSARTAN 50MG TAB TAKE ONE TABLET BY MOUTH ONCE DAILY FOR BLOOD PRESSURE /HEART ORAL ACTIVE 09/30/2025 [id number] Jh THURSTON AVID A 2023 90 [place] OMEPRAZOLE 20MG CAP,EC TAKE TWO CAPSULES BY MOUTH EVERY MORNING 30 MINUTES BEFORE BREAKFAS T ORAL ACTIVE 12/16/2024 [id number] JOSIAH FINCH M 2023 180 [place] SUMATRIPTAN SUCCINATE 100MG TAB TAKE ONE TABLET BY MOUTH DIRECTED AT ONSET OF HEADACHE ; MAY REPEAT IN 2 HOURS IF FIRST DOSE IS NOT EFFECTIV E ORAL DISCONT INUED BY PROVIDE R 12/16/2024 [id number] JOSIAH FINCH M 2023 18 [place] ZALEPLON 5MG CAP TAKE ONE CAPSULE BY MOUTH AT BEDTIME NEEDED FOR SLEEP ORAL 05/13/2024 [id number] MAREN DEUTSCH 2023 30 [place] Allergies, Adverse Reactions, [...] of available immunizations from the Department of Defense and Veterans Affairs facilities. Immunization Series Date Given Administered By Site Reaction Lot Number CVX Code Drug Senior Examiner Status Comments Source INFLUENZA, SPLIT VIRUS, TRIVALENT, PF 2024 ALFONSO WEBSTERROBERTJose M LEFT DELTO ID [id number] 140 complet ed [facility] HEP A-HEP B 2 2023 [place] CHAMORRO LEFT DELTO ID [id number] 104 complet ed [place] INFLUENZA, INJECTABLE, QUADRIVALENT, PRESERVATIVE FREE 2022 HONORIO CARPENTER LEFT DELTO ID [id number] 150 complet ed [place] HEP A-HEP B 2022 IZABELLAKARINE SCHROEDER LEFT DELTO ID [id number] 104 complet ed [facility] INFLUENZA, INJECTABLE, QUADRIVALENT, PRESERVATIVE FREE 2022 [place] CHAM[place] RIGHT DELTO ID [id number] 150 complet ed [place] COVID-19 (PFIZER), MRNA, LNP-S, PF, 30 MCG/0.3 ML DOSE 2 2020 208 complet ed PFR; [id number]; 1 [facility] COVID-19 (PFIZER), MRNA, LNP-S, PF, 30 MCG/0.3 ML DOSE 1 2020 208 complet ed PFR; [id number]; 1 [facility] INFLUENZA, INJECTABLE, QUADRIVALENT, [...] Reference Range Date Interpretation Specimen Comments Source CHEM 7 CREATININE [MASS/VOLUM E] IN SERUM OR PLASMA 1.48 mg/dL 0.5 - 1.5 10/26 Specimen Type: SERUM No comment entered. Ordering Provider: ROSALIO LOYA Report Released Date/Time: Oct 26, 2024 09:45 AM Reporting Lab: [address] [address] Performing Lab: [place] [address] [facility] CHEM 7 UREA NITROGEN [MASS/VOLUM E] IN SERUM OR PLASMA 22 mg/dL 7 - 25 10/26 Specimen Type: SERUM No comment entered. Ordering Provider: ROSALIO LOYA Report Released Date/Time: Oct 26, 2024 09:45 AM Reporting Lab: [address] [address] Performing Lab: [place] [address] [facility] CHEM 7 GLUCOSE [MASS/VOLUM E] IN SERUM OR PLASMA 91 mg/dL 65 - 100 10/26 Specimen Type: SERUM No comment entered. Ordering Provider: ROSALIO LOYA Report Released Date/Time: Oct 26, 2024 09:45 AM Reporting Lab: [place] [address] Performing Lab: [place] [address] [facility] CHEM 7 SODIUM [MOLES/VOLU ME] IN SERUM OR PLASMA 141 mmol/L 135 - 145 10/26 Specimen Type: SERUM No comment entered. Ordering Provider: ROSALIO LOYA Report Released Date/Time: Oct 26, 2024 09:45 AM Reporting Lab: [address] [address] Performing Lab: [place] [address] [facility] CHEM 7 POTASSIUM [MOLES/VOLU ME] IN SERUM OR PLASMA 4.2 mmol/L 3.5 - 5.0 10/26 Specimen Type: SERUM No comment entered. Ordering Provider: ROSALIO LOYA Report Released Date/Time: Oct 26, 2024 09:45 AM Reporting Lab: [address] [address] Performing Lab: [place] [id number] [facility] [facility] CHEM 7 CHLORIDE [MOLES/VOLU ME] IN SERUM OR PLASMA 104 mmol/L 100 - 110 10/26 Specimen Type: SERUM No comment entered. Ordering Provider: ROSALIO LOYA Report Released Date/Time: Oct 26, 2024 09:45 AM Reporting Lab: [address] [address] Performing Lab: [place] [address] [facility] [facility] CHEM 7 CARBON DIOXIDE, TOTAL [MOLES/VOLU ME] IN SERUM OR PLASMA 26 meq/L 20 - 30 10/26 Specimen Type: SERUM No comment entered. Ordering Provider: ROSALIO LOYA Report Released Date/Time: Oct 26, 2024 09:45 AM Reporting Lab: [address] [address] Performing Lab: [place] [address] [facility] CHEM 7 ANION GAP IN SERUM OR PLASMA 11 meq/L 6 - 16 10/26 Specimen Type: SERUM No comment entered. Ordering Provider: ROSALIO LOYA Report Released Date/Time: Oct 26, 2024 09:45 AM Reporting Lab: [place] [address] Performing Lab: [place] [address] [facility] [facility] CHEM 7 GLOMERULAR FILTRATION RATE/1.73 SQ M.PREDICTED [VOLUME RATE/AREA] IN SERUM, PLASMA OR BLOOD BY CREATININE- BASED FORMULA (CKD-EPI 2020) 58 mL/min 60 10/26 L Specimen Type: SERUM No comment entered. Ordering Provider: ROSALIO LOYA Report Released Date/Time: Oct 26, 2024 09:45 AM Reporting Lab: [address] [address] Performing Lab: [place] [address] [facility] TSH THYROTROPIN [UNITS/VOLU ME] IN SERUM OR PLASMA 1.16 u[IU]/ mL 0.35 - 5.00 09/29 Specimen Type: SERUM No comment entered. Ordering Provider: CRYSTAL SEARS Report Released Date/Time: Sep 28, 2024 01:51 PM Reporting Lab: [facility] [place] [facility] [address] [facility] [address] Performing Lab: [facility] [place] [facility] [address] [facility] [address] [place] URIC ACID URATE [MASS/VOLUM E] IN SERUM OR PLASMA 8.2 mg/dL 3.5 - 7.2 09/29 H Specimen Type: SERUM No comment entered. Ordering Provider: CRYSTAL SEARS Report Released Date/Time: Sep 28, 2024 01:51 PM Reporting Lab: [address] [address] Performing Lab: [address] [address] [place] CALCIUM CALCIUM [MASS/VOLUM E] IN SERUM OR PLASMA 9.1 mg/dL 8.5 - 10.2 09/29 Specimen Type: SERUM No comment entered. Ordering Provider: CRYSTAL SEARS Report Released Date/Time: Sep 28, 2024 01:51 PM Reporting Lab: [address] [address] Performing Lab: [address] [address] [place] LIPID PANEL FASTING CHOLESTEROL [MASS/VOLUM E] IN SERUM OR PLASMA 193 mg/dL 09/29 Specimen Type: SERUM No comment entered. Ordering Provider: CRYSTAL SEARS Report Released Date/Time: Sep 28, 2024 01:51 PM Reporting Lab: [address] [address] Performing Lab: [address] [address] [place] LIPID PANEL FASTING TRIGLYCERID E [MASS/VOLUM E] IN SERUM OR PLASMA 109 mg/dL 0 - 150 09/29 Specimen Type: SERUM No comment entered. Ordering Provider: CRYSTAL SEARS Report Released Date/Time: Sep 28, 2024 01:51 PM Reporting Lab: [address] [address] Performing Lab: [address] [address] [place] LIPID PANEL FASTING CHOLESTEROL IN LDL [MASS/VOLUM E] IN SERUM OR PLASMA BY CALCULATION 132 mg/dL 0 - 129 09/29 H Specimen Type: SERUM No comment entered. Ordering Provider: CRYSTAL SEARS Report Released Date/Time: Sep 28, 2024 01:51 PM Reporting Lab: [address] [address] Performing Lab: [address] [address] [place] LIPID PANEL FASTING CHOLESTEROL .TOTAL/CHOL ESTEROL IN HDL [MASS RATIO] IN SERUM OR PLASMA 4.9 09/29 Specimen Type: SERUM No comment entered. Ordering Provider: CRYSTAL SEARS Report Released Date/Time: Sep 28, 2024 01:51 PM Reporting Lab: [address] [address] Performing Lab: [address] [address] [place] LIPID PANEL FASTING CHOLESTEROL IN HDL [MASS/VOLUM E] IN SERUM OR PLASMA 39 mg/dL 40 - 60 09/29 L Specimen Type: SERUM No comment entered. Ordering Provider: CRYSTAL SEARS Report Released Date/Time: Sep 28, 2024 01:51 PM Reporting Lab: [address] [address] Performing Lab: [address] [address] [place] HEMOGLOBI N A1C PANEL HEMOGLOBIN A1C/HEMOGLO BIN.TOTAL IN BLOOD BY HPLC 5.8 4.0 - 5.6 09/29 H Specimen Type: BLOOD Comment: Values obtained from A1C measurement s can vary. For atypical A1C assays, a reported value of 7.0 could actually be between 6.72 and 7.28 if measured by a reference method. A reported value of 9.0 could actually be between 8.73 and 9.27. Ref: http://www. ngsp.org/[place] Pdata.asp Ordering Provider: CRYSTAL SEARS Report Released Date/Time: Sep 28, 2024 01:51 PM Reporting Lab: [facility] [address] [address] Performing Lab: [facility] [address] [address] [place] BASIC METABOLIC PANEL (fasting) UREA NITROGEN [MASS/VOLUM E] IN SERUM OR PLASMA 28 mg/dL 7 - 25 09/29 H Specimen Type: SERUM No comment entered. Ordering Provider: CRYSTAL SEARS Report Released Date/Time: Sep 28, 2024 01:51 PM Reporting Lab: [facility] [address] [address] Performing Lab: [address] [address] [place] BASIC METABOLIC PANEL (fasting) GLUCOSE [MASS/VOLUM E] IN SERUM OR PLASMA 94 mg/dL 65 - 100 09/29 Specimen Type: SERUM No comment entered. Ordering Provider: CRYSTAL SEARS Report Released Date/Time: Sep 28, 2024 01:51 PM Reporting Lab: [facility] [address] [address] Performing Lab: [facility] [address] [address] [place] BASIC METABOLIC PANEL (fasting) SODIUM [MOLES/VOLU ME] IN SERUM OR PLASMA 138 mmol/L 135 - 145 09/29 Specimen Type: SERUM No comment entered. Ordering Provider: CRYSTAL SEARS Report Released Date/Time: Sep 28, 2024 01:51 PM Reporting Lab: [facility] [address] [address] Performing Lab: [facility] [address] [address] [place] BASIC METABOLIC PANEL (fasting) POTASSIUM [MOLES/VOLU ME] IN SERUM OR PLASMA 4.4 mmol/L 3.5 - 5.0 09/29 Specimen Type: SERUM No comment entered. Ordering Provider: CRYSTAL SEARS Report Released Date/Time: Sep 28, 2024 01:51 PM Reporting Lab: [facility] [address] [address] Performing Lab: [facility] [address] [address] [place] BASIC METABOLIC PANEL (fasting) CHLORIDE [MOLES/VOLU ME] IN SERUM OR PLASMA 100 mmol/L 100 - 110 09/29 Specimen Type: SERUM No comment entered. Ordering Provider: CRYSTAL SEARS Report Released Date/Time: Sep 28, 2024 01:51 PM Reporting Lab: [facility] [address] [address] Performing Lab: [facility] [address] [address] [place] BASIC METABOLIC PANEL (fasting) CARBON DIOXIDE, TOTAL [MOLES/VOLU ME] IN SERUM OR PLASMA 30 meq/L 20 - 30 09/29 Specimen Type: SERUM No comment entered. Ordering Provider: CRYSTAL SEARS Report Released Date/Time: Sep 28, 2024 01:51 PM Reporting Lab: [facility] [address] Performing Lab: [facility] [address] [place] BASIC METABOLIC PANEL (fasting) CREATININE [MASS/VOLUM E] IN SERUM OR PLASMA 1.80 mg/dL 0.50 - 1.40 09/29 H Specimen Type: SERUM No comment entered. Ordering Provider: CRYSTAL SEARS Report Released Date/Time: Sep 28, 2024 01:51 PM Reporting Lab: [facility] [address] [address] Performing Lab: [facility] [address] [address] [place] BASIC METABOLIC PANEL (fasting) GLOMERULAR FILTRATION RATE/1.73 SQ M.PREDICTED [VOLUME RATE/AREA] IN SERUM, PLASMA OR BLOOD BY CREATININE- BASED FORMULA (CKD-EPI 2020) 46 mL/min 60 09/29 L Specimen Type: SERUM No comment entered. Ordering Provider: CRYSTAL SEARS Report Released Date/Time: Sep 28, 2024 01:51 PM Reporting Lab: [facility] [place] [address] Performing Lab: [address] [address] [facility] LIVER FUNCTION PROTEIN [MASS/VOLUM E] IN SERUM OR PLASMA 7.3 g/dL 6.0 - 8.3 09/29 Specimen Type: SERUM No comment entered. Ordering Provider: CRYSTAL SEARS Report Released Date/Time: Sep 28, 2024 01:51 PM Reporting Lab: [address] [address] Performing Lab: [address] [address] [place] LIVER FUNCTION ALBUMIN [MASS/VOLUM E] IN SERUM OR PLASMA 4.4 g/dL 3.5 - 5.0 09/29 Specimen Type: SERUM No comment entered. Ordering Provider: CRYSTAL SEARS Report Released Date/Time: Sep 28, 2024 01:51 PM Reporting Lab: [facility] [address] Performing Lab: [address] [address] [facility] L[facility] FUNCTION ALKALINE PHOSPHATASE [ENZYMATIC ACTIVITY/VO LUME] IN SERUM OR PLASMA 70 U/L 40 - 150 09/29 Specimen Type: SERUM No comment entered. Ordering Provider: CRYSTAL SEARS Report Released Date/Time: Sep 28, 2024 01:51 PM Reporting Lab: [facility] [place] [address] [address] Performing Lab: [facility] [address] [address] [place] LIVER FUNCTION ASPARTATE AMINOTRANSF ERASE [ENZYMATIC ACTIVITY/VO LUME] IN SERUM OR PLASMA 16 U/L 5 - 34 09/29 Specimen Type: SERUM No comment entered. Ordering Provider: CRYSTAL SEARS Report Released Date/Time: Sep 28, 2024 01:51 PM Reporting Lab: [facility] [place] [address] Performing Lab: [facility] [address] [address] [place] LIVER FUNCTION ALANINE AMINOTRANSF ERASE [ENZYMATIC ACTIVITY/VO LUME] IN SERUM OR PLASMA 32 U/L 09/29 Specimen Type: SERUM No comment entered. Ordering Provider: CRYSTAL SEARS Report Released Date/Time: Sep 28, 2024 01:51 PM Reporting Lab: [facility] [address] Performing Lab: [facility] [address] [place] LIVER FUNCTION BILIRUBIN.T OTAL [MASS/VOLUM E] IN SERUM OR PLASMA 0.6 mg/dL 0.2 - 1.2 09/29 Specimen Type: SERUM No comment entered. Ordering Provider: CRYSTAL SEARS Report Released Date/Time: Sep 28, 2024 01:51 PM Reporting Lab: [facility] [address] [address] Performing Lab: [facility] [address] [place] CBC AND DIFF (AUTO) LEUKOCYTES [#/VOLUME] IN BLOOD BY AUTOMATED COUNT 6.06 10*3/u L 4.50 - 11.00 09/29 Specimen Type: BLOOD No comment entered. Ordering Provider: CRYSTAL SEARS Report Released Date/Time: Sep 28, 2024 01:51 PM Reporting Lab: [facility] [address] [address] Performing Lab: [facility] [address] [place] CBC AND DIFF (AUTO) ERYTHROCYTE S [#/VOLUME] IN BLOOD BY AUTOMATED COUNT 4.78 10*6/u L 4.23 - 5.66 09/29 Specimen Type: BLOOD No comment entered. Ordering Provider: CRYSTAL SEARS Report Released Date/Time: Sep 28, 2024 01:51 PM Reporting Lab: [facility] [address] [address] Performing Lab: [address] [address] [place] CBC AND DIFF (AUTO) HEMOGLOBIN [MASS/VOLUM E] IN BLOOD 13.4 g/dL 12.8 - 17 09/29 Specimen Type: BLOOD No comment entered. Ordering Provider: CRYSTAL SEARS Report Released Date/Time: Sep 28, 2024 01:51 PM Reporting Lab: [facility] [address] [address] Performing Lab: [facility] [address] [address] [place] CBC AND DIFF (AUTO) HEMATOCRIT [VOLUME FRACTION] OF BLOOD BY AUTOMATED COUNT 39.9 39.2 - 50.4 09/29 Specimen Type: BLOOD No comment entered. Ordering Provider: CRYSTAL SEARS Report Released Date/Time: Sep 28, 2024 01:51 PM Reporting Lab: [facility] [address] [address] Performing Lab: [facility] [address] [address] [place] CBC AND DIFF (AUTO) MCV [ENTITIC VOLUME] BY AUTOMATED COUNT 83.5 fL 82 - 99 09/29 Specimen Type: BLOOD No comment entered. Ordering Provider: CRYSTAL SEARS Report Released Date/Time: Sep 28, 2024 01:51 PM Reporting Lab: [facility] [place] [facility] [address] [facility] [address] Performing Lab: [facility] [place] [address] [address] [place] CBC AND DIFF (AUTO) MCHC [MASS/VOLUM E] BY AUTOMATED COUNT 33.6 g/dL 30.8 - 35.1 09/29 Specimen Type: BLOOD No comment entered. Ordering Provider: CRYSTAL SEARS Report Released Date/Time: Sep 28, 2024 01:51 PM Reporting Lab: [facility] [address] [address] Performing Lab: [facility] [place] [address] [address] [place] CBC AND DIFF (AUTO) PLATELETS [#/VOLUME] IN BLOOD BY AUTOMATED COUNT 264 10*3/u L 140 - 360 09/29 Specimen Type: BLOOD No comment entered. Ordering Provider: CRYSTAL SEARS Report Released Date/Time: Sep 28, 2024 01:51 PM Reporting Lab: [facility] [address] [address] Performing Lab: [facility] [place] [address] [address] [place] CBC AND DIFF (AUTO) ERYTHROCYTE DISTRIBUTIO N WIDTH [RATIO] BY AUTOMATED COUNT 13.0 12.0 - 16.0 09/29 Specimen Type: BLOOD No comment entered. Ordering Provider: CRYSTAL SEARS Report Released Date/Time: Sep 28, 2024 01:51 PM Reporting Lab: [facility] [address] [address] Performing Lab: [place] [facility] [address] [place] CBC AND DIFF (AUTO) MONOCYTES [#/VOLUME] IN BLOOD BY AUTOMATED COUNT 0.38 10*3/u L 0.30 - 1.10 09/29 Specimen Type: BLOOD No comment entered. Ordering Provider: CRYSTAL SEARS Report Released Date/Time: Sep 28, 2024 01:51 PM Reporting Lab: [facility] [place] [address] [address] Performing Lab: [facility] [place] [address] [address] [place] CBC AND DIFF (AUTO) MCH [ENTITIC MASS] BY AUTOMATED COUNT 28.0 pg 26.2 - 32.6 09/29 Specimen Type: BLOOD No comment entered. Ordering Provider: CRYSTAL SEARS Report Released Date/Time: Sep 28, 2024 01:51 PM Reporting Lab: [facility] [place] [address] [address] Performing Lab: [facility] [place] [address] [address] [place] CBC AND DIFF (AUTO) NEUTROPHILS /100 LEUKOCYTES IN BLOOD BY AUTOMATED COUNT 51.6 43.7 - 75.8 09/29 Specimen Type: BLOOD No comment entered. Ordering Provider: CRYSTAL SEARS Report Released Date/Time: Sep 28, 2024 01:51 PM Reporting Lab: [facility] [place] [address] [address] Performing Lab: [facility] [place] [address] [address] [place] CBC AND DIFF (AUTO) LYMPHOCYTES /100 LEUKOCYTES IN BLOOD BY AUTOMATED COUNT 39.6 14.0 - 42.3 09/29 Specimen Type: BLOOD No comment entered. Ordering Provider: CRYSTAL SEARS Report Released Date/Time: Sep 28, 2024 01:51 PM Reporting Lab: [facility] [place] [address] [address] Performing Lab: [facility] [address] [address] [place] CBC AND DIFF (AUTO) MONOCYTES/1 00 LEUKOCYTES IN BLOOD BY AUTOMATED COUNT 6.3 5.1 - 13.7 09/29 Specimen Type: BLOOD No comment entered. Ordering Provider: CRYSTAL SEARS Report Released Date/Time: Sep 28, 2024 01:51 PM Reporting Lab: [facility] [address] [address] Performing Lab: [facility] [address] [place] CBC AND DIFF (AUTO) EOSINOPHILS /100 LEUKOCYTES IN BLOOD BY AUTOMATED COUNT 1.8 0.4 - 6.8 09/29 Specimen Type: BLOOD No comment entered. Ordering Provider: CRYSTAL SEARS Report Released Date/Time: Sep 28, 2024 01:51 PM Reporting Lab: [facility] [address] [address] Performing Lab: [facility] [address] [place] CBC AND DIFF (AUTO) BASOPHILS/1 00 LEUKOCYTES IN BLOOD BY AUTOMATED COUNT 0.5 0.1 - 2.0 09/29 Specimen Type: BLOOD No comment entered. Ordering Provider: CRYSTAL SEARS Report Released Date/Time: Sep 28, 2024 01:51 PM Reporting Lab: [facility] [address] [address] Performing Lab: [facility] [address] [place] CBC AND DIFF (AUTO) NEUTROPHILS [#/VOLUME] IN BLOOD BY AUTOMATED COUNT 3.13 10*3/u L 2.20 - 7.60 09/29 Specimen Type: BLOOD No comment entered. Ordering Provider: CRYSTAL SEARS Report Released Date/Time: Sep 28, 2024 01:51 PM Reporting Lab: [facility] [place] [address] [address] Performing Lab: [facility] [place] [facility] [address] [facility] [address] [place] CBC AND DIFF (AUTO) LYMPHOCYTES [#/VOLUME] IN BLOOD BY AUTOMATED COUNT 2.40 10*3/u L 1.00 - 3.20 09/29 Specimen Type: BLOOD No comment entered. Ordering Provider: CRYSTAL SEARS Report Released Date/Time: Sep 28, 2024 01:51 PM Reporting Lab: [facility] [address] [address] Performing Lab: [facility] [address] [address] [place] CBC AND DIFF (AUTO) EOSINOPHILS [#/VOLUME] IN BLOOD BY AUTOMATED COUNT 0.11 10*3/u L 0.03 - 0.44 09/29 Specimen Type: BLOOD No comment entered. Ordering Provider: CRYSTAL SEARS Report Released Date/Time: Sep 28, 2024 01:51 PM Reporting Lab: [facility] [address] [address] Performing Lab: [facility] [address] [address] [place] CBC AND DIFF (AUTO) BASOPHILS [#/VOLUME] IN BLOOD BY AUTOMATED COUNT 0.03 10*3/u L 0.01 - 0.13 09/29 Specimen Type: BLOOD No comment entered. Ordering Provider: CRYSTAL SEARS Report Released Date/Time: Sep 28, 2024 01:51 PM Reporting Lab: [facility] [address] [address] Performing Lab: [facility] [address] [address] [place] CBC AND DIFF (AUTO) IMMATURE GRANULOCYTE S/100 LEUKOCYTES IN BLOOD BY AUTOMATED COUNT 0.2 0.0 - 0.7 09/29 Specimen Type: BLOOD No comment entered. Ordering Provider: CRYSTAL SEARS Report Released Date/Time: Sep 28, 2024 01:51 PM Reporting Lab: [facility] [address] [address] Performing Lab: [facility] [address] [address] [place] CBC AND DIFF (AUTO) IMMATURE GRANULOCYTE S [#/VOLUME] IN BLOOD 0.01 10*3/u L 0.00 - 0.06 09/29 Specimen Type: BLOOD No comment entered. Ordering Provider: CRYSTAL SEARS Report Released Date/Time: Sep 28, 2024 01:51 PM Reporting Lab: [address] [address] Performing Lab: [address] [address] [place] CBC AND DIFF (AUTO) NRBC % 0.0 0.0 - 0.0 09/29 Specimen Type: BLOOD No comment entered. Ordering Provider: CRYSTAL SEARS Report Released Date/Time: Sep 28, 2024 01:51 PM Reporting Lab: [facility] [address] [address] Performing Lab: [facility] [address] [address] [place] CBC AND DIFF (AUTO) NRBC, ABS 0.00 10*3/u L 0.00 - 0.00 09/29 Specimen Type: BLOOD No comment entered. Ordering Provider: CRYSTAL SEARS Report Released Date/Time: Sep 28, 2024 01:51 PM Reporting Lab: [facility] [address] [address] Performing Lab: [facility] [address] [address] [place] MICROALBU MIN CREATININ E RATIO PANEL MICROALBUMI N/CREATININ E [MASS RATIO] IN URINE 30.3 mg/g 0 - 29.9 12/18 H Specimen Type: URINE No comment entered. Ordering Provider: CRYSTAL SEARS Report Released Date/Time: Dec 04, 2023 08:30 AM Reporting Lab: [address] [address] Performing Lab: [facility] [address] [address] [place] MICROALBU MIN CREATININ E RATIO PANEL MICROALBUMI N [MASS/VOLUM E] IN URINE 3.3 mg/dL 12/18 Specimen Type: URINE No comment entered. Ordering Provider: CRYSTAL SEARS Report Released Date/Time: Dec 04, 2023 08:30 AM Reporting Lab: [address] [address] Performing Lab: [facility] [address] [address] [place] MICROALBU MIN CREATININ E RATIO PANEL CREATININE [MASS/VOLUM E] IN URINE 108.79 mg/dL 12/18 Specimen Type: URINE No comment entered. Ordering Provider: CRYSTAL SEARS Report Released Date/Time: Dec 04, 2023 08:30 AM Reporting Lab: [address] [address] Performing Lab: [facility] [address] [address] [place] Vital Signs Combined list of inpatient and outpatient Vital Signs from Department of Defense and Veterans Affairs, ranging from 12 months to all on record, depending upon the facility. Vital Sign Value Date Comments Source SYSTOLIC BLOOD PRESSURE 129 11/02/2024 09:26:26 [place] DIASTOLIC BLOOD PRESSURE 77 11/02/2024 09:26:26 [place] PULSE OXIMETRY 99 11/02/2024 09:26:26 [place] PAIN 10 11/02/2024 09:26:26 [place] TEMPERATURE 97.9 11/02/2024 09:26:26 [place] PULSE 58 11/02/2024 09:26:26 [place] RESPIRATION 16 11/02/2024 09:26:26 [place] SYSTOLIC BLOOD PRESSURE 141 10/26/2024 08:15:54 [place] DIASTOLIC BLOOD PRESSURE 89 10/26/2024 08:15:54 [place] PULSE OXIMETRY 100 10/26/2024 08:15:54 [place] WEIGHT 219.1 10/26/2024 08:15:54 [place] PAIN 0 10/26/2024 08:15:54 [place] PULSE 54 10/26/2024 08:15:54 [place] SYSTOLIC BLOOD PRESSURE 132 10/20/2024 09:13:53 [place] DIASTOLIC BLOOD PRESSURE 74 10/20/2024 09:13:53 [place] PULSE OXIMETRY 99 10/20/2024 09:13:53 [place] WEIGHT 226 10/20/2024 09:13:53 [place] BMI 37kg/m2 10/20/2024 09:13:53 [place] TEMPERATURE 97.8 10/20/2024 09:13:53 [place] PULSE 72 10/20/2024 09:13:53 [place] RESPIRATION 19 10/20/2024 09:13:53 [place] SYSTOLIC BLOOD PRESSURE 164 09/24/2024 10:36:06 [place] DIASTOLIC BLOOD PRESSURE 100 09/24/2024 10:36:06 [place] PULSE OXIMETRY 98 09/24/2024 10:36:06 [place] PAIN 5 09/24/2024 10:36:06 [place] TEMPERATURE 98.6 09/24/2024 10:36:06 [place] PULSE 66 09/24/2024 10:36:06 [place] RESPIRATION 18 09/24/2024 10:36:06 [place] SYSTOLIC BLOOD PRESSURE 160 12/22/2023 15:40:00 [place] DIASTOLIC BLOOD PRESSURE 100 12/22/2023 15:40:00 [place] Encounters Combined list of: 1) Encounters from Department of Veterans Affairs facilities going back up to [facility] 18 months. 2) Encounters from the Department of Defense facilities going back up to 280 months. Location Location Details Encounter Type Encounter Number Reason For Visit Attending Provider ADM Date DC Date Status Disposition Source [facility] En[facility] [id number] 07/31 [facility] [place] OFF/OP EST MAY X REQ PHY/QHP [id number] Diagnos is: ICD-10- CM R22.9 Localiz ed swellin g, mass and lump, unspeci fied
SARAH CARPENTER IC K 08/06 [place] [facility] Out[facility] Encounter [id number] 08/06 [facility] OFF/OP EST MAY X REQ PHY/QHP [id number] Diagnos is: ICD-10- CM Z71.89 Other specifi ed behavioral school counselors ing<br/ > Ashley MICHAUD 08/07 [facility] OFFICE O/P EST LOW 20-29 MIN [id number] Diagnos is: ICD-10- CM F43.0 Acute stress reactio n
PRANAY SUTHERLAND 08/07 [facility] En[facility] [id number] 08/18 [facility] En[facility] [id number] 08/19 [facility] En[facility] [id number] 08/19 [facility] En[facility] [id number] 10/17 [facility] En[facility] [id number] 10/28 [facility] En[facility] [id number] 10/28 [facility] Encounter [id number] 11/11 [facility] Encounter [id number] 11/12 [facility] [place]MIN [id number] Diagnos is: ICD-10- CM Z23 Encount er for immuniz ation<b r/> CAMDEN CHAMORRO 11/14 [place] [facility] Out[facility] Encounter [id number] 12/15 [facility] [place] OFFICE O/P EST MOD 30 MIN [id number] Diagnos is: ICD-10- CM I10 Essenti al (primar y) hyperte nsion<b r/> PATRIA RUSHOG COURT Goldsmith 12/15 [place] [facility] Out[facility] Encounter [id number] 12/15 [facility] COMPRE OPH EXAM EST PT 1/> [id number] Diagnos is: ICD-10- CM 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
EVELYN,DC VIOLETA 12/16 [facility] FIT SPECTACLES MULTIFOCAL [id number] Diagnos is: ICD-10- CM Z46.0 Encount er for fit/adj st of spectac les and contact lenses< br/> COREEN RIVAS 12/16 [facility] OFFICE O/P EST MOD 30 MIN [id number] Diagnos is: ICD-10- CM G47.33 Obstruc tive sleep apnea (adult) (pediat shad)
SHARLA DEUTSCH 12/19 [place] [facility] Outpatient Encounter [id number] 03/24 [place] [facility] Outpatient Encounter [id number] Diagnos is: ICD-10- CM G47.33 Obstruc tive sleep apnea (adult) (pediat shad)
SHARLA DEUTSCH 04/13 [place] [facility] Outpatient Encounter [id number] 05/07 [place] [facility] Outpatient Encounter [id number] 05/20 [facility] Outpatient Encounter [id number] 05/20 [place] [facility] Outpatient Encounter [id number] 05/21 [facility] Out[facility] Encounter [id number] 09/24 [facility] Encounter [id number] 09/24 [facility] [place] OFF/OP EST MAY X REQ PHY/QHP [id number] Diagnos is: ICD-10- CM I10 Essenti al (primar y) hyperte nsion<b r/> PAULINEER IC K 09/24 [place] [facility] QNHP OL DIG ASSMT&MGMT 5-10 [id number] Diagnos is: ICD-10- CM N18.31 Chronic kidney disease , stage 3a
SOISAAC GUERRERO RISTY A 09/24 [facility] En[facility] [id number] Diagnos is: ICD-10- CM I10 Essenti al (primar y) hyperte nsion<b r/> ROSALIO SHAY 09/28 [facility] En[facility] [id number] 09/28 [facility] Out[facility] Encounter [id number] 09/29 [facility] Out[facility] Encounter [id number] 10/07 [facility] Out[facility] Encounter [id number] 10/07 [facility] [place] OFFICE O/P EST HI 40 MIN [id number] Diagnos is: ICD-10- CM I10 Essenti al (primar y) hyperte nsion<b r/> BENITO MAURICIO 10/20 [place] [facility] [place]AT[place] ADMIN [id number] [place] MEDINABENITO SMITH 10/20 [facility] OFF/OP CONSLTJ NEW/EST HI 55 [id number] Diagnos is: ICD-10- CM I11.0 Hyperte nsive heart disease with heart failure
SHALINITWILA Donato E 10/26 [place] OFF/OP EST JANUARY X REQ PHY/QHP [id number] Diagnos is: ICD-10- CM G43.709 Chronic migrain e w/o aura, not intract able, w/o stat migr
SARAH CARPENTER K 11/02 [place] [facility] Outpatient Encounter [id number] [facility] Social History Combined list of available smoking, tobacco, and other social history from Department of Defense and Veterans Affairs facilities. Social History Type Response Date Comment Source Tobacco smoking status [facility] NEVER USED 12/16/2023 [facility]22 [place] [facility] Y[facility] OR MORE 02/13/2021 [place] History of tobacco use LIFETIME NON-TOBACCO USER 05/12/2018 Tried as a kid and hated [place] History of tobacco use LIFETIME NON-TOBACCO USER 01/14/2017 [facility] This section is an empty social history section. DoD Plan of Care List of future care activities from Department of Veterans Affairs facilities. Additional future care activities may be listed in the Assessment and Plan section. Date/Time Care Activity Care Activity Detail Facili ty 11/02/2024 AMBULATORY - MEDICINE AMBULATORY - MEDICI [place] 11/10/2024 AMBULATORY - NONE AMBULATORY - NONE [facility] [facility] 12/02/2024 [facility] 01/05/2025 AMBULATORY - MEDICINE AMBULATORY - MEDICI [facility]/15/2025 AMBULATORY - MEDICINE AMBULATORY - MEDICI [facility] 10/20/2024 Laboratory - Operations Research Director ry Order BASIC METABOLIC PANEL (non-fasting) BLOOD (SST-SERUM) [facility] 10/20/2024 Laboratory - Operations Research Director ry Order URINALYSIS URINE [facility] 10/20/2024 Laboratory - Operations Research Director ry Order MICROALBUMIN CREATININE RATIO PANEL URINE (RANDOM) [facility] 10/26/2024 Procedure Order ECHO CP CARDIOLO GY ECHO/ NH[facility] Proc Fashion Artist's Choice [place] 11/10/2024 Imaging - CT Scan Order CALCIUM SCORE 1 N [facility]ER 12/02/2024 Imaging - Ultrasound Order ULTRASOUND KIDNEYS [place]
--- OUTSIDE RECORDS SUMMARY | 2024-11-02 17:25 | XMS_ITS ---
Author Name [facility] [place] Organization [facility] [place] [facility] [place] Address [address] [place] [address] Care Team Providers Care Special Services Coordinator Name Role Phone JOSIAH HARRIS Primary Care [...] PRESCRIPT ION [id number] Sep 30, 2020 [id number] [phone] DORIAN TREJO [facility]IENT [facility] CE ORGANIZ GOLD ADV HMO Sep 30, 2020 [id number] [phone] DORIAN TREJO PATIENT Selected Encounter This section includes the information on record at [place] for the Encounter. Date/Time Encounter Type Encounter Description Reason Provider Source Oct 20, 2024 09:14 AM IMMUNIZATION ADMIN PRIMARY CARE/MEDICINE ICD-10-CM Z23. Encounter for immunization JOSIAH KIRK IHJudi Encounter Template Text not used by [facility] Assessments - Encounter Diagnoses This section includes the primary and secondary diagnoses documented for the Encounter. Date/Time Primary/Secondary Diagnosis Diagnosis Name Provider Source Oct 20, 2024 09:14 AM SECONDARY Encounter for immunization ALFONSO WEBSTER ROMANA [facility] Plan of Treatment: Future Appointments (+ 6 months) and Future Tests (+/- 45 days) The Plan of Treatment section includes future care activities for the patient from all [place] [facility] This section includes future appointments and future orders which are active, pending or scheduled. Future Appointments This section includes appointments that were scheduled to occur 6 months from the date of the Encounter, up to a maximum of 20 appointments. The data comes from all [facility]. Appointment Date/Time Appointment Type Appointme nt Facility Name Oct 26, 2024 09:00 AM [facility] Nov 02, 2024 09:15 AM [facility] - MEDICINE [facility] Nov 10, 2024 12:30 PM AMBULATORY - NONE [facility] Dec 02, 2024 03:00 PM AMBULATORY - NONE [facility] Jan 05, 2025 03:00 PM AMBULATORY - MEDICINE [facility] February 15, 2025 03:30 PM [facility] Active, Pending, and [...] of theEncounter. The data comes from all [facility]. Test Date/Time Test Type Test Details Facility Name Oct 20, 2024 12:00 AM Laboratory - Chemi stry Order MICROALBUMIN CREATININE RATIO PANEL URINE (RANDOM) [facility] Oct 20, 2024 12:00 AM Laboratory - Chemi stry Order URINALYSIS URINE [facility] Oct 20, 2024 12:00 AM Laboratory - Chemi stry Order BASIC METABOLIC PANEL (non-fasting) BLOOD (SST-SERUM) [facility] Oct 26, 2024 09:40 AM Procedure Order ECHO CP CA RDIOLOGY ECHO/ NHM Proc [facility] Judge's Choice [place] Nov 10, 2024 12:00 AM Imaging - CT Scan Order CALCIUM SCORE 1 [facility] Dec 02, 2024 12:00 AM Imaging - Ultrasou nd Order ULTRASOUND KIDNEYS [place] Lab Results: +/- 30 days of the [...] Result - Unit Interpretation Reference Range Comment Oct 26, 2024 10:12 AM [facility] CHEM 7 Specimen Type: SERUM No comment entered. Ordering Provider: ROSALIO LOYA Report Released Date/Time: Oct 26, 2024 09:45 AM Reporting Lab: [address] [address] Performing Lab: [address] [address] CREATININE,SER UM 1.48 mg/dL 0.5-1.5 UREA NITROGEN, BLOOD 22 mg/dL 7-25 GLUCOSE,RANDOM 91 mg/dL 65-100 SODIUM 141 mmol/L 135-145 POTASSIUM 4.2 mmol/L 3.5-5.0 CHLORIDE 104 mmol/L 100-110 CO2 26 meq/L 20-30 ANION GAP 11 meq/L 6-16 eGFR(CKD-EPI 2020) 58 mL/min L >=60 Sep 29, 2024 07:39 AM [place] TSH Specimen Type: SERUM No comment entered. Ordering Provider: JOSIAH STRINGER Report Released Date/Time: Sep 28, 2024 01:51 PM Reporting Lab: [facility] [address] [address] Performing Lab: [address] [address] TSH 1.16 u[IU]/mL 0.35-5.00 Sep 29, 2024 07:39 AM [place] URIC ACID Specimen Type: SERUM No comment entered. Ordering Provider: JOSIAH STRINGER Report Released Date/Time: Sep 28, 2024 01:51 PM Reporting Lab: [facility] [address] [address] Performing Lab: [address] [address] URIC ACID 8.2 mg/dL H 3.5-7.2 Sep 29, 2024 07:39 AM [place] CALCIUM Specimen Type: SERUM No comment entered. Ordering Provider: JOSIAH STRINGER Report Released Date/Time: Sep 28, 2024 01:51 PM Reporting Lab: [facility] [address] [address] Performing Lab: [address] [address] CALCIUM 9.1 mg/dL 8.5-10.2 Sep 29, 2024 07:39 AM [place] HEMOGLOBIN A1C PANEL Specimen Type: BLOOD Comment: Values obtained from A1C measurements can vary. For atypical A1C assays, a reported value of 7.0 could actually be between 6.72 and 7.28 if measured by a reference method. A reported value of 9.0 could actually be between 8.73 and 9.27. Ref: http://www.ngs p.org/CAPdata. asp Ordering Provider: JOSIAH STRINGER Report Released Date/Time: Sep 28, 2024 01:51 PM Reporting Lab: [address] [address] Performing Lab: [address] [address] HEMOGLOBIN A1C 5.8 H 4.0-5.6 Sep 29, 2024 07:39 AM [place] LIPID PANEL FASTING Specimen Type: SERUM No comment entered. Ordering Provider: JOSIAH STRINGER Report Released Date/Time: Sep 28, 2024 01:51 PM Reporting Lab: [address] [address] Performing Lab: [address] [address] CHOLESTEROL 193 mg/dL TRIGLYCERIDE 109 mg/dL 0-150 LDL calculated 132 mg/dL H 0-129 CHOL/HDL 4.9 HDL CHOLESTEROL 39 mg/dL L 40-60 Sep 29, 2024 07:39 AM [place] BASIC METABOLIC PANEL (fasting) Specime n Type: SERUM No comment entered. Ordering Provider: JOSIAH STRINGER Report Released Date/Time: Sep 28, 2024 01:51 PM Reporting Lab: [address] [address] Performing Lab: [address] [address] UREA NITROGEN 28 mg/dL H 7-25 GLUCOSE 94 mg/dL 65-100 SODIUM 138 mmol/L 135-145 POTASSIUM 4.4 mmol/L 3.5-5.0 CHLORIDE 100 mmol/L 100-110 CO2 30 meq/L 20-30 CREATININE, Serum 1.80 mg/dL H 0.50-1.40 eGFR(CKD-EPI 2020) 46 mL/min L >60 Sep 29, 2024 07:39 AM [place] LIVER FUNCTION Specimen Type: SERUM No comment entered. Ordering Provider: JOSIAH STRINGER Report Released Date/Time: Sep 28, 2024 01:51 PM Reporting Lab: [address] [address] Performing Lab: [address] [address] PROTEIN,TOTAL 7.3 g/dL 6.0-8.3 ALBUMIN 4.4 g/dL 3.5-5.0 ALKALINE PHOSPHATASE 70 U/L 40-150 AST 16 U/L 5-34 ALT 32 U/L BILIRUBIN, TOTAL 0.6 mg/dL 0.2-1.2 Sep 29, 2024 07:39 AM [place] CBC AND DIFF (AUTO) Specimen Type: BLOOD No comment entered. Ordering Provider: JOSIAH STRINGER Report Released Date/Time: Sep 28, 2024 01:51 PM Reporting Lab: [address] [address] Performing Lab: [address] [address] WBC 6.06 10*3/uL 4.50-11.00 RBC 4.78 10*6/uL 4.23-5.66 HGB 13.4 g/dL 12.8-17 HCT 39.9 39.2-50.4 MCV 83.5 fL 82-99 MCHC 33.6 g/dL 30.8-35.1 PLT 264 10*3/uL 140-360 RDW-CV 13.0 12.0-16.0 MONO, ABS 0.38 10*3/uL 0.30-1.10 MCH 28.0 pg 26.2-32.6 NEUT % 51.6 43.7-75.8 LYMPH % 39.6 14.0-42.3 MONO % 6.3 5.1-13.7 EOS % 1.8 0.4-6.8 BASO % 0.5 0.1-2.0 NEUT, ABS 3.13 10*3/uL 2.20-7.60 LYMPH, ABS 2.40 10*3/uL 1.00-3.20 EOS, ABS 0.11 10*3/uL 0.03-0.44 BASO, ABS 0.03 10*3/uL 0.01-0.13 IMMATURE GRAN % 0.2 0.0-0.7 IMMATURE GRAN, ABS 0.01 10*3/uL 0.00-0.06 NRBC % 0.0 0.0-0.0 NRBC, ABS 0.00 10*3/uL 0.00-0.00 Immunizations: All administered on the encounter date This section contains immunizations associated to the Encounter. Immunization Series Date Issued Reaction Comments INFLUENZA, SPLIT VIRUS, TRIVALENT, PF Oct 20 025 Social History: Smoking Status (Most current) and [...] 16, 2023 03:00 PM VA-TOBACCO NEVER USED [facility] Tobacco Use History This section includes a history of the smoking, or tobacco-related health factors, that were collected on or before the date of the Encounter. The data comes from the [place] facility where the Encounter took place. Date/Time Smoking Status/Tobacco Use Comment Miranda balderrama Jan 14, 2017 08:35 AM LIFETIME NON-TOBACCO USER [facility] Encounter Notes: All associated encounter notes This section contains the clinical notes associated to the Encounter. Date/Time Encounter Note(s) Provider Source Oct 20, 2024 09:14 AM PREVENTIVE MEDICIN E NURSING NOTE: LOCAL TITLE: CLINICAL REMINDERS/NURSING STANDARD TITLE: PREVENTIVE MEDICINE NURSING NOTE DATE OF NOTE: OCT 20, 2024@09:14 ENTRY DATE: OCT 20, 2024@09:14:47 AUTHOR: TAVARES WEBSTER EXP COSIGNER: URGENCY: STATUS: COMPLETED Advance Directive Screen MH AD: Patient does not have a completed advance directive on file at any facility, [facility] or outside. S/he is not interested in completing one at this time. The patient received education about Advance Directives and written notification of his/her rights. BMI>30/>24.99 High Risk: At this visit, the health risks of obesity were reviewed and discussed with the [place], and the benefits of a weight management treatment program, such as MOVE! was discussed and offered to the . Homelessness/Food Insecurity Screen: In the past 2 months, have you been living in stable housing that you own, rent, or stay in as part of a household? Yes - Living in stable housing. Are you worried or concerned that in the next 2 months you may NOT have stable housing that you own, rent, or stay in as part of a household? No - Not worried about housing near future The [facility] reports the following: Within the past 12 months, you worried whether your food would run out before you got money to buy more. Never true Within the past 12 months, the food you bought just didn't last and you didn't have money to get more. Never true Hepatitis B Immunization: The patient declines to receive the recommended dose of Hepatitis B vaccine. Immunization: HEP B, UNSPECIFIED FORMULATION Refusal Reason: PATIENT DECISION Patient refuses all immunization(s) in the HepB group Date Documented: 10/20/24 09:15 Pneumococcal Conjugate Vaccine (PCV15/PCV20): Refuses PCV vaccine Immunization: PNEUMOCOCCAL CONJUGATE, UNSPECIFIED FORMULATION Refusal Reason: PATIENT DECISION Patient refuses all immunization(s) in the PneumoPCV group Date Documented: 10/20/24 09:15 Influenza Immunization: Influenza, Trivalent, Preservative Free (Fluarix-Syringe) Administered: INFLUENZA, SPLIT VIRUS, TRIVALENT, PF Date Administered: Oct 20, 2024 09:15 Sheep Rancher: [employer] Software Lot: [id number] Exp Date: Mar 29, 2025 [facility]: [id number] Admin Route/Site: INTRAMUSCULAR/LEFT DELTOID Dosage: 0.5mL Vaccine Information Statement(s): INFLUENZA(FLU) VACC(INACTIVATED OR RECOMBINANT)VIS May 05, 2021 ([place]) Order By: Policy Administered By: Faiza Webster The Influenza Vaccine Information Statement (VIS) was reviewed with the patient/caregiver which lists the benefits and risks of the vaccine and the risks of not receiving the Influenza vaccine. The patient/caregiver denied any prior severe reaction to this vaccine or its components or a severe allergic reaction, such as anaphylaxis, to any vaccine or any injectable therapy. The patient/caregiver gave verbal consent to receive the vaccine. COVID-19 Immunization: Refused Moderna Monovalent COVID-19 vaccine Immunization: COVID-19 (MODERNA), MRNA, LNP-S, PF, 50 MCG/0.5 ML (AGES 12+ YEARS) Refusal Reason: PATIENT DECISION Patient refuses all immunization(s) in the COVID-19 group Date Documented: 10/20/24 09:16 /emmy/ FAIZA WEBSTER LPN LPN Signed: 10/20/2024 09:16 FAIZA WEBSTER [place]
--- OUTSIDE RECORDS SUMMARY | 2024-11-02 17:25 | XMS_ITS | Encounter Summary ---
Author Name [facility] [place] Organization [facility] [place] Address [address] [place] [address] Care Team Providers Care Planograph Operator Name Role Phone JOSIAH HARRIS Primary [...] PRESCRIPT ION [id number] Sep 30, 2020 [id number] [phone] DORIAN TREJO PATIENT [facility] CE ORGANIZ GOLD ADV O Sep 30, 2020 [id number] [phone] DORIAN TREJO PATIENT Selected Encounter This section includes the information on record at [place] for the Encounter. Date/Time Encounter Type Encounter [...] PM PRIMARY Essential (primary) hypertension JAYNE GOSS,JOSIAH [facility] Dec 22, 2023 03:41 PM SECONDARY Chronic kidney disease, stage 3a ALLIE-SHARYN GOSS,JOSIAH [facility] Dec 22, 2023 03:41 PM SECONDARY Chronic migraine w/o aura, not intractable, w/o stat migr ALLIE-SHARYN WOLFGANG,JOSIAH [facility] Dec 22, 2023 03:41 PM SECONDARY Constipation, unspecified SOFIADIN-BOSKO WOLFGANG,COURT [facility] Dec 22, 2023 03:41 PM SECONDARY Depression, unspecified [facility] Dec 22, 2023 03:41 PM SECONDARY Obesity, unspecified SOFIADIN-BOSKO WOLFGANG,COURT [facility] Dec 22, 2023 03:41 PM SECONDARY Obstructive sleep apnea (adult) (pediatric) ALLIE-SHARYN [facility] Dec 22, 2023 03:41 PM SECONDARY Prediabetes [facility] Dec 22, 2023 03:41 PM SECONDARY Tinnitus, unspecified ear [facility]DELFIN[facility]O WOLFG[facility] Dec 22, 2023 03:41 PM SECONDARY Unspecified asthma, uncomplicated ALLIE-DELFINAKO WOLFGANG,COURT [facility] Dec 22, 2023 03:41 PM SECONDARY Unspecified chronic gastritis without bleeding ALLIE-SHARYN [facility]ANG[facility] Dec 22, 2023 03:41 PM SECONDARY Unspecified hemorrhoids ALLIE-BOSKO [facility]OLFGANG[facility] Plan of Treatment: Future Appointments (+ 6 months) and Future Tests (+/- 45 days) The Plan of Treatment section includes future care activities for the patient from all [place] [facility] This section includes future appointments and future orders which are active, pending or scheduled. Future Appointments This section includes appointments that were scheduled to occur 6 months from the date of the Encounter, up to a maximum of 20 appointments. The data comes from all [place] treatment [facility]. Appointment Date/Time Appointment Type Appointme nt Facility Name Dec 17, 2023 09:30 AM [facility] Dec 20, 2023 11:00 AM AMBULATORY - MEDICINE [facility] Dec 27, 2023 03:30 PM AMBULATORY - MEDICINE [facility] [place] Mar 24, 2024 03:30 PM AMBULATORY - MEDICINE [facility] [place] Apr 13, 2024 02:30 PM AMBULATORY - MEDICINE [facility] May 20, 2024 09:00 AM [facility]AT[facility] - MEDICINE [facility] Lab Results: +/- 30 days of the encounter This section includes the Chemistry and Hematology Lab Results on record with [place] for the patient. Radiology Reports and Pathology Reports are provided separately, in subsequent sections. Lab Results This section contains the Chemistry/Hematology Results that were resulted 30 days before or 30 daysafter the date of the Encounter. Date/Time Source Result Type Result - Unit Interpretation Reference Range Comment Dec 19, 2023 10:53 AM [facility] MICROALBUMIN CREATININE RATIO PANEL Spe cimen Type: URINE No comment entered. Ordering Provider: JOSIAH STRINGER Report Released Date/Time: Dec 04, 2023 08:30 AM Reporting Lab: [facility] [address] [facility] [address] Performing [facility]: [facility] [address] [address] MICROALBUMIN/C REATININE RATIO 30.3 mg/g H 0-29.9 MICROALBUMIN,Q UANTITATIVE 3.3 mg/dL RR UNAVAIL CREATININE URINE 108.79 mg/dL Dec 18, 2023 10:05 AM [facility] LIVER FUNCTION Specimen Type: SERUM No comment entered. Ordering Provider: JOSIAH STRIGNER Report Released Date/Time: Dec 04, 2023 08:30 AM Reporting Lab: [facility] [address] [address] Performing Lab: [address] [address] PROTEIN,TOTAL 7.2 g/dL 6.0-8.3 ALBUMIN 4.5 g/dL 3.5-5.0 ALKALINE PHOSPHATASE 66 U/L 40-150 AST 20 U/L 5-34 ALT 40 U/L BILIRUBIN, TOTAL 0.5 mg/dL 0.2-1.2 Dec 18, 2023 10:05 AM [facility] HEMOGLOBIN A1C PANEL Specimen Type: BLOOD Comment: [...] Dec 04, 2023 08:30 AM Reporting Lab: [facility] [address] [facility] [address] Performing Lab: [address] [address] HEMOGLOBIN A1C 5.7 H 4.0-5.6 Dec 18, 2023 10:05 AM [facility] TSH Specimen Type: SERUM No comment entered. Ordering Provider: JOSIAH STRINGER Report Released Date/Time: Dec 04, 2023 08:30 AM Reporting Lab: [facility] [address] [facility] [address] Performing Lab: [facility] [address] [facility] [address] TSH 2.20 u[IU]/mL 0.35-5.00 Dec 18, 2023 10:05 AM [facility] BASIC METABOLIC PANEL (non-fasting) Spe cimen Type: SERUM No comment entered. Ordering Provider: JOSIAH STRINGER Report Released Date/Time: Dec 04, 2023 08:32 AM Reporting Lab: [facility] [address] [facility] [address] Performing Lab: [address] [address] UREA NITROGEN 18 mg/dL 7-25 GLUCOSE 95 mg/dL 65-100 SODIUM 140 mmol/L 135-145 POTASSIUM 4.4 mmol/L 3.5-5.0 CHLORIDE 103 mmol/L 100-110 CO2 28 meq/L 20-30 CREATININE, Serum 1.46 mg/dL H 0.50-1.40 eGFR(CKD-EPI 2020) 59 mL/min L >60 Dec 18, 2023 10:05 AM [facility] CBC AND DIFF (AUTO) Specimen Type: BLOOD No comment entered. Ordering Provider: JOSIAH STRINGER Report Released Date/Time: Dec 04, 2023 08:30 AM Reporting Lab: [address] [address] Performing Lab: [address] [address] WBC 5.70 10*3/uL 4.50-11.00 RBC 4.57 10*6/uL 4.23-5.66 HGB 13.6 g/dL 12.8-17 HCT 39.0 L 39.2-50.4 MCV 85.3 fL 82-99 MCHC 34.9 g/dL 30.8-35.1 PLT 250 10*3/uL 140-360 RDW-CV 12.4 12.0-16.0 Wake, Abs 0.34 10*3/uL 0.30-1.10 MCH 29.8 pg 26.2-32.6 Neut % 47.7 43.7-75.8 Lymph % 42.8 H 14.0-42.3 Wake % 6.0 5.1-13.7 Eos % 2.8 0.4-6.8 Baso % 0.5 0.1-2.0 Neut, Abs 2.72 10*3/uL 2.20-7.60 Lymph, Abs 2.44 10*3/uL 1.00-3.20 Eos, Abs 0.16 10*3/uL 0.03-0.44 Baso, Abs 0.03 10*3/uL 0.01-0.13 Immature Gran % 0.2 0.0-0.7 Immature Gran, Abs 0.01 10*3/uL 0.00-0.06 Dec 18, 2023 10:05 AM [facility] VITAMIN D (25-OH) Specimen Type: SERUM No comment entered. Ordering Provider: JOSIAH STRINGER Report Released Date/Time: Dec 16, 2023 03:57 PM Reporting Lab: [place] [address] [address] Performing Lab: [address] [address] VITAMIN D (25-OH) 24 ng/mL 20-50 Dec 18, 2023 10:05 AM [facility] CALCIUM Specimen Type: SERUM No comment entered. Ordering Provider: JOSIAH STRINGER Report Released Date/Time: Dec 16, 2023 03:57 PM Reporting Lab: [address] [address] Performing Lab: [address] [address] CALCIUM 8.9 mg/dL 8.5-10.2 Vital Signs: All taken on the encounter date This section contains inpatient and outpatient Vital Signs collected on the date of the Encounter. Date/Time Temperature Pulse Blood Pressure Respiratory Rate SP02 Pain Height Weight Body Mass Index Source Dec 16, 2023 03:03 PM 98.7 72 179/101 98 237.6 38 [facility] Social History: Smoking Status (Most current) and Tobacco Use (All prior to encounter date) This section includes the most current, and the historical, smoking and tobacco- related health factors from the [place] facility where the Encounter took place. Current Smoking Status This section includes the most current smoking, or tobacco-related health factor, from the [place] facility where the Encounter took place. Date/Time Current Smoking Status Comment Clyde velazquez Oct 04, 2022 03:00 PM VA-TOBACCO NEVER USED [facility] Tobacco Use History This section includes a history of the smoking, or tobacco-related health factors, that were collected on or before the date of the Encounter. The data comes from the [place] facility where the Encounter took place. Date/Time Smoking Status/Tobacco Use Comment F acility February 13, 2021 01:00 PM VA-TOBACCO FORMER USER [facility] February 13, 2021 01:00 PM [place]-TOBACCO QUIT 15 YRS OR MORE [facility] May 12, 2018 09:25 AM LIFETIME NON-TOBACCO USER Tried as a kid and hated [facility] Encounter Notes: All associated encounter notes This section contains the clinical notes associated to the Encounter. Date/Time Encounter Note(s) Provider Source Sep 29, 2024 08:40 AM NONVA NOTE: LOCAL TITLE: NON-AL MEDICAL RECORD SUMMARY STANDARD TITLE: NONVA NOTE DATE OF NOTE: SEP 29, 2024@08:40 ENTRY DATE: SEP 29, 2024@08:40:17 AUTHOR: ROSALIO STRINGER: URGENCY: STATUS: COMPLETED Discharge Note received from [facility]: Date of admission: 09/24/2420: 16 Date of discharge: 09/26/24 Discharge plan Stop Sumatriptan as it increases blood pressure; use Tylenol\Advil for headache Continue Amlodipine 10 mg daily Increase Losartan to 50 mg two times a day Take Lasix 40 mg daily To follow blood work next week To follow with Cardiology as outpatient t Increase exercise and avoid salty food, try losing weight To do a sleep study for evaluation of sleep apnea , to arrange by PCP New 2) Losartan 50 mg Tablet 50 mg PO BID Qty: 180 ORF Protocol: Hold for SBP< 90 1) furosemide 40 mg tablet 40 mg PO QAM Qty: 90 ORF Discontinued 1) sumatriptan succinate 100 mg Tablet 2) losartan 25 mg Tablet DS: Diagnosis Discharge Diagnosis (1) Acute CHF: Status: Acute (2) Hypertensive urgency: Status: Acute (3) Chest pain: Status: Acute (4) Headache: Status: Acute Copied from discharge note. Copy of note available in Review by PCP RightFax folder. Copy also sent to [facility] to scan into pt chart. Cardiology consult placed per recommendation and held for PCP signature. PCP -- [facility] would need the following meds rewritten/ renewed if appropriate. 1) Furosemide 40 mg tablet 40 mg PO QAM Qty: 90 ORF Prescriber: Bronson Parkinson 2) Losartan 50 mg Tablet 50 mg PO oral 2 times a day Qty: 180 Protocol: Hold for SBP< 90 Prescriber: Bronson Parkinson 3) CETIRIZINE HCL TAB 10MG TAKE ONE TABLET BY MOUTH ONCE DAILY FOR ALLERGIES Quantity: 90 Refills: 0 Indication: FOR ALLERGIES 4) VITAMIN D3 (CHOLECALCIFEROL) TAB 25MCG TAKE ONE TABLET BY MOUTH ONCE DAILY FOR VITAMIN SUPPLEMENTATION Quantity: 90 Refills: 1 Indication: FOR VITAMIN D DEFICIENCY /emmy/ ROSALIO STRINGER RN REGISTERED NURSE Signed: 09/29/2024 09:14 Receipt Acknowledged By: 09/29/2024 11:11 /emmy/ DEVI THURSTON NP NURSE PRACTITIONER for JOSIAH Goldsmith STEVEN 09/29/2024 11:11 /emmy/ DEVI THURSTON NP NURSE PRACTITIONER ROSALIO STRINGER Dec 16, 2023 03:00 PM PHYSICIAN NOTE: LOCAL TITLE: NOTE STANDARD TITLE: PHYSICIAN NOTE DATE OF NOTE: DEC 16, 2023@15:00 ENTRY DATE: DEC 15, 2023@22:34:46 AUTHOR: Emilia HARRIS EXP COSIGNER: URGENCY: STATUS: COMPLETED NOTE Has ADDENDA [...] sedentary denies CP/SOB/DIAZ/palpitations/dizzin ess /claudication denies h/o SC/CVA #BRANDEN -untreated, patient unable to tolerate any [...] sometimes FAMILY HISTORY: --DM: father --Cancer: no --SC: grandfather [place] at 70s --CVA:no SOCIAL HISTORY: --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
--- OUTSIDE RECORDS SUMMARY | 2024-11-02 17:25 | XMS_ITS | Encounter Summary ---
Author Name [facility] [place] [facility] [place] [facility] [place] Address [address] [place] [id number] Care Team Providers Care Leather Novelty Parts Cutter Name Role Phone JOSIAH HARRIS Primary Care [...] PRESCRIPT ION [id number] Sep 30, 2020 [id number] DORIAN TREJO [facility]IENT [facility] CE ORGANIZ GOLD ADV O Sep 30, 2020 [id number] DORIAN TREJO PATIENT Selected Encounter This section includes the information on record at [place] for the Encounter. Date/Time Encounter Type Encounter [...] PM PRIMARY Obstructive sleep apnea (adult) (pediatric) DEUTSCHSHARLA KARINAMIKEY Plan of Treatment: Future Appointments (+ 6 months) and Future Tests (+/- 45 days) The Plan of Treatment section includes future care activities for the patient from all [place] treatmentfacilities. This section includes future appointments and future orders which are active, pending or scheduled. Future Appointments This section includes appointments that were scheduled to occur 6 months from the date of the Encounter, up to a maximum of 20 appointments. The data comes from all [place] treatment facilities. Appointment Date/Time Appointment Type Appointme nt Facility Name Dec 27, 2023 03:30 PM [facility] Mar 24, 2024 03:30 PM [facility] Apr 13, 2024 02:30 PM AM[facility]ULATORY - MEDICINE [facility] May 20, 2024 09:00 AM AMBULATORY - MEDICINE [facility] Lab Results: +/- 30 days of the encounter This section includes the Chemistry and Hematology Lab Results on record with [place] for the patient. Radiology Reports and Pathology Reports are provided separately, in subsequent sections. Lab Results This section contains the Chemistry/Hematology Results that were resulted 30 days before or 30 daysafter the date of the Encounter. Date/Time Source Result Type Result - Unit Interpretation Reference Range Comment Dec 19, 2023 10:53 AM [facility] MICROALBUMIN CREATININE RATIO PANEL Spe cimen Type: URINE No comment entered. Ordering Provider: JOSIAH STRINGER Report Released Date/Time: Dec 04, 2023 08:30 AM Reporting Lab: [address] [address] Performing Lab: [address] [address] MICROALBUMIN/C REATININE RATIO 30.3 mg/g H 0-29.9 MICROALBUMIN,Q UANTITATIVE 3.3 mg/dL RR UNAVAIL CREATININE URINE 108.79 mg/dL Dec 18, 2023 10:05 AM [facility] LIVER FUNCTION Specimen Type: SERUM No comment entered. Ordering Provider: JOSIAH STRINGER Report Released Date/Time: Dec 04, 2023 08:30 AM Reporting Lab: [address] [address] Performing Lab: [facility] [address] [facility] [address] PROTEIN,TOTAL 7.2 g/dL 6.0-8.3 ALBUMIN 4.5 g/dL 3.5-5.0 ALKALINE PHOSPHATASE 66 U/L 40-150 AST 20 U/L 5-34 ALT 40 U/L BILIRUBIN, TOTAL 0.5 mg/dL 0.2-1.2 Dec 18, 2023 10:05 AM [facility] HEMOGLOBIN A1C PANEL Specimen Type: BLOOD Comment: Values obtained from A1C measurements can vary. For atypical A1C assays, a reported value of 7.0 could actually be between 6.72 and 7.28 if measured by a reference method. A reported value of 9.0 could actually be between 8.73 and 9.27. Ref: http://www.ngs p.org/CAPdata. asp Ordering Provider: JOSIAH STRNIGER Report Released Date/Time: Dec 04, 2023 08:30 AM Reporting Lab: [facility] [address] [address] Performing Lab: [facility] [address] [address] HEMOGLOBIN A1C 5.7 H 4.0-5.6 Dec 18, 2023 10:05 AM [facility] TSH Specimen Type: SERUM No comment entered. Ordering Provider: JOSIAH STRINGER Report Released Date/Time: Dec 04, 2023 08:30 AM Reporting Lab: [facility] [address] [facility] [address] Performing Lab: [facility] [address] TSH 2.20 u[IU]/mL 0.35-5.00 Dec 18, 2023 10:05 AM [facility] BASIC METABOLIC PANEL (non-fasting) Spe cimen Type: SERUM No comment entered. Ordering Provider: JOSIAH STRINGER Report Released Date/Time: Dec 04, 2023 08:32 AM Reporting Lab: [facility] [address] [address] Performing Lab: [facility] [address] [facility] [address] UREA NITROGEN 18 mg/dL 7-25 GLUCOSE 95 mg/dL 65-100 SODIUM 140 mmol/L 135-145 POTASSIUM 4.4 mmol/L 3.5-5.0 CHLORIDE 103 mmol/L 100-110 CO2 28 meq/L 20-30 CREATININE, Serum 1.46 mg/dL H 0.50-1.40 eGFR(CKD-EPI 2020) 59 mL/min L >60 Dec 18, 2023 10:05 AM [facility] CBC AND DIFF (AUTO) Specimen Type: BLOOD No comment entered. Ordering Provider: JOSIAH STRINGER Report Released Date/Time: Dec 04, 2023 08:30 AM Reporting Lab: [facility] [address] [facility] [address] Performing Lab: [address] [address] WBC 5.70 10*3/uL 4.50-11.00 RBC 4.57 10*6/uL 4.23-5.66 HGB 13.6 g/dL 12.8-17 HCT 39.0 L 39.2-50.4 MCV 85.3 fL 82-99 MCHC 34.9 g/dL 30.8-35.1 PLT 250 10*3/uL 140-360 RDW-CV 12.4 12.0-16.0 Peach, Abs 0.34 10*3/uL 0.30-1.10 MCH 29.8 pg 26.2-32.6 Neut % 47.7 43.7-75.8 Lymph % 42.8 H 14.0-42.3 Peach % 6.0 5.1-13.7 Eos % 2.8 0.4-6.8 Baso % 0.5 0.1-2.0 Neut, Abs 2.72 10*3/uL 2.20-7.60 Lymph, Abs 2.44 10*3/uL 1.00-3.20 Eos, Abs 0.16 10*3/uL 0.03-0.44 Baso, Abs 0.03 10*3/uL 0.01-0.13 Immature Gran % 0.2 0.0-0.7 Immature Gran, Abs 0.01 10*3/uL 0.00-0.06 Dec 18, 2023 10:05 AM [facility] VITAMIN D (25-OH) Specimen Type: SERUM No comment entered. Ordering Provider: JOSIAH STRINGER Report Released Date/Time: Dec 16, 2023 03:57 PM Reporting Lab: [address] [address] Performing Lab: [address] [address] VITAMIN D (25-OH) 24 ng/mL 20-50 Dec 18, 2023 10:05 AM [facility] CALCIUM Specimen Type: SERUM No comment entered. 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 He was referred to [facility] but failed scheduling mandate; recently PCP referred him to [facility] but he didn't get the phone call/VM from scheduling. I explained to him that the current wait time to be seen by Dr. Hernandes in [facility] for oral appliance is upwards [...] Hernandes for oral appliance; gave patient the metal roofer's number - cont to avoid back sleeping - advised weight reduction - in the future, will need PSG w/ oral appliance to assess oral appliance efficacy and to assess for RBD RTC in 4 months over the phone /es/ SHARLA DEUTSCH MD ATTENDING Signed: 12/20/2023 13:51 SHARLA DEUTSCH
--- OUTSIDE RECORDS SUMMARY | 2024-11-02 17:25 | XMS_ITS | Encounter Summary ---
Author Name [facility] [place] [facility] [place] Address [address] [place] [address] Care Team Providers Care Assembler Watch Train Name Role Phone JOSIAH HARRIS Primary Care [...] PRESCRIPT ION [id number] Sep 30, 2020 [id number] [phone] DORIAN TREJO PATIENT [facility] CE ORGANIZ GOLD ADV O Sep 30, 2020 [id number] [id number] DORIAN TREJO PATIENT Selected Encounter This section includes the information on record at [place] for the Encounter. Date/Time Encounter Type Encounter Description Reason Provider Source Oct 26, 2024 09:00 AM OFF/OP CONSLTJ NEW/EST HI 55 CARDIOLOGY ICD-10-CM I11.0 Hypertensive heart disease with heart failure HONORIO LOYA Encounter Template Text not used by [facility] Assessments - Encounter Diagnoses This section includes the primary and secondary diagnoses documented for the Encounter. Date/Time Primary/Secondary Diagnosis Diagnosis Name Provider Source Oct 26, 2024 09:58 AM PRIMARY Hypertensive heart disease with heart failure HONORIO LOYA Plan of Treatment: Future Appointments (+ 6 months) and Future Tests (+/- 45 days) The Plan of Treatment section includes future care activities for the patient [facility] [place] [facility] This section includes future appointments and future orders which are active, pending or scheduled. Future Appointments This section includes appointments that were scheduled to occur 6 months from the date of the Encounter, up to a maximum of 20 appointments. The data comes from all [facility] facilities. Appointment Date/Time Appointment Type Appointme nt Facility Name Nov 02, 2024 09:15 AM [facility] Nov 10, 2024 12:30 PM AMBULATORY - NONE [facility] Dec 02, 2024 03:00 PM [facility] Jan 05, [facility] 03:00 PM [facility] [place] [facility] February 15, 2025 03:30 PM [facility] Active, Pending, and Scheduled Orders This section includes a listing of several types of active, pending, and scheduled orders, including clinic medications orders, diagnostic test orders, procedure orders and consult orders; where the start date of the order is 45 days before the date of the Encounter or 45 days after the date of theEncounter. The data comes from all [facility]. Test Date/Time Test Type Test Details Facility Name Oct 20, 2024 12:00 AM Laboratory - Chemi stry Order BASIC METABOLIC PANEL (non-fasting) BLOOD (SST-SERUM) [facility] Oct 20, 2024 12:00 AM Laboratory - Chemi stry Order MICROALBUMIN CREATININE RATIO PANEL URINE (RANDOM) [facility] Oct 20, 2024 12:00 AM Laboratory - Chemi stry Order URINALYSIS URINE [facility] Oct 26, 2024 09:40 AM Procedure Order ECHO CP CA RDIOLOGY ECHO/ [facility] Proc Demand Planner's Choice [facility] Nov 10, 2024 12:00 AM Imaging - CT Scan Order CALCIUM SCORE 1 [facility] Dec 02, 2024 12:00 AM Imaging - Ultrasou nd Order ULTRASOUND KIDNEYS [facility] Lab Results: +/- 30 days of the encounter This section includes the Chemistry and Hematology Lab Results on record with [place] for the patient. Radiology Reports and Pathology Reports are provided separately, in subsequent sections. Lab Results This section contains the Chemistry/Hematology Results that were resulted 30 days before or 30 daysafter the date of the Encounter. Date/Time Source Result Type Result - Unit Interpretation Reference Range Comment Oct 26, 2024 10:12 AM [facility] CHEM 7 Specimen Type: SERUM No comment entered. Ordering Provider: HONORIO LOYA Report Released Date/Time: Oct 26, 2024 09:45 AM Reporting Lab: [address] [address] Performing Lab: [place] [phone] CREATININE,SER UM 1.48 mg/dL 0.5-1.5 UREA NITROGEN, BLOOD 22 mg/dL 7-25 GLUCOSE,RANDOM 91 mg/dL 65-100 SODIUM 141 mmol/L 135-145 POTASSIUM 4.2 mmol/L 3.5-5.0 CHLORIDE 104 mmol/L 100-110 CO2 26 meq/L 20-30 ANION GAP 11 meq/L 6-16 eGFR(CKD-EPI 2020) 58 mL/min L >=60 Sep 29, 2024 07:39 AM [facility] TSH Specimen Type: SERUM No comment entered. Ordering Provider: JOSIAH STRINGER Report Released Date/Time: Sep 28, 2024 01:51 PM Reporting Lab: [address] [address] Performing Lab: [address] [address] TSH 1.16 u[IU]/mL 0.35-5.00 Sep 29, 2024 07:39 AM [facility] CALCIUM Specimen Type: SERUM No comment entered. Ordering Provider: JOSIAH STRINGER Report Released Date/Time: Sep 28, 2024 01:51 PM Reporting Lab: [address] [address] Performing Lab: [address] [address] CALCIUM 9.1 mg/dL 8.5-10.2 Sep 29, 2024 07:39 AM [facility] URIC ACID Specimen Type: SERUM No comment entered. Ordering Provider: JOSIAH STRINGER Report Released Date/Time: Sep 28, 2024 01:51 PM Reporting Lab: [address] [address] Performing Lab: [address] [address] URIC ACID 8.2 mg/dL H 3.5-7.2 Sep 29, 2024 07:39 AM [facility] LIPID PANEL FASTING Specimen Type: SERUM No comment entered. Ordering Provider: JOSIAH STRINGER Report Released Date/Time: Sep 28, 2024 01:51 PM Reporting Lab: [address] [address] Performing Lab: [address] [address] CHOLESTEROL 193 mg/dL TRIGLYCERIDE 109 mg/dL 0-150 LDL calculated 132 mg/dL H 0-129 CHOL/HDL 4.9 HDL CHOLESTEROL 39 mg/dL L 40-60 Sep 29, 2024 07:39 AM [facility] HEMOGLOBIN A1C PANEL Specimen Type: BLOOD Comment: [...] Sep 28, 2024 01:51 PM Reporting Lab: [address] [address] Performing Lab: [address] [address] HEMOGLOBIN A1C 5.8 H 4.0-5.6 Sep 29, 2024 07:39 AM [facility] BASIC METABOLIC PANEL (fasting) Specime n Type: SERUM No comment entered. Ordering Provider: JOSIAH STRINGER Report Released Date/Time: Sep 28, 2024 01:51 PM Reporting Lab: [address] [place] [address] Performing Lab: [address] [address] UREA NITROGEN 28 mg/dL H 7-25 GLUCOSE 94 mg/dL 65-100 SODIUM 138 mmol/L 135-145 POTASSIUM 4.4 mmol/L 3.5-5.0 CHLORIDE 100 mmol/L 100-110 CO2 30 meq/L 20-30 CREATININE, Serum 1.80 mg/dL H 0.50-1.40 eGFR(CKD-EPI 2020) 46 mL/min L >60 Sep 29, 2024 07:39 AM [facility] LIVER FUNCTION Specimen Type: SERUM No comment entered. Ordering Provider: JOSIAH STRINGER Report Released Date/Time: Sep 28, 2024 01:51 PM Reporting Lab: [address] [address] Performing Lab: [address] [address] PROTEIN,TOTAL 7.3 g/dL 6.0-8.3 ALBUMIN 4.4 g/dL 3.5-5.0 ALKALINE PHOSPHATASE 70 U/L 40-150 AST 16 U/L 5-34 ALT 32 U/L BILIRUBIN, TOTAL 0.6 mg/dL 0.2-1.2 Sep 29, 2024 07:39 AM [facility] CBC AND DIFF (AUTO) Specimen Type: BLOOD No comment entered. Ordering Provider: JOSIAH STRINGER Report Released Date/Time: Sep 28, 2024 01:51 PM Reporting Lab: [address] [address] Performing Lab: [address] [address] WBC 6.06 10*3/uL 4.50-11.00 RBC 4.78 10*6/uL [...] 0.0 0.0-0.0 NRBC, ABS 0.00 10*3/uL 0.00-0.00 Vital Signs: All taken on the encounter date This section contains inpatient and outpatient Vital Signs collected on the date of the Encounter. Date/Time Temperature Pulse Blood Pressure Respiratory Rate SP02 Pain Height Weight Body Mass Index Source Oct 26, 2024 08:15 AM 54 141/89 100 0 219.1 [place] Encounter Notes: All associated encounter notes This section contains the clinical notes associated to the Encounter. Date/Time Encounter Note(s) Provider Source Oct 26, 2024 09:49 AM CARDIOLOGY ATTENDI CONSULT: LOCAL TITLE: CARDIOLOGY ATTENDING OUTPATIENT INITIAL CONSULT NOT STANDARD TITLE: CARDIOLOGY ATTENDING CONSULT DATE OF NOTE: OCT 26, 2024@09:49 ENTRY DATE: OCT 26, 2024@09:49:32 AUTHOR: HONORIO LOYA COSIGNER: URGENCY: STATUS: COMPLETED CARDIOLOGY ATTENDING OUTPATIENT INITIAL CONSULT NOTE Has ADDENDA 49 y/o male referred for evaluation after recent admission to [facility] with HTN, headaches, CHF. The patient is accompanied on this visit by his . The patient has a history of hypertension and intermittent chest pain. 2 years ago he was admitted to [facility] with chest pain and underwent coronary angiography which did not disclose obstructive coronary disease. More recently, around the holidays, he had symptoms of a cold with shortness of breath and a cough. He presented to an urgent care center which showed a blood pressure of over 200 systolic, and he was transferred to [facility] for admission. His blood pressure improved with reinstitution of medications, troponins were negative, and an echocardiogram showed LVH with preserved systolic function. Since discharge he has been compliant with all medications. He has lost 30 pounds through diet and exercise and just about 4 weeks. He has a blood pressure susana on his phone and the majority of pressures are in the 120s for systolics, and in the 70s for diastolics. He still has intermittent chest discomfort symptoms which occur randomly and lasts less than a minute. He is going to the gym to use the stairmaster and a stationary bike at least 3 times a week. He has improved his diet to avoid salt and fried foods. Medications: amlodipine 10 losartan 50 lasix 40 MEDICATION RECONCILIATION Review/Reconciliation completed. NO Discrepancies noted. PMHx: -- Chest pain with negative angiogram at [place] in 2021 -- Echo with EF 65% and LVH in 09/22 -- obesity -- HTN -- prediabetes -- BRANDEN moderate- 2019- home sleep test AHI 21 -- migraine # MRI brain 07/2021 No compelling imaging explanation for headaches. -- Chronic gastritis -- COVID 08/2022 -- vit D def -- LBP -- Pain in left knee -- Hallux valgus Exam: Mildly overweight but otherwise appears well P 55 and reg BP 141/89 Lungs clear Heart regular, no gallop or murmur No peripheral edema Labs from 09/29/24: Cr 1.8 HgbA1c 5.8 Hct 39.9 LDL 132 EKG today: Sinus bradycardia at 54, otherwise normal EKG Impression: 49-year-old male with at least 5 years of hypertension who had a recent presentation with uncontrolled blood pressure and congestion, resolved with reinstitution of appropriate medications. We had a long discussion about hypertension and consequences, including renal dysfunction and LVH. It is unlikely that his chest discomfort symptoms are related to coronary disease given his negative catheterization 2 years ago. We also discussed risk factor modification, including institution of therapy for hyperlipidemia. He is reluctant to add new medications at this time, particularly with his success in weight loss and his new attention to lifestyle matters such as diet. We did review his ASCVD risk score, which suggests a 10- year risk of 8.5%, which would be improved to 3.5% with the addition of a statin. Plan: Chem-7 today to reassess renal function given his daily Lasix use Echocardiogram to establish baseline [facility] within the [facility]; this was ordered at the [facility] Coronary calcium score to gather further data about the appropriateness of statin therapy for his elevated LDL I will call him with the results of his coronary calcium score which was ordered to be done at the [facility] Return to clinic in 1 year /emmy/ Honorio Loya MD Attending Physician, Cardiovascular Medicine Signed: 10/26/2024 09:58 10/26/2024 ADDENDUM STATUS: COMPLETED Today's chem-7: BUN 22, Cr 1.48, K 4.2 Continue current diuretic - patient notified of results by phone /emmy/ Honorio Loya MD Attending Physician, Cardiovascular Medicine Signed: 10/26/2024 14:37 [facility]
--- OUTSIDE RECORDS SUMMARY | 2024-11-02 17:25 | XMS_ITS ---
Author Name [facility] [place] Address [address] [place] [address] Care Team Providers Care Associate School Psychologist Name Role Phone JOSIAH HARRIS Primary Care [...] PRESCRIPT ION [id number] Sep 30, 2020 [id number] DORIAN TREJO PATIENT [facility] JOON PHAN ADV O Sep 30, 2020 [id number] DORIAN TREJO PATIENT Selected Encounter This section includes the information on record at DC for the Encounter. Date/Time Encounter Type Encounter Description Reason Pro vider Source Oct 07, 2024 10:47 AM Outpatient Encounter ADMIN PAT ACTIVTIES (MASNONCT) IHE Encounter Template Text not used by DC Plan of Treatment: Future Appointments (+ 6 [...] 20 appointments. The data comes from all [facility]. Appointment Date/Time Appointment Type Appointme nt Facility Name Oct 20, 2024 09:00 AM [facility] Oct 26, 2024 09[facility]00 AM [facility] - MEDICINE [facility] Nov 02, 2024 09:15 AM [facility] Nov 10, 2024 12:30 PM AMBULATORY - NONE [place] Dec 02, 2024 03:00 PM [facility] - NONE [facility] Jan 05, 2025 03:00 PM AMBULATORY - MEDICINE [place] [facility] February 15, 2025 03:30 PM AMBULATORY - MEDICINE [facility] Active, Pending, and Scheduled Orders This section includes a listing of several types of active, pending, and scheduled orders, including clinic medications orders, diagnostic test orders, procedure orders and consult orders; where the start date of the order is 45 days before the date of the Encounter or 45 days after the date of theEncounter. The data comes from all [facility]. Test Date/Time Test Type Test Details Facility Name Oct 20, 2024 12:00 AM Laboratory - Chemi stry Order BASIC METABOLIC PANEL (non-fasting) BLOOD (SST-SERUM) [facility] Oct 20, 2024 12:00 AM Laboratory - Chemi stry Order MICROALBUMIN CREATININE RATIO PANEL URINE (RANDOM) [facility] Oct 20, 2024 12:00 AM Laboratory - Chemi stry Order URINALYSIS URINE [facility] Oct 26, 2024 09:40 AM Procedure Order ECHO CP CA RDIOLOGY ECHO/ [facility] Proc Delivery Driver's Choice [place] Nov 10, 2024 12:00 AM Imaging - CT Scan Order CALCIUM SCORE 1 [facility] Lab Results: +/- 30 days of the encounter This section includes the Chemistry and Hematology Lab Results on record with DC for the patient. Radiology Reports and Pathology Reports are provided separately, in subsequent sections. Lab Results This section contains the Chemistry/Hematology Results that were resulted 30 days before or 30 daysafter the date of the Encounter. Date/Time Source Result Type Result - Unit Interpretation Reference Range Comment Oct 26, 2024 10:12 AM [facility] CHEM 7 Specimen Type: SERUM No comment entered. Ordering Provider: ROSALIO LOYA Report Released Date/Time: Oct 26, 2024 09:45 AM Reporting Lab: [address] [address] Performing Lab: [address] [address] CREATININE,SER UM 1.48 mg/dL 0.5-1.5 UREA NITROGEN, BLOOD 22 mg/dL 7-25 GLUCOSE,RANDOM 91 mg/dL 65-100 SODIUM 141 mmol/L 135-145 POTASSIUM 4.2 mmol/L 3.5-5.0 CHLORIDE 104 mmol/L 100-110 CO2 26 meq/L 20-30 ANION GAP 11 meq/L 6-16 eGFR(CKD-EPI 2020) 58 mL/min L >=60 Sep 29, 2024 07:39 AM [place] TSH Specimen Type: SERUM No comment entered. Ordering Provider: JOSIAH STRINGER Report Released Date/Time: Sep 28, 2024 01:51 PM Reporting Lab: [facility] [place] [address] [address] Performing Lab: [facility] [place] [address] [address] TSH 1.16 u[IU]/mL 0.35-5.00 Sep 29, 2024 07:39 AM [place] CALCIUM Specimen Type: SERUM No comment entered. Ordering Provider: JOSIAH STRINGER Report Released Date/Time: Sep 28, 2024 01:51 PM Reporting Lab: [facility] [place] [address] [address] Performing Lab: [facility] [place] [address] [address] CALCIUM 9.1 mg/dL 8.5-10.2 Sep 29, 2024 07:39 AM [place] URIC ACID Specimen Type: SERUM No comment entered. Ordering Provider: JOSIAH STRINGER Report Released Date/Time: Sep 28, 2024 01:51 PM Reporting Lab: [facility] [place] [address] [address] Performing Lab: [facility] [address] [address] URIC ACID 8.2 mg/dL H 3.5-7.2 Sep 29, 2024 07:39 AM [place] LIPID PANEL FASTING Specimen Type: SERUM No comment entered. Ordering Provider: JOSIAH STRINGER Report Released Date/Time: Sep 28, 2024 01:51 PM Reporting Lab: [facility] [address] [address] Performing Lab: [address] [address] CHOLESTEROL 193 mg/dL TRIGLYCERIDE 109 mg/dL 0-150 LDL calculated 132 mg/dL H 0-129 CHOL/HDL 4.9 HDL CHOLESTEROL 39 mg/dL L 40-60 Sep 29, 2024 07:39 AM [place] HEMOGLOBIN A1C PANEL Specimen Type: BLOOD Comment: [...] Sep 28, 2024 01:51 PM Reporting Lab: [address] [address] Performing Lab: [address] [address] HEMOGLOBIN A1C 5.8 H 4.0-5.6 Sep 29, 2024 07:39 AM [place] BASIC METABOLIC PANEL (fasting) Specime n Type: SERUM No comment entered. Ordering Provider: JOSIAH STRINGER Report Released Date/Time: Sep 28, 2024 01:51 PM Reporting Lab: [address] [address] Performing Lab: [address] [address] UREA NITROGEN 28 mg/dL H 7-25 GLUCOSE 94 mg/dL 65-100 SODIUM 138 mmol/L 135-145 POTASSIUM 4.4 mmol/L 3.5-5.0 CHLORIDE 100 mmol/L 100-110 CO2 30 meq/L 20-30 CREATININE, Serum 1.80 mg/dL H 0.50-1.40 eGFR(CKD-EPI 2020) 46 mL/min L >60 Sep 29, 2024 07:39 AM [place] LIVER FUNCTION Specimen Type: SERUM No comment entered. Ordering Provider: JOSIAH STRINGER Report Released Date/Time: Sep 28, 2024 01:51 PM Reporting Lab: [address] [address] Performing Lab: [address] [address] PROTEIN,TOTAL 7.3 g/dL 6.0-8.3 ALBUMIN 4.4 g/dL 3.5-5.0 ALKALINE PHOSPHATASE 70 U/L 40-150 AST 16 U/L 5-34 ALT 32 U/L BILIRUBIN, TOTAL 0.6 mg/dL 0.2-1.2 Sep 29, 2024 07:39 AM [place] CBC AND DIFF (AUTO) Specimen Type: BLOOD No comment entered. Ordering Provider: JOSIAH STRINGER Report Released Date/Time: Sep 28, 2024 01:51 PM Reporting Lab: [address] [address] Performing Lab: [address] [address] WBC 6.06 10*3/uL 4.50-11.00 RBC 4.78 10*6/uL [...] 0.0 0.0-0.0 NRBC, ABS 0.00 10*3/uL 0.00-0.00 Social History: Smoking Status (Most current) and Tobacco Use (All prior to encounter date) This section includes the most current, and the historical, smoking and tobacco- related health factors from the [place] facility where the Encounter took place. Current Smoking Status This section includes the most current smoking, or tobacco-related health factor, from the [place] facility where the Encounter took place. Date/Time Current Smoking Status Comment Facil ity Dec 16, 2023 03:00 PM VA-TOBACCO NEVER USED [facility] Tobacco Use History This section includes a history of the smoking, or tobacco-related health factors, that were collected on or before the date of the Encounter. The data comes from the [place] facility where the Encounter took place. Date/Time Smoking Status/Tobacco Use Comment F acility Jan 14, 2017 08:35 AM LIFETIME NON-TOBACCO USER [facility] Encounter Notes: All associated encounter notes This section contains the clinical notes associated to the Encounter. Date/Time Encounter Note(s) Provider Source Oct 07, 2024 10:47 AM ADMINISTRATIVE NOT E: LOCAL TITLE: CCC: SCHEDULING ADMINISTRATION STANDARD TITLE: ADMINISTRATIVE NOTE DATE OF NOTE: OCT 07, 2024@10:47:38 ENTRY DATE: OCT 07, 2024@10:47:39 AUTHOR: NADYA NOONAN COSIGNER: URGENCY: STATUS: COMPLETED CCC: SCHEDULING ADMINISTRATION Has ADDENDA Patient Demographics Patient Name: DORIAN TREJO Patient Primary Phone: [phone] Patient Primary [address] [address] [place] [address] Patient : 1975 Patient Age: 49 Caller/Recipient Relation to Patient: Self Caller Name: DORIAN TREJO Administrative Administrative Note Reason: Other Administrative Note Comments: Vet states returning call from 10/07/24 asking for call back at number listed IMPORTANT: This note was created by [facility] Clinical Contact Center staff. Please do not alert the staff member by adding them as a signer for future communications. Alerts are not monitored by this user. /emmy/ NADYA NEGRETE [address] [facility] AMSA Signed: 10/07/2024 10:47 Receipt Acknowledged By: 10/09/2024 13:12 /es/ JEREMIAS PAREKH LPN LPN 10/07/2024 11:05 /es/ ABDI CHACKO 10/07/2024 ADDENDUM STATUS: COMPLETED AMSA spoke with the [facility]. Appt made F2F for Saturday10/20/24 @ 0900 /emmy/ ABDI PINEDA AMSA Signed: 10/07/2024 11:08 NADYA NOONAN [place] [facility]
--- OUTSIDE RECORDS SUMMARY | 2024-11-02 17:25 | XMS_ITS | Encounter Summary ---
Author Name [facility] Organization [facility] [place] Address [address] [place] [id number] Care Team Providers Care Music Intern Name Role Phone JOSIAH HARRIS Primary Care [...] PRESCRIPT ION [id number] Sep 30, 2020 [id number] [phone] NEIL DORIAN PATIENT [facility] CE ORGANIZ GOLD ADV O Sep 30, 2020 [id number] [phone] DORIAN TREOJ PATIENT Selected Encounter This section includes the information on record at [place] for the Encounter. Date/Time Encounter Type Encounter Description Reason Provider Source Oct 20, 2024 09:00 AM OFFICE O/P EST HI 40 MIN PRIMARY CARE/MEDICINE ICD-10-CM I10 Essential (primary) hypertension JOSIAH KIRK IHJudi Encounter Template Text not used by VA Assessments - Encounter Diagnoses This section includes the primary and secondary diagnoses documented for the Encounter. Date/Time Primary/Secondary Diagnosis Diagnosis Name Provider Source Oct 20, 2024 08:59 PM PRIMARY Essential (primary) hypertension DARLENESHARANGonzálezDELFINAVONDA GOSSFAWNDonatoSANDRA Rupal [facility] Oct 20, 2024 08:59 PM SECONDARY Chronic kidney disease, stage 3a JAYNE GOSSFAWNDonatoSANDRA Rupal [facility] Oct 20, 2024 08:59 PM SECONDARY Chronic migraine w/o aura, not intractable, w/o stat migr JAYNE GOSSBENITODonatoSHELTONGOLDEN Goldsmith [facility] Oct 20, 2024 08:59 PM SECONDARY Obesity, unspecified JAYNE GOSSFAWNDonatoSANDRA Rupal [facility] Oct 20, 2024 08:59 PM SECONDARY Obstructive sleep apnea (adult) (pediatric) JAYNE GOSSBENITODonatoSHELTONGOLDEN Goldsmith [facility] Oct 20, 2024 08:59 PM SECONDARY Prediabetes JAYNE GOSSBENITODonatoSHELTONDonatoSANDRA Rupal [facility] Oct 20, 2024 08:59 PM SECONDARY Unspecified asthma, uncomplicated JAYNE GOSSBENITODonatoSHELTONGOLDEN Goldsmith [facility] Oct 20, 2024 08:59 PM SECONDARY Vitamin D deficiency, unspecified JAYNE GOSSFAWNDonatoSANDRA Rupal [facility] Plan of Treatment: Future Appointments (+ 6 months) and Future Tests (+/- 45 days) The Plan of Treatment section includes future care activities for the patient from all [place] [facility]. This section includes future appointments and future orders which are active, pending or scheduled. Future Appointments This section includes appointments that were scheduled to occur 6 months from the date of the Encounter, up to a maximum of 20 appointments. The data comes from all [place] treatment facilities. Appointment Date/Time Appointment Type Appointme nt Facility Name Oct 26, 2024 09:00 AM AMBULATORY - MEDICINE [facility] Nov 02, 2024 09:15 AM AMBULATORY - MEDICINE [facility] Nov 10, 2024 12:30 PM AMBULATORY - NONE [facility] Donato Dec 02, 2024 03:00 PM AMBULATORY - NONE [place] [facility] [place] [facility] Jan 05, 2025 03:00 PM AMBUL[facility]ORY - MEDICINE [facility] February 15, 2025 03:30 PM [facility] Active, Pending, and Scheduled Orders This section includes a listing of several types of active, pending, and scheduled orders, including clinic medications orders, diagnostic test orders, procedure orders and consult orders; where the start date of the order is 45 days before the date of the Encounter or 45 days after the date of theEncounter. The data comes from all [place] treatment facilities. Test Date/Time Test Type Test Details Facility Name Oct 20, 2024 12:00 AM Laboratory - Chemi stry Order MICROALBUMIN CREATININE RATIO PANEL URINE (RANDOM) [facility] Oct 20, 2024 12:00 AM Laboratory - Chemi stry Order URINALYSIS URINE [facility] Oct 20, 2024 12:00 AM Laboratory - Chemi stry Order BASIC METABOLIC PANEL (non-fasting) BLOOD (SST-SERUM) [facility] Oct 26, 2024 09:40 AM Procedure Order ECHO CP CA RDIOLOGY ECHO/ [facility] Proc Videotape Sales Representative's Choice [facility] Nov 10, 2024 12:00 AM Imaging - CT Scan Order CALCIUM SCORE 1 QUITMAN Dec 02, 2024 12:00 AM Imaging - Ultrasou nd Order ULTRASOUND KIDNEYS [facility] Lab Results: +/- 30 days of the [...] Range Comment Oct 26, 2024 10:12 AM QUITMAN CHEM 7 Specimen Type: SERUM No comment entered. Ordering Provider: ROSALIO LOYA Report Released Date/Time: Oct 26, 2024 09:45 AM Reporting Lab: [address] [address] Performing Lab: [address] [address] CREATININE,SER UM 1.48 mg/dL 0.5-1.5 UREA NITROGEN, BLOOD 22 mg/dL 7-25 GLUCOSE,RANDOM 91 mg/dL 65-100 SODIUM 141 mmol/L 135-145 POTASSIUM 4.2 mmol/L 3.5-5.0 CHLORIDE 104 mmol/L 100-110 CO2 26 meq/L 20-30 ANION GAP 11 meq/L 6-16 eGFR(CKD-EPI 2020) 58 mL/min L >=60 Sep 29, 2024 07:39 AM [facility] TSH Specimen Type: SERUM No comment entered. Ordering Provider: JOSIAH STRINGER Report Released Date/Time: Sep 28, 2024 01:51 PM Reporting Lab: [facility] [address] [address] Performing Lab: [facility] [address] [address] TSH 1.16 u[IU]/mL 0.35-5.00 Sep 29, 2024 07:39 AM [facility] URIC ACID Specimen Type: SERUM No comment entered. Ordering Provider: JOSIAH STRINGER Report Released Date/Time: Sep 28, 2024 01:51 PM Reporting Lab: [facility] [address] [address] Performing Lab: [facility] [address] [address] URIC ACID 8.2 mg/dL H 3.5-7.2 Sep 29, 2024 07:39 AM [facility] CALCIUM Specimen Type: SERUM No comment entered. Ordering Provider: JOSIAH STRINGER Report Released Date/Time: Sep 28, 2024 01:51 PM Reporting Lab: [facility] [address] [address] Performing Lab: [facility] [address] [address] CALCIUM 9.1 mg/dL 8.5-10.2 Sep 29, 2024 07:39 AM [facility] HEMOGLOBIN A1C PANEL Specimen Type: BLOOD Comment: [...] Sep 28, 2024 01:51 PM Reporting Lab: [address] [address] Performing Lab: [facility] [address] [facility] [address] HEMOGLOBIN A1C 5.8 H 4.0-5.6 Sep 29, 2024 07:39 AM [facility] LIPID PANEL FASTING Specimen Type: SERUM No comment entered. Ordering Provider: JOISAH STRINGER Report Released Date/Time: Sep 28, 2024 01:51 PM Reporting Lab: [address] [address] Performing Lab: [address] [address] CHOLESTEROL 193 mg/dL TRIGLYCERIDE 109 mg/dL 0-150 LDL calculated 132 mg/dL H 0-129 CHOL/HDL 4.9 HDL CHOLESTEROL 39 mg/dL L 40-60 Sep 29, 2024 07:39 AM [facility] BASIC METABOLIC PANEL (fasting) Specime n Type: SERUM No comment entered. Ordering Provider: JOSIAH STRINGER Report Released Date/Time: Sep 28, 2024 01:51 PM Reporting Lab: [address] [address] Performing Lab: [address] [address] UREA NITROGEN 28 mg/dL H 7-25 GLUCOSE 94 mg/dL 65-100 SODIUM 138 mmol/L 135-145 POTASSIUM 4.4 mmol/L 3.5-5.0 CHLORIDE 100 mmol/L 100-110 CO2 30 meq/L 20-30 CREATININE, Serum 1.80 mg/dL H 0.50-1.40 eGFR(CKD-EPI 2020) 46 mL/min L >60 Sep 29, 2024 07:39 AM [facility] LIVER FUNCTION Specimen Type: SERUM No comment entered. Ordering Provider: JOSIAH STRINGER Report Released Date/Time: Sep 28, 2024 01:51 PM Reporting Lab: [address] [address] Performing Lab: [address] [address] PROTEIN,TOTAL 7.3 g/dL 6.0-8.3 ALBUMIN 4.4 g/dL 3.5-5.0 ALKALINE PHOSPHATASE 70 U/L 40-150 AST 16 U/L 5-34 ALT 32 U/L BILIRUBIN, TOTAL 0.6 mg/dL 0.2-1.2 Sep 29, 2024 07:39 AM [facility] CBC AND DIFF (AUTO) Specimen Type: BLOOD No comment entered. Ordering Provider: JOSIAH STRINGER Report Released Date/Time: Sep 28, 2024 01:51 PM Reporting Lab: [facility] [address] [facility] [address] Performing Lab: [facility] [address] [facility] [address] WBC 6.06 10*3/uL 4.50-11.00 RBC 4.78 10*6/uL [...] Height Weight Body Mass Index Source Oct 20, 2024 09:13 AM 97.8 72 132/74 19 99 226 37 [place] Social History: Smoking Status (Most current) [...] 04, 2022 03:00 PM VA-TOBACCO NEVER USED [facility] Tobacco Use History This section includes a history of the smoking, or tobacco-related health factors, that were collected on or before the date of the Encounter. The data comes from the [place] facility where the Encounter took place. Date/Time Smoking Status/Tobacco Use Comment F acility February 13, 2021 01:00 PM VA-TOBACCO FORMER USER [facility] February 13, 2021 01:00 PM [place]-TOBACCO QUIT 15 YRS OR MORE [facility] May 12, 2018 09:25 AM LIFETIME NON-TOBACCO USER Tried as a kid and hated [facility] Encounter Notes: All associated encounter notes This section contains the clinical notes associated to the Encounter. Date/Time Encounter Note(s) Provider Source Oct 20, 2024 09:00 AM PHYSICIAN NOTE: LOCAL TITLE: NOTE STANDARD TITLE: PHYSICIAN NOTE DATE OF NOTE: OCT 20, 2024@09:00 ENTRY DATE: OCT 19, 2024@16:05:42 AUTHOR: Emilia HARRIS EXP COSIGNER: URGENCY: STATUS: COMPLETED NOTE Has ADDENDA Pt is 49 y/o M with PMH of obesity, HTN, BRANDEN, prediabetes, migraines, GERD, LBP last visit 11/2023 Other providers: -- neurology [facility] last 02/2021 -- eye [facility] -- audiology [facility] -- respiratory [place] CPAP -- VA lost to f/u Since last visit: 08/2024 admitted at [facility] for severe headache, hypertensive crisis, COLD FLU SYMPTOMS VOMITING DIAHREA DIZZINESS SHORTNESS OF BREATH Date of admission: 09/24/24 Date of discharge: 09/26/24 per pt her had normal brain MRI Discharge DX: -Acute CHF: -Acute Hypertensive urgency -Chest pain -Headache plan: Continue Amlodipine 10 mg daily Increase Losartan to 50 mg two times a day Take Lasix 40 mg daily To follow with Cardiology as outpatient Increase exercise and avoid salty food, try losing weight treat sleep apnea Discontinued 1) sumatriptan succinate 100 mg Tablet 2) losartan 25 mg Tablet #obesity BMI 36 he hated MOVE program since discharged, fully complinat with LSM watching diet, avoids salt, cut down carbs, rice, pasta, bread lean protein weekly for protein beans, nuts a lot of vegetables dessert: fruit started regular exercise: cardio exercise for 40 minutes daily walking stair 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 he reports some DIAZ, no SOB at rest, no cough, no CP, palpitations, dizziness scheduled with cardiology for next week with this changes lost 10 lb in one month #headache sumatriptan dc/d due to HTN curretnly taking OTC excedrin h/a daily prn - 2-3x/week with good effect #hypertension: h/o noncompliance with meds, diet, exercise monitors BP at home daily am, last 2 days readings 124/65, 132/65 Currently taking as prescribed Amlodipine 10 mg daily Losartan 50 mg BID Lasix 40 mg daily denies h/o [place]/CVA #BRANDEN -untreated, patient unable to tolerate any mask on his face now has a new bed, able to elevate HOB, will try using CPAP from tonight in the past plan was to try MAD, referred to dental - but consult was dc/d PAST MEDICAL HISTORY: -- obesity -- HTN -- prediabetes -- BRANDEN moderate- 2020- home sleep test AHI 21 -- migraine # MRI brain 07/2021 No compelling imaging explanation for headaches. -- Chronic gastritis -- COVID 08/2022 -- vit D def -- LBP -- Pain in left knee -- Hallux valgus PAST SURGICAL HISTORY: -- R inguinal hernia repair ALLERGIES:NKDA MEDICATIONS: -AMLODIPINE 10 mg -LOSARTAN POTASSIUM 50MG BID -FUROSEMIDE 40MG TAB -OMEPRAZOLE 20MG CAP takes prn -CETIRIZINE HCL 10MG prn -ALBUTEROL 90MCG (CFC-F) 200D not used recently -TOPIRAMATE 25MG not taking -OTC excedrin h/a daily prn (2-3/x/week) -CHOLECALCIF 50MCG (D3-2,000UNIT) FAMILY HISTORY: --DM: father --Cancer: no --[place]: Maternal great grandfather of [place] in 70s, grandfather had valve replacement Maternal aunt hypertrophic cardiomyopathy and valve disease --CVA:no SOCIAL HISTORY: --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 --Cohabitation: lives with his --Children: 1 stepdaughter --Diet:no salt/butter, lean meat, chicken/fish, avoiding carbs rice/pasta/bread , no soda --Exercise: daily cardio exercise since 09/2024 , 40min 5x/week (-) --Caffeine: ice tea - no sugar --EtOH: 2-3x/year --Tob:quit 1996 after one year of smoking --MJ: tried gummies to help h/a - did not work --Illicits: no --Sexual activity: monogamous, female --Eye: UTD - -reported low risk for glaucoma-Eye exam scheduled for tomorrow --Dental: overdue --Hospitalizations: #Acute CHF and Hypertensive Urgency 08/2024 ROS: Constitutional: no fever/no chills, no ns Eyes: no decreased vision/blurry vision Ears/Nose/Throat:tinnitus Respiratory: cough resolved/wheezing/SOB Cardiovascular: no CP /palpitations/ le edema Gastrointestinal: no abdominal pain/bloody/black stools :no dysuria/hematuria/trouble voiding MSK: no joint pain/myalgia Neuro: no dizziness/H/A + Skin: no pruritus/rash PHYSICAL EXAM: Blood Pressure: 132/74 (10/20/2024 09:13) 179/101 (12/16/2023 15:03) 142/86 (12/05/2022 10:46)--> run out of ARBs 146/80 (02/13/2021 12:45) Pulse: 72 (10/20/2024 09:13) Respiration: 19 (10/20/2024 09:13) Temperature: 97.8 F [36.6 C] (10/20/2024 09:13) Patient Weight: BMI 36 226 lb [102.51 kg] (10/20/2024 09:13) 237.6 lb [107.77 kg] (12/16/2023 15:03) 234 lb [106.4 kg] (02/13/2021 12:45) 224.4 lb [101.79 kg] (12/05/2022 10:49) GA: pleasant,NAD Chest/CV: RRR Lungs: CTA B/L Abdomen: BS+, Soft, NT/ND Extremities: wwp, no edema Neuro: nonfocal, grossly normal motor and sensory LABORATORY:08/2024 WBC: 6.06 HGB: 13.4 HCT: 39.9 MCV: 83.5 PLT: 264 TSH (Access): 1.16 HGB A1C (WR): 5.8 H SERUM Sep 29 Dec 17 Dec 17 Mar 28 Reference 2023 2023 2023 2022 BUN 28 H 18 18 mg/dL 7 - 25 CREATININE 1.80 H 1.46 H 1.50 H mg/dL .5 - 1.4 Sodium 138 140 140 mmol/L 135 - 145 K+/Pot 4.4 4.4 3.7 mmol/L 3.5 - 5 CL 100 103 103 mmol/L 100 - 110 CO2 30 28 26 mEq/L 20 - 30 CALCIUM: 9.1 URIC ACID: 8.2 H --> PROTEIN,TOTAL: 7.3 ALBUMIN: 4.4 ALKALINE PHOSPHATASE: 70 BILIRUBIN,TOT.: 0.6 SGOT: 16 SGPT: 32 SERUM Sep 29 Nov 07 Apr 18 Mar 20 Reference 2023 2022 2021 2020 CHOL 193 158 155 170 mg/dL <7 - 199 TRIG 109 78 167 H 99 mg/dL 0 - 150 HDL 39 L 44 45 32 L mg/dL 40 - 60 LDL 132 H 98 77 118 mg/dL 0 - 129 CHO/HDL 4.9 3.6 3.4 5.3 #03/2023 LDCT normal #PFT 07/2023: FEV1 2.14 [...] significant paranasal sinus disease. ASSESSMENT/PLAN: Pt is 49 y/o M with PMH of obesity, HTN, BRANDEN, prediabetes, migraines, GERD, LBP, depression #HTN: Well-controlled on current regimen #HL: LDL 132 (08/2024) -c/w amlodipine 10mg -c/w losartan 50mg BID -c/w lasix 40mg -Continue with weight loss efforts, -watch salt intake #Acute CHF and Hypertensive Urgency 08/2024 -Scheduled with cardiology next week #CKD3: Worsening renal function -recheck renal function, per pt h/o renal cysts? -obtain renal US -monitor, avoid nephrotoxic agent, discussed with patient importance of blood pressure control, ACR 30 (on ARBs) #prediabetes A1c 5.8 #obesity: BMI 36.5 -failed MOVE, declined referral to cook restaurant -diet/portion control disscussed -c/w daily exercise #moderate BRANDEN HPI 21 with positional worsening, diagnosed on HST in 2019, intolerant of PAP symptomatic with habitual snoring and frequent nocturnal awakenings and has comorbid HTN - will try CPAP again, if intolerant sleep dental referral for oral appliance therapy - Encouraged weight loss efforts - may consider a trial of prazosin qhs for nightmares, starting with 2mg, can titrate up to 15mg as needed #Asthma chronic cough resolved--> reports some DIAZ --> not taking ICS/LABA 07/2023 PFT c/w asthma. 2022 CT chest was normal. try using alb prior to exercise #GERD: sx well controlled on PPI prn #Migraines, unremarkable brain MRI ,not taking topiramate -Controll hypertension, -treat BRANDEN -vit D, TSH wnl -adequate hydration, sleep -avoid triptans due to HTN -excedrin h/a prn (not to exceed 2-3 x/week, reviewed risk of medication overuse h/a) #depression h/o SI/SA -doing well now, denies SI declined to reestablish with MH at this time #Vitamin D deficiency -c/w vitamin D 50 mcg Healthcare maintenance: --Lipids: LDL 132 (08/2024) --Diabetes: A1c 5.8 (08/2024) --Colon CA (45-75): due 07/2031 normal EGD, normal colonoscopy (IH+) next 10years --Lung CA: n/a --PSA PSA 0.77 (2022) --AAA (smoker/65): --Influenza (yrly): 2024 --COVID-19 (PFIZER) 2020 x2 --PCV13 --PCV23: --RZV (>50yrs, x2): --TDAP: 2018 --Hep A/B: x2 --Hep C screen: 2017 negative --HIV screen: --DEXA: --Advanced Directives: Address at next visit: HTN, obesity, BRANDEN, HM , CKD3 Return to clinic to see me in 6 months, sooner PRN. Virtual ( ), F2F ( x ) ( x)non fasting labs order routine -Please obtain medical records from last hospitalization at [facility] DecOn the date of the encounter, I spent 60 minutes on some or all of the following: Chart reviewed, history, physical examination, treatment planning, education and counseling of the patient/family/caregiver, placing orders, communicating with other healthcare providers, and documentation in the electronic health record.ember 2024 including echo report thank you BMI>30/>24.99 High Risk: At this visit, the health risks of obesity were reviewed and discussed with the [place], and the benefits of a weight management treatment program, such as MOVE! was discussed and offered to the . After discussing the health risks of being overweight or obese and providing information about available weight management treatment, and offering a referral to MOVE or another weight management treatment program outside the [facility], the patient DECLINES REFERRAL to MOVE or any other weight management treatment program at this time. Medication Reconciliation: Outpatient: Has the patient been taking medications as documented in the EMLR? No: Discrepencies were identified. See below. Essential Medication List for Review used to complete this medication reconciliation. INCLUDED IN THIS LIST: Alphabetical list of active outpatient prescriptions dispensed from this VA (local) and dispensed from another [place] or DoD facility (remote) as well as inpatient orders (local, pending and active), local clinic medications, locally documented non-VA medications, and local prescriptions that have or been discontinued in the past 90 days. - Discrepancies were identified, addressed, and discussed with the patient/caregiver at this encounter. Discrepancies: chart updated - All changes in medications, including all non-VA/Herbal/OTC medications were entered into CPRS. - If there were any medications the patient should no longer take, they were discontinued. - The patient/caregiver was instructed to update this list, discard old lists, and take this list to the next appointment, whether with a VA or non-VA provider. /emmy/ JOSIAH HARRIS MD PHYSICIAN Signed: 10/20/2024 20:59 Receipt Acknowledged By: 10/21/2024 13:31 /emmy/ MATEUS CHACKO for ABDI PINEDA 10/21/2024 ADDENDUM STATUS: COMPLETED ED note requested from [facility]. /emmy/ MATEUS CHACKO Signed: 10/21/2024 13:19 10/25/2024 ADDENDUM STATUS: COMPLETED [facility] Discharge summary from 09/24/25 received and sent to trey /emmy/ Ting Pederson RN Registered Nurse (RN) Signed: 10/25/2024 13:14 PATRIZIA HARRIS [facility] Oct 15, 2024 09:46 AM ADMINISTRATIVE NOT E: LOCAL TITLE: ADMINISTRATIVE NOTE STANDARD TITLE: ADMINISTRATIVE NOTE DATE OF NOTE: OCT 15, 2024@09:46 ENTRY DATE: OCT 15, 2024@09:46:15 AUTHOR: ABDI PINEDA EXP COSIGNER: URGENCY: STATUS: COMPLETED [facility] [address] [place] [phone] * DORIAN TREJO [address] [place] [id number] Date: OCT 15, 2024 re: This is a reminder of your upcoming PCP appt with JOSIAH HARRIS. Appointment Date: Sep@09:00 Appointment Type: In-person visit Fasting blood work NON fasting blood work CONFIRMED WTH THE Sincerely, Office Staff for: JOSIAH HARRIS Primary Care Provider [facility] [address] [place] [id number] T [phone] F [phone] Upcoming Appointments: 10/20/2024 09:00 CWM/SO/PACT 5 01/05/2025 15:00 NHM/OPTOMETRY/EVELYN APPOINTMENT ABBREVIATION RAMOS (SPOPC OR SO = [place], [address] [facility]) (GOPC OR GO = [place], [address] [facility]) (NHM or NO = [facility]) (VVC - Video Call) (Tel-X Telephone Visit) (TH - Telehealth) /emmy/ ABDI CHACKO Signed: 10/15/2024 09:47 ABDI PINEDA
--- OUTSIDE RECORDS SUMMARY | 2024-11-02 17:25 | XMS_ITS | Encounter Summary ---
Author Name [facility] ([place]) Organization [facility] ([place]) Address [address] [place] [address] Care Team Providers Care Graphite Grinder Name Role Phone JOSIAH HARRIS Primary Care [...] [place] ION [id number] Sep 30, 2020 [id number] DORIAN TREJO PATIENT [facility] GOLD ADV O Sep 30, 2020 [id number] [phone] NEIL DORIAN PATIENT Selected Encounter This section includes the information on record at [place] for the Encounter. Date/Time Encounter Type Encounter Description Reason Pro vider Source May 20, 2024 09:00 AM Outpatient Encounter PRIMARY CARE/MEDICINE IHE Encounter Template Text not used by [place] Plan of Treatment: Future Appointments (+ 6 [...] 20 appointments. The data comes from all [place] treatment facilities. Appointment Date/Time Appointment Type Appointme nt Facility Name Sep 24, 2024 10:15 AM AMBULATORY - MEDICINE [facility] Oct 20, 2024 09:00 AM AMBULATORY - MEDICINE [facility] Oct 26, 2024 09:00 AM AMBULATORY - MEDICINE [facility] Nov 02, 2024 09:15 AM AMBULATORY - MEDICINE [facility] Nov 10, 2024 12:30 PM AMBULATORY - NONE [place] [facility] Social History: Smoking Status (Most current) and Tobacco Use (All prior to encounter date) This section includes the most current, and the historical, smoking and tobacco- related health factors from the [place] facility where the Encounter took place. Current Smoking Status This section includes the most current smoking, or tobacco-related health factor, from the [place] facility where the Encounter took place. Date/Time Current Smoking Status Comment Clyde velazquez Oct 04, 2022 03:00 PM VA-TOBACCO NEVER USED [facility] Tobacco Use History This section includes a history of the smoking, or tobacco-related health factors, that were collected on or before the date of the Encounter. The data comes from the [place] facility where the Encounter took place. Date/Time Smoking Status/Tobacco Use Comment F acility February 13, 2021 01:00 PM VA-TOBACCO FORMER USER [facility] February 13, 2021 01:00 PM VA-TOBACCO QUIT 15 YRS OR MORE [facility] May 12, 2018 09:25 AM LIFETIME NON-TOBACCO USER Tried as a kid and hated [facility]
--- OUTSIDE RECORDS SUMMARY | 2024-11-02 17:26 | XMS_ITS | Encounter Summary ---
Author Name [facility] [place] [facility] [place] [facility] [place] Address [address] [place] [address] Care Team Providers Care Expanded Function Dental Assistant Name Role Phone JOSIAH HARRIS Primary [...] PRESCRIPT ION [id number] Sep 30, 2020 [id number] DORIAN TREJO PATIENT [facility] [place] JOON PHAN ADV O Sep 30, 2020 [id number] NEIL DORIAN PATIENT Selected Encounter This section includes the information on record at [place] for the Encounter. Date/Time Encounter Type Encounter Description Reason Pro vider Source Oct 07, 2024 10:32 AM Outpatient Encounter PRIMARY CARE/MEDICINE IHE Encounter [...] 20 appointments. The data comes from all [facility]. Appointment Date/Time Appointment Type Appointme nt Facility Name Oct 20, 2024 09:00 AM [facility]ATORY [facility] Oct 26, 2024 09:00 AM AMBULATORY - MEDICINE [facility] Nov 02, 2024 09:15 AM [facility]ORY [facility]ICINE [facility] Nov 10, 2024 12:30 PM AMBULATORY - NONE [place] Dec 02, 2024 03:00 PM AMBULATORY - NONE [place] [facility] [place] [facility] Jan 05, 2025 03:00 PM AMBULATORY - MEDICINE [place] [facility] [place] [facility] February 15, 2025 03:30 PM [facility] [...] of theEncounter. The data comes from all [facility]. Test Date/Time Test Type Test Details Facility Name Oct 20, 2024 12:00 AM Laboratory - Chemi stry Order BASIC METABOLIC PANEL (non-fasting) BLOOD (SST-SERUM) [facility] Oct 20, 2024 12:00 AM Laboratory - Chemi stry Order URINALYSIS URINE [facility] Oct 20, 2024 12:00 AM Laboratory - Chemi stry Order MICROALBUMIN CREATININE RATIO PANEL URINE (RANDOM) [facility] Oct 26, 2024 09:40 AM Procedure Order ECHO CP CA RDIOLOGY ECHO/ [facility] Proc Rn [facility]te [facility] Nov 10, 2024 12:00 AM Imaging - CT Scan Order CALCIUM SCORE 1 [place] Lab Results: +/- 30 days of the encounter This section includes the Chemistry and Hematology Lab Results on record with [place] for the patient. Radiology Reports and Pathology [...] Oct 26, 2024 09:45 AM Reporting Lab: [address] [address] Performing Lab: [address] [address] CREATININE,SER UM 1.48 mg/dL 0.5-1.5 UREA NITROGEN, BLOOD 22 mg/dL 7-25 GLUCOSE,RANDOM 91 mg/dL 65-100 SODIUM 141 mmol/L 135-145 POTASSIUM 4.2 mmol/L 3.5-5.0 CHLORIDE 104 mmol/L 100-110 CO2 26 meq/L 20-30 ANION GAP 11 meq/L 6-16 eGFR(CKD-EPI 2020) 58 mL/min L >=60 Sep 29, 2024 07:39 AM [facility] TSH Specimen Type: SERUM No comment entered. Ordering Provider: JOSIAH STRINGER Report Released Date/Time: Sep 28, 2024 01:51 PM Reporting Lab: [facility] [address] [address] Performing Lab: [facility] [address] [address] TSH 1.16 u[IU]/mL 0.35-5.00 Sep 29, 2024 07:39 AM [facility] URIC ACID Specimen Type: SERUM No comment entered. Ordering Provider: JOSIAH STRINGER Report Released Date/Time: Sep 28, 2024 01:51 PM Reporting Lab: [facility] [address] [address] Performing Lab: [facility] [address] URIC ACID 8.2 mg/dL H 3.5-7.2 Sep 29, 2024 07:39 AM [facility] CALCIUM Specimen Type: SERUM No comment entered. Ordering Provider: JOSIAH STRINGER Report Released Date/Time: Sep 28, 2024 01:51 PM Reporting Lab: [address] [address] Performing Lab: [facility] [address] [place] [address] CALCIUM 9.1 mg/dL 8.5-10.2 Sep 29, 2024 07:39 AM [facility] LIPID PANEL FASTING Specimen Type: SERUM No comment entered. Ordering Provider: JOSIAH STRINGER Report Released Date/Time: Sep 28, 2024 01:51 PM Reporting Lab: [address] [address] Performing Lab: [address] [address] CHOLESTEROL 193 mg/dL TRIGLYCERIDE 109 mg/dL 0-150 LDL calculated 132 mg/dL H 0-129 CHOL/HDL 4.9 HDL CHOLESTEROL 39 mg/dL L 40-60 Sep 29, 2024 07:39 AM [facility] HEMOGLOBIN A1C PANEL Specimen Type: BLOOD Comment: [...] Sep 28, 2024 01:51 PM Reporting Lab: [address] [address] Performing Lab: [address] [address] HEMOGLOBIN A1C 5.8 H 4.0-5.6 Sep 29, 2024 07:39 AM [facility] BASIC METABOLIC PANEL (fasting) Specime n Type: SERUM No comment entered. Ordering Provider: JOSIAH STRINGER Report Released Date/Time: Sep 28, 2024 01:51 PM Reporting Lab: [address] [address] Performing Lab: [address] [address] UREA NITROGEN 28 mg/dL H 7-25 GLUCOSE 94 mg/dL 65-100 SODIUM 138 mmol/L 135-145 POTASSIUM 4.4 mmol/L 3.5-5.0 CHLORIDE 100 mmol/L 100-110 CO2 30 meq/L 20-30 CREATININE, Serum 1.80 mg/dL H 0.50-1.40 eGFR(CKD-EPI 2020) 46 mL/min L >60 Sep 29, 2024 07:39 AM [facility] LIVER FUNCTION Specimen Type: SERUM No comment entered. Ordering Provider: JOSIAH STRINGER Report Released Date/Time: Sep 28, 2024 01:51 PM Reporting Lab: [address] [address] Performing Lab: [address] [address] PROTEIN,TOTAL 7.3 g/dL 6.0-8.3 ALBUMIN 4.4 g/dL 3.5-5.0 ALKALINE PHOSPHATASE 70 U/L 40-150 AST 16 U/L 5-34 ALT 32 U/L BILIRUBIN, TOTAL 0.6 mg/dL 0.2-1.2 Sep 29, 2024 07:39 AM [facility] CBC AND DIFF (AUTO) Specimen Type: BLOOD No comment entered. Ordering Provider: JOSIAH STRINGER Report Released Date/Time: Sep 28, 2024 01:51 PM Reporting Lab: [address] [address] Performing Lab: [address] [address] WBC 6.06 10*3/uL 4.50-11.00 RBC 4.78 10*6/uL [...] and tobacco- related health factors from the [place] facility where the Encounter took place. Current Smoking Status This section includes the most current smoking, or tobacco-related health factor, from the [place] facility where the Encounter took place. Date/Time Current Smoking Status Comment Clyde velazquez Dec 16, 2023 03:00 PM VA-TOBACCO NEVER USED [facility] Tobacco Use History This section includes a history of the smoking, or tobacco-related health factors, that were collected on or before the date of the Encounter. The data comes from the [place] facility where the Encounter took place. Date/Time Smoking Status/Tobacco Use Comment Miranda balderrama Jan 14, 2017 08:35 AM LIFETIME NON-TOBACCO USER [facility] Encounter Notes: All associated encounter notes This section contains the clinical notes associated to the Encounter. Date/Time Encounter Note(s) Provider Source Oct 07, 2024 10:32 AM LETTERS: LOCAL TITLE: PATIENT LETTER (T) STANDARD TITLE: LETTERS DATE OF NOTE: OCT 07, 2024@10:32 ENTRY DATE: OCT 07, 2024@10:32:45 AUTHOR: ABDI PINEDA EXP COSIGNER: URGENCY: STATUS: COMPLETED DEPARTMENT OF [facility] Toll Free Number Primary Care Telephone Assistance can be reached at extension [phone] [facility] scheduling can be reached at extension [phone] [facility] scheduling can be reached at ext [phone] DORIAN Abiel NEIL Luis M [place], [place], [address] Date: 10/07/2024 Dear [place]: NEIL Thank you for choosing [facility] as your primary choice for health care. As a partner in your health care, we are attempting to contact you because we have been unsuccessful in reaching you by phone. WE ARE ATTEMPTING TO REACH YOU TO SCHEDULE A HOSPITAL FOLLOW UP WITH YOUR PRIMARY CARE PROVIDER. 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 Please call us at [phone] to speak with a staff member who can assist you with SCHEDULING your appointment. Thank you for your service and we look forward to hearing from you soon. Sincerely; [facility] staff Primary Care Provider : JOSIAH FINCH M.D. [address] [place] [address] [phone] Sincerely, Your Primary Care Team [facility] [address] [address] [place] [address] [phone] [facility] [address] [place] [address] [place] [address] [phone] [facility] [address] [facility],[address]st [address] [place] [address] [place] [address] ABDI PINEDA [place]
--- OUTSIDE RECORDS SUMMARY | 2024-11-02 17:26 | XMS_ITS | Encounter Summary ---
Author Name [facility] [place] Address [address] [place] [address] Care Team Providers Care Drug Discovery Informatics Specialist Name Role Phone JOSIAH HARRIS Primary [...] PRESCRIPT ION [id number] Sep 30, 2020 [id number] DORIAN TREJO PATIENT [facility] JOON PHAN ADV O Sep 30, 2020 [id number] NEIL DORIAN PATIENT Selected Encounter This section includes the information on record at [place] for the Encounter. Date/Time Encounter Type Encounter Description Reason Pro vider Source Nov 02, 2024 09:18 AM Outpatient Encounter PRIMARY CARE/MEDICINE IHE Encounter Template Text not used by [place] Plan of Treatment: Future Appointments (+ 6 [...] 20 appointments. The data comes from all [facility]. Appointment Date/Time Appointment Type Appointme nt Facility Name Nov 10, 2024 12:30 PM AMBULATORY - NONE [place] Dec 02, 2024 03:00 PM AMBULATORY - NONE [place] [facility] Jan 05, 2025 03:00 PM AMBULATORY - MEDICINE [place] C [facility] February 15, 2025 03:30 PM AMBULATORY - MEDICINE [facility] Active, Pending, and Scheduled Orders This section includes a listing of several types of active, pending, and scheduled orders, including clinic medications orders, diagnostic test orders, procedure orders and consult orders; where the start date of the order is 45 days before the date of the Encounter or 45 days after the date of theEncounter. The data comes from all [facility]. Test Date/Time Test Type Test Details Facility Name Oct 20, 2024 12:00 AM Laboratory - Chemi stry Order BASIC METABOLIC PANEL (non-fasting) BLOOD (SST-SERUM) [facility] Oct 20, 2024 12:00 AM Laboratory - Chemi stry Order URINALYSIS URINE [facility] Oct 20, 2024 12:00 AM Laboratory - Chemi stry Order MICROALBUMIN CREATININE RATIO PANEL URINE (RANDOM) [facility] Oct 26, 2024 09:40 AM Procedure Order ECHO CP CA RDIOLOGY ECHO/ [facility] Proc [facility]et [facility] Nov 10, 2024 12:00 AM Imaging - CT Scan Order CALCIUM SCORE 1 [place] Dec 02, 2024 12:00 AM Imaging - Ultrasou nd Order ULTRASOUND [place] Lab Results: +/- 30 days of the encounter This section includes the Chemistry and Hematology Lab Results on record with [place] for the patient. Radiology Reports and Pathology [...] Oct 26, 2024 09:45 AM Reporting Lab: [address] [address] Performing Lab: [address] [address] CREATININE,SE RUM 1.48 mg/dL 0.5-1.5 UREA NITROGEN, BLOOD 22 mg/dL 7-25 GLUCOSE,RANDO M 91 mg/dL 65-100 SODIUM 141 mmol/L 135-145 POTASSIUM 4.2 mmol/L 3.5-5.0 CHLORIDE 104 mmol/L 100-110 CO2 26 meq/L 20-30 ANION GAP 11 meq/L 6-16 eGFR(CKD-EPI 2020) 58 mL/min L >=60 Social History: Smoking Status (Most current) and Tobacco Use (All prior to encounter date) This section includes the most current, and the historical, smoking and tobacco- related health factors from the [place] facility where the Encounter took place. Current Smoking Status This section includes the most current smoking, or tobacco-related health factor, from the [place] facility where the Encounter took place. Date/Time Current Smoking Status Comment Clyde velazquez Dec 16, 2023 03:00 PM VA-TOBACCO NEVER USED [facility] Tobacco Use History This section includes a history of the smoking, or tobacco-related health factors, that were collected on or before the date of the Encounter. The data comes from the [place] facility where the Encounter took place. Date/Time Smoking Status/Tobacco Use Comment F conchis Jan 14, 2017 08:35 AM LIFETIME NON-TOBACCO USER [facility] Encounter Notes: All associated encounter notes This section contains the clinical notes associated to the Encounter. Date/Time Encounter Note(s) Provider Source Nov 02, 2024 09:18 AM PRIMARY CARE NOTE: LOCAL TITLE: WALK-IN NOTE PRIMARY CARE (T) STANDARD TITLE: PRIMARY CARE NOTE DATE OF NOTE: NOV 02, 2024@09:18 ENTRY DATE: NOV 02, 2024@09:18:29 AUTHOR: LUCRECIA SAHNI EXP COSIGNER: URGENCY: STATUS: COMPLETED <====Click to Start Advanced Medical Support [place] presents to the Primary Care clinic with the following request: [ ]Medication Renewal/Refill [ ]Consultation with Team RN [ X ]Symptoms [ ]Other The states they are: [ X ]Waiting [ ]Not Waiting Yes Walk in visit scheduled with PACT Nurse [ X ] At this encounter the [place]'s demographics were verified. [ X ] At this encounter the [place]'s Insurance information was verified. [ X ] At this encounter the below scheduled visits for the were discussed and appointment reminder card was offered. Future appointments: 12/02/2024 15:00 CWM/NO/ULTRASOUND 01/05/2025 15:00 [facility] OPTOMETRY 2 PM 02/15/2025 15:30 CWM/SO/PACT 5 is here experiencing dizziness, vomitting and has a migraine since early this morning. /emmy/ LUCRECIA SAHNI ADVANCED VENTILATING EXPERT Signed: 11/02/2024 09:19 Receipt Acknowledged By: 11/02/2024 13:49 /es/ ROSALIO STRINGER RN REGISTERED NURSE 11/02/2024 10:07 /emmy/ HONORIO CARPENTER RN PRIMARY CARE LUCRECIA SLAUGHTER [facility]
--- OUTSIDE RECORDS SUMMARY | 2024-11-02 17:26 | XMS_ITS ---
Author Name [facility] [place] [facility] [place] [facility] [place] Address [address] [place] [address] Care Team Providers Care Computer Bookkeeper Name Role Phone JOSIAH HARRIS Primary Care [...] PRESCRIPT ION [id number] Sep 30, 2020 [id number] DORIAN TREJO PATIENT [facility] CE SHIRA PHAN ADV HMO Sep 30, 2020 [id number] [phone] DORIAN TREJO PATIENT Selected Encounter This section includes the information on record at [place] for the Encounter. Date/Time Encounter Type Encounter [...] optic nerve, NEC, bilateral JUAN JOSE RIVAS [place] [facility] [facility] [facility] Dec 18, 2023 10:43 AM SECONDARY Degenerative myopia, bilateral JUA NJOSE RIVAS [place] [facility] [place] [facility] Dec 18, 2023 10:43 AM SECONDARY Presbyopia [facility] Plan of Treatment: Future Appointments (+ 6 months) and Future Tests (+/- 45 days) The Plan of Treatment section includes future care activities for the patient from all [place] [facility]. This section includes future appointments and future orders which are active, pending or scheduled. Future Appointments This section includes appointments that were scheduled to occur 6 months from the date of the Encounter, up to a maximum of 20 appointments. The data comes from all [place] treatment facilities. Appointment Date/Time Appointment Type Appointme nt Facility Name Dec 20, 2023 11:00 AM AMBULATORY - [facility]ICINE [facility] Dec 27, 2023 03:30 PM [facility] Mar 24, 2024 03:30 PM [facility] Apr 13, 2024 02:30 PM [facility] May 20, 2024 09:00 AM AMBULATORY - MEDICINE [facility] Lab Results: +/- 30 days of the encounter This section includes the Chemistry and Hematology Lab Results on record with [place] for the patient. Radiology Reports and Pathology Reports are provided separately, in subsequent sections. Lab Results This section contains the Chemistry/Hematology Results that were resulted 30 days before or 30 daysafter the date of the Encounter. Date/Time Source Result Type Result - Unit Interpretation Reference Range Comment Dec 19, 2023 10:53 AM [facility] MICROALBUMIN CREATININE RATIO PANEL Spe cimen Type: URINE No comment entered. Ordering Provider: JOSIAH STRINGER Report Released Date/Time: Dec 04, 2023 08:30 AM Reporting Lab: [address] [address] Performing Lab: [address] [address] MICROALBUMIN/C REATININE RATIO 30.3 mg/g H 0-29.9 MICROALBUMIN,Q UANTITATIVE 3.3 mg/dL RR UNAVAIL CREATININE URINE 108.79 mg/dL Dec 18, 2023 10:05 AM [facility] HEMOGLOBIN A1C PANEL Specimen Type: BLOOD Comment: [...] Dec 04, 2023 08:30 AM Reporting Lab: [address] [address] Performing Lab: [address] [address] HEMOGLOBIN A1C 5.7 H 4.0-5.6 Dec 18, 2023 10:05 AM [facility] LIVER FUNCTION Specimen Type: SERUM No comment entered. Ordering Provider: JOSIAH STRINGER Report Released Date/Time: Dec 04, 2023 08:30 AM Reporting Lab: [address] [address] Performing Lab: [address] [address] PROTEIN,TOTAL 7.2 g/dL 6.0-8.3 ALBUMIN 4.5 g/dL 3.5-5.0 ALKALINE PHOSPHATASE 66 U/L 40-150 AST 20 U/L 5-34 ALT 40 U/L BILIRUBIN, TOTAL 0.5 mg/dL 0.2-1.2 Dec 18, 2023 10:05 AM [facility] TSH Specimen Type: SERUM No comment entered. Ordering Provider: JOSIAH STRINGER Report Released Date/Time: Dec 04, 2023 08:30 AM Reporting Lab: [address] [address] Performing Lab: [address] [address] TSH 2.20 u[IU]/mL 0.35-5.00 Dec 18, 2023 10:05 AM [facility] BASIC METABOLIC PANEL (non-fasting) Spe cimen Type: SERUM No comment entered. Ordering Provider: JOSIAH STRINGER Report Released Date/Time: Dec 04, 2023 08:32 AM Reporting Lab: [address] [address] Performing Lab: [place] [address] UREA NITROGEN 18 mg/dL 7-25 GLUCOSE 95 mg/dL 65-100 SODIUM 140 mmol/L 135-145 POTASSIUM 4.4 mmol/L 3.5-5.0 CHLORIDE 103 mmol/L 100-110 CO2 28 meq/L 20-30 CREATININE, Serum 1.46 mg/dL H 0.50-1.40 eGFR(CKD-EPI 2020) 59 mL/min L >60 Dec 18, 2023 10:05 AM [facility] CBC AND DIFF (AUTO) Specimen Type: BLOOD No comment entered. Ordering Provider: JOSIAH STRINGER Report Released Date/Time: Dec 04, 2023 08:30 AM Reporting Lab: [address] [address] Performing Lab: [address] WBC 5.70 10*3/uL 4.50-11.00 RBC 4.57 10*6/uL 4.23-5.66 HGB 13.6 g/dL 12.8-17 HCT 39.0 L 39.2-50.4 MCV 85.3 fL 82-99 MCHC 34.9 g/dL 30.8-35.1 PLT 250 10*3/uL 140-360 RDW-CV 12.4 12.0-16.0 [place], Abs 0.34 10*3/uL 0.30-1.10 MCH 29.8 pg 26.2-32.6 Neut % 47.7 43.7-75.8 Lymph % 42.8 H 14.0-42.3 [place] % 6.0 5.1-13.7 Eos % 2.8 0.4-6.8 Baso % 0.5 0.1-2.0 Neut, Abs 2.72 10*3/uL 2.20-7.60 Lymph, Abs 2.44 10*3/uL 1.00-3.20 Eos, Abs 0.16 10*3/uL 0.03-0.44 Baso, Abs 0.03 10*3/uL 0.01-0.13 Immature Gran % 0.2 0.0-0.7 Immature Gran, Abs 0.01 10*3/uL 0.00-0.06 Dec 18, 2023 10:05 AM [facility] VITAMIN D (25-OH) Specimen Type: SERUM No comment entered. Ordering Provider: JOSIAH STRINGER Report Released Date/Time: Dec 16, 2023 03:57 PM Reporting Lab: [address] [address] Performing Lab: [address] [address] VITAMIN D (25-OH) 24 ng/mL 20-50 Dec 18, 2023 10:05 AM [facility] CALCIUM Specimen Type: SERUM No comment entered. Ordering Provider: JOSIAH STRINGER Report Released Date/Time: Dec 16, 2023 03:57 PM Reporting Lab: [address] [address] Performing Lab: [address] [address] CALCIUM 8.9 mg/dL 8.5-10.2 Social History: Smoking Status (Most current) and Tobacco Use (All prior to encounter date) This section includes the most current, and the historical, smoking and tobacco- related health factors from the [place] facility where the Encounter took place. Current Smoking Status This section includes the most current smoking, or tobacco-related health factor, from the [place] facility where the Encounter took place. Date/Time Current Smoking Status Comment Clyde velazquez Dec 16, 2023 03:00 PM VA-TOBACCO NEVER USED [facility] Tobacco Use History This section includes a history of the smoking, or tobacco-related health factors, that were collected on or before the date of the Encounter. The data comes from the [place] facility where the Encounter took place. Date/Time Smoking Status/Tobacco Use Comment Miranda balderrama Jan 14, 2017 08:35 AM LIFETIME NON-TOBACCO USER [place] [facility] [facility] [place] [facility] Encounter Notes: All associated encounter notes [...] source for the followin. Vitamin D Deficiency ([facility] [id number]) 2. Asthma ([facility] [id number]) 3. Chronic migraine without aura 4. Obstructive [...] Signed: 12/18/2023 10:46 MARILEE PELAEZ [facility]TRL [facility]
--- OUTSIDE RECORDS SUMMARY | 2024-11-02 17:26 | XMS_ITS | Encounter Summary ---
Author Name [facility] Organization [facility] Address [address] [place] [address] Care Team Providers Care Speed Reading Teacher Name Role Phone JOSIAH HARRIS Primary Care [...] [place] ION [id number] Sep 30, 2020 [id number] DORIAN TREJO PATIENT [facility] CE ORGANTRES GOLD ADV O Sep 30, 2020 [id number] NEIL DORIAN PATIENT Selected Encounter This section includes the information on record at [place] for the Encounter. Date/Time Encounter Type Encounter Description Reason Pro vider Source Mar 24, 2024 03:30 PM Outpatient Encounter PRIMARY CARE/MEDICINE IHE Encounter Template Text not used by [place] Plan of Treatment: Future Appointments (+ 6 [...] 20 appointments. The data comes from all [place] treatment facilities. Appointment Date/Time Appointment Type Appointme nt Facility Name Apr 13, 2024 02:30 PM AM[facility]UL[facility] May 20, 2024 09:00 AM AMBULATORY - MEDICINE [facility] Social History: Smoking Status (Most current) and Tobacco Use (All prior to encounter date) This section includes the most current, and the historical, smoking and tobacco- related health factors from the [place] facility where the Encounter took place. Current Smoking Status This section includes the most current smoking, or tobacco-related health factor, from the [place] facility where the Encounter took place. Date/Time Current Smoking Status Comment Facil [facility] Oct 04, 2022 03:00 PM VA-TOBACCO NEVER USED [place] Tobacco Use History This section includes a history of the smoking, or tobacco-related health factors, that were collected on or before the date of the Encounter. The data comes from the [place] facility where the Encounter took place. Date/Time Smoking Status/Tobacco Use Comment F acility February 13, 2021 01:00 PM VA-TOBACCO FORMER USER [place] February 13, 2021 01:00 PM VA-TOBACCO QUIT 15 YRS OR MORE [place] May 12, 2018 09:25 AM LIFETIME NON-TOBACCO USER Tried as a kid and hated [place] Encounter Notes: All associated encounter notes This section contains the clinical notes associated to the Encounter. Date/Time Encounter Note(s) Provider Source Mar 24, 2024 04:12 PM ADMINISTRATIVE NOT E: LOCAL TITLE: ADMINISTRATIVE NOTE STANDARD TITLE: ADMINISTRATIVE NOTE DATE OF NOTE: MAR 24, 2024@16:12 ENTRY DATE: MAR 24, 2024@16:12:34 AUTHOR: LEORA WILLS EXP COSIGNER: URGENCY: STATUS: COMPLETED ADMINISTRATIVE NOTE Has ADDENDA Patient was a no show for scheduled appointment today. CHANDRAA please reach out to reschedule. /reginald WILLS LPN LPN Signed: 03/24/2024 16:13 Receipt Acknowledged By: 03/25/2024 07:26 /reginald CHACKO 03/25/2024 ADDENDUM STATUS: COMPLETED Vending Machine Coin Collector sent no show letter to . /reginald CHACKO Signed: 03/25/2024 07:27 LEORA WILLS
--- OUTSIDE RECORDS SUMMARY | 2024-11-02 17:26 | XMS_ITS | Clinical Summary ---
Author Organization [facility] Address [address] [place] [address] Care Team Providers Care Net Wpf Developer Name Role Phone Melissa Chow MD Primary Care Provider [phone] Allergies No known active allergies Medications Medication Sig Dispensed Refills Start Date End Date Status albuterol HFA (PROAIR HFA ; PROVENTIL HFA ; VENTOLIN HFA) 90 mcg/actuation inhaler 1 Puff 4 times daily. 09/02/2021 Active pantoprazole (PROTONIX) 20 mg EC tablet Take 1 tablet by mouth 2 times daily (before meals). Take on empty stomach, wait 30 mins and then eat to activate the medication- take before breakfast and supper 09/11/2021 Active Active Problems Problem Noted Date Diagnosed Date Cough 10/01/2024 Hemorrhoids 10/01/2024 Hoarseness of voice 10/01/2024 Chronic intractable headache 12/03/2016 Esophagitis 12/03/2016 Atypical chest pain 03/30/2016 Overview (10/01/2024): Likely from GI reflux, cardiac cath March 10, 2016 negative for occlusive disease Gastroesophageal reflux disease with esophagitis 03/30/2016 Overview (10/01/2024): Initially presented to the ER for chest pain, EGD by GI February 2016 Complex renal cyst 09/17/2014 Overview (10/01/2024): 1.2 cm complex cyst in the left renal cortex, incidentally found on 06/28/14 at [facility]-radiology read recommended 1 year followup to ensure stability. Patient also has 2 mm simple cyst seen in the left kidney Inguinal hernia 09/17/2014 Overview (10/01/2024): Status post repair by Dr. Peng on September 02, 2014, complicated by seroma Immunizations Name Administration Dates Next Due Pfizer SARS-CoV-2 COVID-19, mRNA, LNP-S, preservative free 12/27/2020,12/06/2020 Tdap Tetanus diptheria acell ular pertussis (Boostrix; Adacel) 7yo and older 06/06/2016 Surgical History Surgery Date Site/Laterality Comments HERNIA REPAIR PROCEDURE: REPAIR INGUINAL HERNIA; COMMENT: age 6 on right, age 39 on left COLONOSCOPY PROCEDURE: HISTORICAL COLONOSCOPY ESOPHAGOGASTRODUODENOSCOPY PROCEDURE: OR EGD TRANSORAL BIOPSY SINGLE/MULTIPLE; COMMENT: Performed with colonoscopy on 08/28/2021 Medical History Medical History Date Comments Atypical chest pain 03/30/2016 DX:Atypical chest pain; COMMENT: Likely from GI reflux, cardiac cath March 10, 2016 negative for occlusive disease Gastroesophageal reflux dise ase with esophagitis 03/30/2016 DX:Gastroesophageal reflux d isease with esophagitis Cough DX:Cough Hoarseness of voice DX:Hoarsenes s of voice Esophageal reflux DX:Esophageal reflux Family history of colon cancer D X:Family history of colon cancer Hemorrhoids DX:Hemorrhoids Family History Medical History Relation Name Comments Other: unknown Other No relationsh ip with his family, no [place], [place], ca to his knowledge Relation Name Status Comments Other Social History Tobacco Use Types Packs/Day Years Used Date Smoking Tobacco: Former Smokeless Tobacco: Never Alcohol Use Standard Drinks/Week Comments No 0 (1 standard drink = 0.6 oz pur e alcohol) Sex and Gender Information Value Date Recorded Sex Assigned at Not on file Gender Identity Not on file Sexual Orientation Not on file Obstetrics History Plan of Treatment Health Maintenance Due Date Last Done Comments Hepatitis B Vaccines (1 of 3 - 19+ 3-dose series) 02/02/1995 Cholesterol Screening (Lipid Panel) 09/02/2022 12/03/2016 Colorectal Cancer Screening: Colonoscopy 09/02/2022 Depression Screening 09/02/2022 HIV Screening 09/02/2022 Hepatitis C Screening 09/02/2022 Social Influencers of Health Screening 09/02/2022 COVID-19 Vaccine (3 - 2023-2 5 season) 2024 12/27/2020, 12/06/2020 Influenza Vaccine (#1) 2024 DTaP,Tdap,and Td Vaccines (2 - Td or Tdap) 06/06/2026 06/06/2016 HIB Vaccines Aged Out No longer eligi ble based on patient's age to complete this topic HPV Vaccines Aged Out No longer eligi ble based on patient's age to complete this topic Hepatitis A Vaccines Aged Out No long er eligible based on patient's age to complete this topic IPV Vaccines Aged Out No longer eligi ble based on patient's age to complete this topic MMR Vaccines Aged Out No longer eligi ble based on patient's age to complete this topic Meningococcal ACWY Vaccine Aged Out N o longer eligible based on patient's age to complete this topic Pneumococcal Vaccine: Pediatrics (0 to 5 Years) and At-Risk Patients (6 to 64 Years) Aged Out No longer eligible b ased on patient's age to complete this topic RSV Immunization Patients Under 20 months Aged Out No longer eligible b ased on patient's age to complete this topic Varicella Vaccines Aged Out No longer eligible based on patient's age to complete this topic Procedures Procedure Name Priority Date/Time Associated Diagnosis Comments LIPID PANEL Routine 12/03/2016 from Last 3 Months or Most Recently Relevant to Health Maintenance Results * (ABNORMAL) Lipid panel (12/03/2016) LDL/HDL Ratio 4 0 - 4 Triglycerides 111 0 - 150 mg/dL Cholesterol 188 0 - 200 mg/dL HDL 42 40 mg/dL LDL Cholesterol 124(A) 0 - 100 mg/dL Blood Venous blood specimen / Unknown Historical Provider LAB BLOOD ORDERAB LES from Last 3 Months or Most Recently Relevant to Health Maintenance Care Teams Net Wpf Developer Relationship Specialty Start Date End Date Melissa Chow MD [address] [place] [id number] PCP - General Internal Medicine 12/16/15
--- OUTSIDE RECORDS SUMMARY | 2024-11-02 17:26 | XMS_ITS | Encounter Summary ---
Author Name [facility] Organization [facility] [place] Address [address] [place] [address] Care Team Providers Care Project Analyst Name Role Phone JOSIAH HARRIS Primary Care [...] SALMONMarlo ION [id number] Sep 30, 2020 [id number] [phone] DORIAN TREJO PATIENT [facility] CE ORGANIZ GOLD ADV O Sep 30, 2020 [id number] [phone] TREJO DORIAN PATIENT Selected Encounter This section includes the information on record at [place] for the Encounter. Date/Time Encounter Type Encounter Description Reason Pro vider Source IHE Encounter Template Text not used by VA
--- OUTSIDE RECORDS SUMMARY | 2024-11-02 17:26 | XMS_ITS | Encounter Summary ---
Author Name [facility] [place] Organization [facility] [place] Address [address] [place] [address] Care Team Providers Care Hole Digger Operator Name Role Phone JOSIAH HARRIS Primary [...] PRESCRIPT ION [id number] Sep 30, 2020 [id number] [phone] DORIAN TREJO PATIENT [facility] CE ORGANTRES GOLD ADV O Sep 30, 2020 [id number] [phone] DORIAN TREJO PATIENT Selected Encounter This [...] AM PRIMARY Essential (primary) hypertension HONORIO CARPENTER [place] Sep 24, 2024 11:30 AM SECONDARY Cough, unspecified HONORIO CARPENTER [place] Sep 24, 2024 11:30 AM SECONDARY Dyspnea, unspecified HONORIO CARPENTER [place] Sep 24, 2024 11:30 AM SECONDARY Headache, unspecified HONORIO CARPENTER [place] Plan of Treatment: Future Appointments (+ 6 months) and Future Tests (+/- 45 days) The Plan of Treatment section includes future care activities for the patient from all [place] [facility] This section includes future appointments and future orders which are active, pending or scheduled. Future Appointments This section includes appointments that were scheduled to occur 6 months from the date of the Encounter, up to a maximum of 20 appointments. The data comes from all [facility]. Appointment Date/Time Appointment Type Appointme nt Facility Name Oct 20, 2024 09:00 AM AMBULATORY - MEDICINE [facility] Oct 26, 2024 09:00 AM AMBULATORY - MEDICINE [facility] Nov 02, 2024 09:15 AM [facility] Nov 10, 2024 12:30 PM AMBULATORY - NONE [facility] Dec 02, 2024 03:00 PM [facility]UL[facility]ORY [facility] NONE [facility] Jan 05, 2025 03:00 PM AMBULATORY - MEDICINE [facility] February 15, 2025 03:30 PM AMBULATORY - MEDICINE [facility] Active, Pending, and Scheduled Orders This section includes a listing of several types of active, pending, and scheduled orders, including clinic medications orders, diagnostic test orders, procedure orders and consult orders; where the start date of the order is 45 days before the date of the Encounter or 45 days after the date of theEncounter. The data comes from all [facility]. Test Date/Time Test Type Test Details Facility Name Oct 20, 2024 12:00 AM Laboratory - Chemi stry Order MICROALBUMIN CREATININE RATIO PANEL URINE (RANDOM) [facility] Oct 20, 2024 12:00 AM Laboratory - Chemi stry Order URINALYSIS URINE [facility] Oct 20, 2024 12:00 AM Laboratory - Chemi stry Order BASIC METABOLIC PANEL (non-fasting) BLOOD (SST-SERUM) [facility] Oct 26, 2024 09:40 AM Procedure Order ECHO CP CA RDIOLOGY ECHO/ [facility] Proc Printing Supplies Sales Representative's Choice [place] Lab Results: +/- 30 days of the encounter This section includes the Chemistry and Hematology Lab Results on record with [place] for the patient. Radiology Reports and Pathology Reports are provided separately, in subsequent sections. Lab Results This section contains the Chemistry/Hematology Results that were resulted 30 days before or 30 daysafter the date of the Encounter. Date/Time Source Result Type Result - Unit Interpretation Reference Range Comment Sep 29, 2024 07:39 AM [place] TSH Specimen Type: SERUM No comment entered. Ordering Provider: JOSIAH STRINGER Report Released Date/Time: Sep 28, 2024 01:51 PM Reporting Lab: [address] [address] Performing Lab: [address] [address] TSH 1.16 u[IU]/mL 0.35-5.00 Sep 29, 2024 07:39 AM [place] URIC ACID Specimen Type: SERUM No comment entered. Ordering Provider: JOSIAH STRINGER Report Released Date/Time: Sep 28, 2024 01:51 PM Reporting [facility] [address] [address] Performing Lab: [address] [address] URIC ACID 8.2 mg/dL H 3.5-7.2 Sep 29, 2024 07:39 AM [place] CALCIUM Specimen Type: SERUM No comment entered. Ordering Provider: JOSIAH STRINGER Report Released Date/Time: Sep 28, 2024 01:51 PM Reporting Lab: [address] [address] Performing Lab: [address] [address] CALCIUM 9.1 mg/dL 8.5-10.2 Sep 29, 2024 07:39 AM [place] HEMOGLOBIN A1C PANEL Specimen Type: BLOOD Comment: [...] 28, 2024 01:51 PM Reporting Lab: [address] [address] Performing Lab: [address] [address] HEMOGLOBIN A1C 5.8 H 4.0-5.6 Sep 29, 2024 07:39 AM [place] LIPID PANEL FASTING Specimen Type: SERUM No comment entered. Ordering Provider: JOSIAH STRINGER Report Released Date/Time: Sep 28, 2024 01:51 PM Reporting Lab: [address] [address] Performing Lab: [address] [address] CHOLESTEROL 193 mg/dL TRIGLYCERIDE 109 mg/dL 0-150 LDL calculated 132 mg/dL H 0-129 CHOL/HDL 4.9 HDL CHOLESTEROL 39 mg/dL L 40-60 Sep 29, 2024 07:39 AM [place] BASIC METABOLIC PANEL (fasting) Specime n Type: SERUM No comment entered. Ordering Provider: JOSIAH STRINGER Report Released Date/Time: Sep 28, 2024 01:51 PM Reporting Lab: [address] [address] Performing Lab: [address] [address] UREA NITROGEN 28 mg/dL H 7-25 GLUCOSE 94 mg/dL 65-100 SODIUM 138 mmol/L 135-145 POTASSIUM 4.4 mmol/L 3.5-5.0 CHLORIDE 100 mmol/L 100-110 CO2 30 meq/L 20-30 CREATININE, Serum 1.80 mg/dL H 0.50-1.40 eGFR(CKD-EPI 2020) 46 mL/min L >60 Sep 29, 2024 07:39 AM [place] LIVER FUNCTION Specimen Type: SERUM No comment entered. Ordering Provider: JOSIAH STRINGER Report Released Date/Time: Sep 28, 2024 01:51 PM Reporting Lab: [address] [address] Performing Lab: [address] [address] PROTEIN,TOTAL 7.3 g/dL 6.0-8.3 ALBUMIN 4.4 g/dL 3.5-5.0 ALKALINE PHOSPHATASE 70 U/L 40-150 AST 16 U/L 5-34 ALT 32 U/L BILIRUBIN, TOTAL 0.6 mg/dL 0.2-1.2 Sep 29, 2024 07:39 AM [place] CBC AND DIFF (AUTO) Specimen Type: BLOOD No comment entered. Ordering Provider: JOSIAH STRINGER Report Released Date/Time: Sep 28, 2024 01:51 PM Reporting Lab: [address] [address] Performing Lab: [address] [address] WBC 6.06 10*3/uL 4.50-11.00 RBC 4.78 10*6/uL [...] AM 98.6 66 164/100 18 98 5 [place] Social History: Smoking Status (Most current) [...] 04, 2022 03:00 PM VA-TOBACCO NEVER USED [place] Tobacco Use History This section includes a history of the smoking, or tobacco-related health factors, that were collected on or before the date of the Encounter. The data comes from the [place] facility where the Encounter took place. Date/Time Smoking Status/Tobacco Use Comment F acility February 13, 2021 01:00 PM VA-TOBACCO FORMER USER [place] February 13, 2021 01:00 PM CO-TOBACCO QUIT 15 YRS OR MORE [place] May 12, 2018 09:25 AM LIFETIME NON-TOBACCO USER Tried as a kid and hated [place] Encounter Notes: All associated encounter notes This section contains the clinical notes associated to the Encounter. Date/Time Encounter Note(s) Provider Source Sep 24, 2024 10:36 AM PRIMARY CARE NOTE: LOCAL TITLE: WALK-IN NOTE PRIMARY CARE (T) STANDARD TITLE: PRIMARY CARE NOTE DATE OF NOTE: SEP 24, 2024@10:36 ENTRY DATE: SEP 24, 2024@10:36:58 AUTHOR: HONORIO CARPENTER COSIGNER: URGENCY: STATUS: COMPLETED Data: 49year old MALE Philomath reports to Primary Care clinic for Walk-In visit. 's PCP is JOSIAH HARRIS Today Vet walks [...] DOSE IS NOT EFFECTIVE Indication: MIGRAINE Action: Philomath reports to sick call with URI symptoms since Saturday. Currently reports the following chills cough, non-productive dyspnea headache dizziness with coughing vomiting and diarrhea since yesterday body aches Denies fever Denies sore throat Denies nasal congestion Denies loss of taste or smell States several family members ill with cold symptoms Philomath alert and oriented, Skin warm and dry RR 16-20, even- non labored, able to complete full sentences no respiratory distress noted Lungs clear, although Philomath state he will hear wheezing at times Reports appetite is ok, trying to increase fluids home covid Saturday negative Using Coricedin and Tylenol with minimal relief States he has an old albuterol inh but has not used it Advised Philomath to seek medical care at Urgent care now. No sick call provider available at this time. Has asthma, elevated blood pressure and states he overall does not feel well. Philomath in agreement to go to urgent care now. In network name and address given to [place]. Reminders Info Only: [facility] Video Connect Capable [...] CARE RN Signed: 09/24/2024 11:30 HONORIO CARPENTER [place]
--- OUTSIDE RECORDS SUMMARY | 2024-11-02 17:26 | XMS_ITS | Encounter Summary ---
Author Name [facility] [place] Organization [facility] [place] [facility] [place] Address [address] [place] [address] Care Team Providers Care Cell Tuber Hand Name Role Phone JOSIAH HARRIS Primary Care [...] PRESCRIPT ION [id number] Sep 30, 2020 [id number] [phone] DORIAN TREJO PATIENT [facility] JOON SILVA GOLD ADV O Sep 30, 2020 [id number] [phone] DORIAN TREJO PATIENT Selected Encounter This section includes the information on record at [place] for the Encounter. Date/Time Encounter Type Encounter Description Reason Provider Source Nov 02, 2024 09:15 AM OFF/OP EST JANUARY X REQ PHY/QHP PRIMARY CARE/MEDICINE ICD-10-CM G43.709 Chronic migraine w/o aura, not intractable, w/o stat migr HONORIO CARPENTER IHJudi Encounter Template Text not used by [facility] Assessments - Encounter Diagnoses This section includes the primary and secondary diagnoses documented for the Encounter. Date/Time Primary/Secondary Diagnosis Diagnosis Name Provider Source Nov 02, 2024 09:59 AM PRIMARY Chronic migraine w/o aura, not intractable, w/o stat migr HONORIO CARPENTER [place] Plan of Treatment: Future Appointments (+ 6 months) and Future Tests (+/- 45 days) The Plan of Treatment section includes future care activities for the patient [facility] all [place] [facility]. This section includes future appointments and future orders which are active, pending or scheduled. Future Appointments This section includes appointments that were scheduled to occur 6 months from the date of the Encounter, up to a maximum of 20 appointments. The data comes from all [place] treatment facilities. Appointment Date/Time Appointment Type Appointme nt Facility Name Nov 10, 2024 12:30 PM AMBULATORY - NONE [facility] Dec 02, 2024 03:00 PM [facility] Jan 05, [facility]25 03:00 PM [facility] February 15, 2025 03:30 PM AMBULATORY - MEDICINE [facility] Active, Pending, and Scheduled Orders This section includes a listing of several types of active, pending, and scheduled orders, including clinic medications orders, diagnostic test orders, procedure orders and consult orders; where the start date of the order is 45 days before the date of the Encounter or 45 days after the date of theEncounter. The data comes from all [facility] Test Date/Time Test Type Test Details Facility Name Oct 20, 2024 12:00 AM Laboratory - Chemi stry Order BASIC METABOLIC PANEL (non-fasting) BLOOD (SST-SERUM) [facility] Oct 20, 2024 12:00 AM Laboratory - Chemi stry Order MICROALBUMIN CREATININE RATIO PANEL URINE (RANDOM) [facility] Oct 20, 2024 12:00 AM Laboratory - Chemi stry Order URINALYSIS URINE [facility] Oct 26, 2024 09:40 AM Procedure Order ECHO CP CA RDIOLOGY ECHO/ [facility] Proc Anthropology Instructor's Choice [place] Nov 10, 2024 12:00 AM Imaging - CT Scan Order CALCIUM SCORE 1 [facility] Dec 02, 2024 12:00 AM Imaging - Ultrasou nd Order ULTRASOUND KIDNEYS [place] Lab Results: +/- 30 days of the encounter This section includes the Chemistry and Hematology Lab Results on record with [place] for the patient. Radiology Reports and Pathology Reports are provided separately, in subsequent sections. Lab Results This section contains the Chemistry/Hematology Results that were resulted 30 days before or 30 daysafter the date of the Encounter. Date/Time Source Result Type Result - Unit Interpretation Reference Range Comment Oct 26, 2024 10:12 AM [place] [facility] 7 Specimen Type: SERUM No comment entered. Ordering Provider: ROSALIO LOYA Report Released Date/Time: Oct 26, 2024 09:45 AM Reporting Lab: [address] [address] Performing Lab: [address] [address] CREATININE,SE RUM 1.48 mg/dL 0.5-1.5 UREA NITROGEN, BLOOD 22 mg/dL 7-25 GLUCOSE,RANDO M 91 mg/dL 65-100 SODIUM 141 mmol/L 135-145 POTASSIUM 4.2 mmol/L 3.5-5.0 CHLORIDE 104 mmol/L 100-110 CO2 26 meq/L 20-30 ANION GAP 11 meq/L 6-16 eGFR(CKD-EPI 2020) 58 mL/min L >=60 Vital Signs: All taken on the encounter date This section contains inpatient and outpatient Vital Signs collected on the date of the Encounter. Date/Time Temperature Pulse Blood Pressure Respiratory Rate SP02 Pain Height Weight Body Mass Index Source Nov 02, 2024 09:26 AM 97.9 58 129/77 16 99 [address] [facility] Social History: Smoking Status (Most current) and Tobacco Use (All prior to encounter date) This section includes the most current, and the historical, smoking and tobacco- related health factors from the [place] facility where the Encounter took place. Current Smoking Status This section includes the most current smoking, or tobacco-related health factor, from the [place] facility where the Encounter took place. Date/Time Current Smoking Status Comment Clyde velazquez Oct 04, 2022 03:00 PM VA-TOBACCO NEVER USED [place] Tobacco Use History This section includes a history of the smoking, or tobacco-related health factors, that were collected on or before the date of the Encounter. The data comes from the [place] facility where the Encounter took place. Date/Time Smoking Status/Tobacco Use Comment F acility February 13, 2021 01:00 PM VA-TOBACCO FORMER USER [place] February 13, 2021 01:00 PM [place]-TOBACCO QUIT 15 YRS OR MORE [place] May 12, 2018 09:25 AM LIFETIME NON-TOBACCO USER Tried as a kid and hated [place] Encounter Notes: All associated encounter notes This section contains the clinical notes associated to the Encounter. Date/Time Encounter Note(s) Provider Source Nov 02, 2024 09:29 AM PRIMARY CARE NOTE: LOCAL TITLE: WALK-IN NOTE PRIMARY CARE (T) STANDARD TITLE: PRIMARY CARE NOTE DATE OF NOTE: NOV 02, 2024@09:29 ENTRY DATE: NOV 02, 2024@09:29:38 AUTHOR: HONORIO CARPENTER COSIGNER: URGENCY: STATUS: COMPLETED WALK-IN NOTE PRIMARY CARE (T) Has ADDENDA Data: 49year old MALE reports to Primary Care clinic for Walk-In visit. Badin's PCP is JOSIAH HARRIS, last visit with PCP was , next visit scheduled for . Today Vet walks in to clinic with complaint of headache, vomiting and dizziness Last recorded Vital Signs are: Temperature:97.9 F [36.6 C] (11/02/2024 09:26) Pulse:58 (11/02/2024 09:26) Blood Pressure:129/77 (11/02/2024 09:26) Respiration:16 (11/02/2024 09:26) Pain:10 (11/02/2024 09:26) Vet reports current allergies are: Remote Allergy Data No Remote Allergy/ADR Data available for this patient Current Medications from Active Med list include: Active Outpatient Medications (including Supplies): Active Outpatient Medications Status ====== 1) AMLODIPINE BESYLATE 10MG TAB TAKE ONE TABLET BY MOUTH ONCE ACTIVE DAILY FOR BLOOD PRESSURE/HEART, DO NOT TAKE WITH GRAPEFRUIT JUICE Indication: FOR HIGH BLOOD PRESSURE 2) CETIRIZINE HCL 10MG TAB TAKE ONE TABLET BY MOUTH EVERY ACTIVE MORNING Indication: FOR ALLERGIES 3) CHOLECALCIF 25MCG (D3-1,000UNIT) TAB TAKE ONE TABLET BY ACTIVE MOUTH ONCE DAILY FOR VITAMIN SUPPLEMENTATION Indication: FOR VITAMIN D DEFICIENCY 4) FUROSEMIDE 40MG TAB TAKE ONE TABLET BY MOUTH EVERY MORNING ACTIVE TO REMOVE FLUID/CONTROL BLOOD PRESSURE Indication: FOR HIGH BLOOD PRESSURE 5) LOSARTAN 50MG TAB TAKE ONE TABLET BY MOUTH ONCE DAILY FOR ACTIVE BLOOD PRESSURE/HEART Indication: FOR HIGH BLOOD PRESSURE 6) OMEPRAZOLE 20MG EC CAP TAKE TWO CAPSULES BY MOUTH EVERY ACTIVE MORNING 30 MINUTES BEFORE BREAKFAST Active Non-VA Medications Status ====== 1) Non-VA ACETAMINOPHEN 500/CAFFEINE 65MG TAB 2 TABLETS BY ACTIVE MOUTH ONCE DAILY NEEDED Indication: FOR HEADACHE 7 Total Medications Action: reports to sick call with spouse Maria T. Badin states starting on Saturday with increase headache. States today at 12 am he became very dizzy and fell off the cough. States I vomited a lot States at the time he noticed a nose bleed x 1. Currently reports dizziness. States the room is spinning Feels light headed. states light is bothering his eyes. Denies diarrhea Denies abdominal cramps Denies chest pain Denies dyspnea Denies nasal congestion VSS skin warm and dry gait steady Denies contact with any known individuals with illness Denies any changes in diet Badin states he used to be on migraine medications in the past but they did not work and Dr Zelaya discontinued them. States only using Motrin with not much effect States he has a history of migrains and this is a bad one. States he has had them worse in the past. Badin frustrated as they have impacted his life and he is not sure what to do about them Advised Badin to go to ED for eval. No sick call provider available. Veterans spouse states she will drive him to [employer] [facility]. 72 hour notification # given Badin requests message to provider updating her on today's visit and any suggestions. has seen neurology in past 2020 per [facility] Reminders Info Only: [facility] Video Connect Capable DUE NOW Home Telehealth (CCHT) Referral DUE NOW Medication Reconciliation DUE NOW (Optional) Whole Health Documentation DUE NOW /es/ HONORIO CARPENTER RESORT KEEPER RN Signed: 11/02/2024 09:59 11/02/2024 ADDENDUM STATUS: COMPLETED Hi Dr Zelaya. See sick call note today. looking for guidance. He is going to ER now but will need halfway plan. thanks /emmy/ HONORIO CARPENTER RESORT KEEPER RN Signed: 11/02/2024 10:00 HONORIO CARPENTER
[2024-11-02 18:40] VITALS: BP 118/78; PULSE 53; RESP 18; TEMP 36.7; O2SAT 94
[2024-11-02] MEDS: 0.9 % Sodium Chloride 1,000 ML 999 ML IV (18:51)
[2024-11-02] MEDS: Butalb/Acetamin/Caff 50/325/40 TABLET 1 TAB PO (19:02)
[2024-11-02] MEDS: diphenhydrAMINE HCL 50 MG/ML VIAL 25 MG IVPUSH (19:02)
[2024-11-02] MEDS: Ketorolac Tromethamine 15 MG/ML VIAL IVPUSH (19:05)
[2024-11-02] MEDS: Metoclopramide HCl 10 MG/2 ML VIAL IVPUSH (19:06)
--- NOTE | 2024-11-02 19:09 | PC.NURSE ---
Pt a&ox4, no signs of distress. Pt resting in the bed with the lights off. Pt reporting 8/10 headache Pts gf at bedside Pt medicated per [facility] Plan of care ongoing.
[2024-11-02 20:46] VITALS: BP 120/82; PULSE 52; RESP 16; TEMP 37.1; O2SAT 96
== END 2024-11-02 20:52 | disposition home or self-care (01) ==
PROVIDERS: Physician Assistant; Emergency Provider Emergency Medicine Emergency Medical Services; PCP Internal Medicine
DX: R51.9 Headache, unspecified (principal); R11.2 Nausea with vomiting, unspecified; R00.1 Bradycardia, unspecified; R94.31 Abnormal electrocardiogram [ECG] [EKG]; I10 Essential (primary) hypertension; Z79.899 Other long term (current) drug therapy
CPT/HCPCS: 36415; 80048; 80076; 83735; 85025; 93005; 96361; 96374; 96375; 99284; 99285; J1200; J1885; J2765

== ENCOUNTER → 2024-11-02 11:16 | Outpatient (BNV) | payer OTHER, SELFPAY | PROVIDERS: PCP Internal Medicine; Visit Provider Internal Medicine Cardiovascular Disease | DX: R94.31 Abnormal electrocardiogram [ECG] [EKG] (principal) | CPT/HCPCS: 93010 ==

== ENCOUNTER 2024-11-04 17:28 | Emergency (ER) | payer OTHER, SELFPAY ==
[2024-11-04 17:32] VITALS: BP 144/84; PULSE 85; RESP 20; TEMP 37.4; O2SAT 98; BMI 34.2
--- NOTE | 2024-11-04 17:34 | ED_ITS ---
HPI - General Adult General Chief complaint: General Medical Stated complaint: Migraine/vomiting/chills Time Seen by Provider: 11/04/24 22:22 Source: patient Mode of arrival: ambulatory Limitations: no limitations History of Present Illness ED Provider: HPI narrative: Patient's history of migraine headache comes here for serum similar headache for more severe for last 4 days with nausea vomiting light sensitivity patient is here on 11/02 for same Related Data Home Medications ?Medication ?Instructions ?Recorded ?Confirmed amlodipine 10 mg tablet 10 mg PO DAILY 09/24/24 09/24/24 cetirizine 10 mg tablet 10 mg PO DAILY PRN Allergy Symptoms 09/24/24 09/24/24 cholecalciferol (vitamin D3) 50 50 mcg PO DAILY 09/24/24 09/24/24 mcg (2,000 unit) capsule (Vitamin D3) omeprazole 20 mg capsule,delayed 40 mg PO DAILY@0630 09/24/24 09/24/24 release Previous Rx's ?Medication ?Instructions ?Recorded furosemide 40 mg tablet 40 mg PO QAM #90 tabs 09/26/24 losartan 50 mg tablet 50 mg PO BID #180 tabs 09/26/24 [id number] 1 cap PO Q4-6H PRN headache #14 11/03/24 50 mg-300 mg-40 mg capsule caps (Fioricet) ondansetron 4 mg disintegrating 4 mg PO Q6-8H PRN nausea and 11/04/24 tablet vomiting #7 tabs sumatriptan succinate 50 mg tablet 50 mg PO Q2H PRN migraine headache 11/04/24 (Imitrex) #10 tabs Allergies Allergy/AdvReac Type Severity Reaction Status Date / Time No Known Allergies Allergy Verified 11/04/24 17:35 Review of Systems 2 Review of Systems: Yes all other systems are reviewed and are negative [facility] Past Medical History Medical History (Updated 11/05/24 @ 00:00 by Rhianna Bowman) Migraine headache Hypertension Social History Social History Patient Tobacco Use Status: Never used Tobacco Advance Directives: No Advance Directives Information Provided: No Do you have a plan to hurt others: No Plan service: Yes Physical Exam ED Vital Signs: Vital Signs - 24 hr 11/04/24 17:32 11/04/24 22:42 11/04/24 23:53 Temperature 99.4 F 98.5 F 98.5 F Pulse Rate 85 71 71 Respiratory Rate 20 16 16 Blood Pressure 144/84 H 137/80 137/80 Pulse Oximetry 98 96 96 Oxygen Delivery Method Room Air Room Air Room Air BMI result Body Mass Index 34.2 Appearance: Alert. Oriented X3. No acute distress. Eyes: PERRLA, No Nystagmus ENT: Pharynx normal. Oral Mucosa moist Neck: Normal inspection. Neck supple. CVS: Normal heart rate and rhythm. Pulses normal. Respiratory: No respiratory distress. Equal air entry bilateral, no wheezing/rales/rhonchi Abdomen: Soft and nontender. Bowel sounds are present, no mass palpable, no CVA tenderness Skin: Skin warm and dry. Normal skin color. Normal skin turgor. Extremities: No lower extremity edema. No calf tenderness Neuro: Oriented X 3. No motor deficit. No sensory deficit.No cerebellar signs , cranial nerves II-XII intact Course Course Course Narrative: This is a Rapid Medical Examination (RME) performed by Bong Cedeño PA-C in triage. Full HPI, ROS, assessment and treatment plan per primary provider in the Main ED. 49 yo male here for eval of headaches, myalgias, N/V/D, abd pain x . seen here a few days ago for migraine - states this feels different. no known sick contacts. Plan: labs, viral swabs Medications Administered Discontinued Medications Generic Name Dose Route Start Last Admin Trade Name Freq PRN Reason Stop Dose Admin Acetaminophen/Butalbital/Caffeine 1 tab 11/04/24 23:41 11/04/24 23:48 Butalb/Acetamin/Caff 50/325/40 Tablet PO 11/04/24 23:42 1 tab ONCE ONE Administration Diphenhydramine HCl 50 mg 11/04/24 22:30 11/04/24 22:43 Diphenhydramine Hcl 50 Mg/Ml Vial IVPUSH 11/04/24 22:31 50 mg ONCE ONE Administration Sodium Chloride 1,000 mls @ 999 mls/hr 11/04/24 22:30 11/04/24 23:46 Ns IV 11/04/24 23:30 Infused .Q1H1M ONE Infusion Ketorolac Tromethamine 30 mg 11/04/24 22:30 11/04/24 22:43 Ketorolac Tromethamine 30 Mg/Ml Vial IVPUSH 11/04/24 22:31 30 mg ONCE ONE Administration Metoclopramide HCl 10 mg 11/04/24 22:30 11/04/24 22:43 Metoclopramide Hcl 10 Mg/2 Ml Vial IVPUSH 11/04/24 22:31 10 mg ONCE ONE Administration Medical Decision Making Medical Decision Making [facility] Narrative: Patient is feeling much better after migraine cocktail will discharge patient home on advised to continue Fioricet patient's used to take Imitrex in the past but his medication stopped responding. Differential Diagnosis Differential Diagnoses: The differential diagnosis associated with the presentation includes Migraine headache/tension headache/generalized headache Lab Data [facility] Lab Attestation statement: I reviewed the patient's lab results. 11/04/24 18:04 11/04/24 18:04 Labs: Lab Results 11/04/24 Range/Units 18:04 WBC 12.2 H (4.8-10.8) X10*3/uL RBC 4.42 L (4.60-5.80) X10*6/uL Hgb 12.4 L (14.0-18.0) g/dl Hct 36.9 L (42.0-52.0) % MCV 83.5 (80.0-98.0) fL MCH 28.1 (27.0-33.0) pg MCHC 33.6 (31.0-36.0) g/dl RDW 13.7 (11.0-16.0) % Plt Count 255 (160-400) X10*3/uL MPV 11.8 (9.4-12.4) fL Immature Gran % (Auto) 0.5 H (0.0-0.4) % Neut % (Auto) 91.9 H (45-73) % Lymph % (Auto) 4.3 L (20-40) % Howell % (Auto) 3.0 (2-11) % Eos % (Auto) 0.1 (0-4) % Baso % (Auto) 0.2 (0-2) % Lymph # (Auto) 0.5 L (1.2-4.9) X10*3/uL Howell # (Auto) 0.4 (0.1-1.2) X10*3/uL Eos # (Auto) 0.0 (0.0-0.4) X10*3/uL Baso # (Auto) 0.0 (0.0-0.2) X10*3/uL Abs Immat Gran (auto) 0.06 H (0.00-0.03) X10*3/uL Absolute Neuts (auto) 11.2 H (2.0-8.3) x10*3/uL Absolute Nucleated RBC 0.000 (0.0-0.012) X10*3/uL Nucleated RBC % (auto) 0.0 (0.0-0.2) /100WBC Smear Tech's Comments VERIFIED Sodium 139 (135-145) mmol/L Potassium 4.3 (3.3-5.1) mmol/L Chloride 107 (96-108) mmol/L Carbon Dioxide 25 (22-29) mmol/L Anion Gap 11 L (12-20) BUN 26 H (9-16) mg/dL Creatinine 1.40 (0.5-1.4) mg/dL Estim Creat Clear Calc 72.4 Estimated GFR 54 Random Glucose 118 H (60-115) mg/dL Calcium 9.0 (8.4-10.2) mg/dL Total Bilirubin 0.5 (0.0-1.0) mg/dL AST 18 (5-37) U/L ALT 38 (0-40) U/L Alkaline Phosphatase 63 (39-117) U/L Total Protein 7.8 (6.5-8.0) g/dL Albumin 4.6 (3.5-5.0) g/dL Influenza Type A (PCR) NEGATIVE (Negative) Influenza Type B (PCR) NEGATIVE (Negative) RSV RNA Qual (PCR) NEGATIVE (Negative) SARS-CoV-2 RNA (RT-PCR) NEGATIVE (Negative) S. pyogenes GrpA PADILLA Negative (Negative) Discharge Plan Discharge Clinical Impression: Migraine Patient Disposition: Home, Self-Care Instructions: Migraine Headache (ED) Additional Instructions: Continue Fioricet as prescribed during last discharge Imitrex as prescribed Medicine for nausea as prescribed Follow with your PCP Prescriptions: New sumatriptan succinate [Imitrex] 50 mg tablet 50 mg PO Q2H PRN (Reason: migraine headache) Qty: 10 0RF Rx Instructions: do not exceed 2 doses per 24 hrs ondansetron 4 mg tablet,disintegrating 4 mg PO Q6-8H PRN (Reason: nausea and vomiting) Qty: 7 0RF No Action amlodipine 10 mg Tablet 10 mg PO DAILY omeprazole 20 mg Capsule,Delayed Release(Dr/Ec) 40 mg PO DAILY@0630 cholecalciferol (vitamin D3) [Vitamin D3] 50 mcg (2,000 unit) Capsule 50 mcg PO DAILY cetirizine 10 mg Tablet 10 mg PO DAILY PRN (Reason: Allergy Symptoms) losartan 50 mg Tablet 50 mg PO BID Qty: 180 0RF Protocol: Hold for SBP< HOLD for SBP < : 90 furosemide 40 mg tablet 40 mg PO QAM Qty: 90 0RF [id number] [Fioricet] 50-300-40 mg capsule 1 cap PO Q4-6H PRN (Reason: headache) Qty: 14 0RF Stand Alone Forms: Work/School Release Interventions: ED Discharge Assessment Last Done: 11/04/24 23:53 Discharge Date/Time: 11/04/24 23:54 Print Language: [place]
[2024-11-04 18:18] LABS: Basophils Percent Auto 0.2 % (0-2); Eosinophils Percent Auto 0.1 % (0-4); Hematocrit 36.9 % (42.0-52.0); Hemoglobin 12.4 g/dl (14.0-18.0); Imm Gran Abs Auto 0.06 X10*3/uL (0.00-0.03); Imm Gran Pct Auto 0.5 % (0.0-0.4); Lymphocytes Absolute Auto 0.5 X10*3/uL (1.2-4.9); Lymphocytes Percent Auto 4.3 % (20-40); MANUAL DIFF FLAG SCAN; Mean Corpuscular HGB Conc 33.6 g/dl (31.0-36.0); Mean Corpuscular Hemoglobin 28.1 pg (27.0-33.0); Mean Corpuscular Volume 83.5 fL (80.0-98.0); Mean Platelet Volume 11.8 fL (9.4-12.4); Monocytes Absolute Auto 0.4 X10*3/uL (0.1-1.2); Neutrophils Absolute Auto 11.2 x10*3/uL (2.0-8.3); Neutrophils Percent Auto 91.9 % (45-73); Platelet Count 255 X10*3/uL (160-400); Red Blood Count 4.42 X10*6/uL (4.60-5.80); Red Cell Distribution Width 13.7 % (11.0-16.0); SCAN SMEAR FLAG 1; White Blood Count 12.2 X10*3/uL (4.8-10.8)
[2024-11-04 18:30] LABS: IDNOW Serial# 58CA691E; Strep A Nucleic Acid Negative (Negative)
[2024-11-04 18:36] LABS: Alanine Aminotransferase 38 U/L (0-40); Albumin Level 4.6 g/dL (3.5-5.0); Alkaline Phosphatase 63 U/L (39-117); Anion Gap 11 (12-20); Aspartate Amino Transferase 18 U/L (5-37); Bilirubin Total 0.5 mg/dL (0.0-1.0); Blood Urea Nitrogen 26 mg/dL (9-16); Carbon Dioxide 25 mmol/L (22-29); Chloride 107 mmol/L (96-108); Creatinine Clr Calc Pharmacy 72.4; Estimated Glomerular Filt Rate 54; Glucose Random 118 mg/dL (60-115); Potassium 4.3 mmol/L (3.3-5.1); Sodium 139 mmol/L (135-145); Total Protein 7.8 g/dL (6.5-8.0)
[2024-11-04 18:52] LABS: Influenza A PCR NEGATIVE (Negative); Influenza B PCR NEGATIVE (Negative); Resp Syncy Virus RNA Qual PCR NEGATIVE (Negative); SARS COV2 PCR INHOUSE NEGATIVE (Negative)
[2024-11-04 19:02] LABS: SLIDE REVIEW VERIFIED
[2024-11-04 22:42] VITALS: BP 137/80; PULSE 71; RESP 16; TEMP 36.9; O2SAT 96
[2024-11-04] MEDS: 0.9 % Sodium Chloride 1,000 ML 999 ML IV (22:42)
[2024-11-04] MEDS: Metoclopramide HCl 10 MG/2 ML VIAL IVPUSH (22:43)
[2024-11-04] MEDS: diphenhydrAMINE HCL 50 MG/ML VIAL IVPUSH (22:43)
[2024-11-04] MEDS: Ketorolac Tromethamine 30 MG/ML VIAL IVPUSH (22:43)
[2024-11-04] MEDS: Butalb/Acetamin/Caff 50/325/40 TABLET 1 TAB PO (23:48)
[2024-11-04 23:53] VITALS: BP 137/80; PULSE 71; RESP 16; TEMP 36.9; O2SAT 96
== END 2024-11-04 23:54 | disposition home or self-care (01) ==
PROVIDERS: Physician Assistant Medical; Emergency Provider Internal Medicine; PCP Internal Medicine
DX: G43.909 Migraine, unspecified, not intractable, without status migrainosus (principal); R11.2 Nausea with vomiting, unspecified; Z79.899 Other long term (current) drug therapy; Z03.818 Encounter for observation for suspected exposure to other biological agents ruled out
CPT/HCPCS: 0241U; 80053; 85025; 87651; 96361; 96374; 96375; 99284; J1200; J1885; J2765